=== PATIENT | male | born 1935 | race Caucasian/White ===

== ENCOUNTER 2016-04-30 11:40 | Inpatient (IN) | payer MEDICARE, OTHER ==
[~2016-04-30] VITALS: Ht 172.7 cm; Wt 57.8 kg
[2016-04-30] VITALS (10 sets, daily range): BP systolic 106–138; BP diastolic 64–92; BMI 17.6
[~2016-04-30 11:40] MED LIST: BAYER CHEWABLE81 MG PO; BETAPACE 120 M120 MG PO; PLAVIX75 MG PO; PRAVACHOL20 MG PO
[2016-04-30 12:20] LABS: BASOPHILS 0.1 % (0.0-2.0); EOSINOPHILS 0.6 % (0-7); HEMATOCRIT 38.1 % (42.0-54.0); HEMOGLOBIN 13.1 g/dL (13.5-17.5); IMMATURE GRANULOCYTES 0.2 % (0-5); LYMPHOCYTES 11.4 % (15-50); MCH 32.3 pg (26.0-34.0); MCHC 34.4 g/dL (31.0-37.0); MCV 94.1 fL (80.0-100.0); MEAN PLATELET VOLUME 9.2 fL (7.4-10.4); MONOCYTES 12.4 % (2-11); NEUTROPHILS 75.3 % (40-80); PLATELET COUNT 212 10x3/uL (130-400); RBC 4.05 10x6/uL (4.20-6.10); RDW 12.5 % (11.5-14.5); WBC 10.4 10x3/uL (4.8-10.8)
[2016-04-30 12:35] LABS: ALBUMIN 2.9 g/dL (3.4-5.0); ALKALINE PHOSPHATASE 93 U/L (46-116); ALT (SGPT) 14 U/L (10-68); BILIRUBIN - TOTAL 0.84 mg/dL (0.2-1.3); CALC OSMOLALITY 269 mosm/kg (275-300); CALCIUM 8.7 mg/dL (8.5-10.1); CARBON DIOXIDE 26.8 mmol/L (21.0-32.0); CHLORIDE - SERUM 99 mmol/L (98-107); CREATININE - SERUM 0.9 mg/dL (0.6-1.3); GLUCOSE 99 mg/dL (74-106); PROTEIN - SERUM 6.4 g/dL (6.4-8.2); SODIUM 133 mmol/L (136-145); UREA NITROGEN 23 mg/dL (7-18); eGFR NON AFRICAN AMERICAN 85 mL/min (90-120)
[2016-04-30 12:49] LABS: APPEARANCE CLEAR (CLEAR); BILIRUBIN NEGATIVE (NEGATIVE); COLOR DK YELLOW (YELLOW); GLUCOSE NEGATIVE (NEGATIVE); KETONE NEGATIVE (NEGATIVE); LEUKOCYTE ESTERASE TRACE (NEGATIVE); NITRITE NEGATIVE (NEGATIVE); PROTEIN TRACE mg/dL (NEGATIVE); SPECIFIC GRAVITY 1.025 (1.005-1.020)
[2016-04-30 12:50] LABS: BACTERIA MODERATE /hpf (NONE SEEN); EPITHELIAL CELLS 0-5 /hpf (0-5); MUCUS <1+ /lpf (NONE SEEN); RED CELLS - URINE 0-5 /hpf (0-5); WHITE CELLS - URINE 0-5 /hpf (0-5)
[2016-04-30 13:37] LABS: APTT 26.2 SECONDS (22.8-39.4); INR 1.2 (0.85-1.17); PROTIME 15.1 SECONDS (11.6-15.0)
--- NOTE | 2016-04-30 14:52 | NUR ---
REC'D VIA STRETCHER FROM ER PERSONNEL, AAO, VSS, DENIES PAIN, O2 VIA NC AT 2L, RIGHT AND LEFT HAND PIV' SL, LEFT GROIN WITH CDI DRESSING, RIGHT SIDE WEAKNESS NOTED TO UPPER AND LOWER EXTREMITY, ASSESSMENT COMPLETE PER FLOWSHEET, FAMILY TO BEDSIDE, STATUS UPDATED, VOICES NO NEEDS AT THIS TIME, CALL LIGHT IN REACH, ACCLAMATED TO ICU
--- NOTE | 2016-04-30 16:00 | NUR ---
NEURO CHECK PER FLOWSHEET
--- NOTE | 2016-04-30 17:00 | NUR ---
NEURO CHECK PER FLOWSHEET
--- NOTE | 2016-04-30 17:15 | NUR ---
UNIT # 1 PLTS INITIATED, VSS, AAO
--- NOTE | 2016-04-30 18:00 | NUR ---
NEURO CHECK PER FLOWSHEET
--- NOTE | 2016-04-30 18:10 | NUR ---
UNIT # 1 PLT'S COMPLETED, LINE FLUSHED WITH 100 CC NS
--- NOTE | 2016-04-30 18:20 | NUR ---
UNIT #2 PLT'S INITIATED
--- NOTE | 2016-04-30 18:40 | NUR ---
UNIT # 2 PLT'S COMPLETED, VSS, AAO, DENIES PAIN, LINE FLUSHED WITH 100 CC NS
--- NOTE | 2016-04-30 19:00 | NUR ---
1900: Pt rec'd resting HOB 30 degrees with eyes open. Pupils ARTHUR+ bilat. SMCx4 =b ilat fagot heater with commands. Pt is able to move all extrem vs gravity without difficulty or weakness. Pt is oriented x3 and conversive. Pt denies difficulty with vision at this time. No facial palsy is seen. Pt is breathing 022LNC with RR20X with SPO2 98%. Lungs clear bilat with decreased based bilat with auscultation. MMP and no cyanosis noted. Irregular heart tones. Pt is 101 UAfib on CM. Pulses are palpable x4. ABD soft NT BS active x4. Pt denies difficulty with urination. SR up x2, call light in reach, all monitors intact and alarms on.
--- NOTE | 2016-04-30 21:00 | NUR ---
2100: No change in RESP/CV/NS status. No change in IVF/UOP at this time. Pt denies pain, nausea, or vomitting at this time.
--- NOTE | 2016-04-30 23:00 | NUR ---
2300: No change in RESP/CV/NS status. No change in IVF/UOP. Pt remains UAfib 100's on CM. Pt without c/o at this time.
[2016-05-01] VITALS (27 sets, daily range): BP systolic 93–133; BP diastolic 55–101; Ht 172.7 cm; Wt 57.8 kg
--- NOTE | 2016-05-01 | NUR ---
0000: 1ST UNIT OF PLT STARTED VIA LEFT FA 18G IV. No change in pt RESP/CV/NV status. Pt remains Afib on CM. Pt denies pain, tingling, numbness, or nausea at this time. SMCx4=bilat with commands. No weakness or deficits noted.
--- NOTE | 2016-05-01 04:45 | NUR ---
0445: Pt resting with eyes closed. Open to verbal stimuli. Pt is oriented x3 and conversive. Denies pain, tingling, numbness at this time. No changes in neuro assessment. Pt remains Afib on CM 90-110bpm. SCDs intact. Bed alarm on.
--- NOTE | 2016-05-01 05:59 | NUR ---
0559: Pt resting with eyes closed. Open to verbal. No c/o at this time. Pt remains Afib 110's. Pt IVs saline locked at this time.
[2016-05-01 06:01] LABS: BASOPHILS 0 % (0.0-2.0); EOSINOPHILS 0.3 % (0-7); HEMATOCRIT 34.3 % (42.0-54.0); HEMOGLOBIN 11.7 g/dL (13.5-17.5); IMMATURE GRANULOCYTES 0.3 % (0-5); LYMPHOCYTES 3.7 % (15-50); MCH 31.6 pg (26.0-34.0); MCHC 34.1 g/dL (31.0-37.0); MCV 92.7 fL (80.0-100.0); MEAN PLATELET VOLUME 9.2 fL (7.4-10.4); MONOCYTES 9.5 % (2-11); NEUTROPHILS 86.2 % (40-80); RDW 12.3 % (11.5-14.5); WBC 12.1 10x3/uL (4.8-10.8)
[2016-05-01 06:04] LABS: PLATELET COUNT 290 10x3/uL (130-400)
[2016-05-01 06:27] LABS: CALC OSMOLALITY 267 mosm/kg (275-300); CALCIUM 8.8 mg/dL (8.5-10.1); CARBON DIOXIDE 25.7 mmol/L (21.0-32.0); CHLORIDE - SERUM 98 mmol/L (98-107); CREATININE - SERUM 0.7 mg/dL (0.6-1.3); GLUCOSE 95 mg/dL (74-106); POTASSIUM - SERUM 3.8 mmol/L (3.5-5.1); SODIUM 133 mmol/L (136-145); eGFR NON AFRICAN AMERICAN > 90 mL/min (90-120)
[2016-05-01 06:39] LABS: UREA NITROGEN 17 mg/dL (7-18)
--- NOTE | 2016-05-01 07:00 | NUR ---
RECIEVED AWAKE AND ALERT-NOTED R FACIAL DROOPING-R LEG WEAKNESS-SLIGHT GARBLED SPEECH-UCAF ON MONITOR
--- NOTE | 2016-05-01 08:30 | NUR ---
TO CT SCAN FOR CTA AND CT OF HEAD-R 20G [id number]
--- NOTE | 2016-05-01 09:30 | NUR ---
DR LINTON AT BEDSIDE-SPOKE WITH SON AND PT-REGARDING ICB AND PROGNOSIS-DR MACK CONSULTED AND PG'D REQUESTED BY DR LINTON
[2016-05-01 10:42] LABS: HEMATOCRIT 34.3 % (42.0-54.0); HEMOGLOBIN 11.9 g/dL (13.5-17.5); MCH 32.5 pg (26.0-34.0); MCHC 34.7 g/dL (31.0-37.0); MCV 93.7 fL (80.0-100.0); MEAN PLATELET VOLUME 9.3 fL (7.4-10.4); RBC 3.66 10x6/uL (4.20-6.10); RDW 12.4 % (11.5-14.5); WBC 9.7 10x3/uL (4.8-10.8)
[2016-05-01 11:02] LABS: INR 1.16 (0.85-1.17); PROTIME 14.7 SECONDS (11.6-15.0)
[2016-05-01 11:03] LABS: APTT 32.6 SECONDS (22.8-39.4)
--- NOTE | 2016-05-01 19:30 | NUR ---
1929: Left hand PIV leaking. PIV removed and 20G PIV restarted to left FA x1 attempt. Heparin restarted at 800 units/hr and NS TKVO.
--- NOTE | 2016-05-01 20:00 | NUR ---
2000: Pt resting HOB 30 degrees with eyes open. Pt alert and oriented. Visible right sided facial drooping is seen. Pt's speech is clear. Pt denies: pain, tingling, numbness, or visual disturbances at this time. Pt moves x4 extrem vs gravity to commands. Pt car greaser = bilat with commands. Pt breathing 022LNC [id number] with SPO2 98%. Lungs clear bilat with decreased bases with auscultation. MMP and no cyanosis noted. ABD soft NT BSx4 Active. Pt denies difficulty with elimination and is able to use urinal w/o difficulty. SR up x2, call light in reach, All monitors on and alarms intact.
--- NOTE | 2016-05-01 22:45 | NUR ---
2245: Pt bath done and linen changed. Pt repostioned for comfort. Pt placed HOB 30 degrees. No change in pt RESP/CV/NV status. No change in IVF/UOP.
[2016-05-02] VITALS (24 sets, daily range): BP systolic 81–128; BP diastolic 43–97
--- NOTE | 2016-05-02 | NUR ---
0000: No change in pt RESP/CV/NV status. No change in IVF/UOP. Pt remains Afib on CM. Easily arousable to verbal and oriented. Denies pain, tingling, or numbness.
[2016-05-02 05:51] LABS: BASOPHILS 0 % (0.0-2.0); EOSINOPHILS 1.4 % (0-7); HEMATOCRIT 36.7 % (42.0-54.0); IMMATURE GRANULOCYTES 0.2 % (0-5); LYMPHOCYTES 16.7 % (15-50); MCH 32.3 pg (26.0-34.0); MCHC 35.4 g/dL (31.0-37.0); MEAN PLATELET VOLUME 9.9 fL (7.4-10.4); MONOCYTES 12.7 % (2-11); PLATELET COUNT 265 10x3/uL (130-400); RBC 4.02 10x6/uL (4.20-6.10); RDW 12.3 % (11.5-14.5)
[2016-05-02 05:53] LABS: MCV 91.3 fL (80.0-100.0); WBC 6.5 10x3/uL (4.8-10.8)
[2016-05-02 05:57] LABS: CALC OSMOLALITY 265 mosm/kg (275-300); CARBON DIOXIDE 27.9 mmol/L (21.0-32.0); CHLORIDE - SERUM 98 mmol/L (98-107); CREATININE - SERUM 0.7 mg/dL (0.6-1.3); GLUCOSE 96 mg/dL (74-106); SODIUM 132 mmol/L (136-145); UREA NITROGEN 14 mg/dL (7-18); eGFR NON AFRICAN AMERICAN > 90 mL/min (90-120)
--- NOTE | 2016-05-02 06:30 | NUR ---
0630: Pt to CT at this time.
--- NOTE | 2016-05-02 06:45 | NUR ---
0645: Pt ret'd from CT. All monitors restablished at this time. Pt w/o c/o at this time. Pt 02 removed at this time. Breathing RA at this time. No change in neuro assessment. Pt remains with NS TKVO and Heparin 800 units/hr infusing via left arm PIV.
[2016-05-02 07:43] LABS: INR 1.2 (0.85-1.17); PROTIME 15.1 SECONDS (11.6-15.0)
[2016-05-02 07:51] LABS: APTT 78.2 SECONDS (22.8-39.4)
--- NOTE | 2016-05-02 20:00 | NUR ---
REPORT RECEIVED, AND ASSESSMENT COMPLETED. PTT RESULTS RECEIVED. NO ADJUSTMENTS IN HEPRIN DRIP NECCESARY. PT HAS SLIGHT WEAKNESS IN RIGHT SIDE. PUPILS LUGGISH WITH REPONSE TO LIGHT. SEE ASSESSMENT FOR FURTHER DETAILS.
--- NOTE | 2016-05-02 21:22 | NUR ---
2100 ROCEPHIN GIVEN. NO CHANGES IN NEURO STATUS AT THIS TIME. VSS WILL MONITOR.
--- NOTE | 2016-05-02 23:30 | NUR ---
REASSESSMENT COMPLETED. SEE ASSESSMENT FOR FULL DETAILS. PT RESTING IN ROOM QUIETLY. AROUSES TO VERBAL STIMULI. NO CHANGES IN NERUO STATUS AT THIS TIME. VSS WILL CONTINUE TO MONTIOR.
[2016-05-03] VITALS (25 sets, daily range): BP systolic 15–132; BP diastolic 50–100
--- NOTE | 2016-05-03 01:00 | NUR ---
PT SLEEPING IN ROOM. VSS. NO CHANGES IN STATUS AT THIS TIME. WILL MONITOR
--- NOTE | 2016-05-03 03:00 | NUR ---
REASSESSMENT COMPLETED. SEE ASSESMENT FOR FULL DETAILS. NO CHANGES IN NEURO STATUS AT THIS TIME. VSS WILL CONTINUE TO MONITOR.
[2016-05-03 03:52] LABS: BASOPHILS 0 % (0.0-2.0); EOSINOPHILS 1.1 % (0-7); HEMOGLOBIN 13.2 g/dL (13.5-17.5); IMMATURE GRANULOCYTES 0.2 % (0-5); MCHC 34.7 g/dL (31.0-37.0); MCV 92.2 fL (80.0-100.0); MEAN PLATELET VOLUME 9.4 fL (7.4-10.4); MONOCYTES 14.8 % (2-11); NEUTROPHILS 64.9 % (40-80); PLATELET COUNT 268 10x3/uL (130-400); RBC 4.12 10x6/uL (4.20-6.10); RDW 12.3 % (11.5-14.5); WBC 6.6 10x3/uL (4.8-10.8)
[2016-05-03 03:58] LABS: CALC OSMOLALITY 265 mosm/kg (275-300); CALCIUM 8.9 mg/dL (8.5-10.1); CARBON DIOXIDE 26.2 mmol/L (21.0-32.0); CHLORIDE - SERUM 98 mmol/L (98-107); CREATININE - SERUM 0.8 mg/dL (0.6-1.3); GLUCOSE 95 mg/dL (74-106); POTASSIUM - SERUM 3.9 mmol/L (3.5-5.1); SODIUM 132 mmol/L (136-145); UREA NITROGEN 15 mg/dL (7-18); eGFR NON AFRICAN AMERICAN > 90 mL/min (90-120)
--- NOTE | 2016-05-03 05:52 | NUR ---
PT SLEEPING IN BED. CALL LIGHT IN REACH. BEDSIDE RAILS UP X 2. NO CHANGES IN STATUS AT THIS TIME.
--- NOTE | 2016-05-03 09:08 | NUR ---
0700 RESTING WITH EYES CLOSED. VITALS ALL WNL. INITIAL ASSESSMENT DOCUMENTED PER FLOWSHEET. ROOM AIR WITH NO DISTRESS. ORAL CARE PERFORMED WITHOUT ASSIST.
--- NOTE | 2016-05-03 09:50 | NUR ---
ALL AM MEDS GIVEN PER MAR
--- NOTE | 2016-05-03 10:12 | NUR ---
PIV TO LEFT UPPER FOREARM INFILTRATED. D/C PIV AND WRAPPED.
--- NOTE | 2016-05-03 10:49 | NUR ---
20 GAUGE PIV STARTED TO RIGHT FOREARM, PROCALAMINE RESTARTED.
--- NOTE | 2016-05-03 11:50 | NUR ---
1100 REASSESSMENT DOCUMENTED PER FLOWSHEET.
--- NOTE | 2016-05-03 12:31 | NUR ---
Nutrition Follow Up: Chart reviewed. Noted pt with aspiration and awaiting speech eval today. Diet: Regular puree with honey thick liquids Wt gain of 5# since admit +BM 05/01/16 Labs noted - Na low Meds: Procalamine @ 30 ml/hr providing 176.4 kcal and 21 g protein Rec continue diet per NATIONAL SALES EXECUTIVE recs. RD following.
--- NOTE | 2016-05-03 18:49 | NUR ---
1300 LYING IN BED VISITING WITH FAMILY, ROOM AIR. VITALS ALL WNL.
--- NOTE | 2016-05-03 18:51 | NUR ---
1500 ASSESSMENT DOCUMENTED PER FLOWSHEET, DENIES NEEDS AT THIS TIME. FAMILY AT BEDSIDE. 1800 ALL PM MEDS GIVEN PER JUN.
--- NOTE | 2016-05-03 19:40 | NUR ---
REC'D TO CARE, DAIRY INSPECTOR PER FLOWSHEET. PT AWAKE, ORIENTED TO SITUATION, VSS. CM - UCAF. PT DENIES PAIN, REPORTS "JUST A SLIGHT TRIPATHI". DENIES NEED FOR PRN MED. PIV X 2 INFUSING - SEE FLOWSHEET, NO REDNESS OR SWELLING AT SITES. URINAL AT BS. C/L IN REACH. TV CHANGED TO CHANNEL PT REQUETED. ALARMS ON.
--- NOTE | 2016-05-03 21:38 | NUR ---
NO VISITORS. PT RESTING QUIETLY, VSS.
--- NOTE | 2016-05-03 23:00 | NUR ---
REASSESSMENT PER FLOWSHEET. AWAKENS EASILY, NEURO WNL. VSS. C/L IN REACH.
[2016-05-04] VITALS (14 sets, daily range): BP systolic 98–135; BP diastolic 61–96
--- NOTE | 2016-05-04 01:00 | NUR ---
PT RESTING QUIETLY, VSS. DENIES NEEDS. NEURO WNL, VOIDING PER URINAL
--- NOTE | 2016-05-04 03:40 | NUR ---
AM LAB DRAWN. REASSESSMENT PER FLOWSHEET, NO ACUTE CHANGES. PT ALERT AND ORIENTED, DENIES PAIN OR NEEDS.
[2016-05-04 04:16] LABS: BASOPHILS 0.1 % (0.0-2.0); EOSINOPHILS 0.9 % (0-7); HEMATOCRIT 38.5 % (42.0-54.0); HEMOGLOBIN 13.6 g/dL (13.5-17.5); IMMATURE GRANULOCYTES 0.1 % (0-5); LYMPHOCYTES 15.1 % (15-50); MCH 32.1 pg (26.0-34.0); MCHC 35.3 g/dL (31.0-37.0); MCV 90.8 fL (80.0-100.0); MEAN PLATELET VOLUME 9.5 fL (7.4-10.4); MONOCYTES 13.9 % (2-11); NEUTROPHILS 69.9 % (40-80); PLATELET COUNT 267 10x3/uL (130-400); RBC 4.24 10x6/uL (4.20-6.10); RDW 12.2 % (11.5-14.5); WBC 7.4 10x3/uL (4.8-10.8)
[2016-05-04 04:41] LABS: CALC OSMOLALITY 262 mosm/kg (275-300); CALCIUM 8.8 mg/dL (8.5-10.1); CARBON DIOXIDE 24.9 mmol/L (21.0-32.0); CHLORIDE - SERUM 97 mmol/L (98-107); CREATININE - SERUM 0.7 mg/dL (0.6-1.3); GLUCOSE 88 mg/dL (74-106); SODIUM 131 mmol/L (136-145); UREA NITROGEN 14 mg/dL (7-18); eGFR NON AFRICAN AMERICAN > 90 mL/min (90-120)
--- NOTE | 2016-05-04 06:09 | NUR ---
PT UP IN BED, SET UP TO BRUSH HIS TEETH. EXPLAINED NPO UNTIL SWALLOW EVAL. VSS.
--- NOTE | 2016-05-04 07:00 | NUR ---
REPORT RECIEVED, INTITIAL ASSESSMENT COMPLETE, PLEASE SEE FLOW SHEETS FOR DETAILS. PT DENIES NEEDS/PAIN AT THIS TIME. BED LOW AND LOCKED, CALL LIGHT IN REACH. SCD'S ON AND RUNNING. VSS AT THIS TIME, WILL CONTINUE TO MONITOR.
--- NOTE | 2016-05-04 09:00 | NUR ---
PT DOES INDEPENDED ORAL CARE AND TURNING/MOVING UP IN BED. WILL CONTINUE TO MONITOR.
--- NOTE | 2016-05-04 09:37 | NUR ---
Is the patient Alert and Oriented? Yes 0 * How many steps to enter\exit or inside your home? 1-2 0 * PCP DR. HUNTER 0 * Pharmacy [facility] IN [place] 0 * Preadmission Environment Home with Family 0 * ADLs Independent 0 * Equipment Cane Rolling Walker 0 * Other Equipment PATIENT HAS WALKER AND CANE BUT HAS NOT BEEN USING THEM PRIOR TO COMING TO THE HOSPITAL 0 * List name and contact numbers for known caregivers / representatives who currently or will assist patient after discharge: SPOUSE: GRADY (H) [phone] (C) [phone] 0 * Community resources currently utilized None 0 * Additional services required to return to the preadmission environment? No 0 * Can the patient safely return to the preadmission environment? Yes 0 * Has this patient been hospitalized within the prior 30 days at any hospital? No 0 Grand Total: 0 PATIENT LIVES AT HOME WITH HIS , GRADY. SHE STATES SHE WILL DRIVE HIM HOME AT DISCHARGE. PATIENT'S PCP IS DR. HUNTER. HE GETS HIS MEDS FROM [facility] IN [place]. PATIENT STATES HE HAD HOME HEALTH FROM [facility] IN THE PAST. HE HAS A WALKER AND CANE BUT DID NOT USE EITHER PRIOR TO COMING TO THE [facility]. PATIENT STATES THERE ARE 1-2 STEPS TO ENTER HIS HOME. HE PREFERS TO RETURN HOME AT DISCHARGE. NO DISCHARGE NEEDS AT THIS TIME.
--- NOTE | 2016-05-04 10:55 | NUR ---
ORDERS TO TRANSFER GIVEN BY DR GARCÍA. WILL CONTINUE ALL CURRENT ORDERS EXCEPT ASA SUPP. AND ADD TELEMETRY ON THE FLOOR. PT RESTING IN BED AND RECIEVING A SWALLOW EVAL. PT CAN MAVE MECHANICALLY SOFT FOOD WITH HONEY THICK LIQUIDS. DENIES PAIN/NEEDS AT THIS TIME, WILL CONTINUE TO MONITOR.
--- NOTE | 2016-05-04 13:00 | NUR ---
PT RECIEVED BATH, DENIES PAIN/OTHER NEEDS AT THIS TIME. WILL CONTINUE TO MONITOR.
--- NOTE | 2016-05-04 13:10 | NUR ---
RECEIVED REPORT FROM ICU NURSE, RAMYA DALTON. STATED THAT SHE WOULD BRING PT IN A LITTLE WHILE VIA WHEELCHAIR.
--- NOTE | 2016-05-04 13:22 | NUR ---
CALLED AND GAVE REPORT TO AIDA DALTON ON PCU FLOOR. WILL TRANSFER PT.
--- NOTE | 2016-05-04 13:42 | NUR ---
PT SAFELY TRANSFERED VIA WHEELCHAIR TO PCU BED 2125. LEFT IN CARE OF LM DALTON.
--- NOTE | 2016-05-04 13:43 | NUR ---
PT ARRIVED TO ROOM 2125 VIA WHEELCHAIR, ACCOMPANIED BY ICU NURSE, RAMYA DALTON. PT ORIENTED TO ROOM AND CALL LIGHT. PT DENIES ANY NEEDS AT THIS TIME. CALL LIGHT IN REACH, NAD NOTED, WILL CONTINUE TO MONITOR.
--- NOTE | 2016-05-04 17:11 | NUR ---
CALLED PHARMACY AND SPOKE WITH MARISEL, INFORMED HER THAT I NEED SODIUM CHLORIDE TAB FOR PT. SHE STATED THAT THEY WOULD SENT IT UP SOON.
--- NOTE | 2016-05-04 19:03 | NUR ---
SITTING UP IN BED, AAOX3, SKIN WARM AND DRY, RESP UNLABORED, IV PATENT TO LEFT FOREARM, RIGHT FOREARM IV INFILTRATED, DC'D AT THIS TIME, NO NEURO DEFICITS NOTED, CHARLES BEE
[2016-05-05 00:32] VITALS: BP 108/60
[2016-05-05 04:42] VITALS: BP 109/38
[2016-05-05 05:32] LABS: BASOPHILS 0 % (0.0-2.0); EOSINOPHILS 1.8 % (0-7); HEMATOCRIT 37.9 % (42.0-54.0); HEMOGLOBIN 13.7 g/dL (13.5-17.5); IMMATURE GRANULOCYTES 0.5 % (0-5); MCH 32.6 pg (26.0-34.0); MCHC 36.1 g/dL (31.0-37.0); MCV 90.2 fL (80.0-100.0); MEAN PLATELET VOLUME 10.1 fL (7.4-10.4); MONOCYTES 14.6 % (2-11); NEUTROPHILS 66.1 % (40-80); RDW 12.1 % (11.5-14.5); WBC 7.4 10x3/uL (4.8-10.8)
--- NOTE | 2016-05-05 05:40 | NUR ---
RESTING QUIETLY IN BED, NO DISTRESS NOTED
[2016-05-05 05:47] LABS: PLATELET COUNT 163 10x3/uL (130-400)
[2016-05-05 05:53] LABS: CALC OSMOLALITY 262 mosm/kg (275-300); CALCIUM 8.7 mg/dL (8.5-10.1); CARBON DIOXIDE 21.7 mmol/L (21.0-32.0); CHLORIDE - SERUM 99 mmol/L (98-107); CREATININE - SERUM 0.7 mg/dL (0.6-1.3); GLUCOSE 94 mg/dL (74-106); POTASSIUM - SERUM 4.5 mmol/L (3.5-5.1); SODIUM 130 mmol/L (136-145); eGFR NON AFRICAN AMERICAN > 90 mL/min (90-120)
[2016-05-05 06:00] LABS: UREA NITROGEN 18 mg/dL (7-18)
--- NOTE | 2016-05-05 06:22 | NUR ---
NO DISTRESS OBSERVED WITH PT AT THIS TIME CALL LIGHT IN REACH SRX2 BED LOW AND LOCKED WILL MONITOR
--- NOTE | 2016-05-05 06:54 | NUR ---
RECEIVED REPORT FROM COMMUNITY ASSOCIATE NURSE, PT IN BED, REQUESTED ANOTHER BLANKET, WILL PROVIDED PT WITH ANOTHER BLANKET. PT DENIES ANY OTHER NEEDS AT THIS TIME. CALL LIGHT IN REACH, ASSESSMENT DONE AT THIS TIME, NAD NOTED, WILL CONTINUE TO MONITOR.
[2016-05-05 08:00] VITALS: BP 126/62
--- NOTE | 2016-05-05 08:12 | NUR ---
ADMINISTERED MORNING MEDICATIONS, PT IN BED, DENIES ANY NEEDS AT THIS TIME. CALL LIGHT IN REACH, NAD NOTED, WILL CONTINUE TO MONITOR.
[2016-05-05 12:00] VITALS: BP 91/72
[2016-05-05 16:00] VITALS: BP 104/42
--- NOTE | 2016-05-05 17:02 | NUR ---
PT HAVING A HARD TIME COUGHING UP PHLEGN, PROVIDED PT WITH SUCTION, TO HELP HIM GET PHLEGN UP. PT WAS ABLE TO SUCTION SOME PHLEGN OUT. STATED THAT SUCTION HAS HELPED A LITTLE BIT. PT DENIES ANY NEEDS AT THIS TIME. CALL LIGHT IN REACH, NAD NOTED, WILL CONTINUE TO MONITOR.
--- NOTE | 2016-05-05 17:32 | NUR ---
REHAB PRESCREENING Rehab referral received and chart reviewed. This patient has a rehab diagnosis and has had a PT evaluation today. He was unable to perform mobility today. Rehab will continue to follow this patient for progress and tolerance for 3 hours of therapy per day. Thank you for this referral! Aleah Alex, PARAMEDIC SUPERVISOR PD/[facility]
--- NOTE | 2016-05-05 19:03 | NUR ---
SITTING UP IN BED, AAOX3, SKIN WARM AND DRY, RESP UNLABORED, IV PATENT TO LEFT FOREARM, NO DISTRESS NOTED
[2016-05-05 20:00] VITALS: BP 138/63
[2016-05-06] VITALS: BP 117/67
--- NOTE | 2016-05-06 03:57 | NUR ---
SENIOR CONSTRUCTION PROJECT MANAGER AT BEDSIDE TO OBTAIN VITALS, CALL LIGHT IN REACH. WILL CONTINUE WITH PLAN OF CARE.
[2016-05-06 04:00] VITALS: BP 121/48
[2016-05-06 06:13] LABS: BASOPHILS 0.1 % (0.0-2.0); EOSINOPHILS 0.5 % (0-7); HEMATOCRIT 36.4 % (42.0-54.0); HEMOGLOBIN 12.4 g/dL (13.5-17.5); IMMATURE GRANULOCYTES 0.4 % (0-5); LYMPHOCYTES 11.8 % (15-50); MCH 31.8 pg (26.0-34.0); MCHC 34.1 g/dL (31.0-37.0); MEAN PLATELET VOLUME 9.8 fL (7.4-10.4); MONOCYTES 11.8 % (2-11); NEUTROPHILS 75.4 % (40-80); RDW 12.6 % (11.5-14.5)
[2016-05-06 06:21] LABS: MCV 93.3 fL (80.0-100.0); PLATELET COUNT 237 10x3/uL (130-400); WBC 9.4 10x3/uL (4.8-10.8)
--- NOTE | 2016-05-06 06:24 | NUR ---
RESTING QUIETLY IN BED, NO DISTRESS NOTED
[2016-05-06 06:28] LABS: CALC OSMOLALITY 267 mosm/kg (275-300); CALCIUM 8.4 mg/dL (8.5-10.1); CARBON DIOXIDE 26.3 mmol/L (21.0-32.0); CHLORIDE - SERUM 100 mmol/L (98-107); CREATININE - SERUM 0.8 mg/dL (0.6-1.3); GLUCOSE 91 mg/dL (74-106); POTASSIUM - SERUM 3.9 mmol/L (3.5-5.1); SODIUM 133 mmol/L (136-145); UREA NITROGEN 17 mg/dL (7-18); eGFR NON AFRICAN AMERICAN > 90 mL/min (90-120)
--- NOTE | 2016-05-06 07:49 | NUR ---
PT SITTING UP IN BED DENIES NEEDS AT THIS TIME WILL CONTINUE TO MONITOR.
[2016-05-06 08:14] VITALS: BP 122/64
[2016-05-06 08:18] LABS: MAGNESIUM - SERUM 1.7 mg/dL (1.8-2.4); PHOSPHOROUS 3.5 mg/dL (2.5-4.9)
[2016-05-06 12:40] VITALS: BP 158/57
--- NOTE | 2016-05-06 13:32 | NUR ---
PT PIV INFILTRATED EARLIER DC PIV WITH CATHETER TIP INTACT. RESITED TO LEFT FA 22G X2 STICKS.
--- NOTE | 2016-05-06 14:06 | NUR ---
PT SITTING UP IN BED WITH AT BEDSIDE FARHAD CHADWICK WILL CONTINUE TO MONITOR
--- NOTE | 2016-05-06 14:44 | CN ---
PATIENT NAME:LAURIE KERNS MEDICAL RECORD: [id number] : 31 LOCATION:[facility].2126 ADMIT DATE: 04/30/16 ACCOUNT: [id number] CONSULTING PHYSICIAN: STAS MACK MD REFERRING PHYSICIAN: MITCH HUNTER DO DATE OF CONSULTATION: 05/01/2016 Cardiology Consultation HISTORY OF PRESENT ILLNESS: An 81-year-old gentleman with a known history of coronary artery disease, status post intervention via Dr. Marte, most recently on , he was admitted after a fall, was found to have intracranial hemorrhage. As stated above, he has had 2 recent interventions, was previously on Plavix and aspirin. Currently, he is alert and oriented, does have dysarthria, right-sided weakness. We were asked to see him to assist with anticoagulant management. PAST MEDICAL HISTORY: Includes: 1. History of coronary artery disease. 2. Hypertension. 3. Hyperlipidemia. 4. Paroxysmal atrial fibrillation. ALLERGIES: None known. MEDICATIONS: At home typically include aspirin 81 mg p.o. every day, sotalol 120 b.i.d., pravastatin 20 every day, and Plavix 75 every day. SOCIAL HISTORY: , lives in ____. He is a nonsmoker, was able to easily take care of his ADLs prior to admission. Good family support. REVIEW OF SYSTEMS: Unobtainable due to patient factors. PHYSICAL EXAMINATION: GENERAL: Pleasant gentleman who appears stated age. VITAL SIGNS: Blood pressure 118/66, pulse is currently ____ and irregular. HEENT: Normocephalic and atraumatic. NECK: No bruits are noted. HEART: Irregular, rate ____. LUNGS: Fairly good air excursion. ABDOMEN: Soft and nontender. EXTREMITIES: Pulses actually well preserved, 2+. 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 Discussed with Dr. Anderson. We will use heparin with no boluses, continuous infusion. PTT goal 40-70. This was discussed in detail with the patient's and son as well. Further recommendations based on clinical course. TRANSINT:[id number] Voice Confirmation ID: [id number] DOCUMENT ID: [id number] CONSULT REPORT [id number] LAURIE KERNS STAS MACK MD at 1444 CC: [id number] DICTATION DATE: 05/01/16 1136 RADIO FREQUENCY ENGINEER: 05/01/16 1445 ADM IN [facility] [address] [id number]
--- NOTE | 2016-05-06 15:06 | NUR ---
REHAB PRESCREENING Mr. Reddy ambulated 6 feet today with PT. Upon interview he stated to me that he is 'ready to go to rehab now!'. I will begin paper screen and he will ready to admit to rehab once approvals are in place and his physician feels he is appropriate for discharge. Thank you for this referral! Aleah Alex, ADMINISTRATIVE LIBRARY ASSISTANT PD/[facility]
[2016-05-06] MEDS ORDERED: ASPIRIN325 MG PO (15:22)
[2016-05-06] MEDS ORDERED: TESSALON PERLE100 MG PO (15:22)
[2016-05-06] MEDS ORDERED: KEPPRA500 MG PO (15:23)
[2016-05-06] MEDS ORDERED: PROTONIX40 MG PO (15:23)
[2016-05-06] MEDS ORDERED: THERMOTABS 1 GM1 GM PO (15:28)
--- NOTE | 2016-05-06 15:28 | NUR ---
Patient Name: LAURIE KERNS Encounter No: [id number] : 1935 Primary Insurance: MEDICARE A & B Anticipated DC Date: 05-06-2016 Planned Disposition: Inpatient Rehab External Planned Provider: [facility] INPATIENT REHAB DCP COMMENTS: CM RECEIVED INPATIENT REHAB PRESCREENING ORDER, MET WITH PT AND SPOUSE IN ROOM TO DISCUSS DISCHARGE PLANNING AND NEEDS. PT REPORTS SPEAKING TO THE DOCTOR ABOUT INPATIENT REHAB AND PT WOULD LIKE TO BE EVALUATED FOR INPATIENT REHAB AT [facility]. IMPORTANT MESSAGE FROM MEDICARE PROVIDED AND DISCUSSED. CM SPOKE TO DONNIE OF INPATIENT REHAB, THEY CAN ACCEPT PT TODAY FOR REHAB IF PT IS STABLE FOR DISCHARGE. CM SPOKE TO LADI ZAMARRIPA WHO REPORTS PT WILL DISCHARGE TODAY TO INPATIENT REHAB. PT AND SPOUSE NOTIFIED, PT REPORTS THAT WAS WHAT HE WAS HOPING FOR. [facility] INPATIENT REHAB TO CONTACT MED 2 NURSE WITH ROOM NUMBER WHEN READY TO ACCEPT PT AND NURSE REPORT. KOLTON GREENFIELD, CASE MANAGEMENT
[2016-05-06 16:57] VITALS: BP 125/78
--- NOTE | 2016-05-06 17:05 | NUR ---
PT SUPPOSED TO GO TO IP REHAB TONIGHT. DC PIV IN LEFT FA WITH CATHETER TIP INTACT. AWAITING ROOM # AND PAPERWORK
--- NOTE | 2016-05-06 17:29 | NUR ---
PT SITTING UP IN BED EATING DINNER. STILL WAITING ON BED # FROM REHAB.
--- NOTE | 2016-05-06 18:40 | NUR ---
WENT OVER DC PAPERWORK WITH PT. PT VERBALIZES UNDERSTANDING. DC TELE. SECURITY PROJECT MANAGER WHEELED PT OUT.
--- NOTE | 2016-07-05 12:39 | DS ---
PATIENT:LAURIE KERNS :31 MEDICAL RECORD: [id number] DISCHARGE SUMMARY ADMISSION DATE: 04/30/16 DISCHARGE DATE: 05/06/16 ADMISSION DATE: 04/30/2016 DISCHARGE DATE: 05/06/2016 DISCHARGE DIAGNOSES: 1. Coronary artery disease. 2. Left temporal lobe intracerebral hemorrhage. 3. Weakness. 4. Atrial fibrillation. CONSULTS: 1. Dr. Anderson. 2. Cardiology, Dr. Fuller. STUDIES: CT of the head, which showed intraparenchymal hematoma in the left temporal lobe with mild surrounding edema. HOSPITAL COURSE: The full H&P is listed elsewhere in the chart for this 81-year-old male patient with known coronary artery disease, who underwent PCI and stent on April 28. He has had a fall at home and suffered an intracranial hemorrhage. He was on dual antiplatelet therapy with Plavix and aspirin. CT did confirm hemorrhage with mild edema. He had some dysarthria and some right-sided weakness. He was placed in the intensive care unit under the care of ____ and Dr. Anderson did follow during his hospitalization. He was placed on a heparin drip. He underwent a swallow eval and it was recommended that he have a pureed diet with honey thickened fluids as just a general swallow precaution. The patient's clinical condition did improve. Per the recommendations of cardiology, his Plavix was discontinued and he is to continue at 325 aspirin daily. He was admitted into the inpatient rehab on mechanical soft diet with honey-thickened liquids. See med rec. TRANSINT:[id number] Voice Confirmation ID: [id number] DOCUMENT ID: [id number] Dictated By: ZEFERINO ESTRADA I have interviewed/examined the above patient and agree with these documented findings. ANTWAN GARCÍA MD at 0904 at 1238 CC: [id number] DICTATION DATE: 06/30/16 0840 ADVERTISING OPERATIONS COORDINATOR: 06/30/162 DIS IN 05/06/16 [facility] [address] [place] [address]
== END 2016-05-06 18:41 | DRG 64 ==
LOC: D.ER 11:40 → D.M2 14:07 → D.ICU 14:07 → D.M2 05-04 13:34
PROVIDERS: Emergency Medicine; Family Medicine; Family Medicine Adult Medicine; Internal Medicine Interventional Cardiology; Neurological Surgery; ADMIT Family Medicine
DX: I61.1 Nontraumatic intracerebral hemorrhage in hemisphere, cortical (principal); G93.6 Cerebral edema; G81.91 Hemiplegia, unspecified affecting right dominant side; E87.1 Hypo-osmolality and hyponatremia; I25.10 Atherosclerotic heart disease of native coronary artery without angina pectoris; W19.XXXA Unspecified fall, initial encounter; I10 Essential (primary) hypertension; E78.5 Hyperlipidemia, unspecified; I48.0 Paroxysmal atrial fibrillation; R40.2143 Coma scale, eyes open, spontaneous, at hospital admission; R40.2363 Coma scale, best motor response, obeys commands, at hospital admission; R40.2253 Coma scale, best verbal response, oriented, at hospital admission; Z86.711 Personal history of pulmonary embolism; Z95.5 Presence of coronary angioplasty implant and graft

== ENCOUNTER 2016-05-06 18:30 | Inpatient (IN) | payer MEDICARE, OTHER ==
[~2016-05-06] VITALS: Ht 172.7 cm; Wt 50.8 kg
[~2016-05-06 18:30] MED LIST changes: +ASPIRIN325 MG PO; +KEPPRA500 MG PO; +PROTONIX40 MG PO; +TESSALON PERLE100 MG PO; +THERMOTABS 1 GM1 GM PO
--- NOTE | 2016-05-06 19:35 | NUR ---
PT REPORTEDLY ARRIVED TO UNIT AT 1830. PT IS A&OX3. PT STATES NO NEEDS AND NO COMPLAINTS OF PAIN. PT RUE AND RLE ARE SLIGHTLY WEAKER THAN THE LEFT. WCTM. BED LOW. CL IN REACH.
[2016-05-06 20:54] VITALS: BP 97/44; BMI 17.0
[2016-05-06 21:10] VITALS: BP 97/44
--- NOTE | 2016-05-06 21:30 | NUR ---
PT TOOK HS MEDS WITHOUT DIFFICULTY WHOLE WITH THICKENED LIQUIDS. PT LOPRESSOR HELD DUE TO LOW BP OF 97/44. WCTM. BED LOW. CL IN REACH.
--- NOTE | 2016-05-06 23:35 | NUR ---
PT RESTING, EYES CLOSED. BED LOW. CLIN REACH. WCTM.
--- NOTE | 2016-05-07 02:45 | NUR ---
PT RESTING, EYES CLOSED. BED LOW. CL IN REACH. WCTM.
--- NOTE | 2016-05-07 06:39 | NUR ---
PT TOOK AM MEDS WITHOUT DIFFICULTY. PT DENIES NEEDS AT THIS TIME. BED LOW. CL IN REACH.
[2016-05-07 07:14] LABS: BASOPHILS 0.1 % (0.0-2.0); EOSINOPHILS 0.9 % (0-7); HEMATOCRIT 35.7 % (42.0-54.0); HEMOGLOBIN 12.3 g/dL (13.5-17.5); IMMATURE GRANULOCYTES 0.4 % (0-5); LYMPHOCYTES 12.6 % (15-50); MCHC 34.5 g/dL (31.0-37.0); MEAN PLATELET VOLUME 9.5 fL (7.4-10.4); MONOCYTES 12.4 % (2-11); NEUTROPHILS 73.6 % (40-80); PLATELET COUNT 210 10x3/uL (130-400); RBC 3.84 10x6/uL (4.20-6.10); RDW 12.7 % (11.5-14.5); WBC 8.5 10x3/uL (4.8-10.8)
[2016-05-07 07:25] LABS: CALC OSMOLALITY 269 mosm/kg (275-300); CALCIUM 8.4 mg/dL (8.5-10.1); CARBON DIOXIDE 25.9 mmol/L (21.0-32.0); CHLORIDE - SERUM 100 mmol/L (98-107); CREATININE - SERUM 0.8 mg/dL (0.6-1.3); GLUCOSE 86 mg/dL (74-106); SODIUM 135 mmol/L (136-145); UREA NITROGEN 15 mg/dL (7-18); eGFR NON AFRICAN AMERICAN > 90 mL/min (90-120)
--- NOTE | 2016-05-07 08:01 | NUR ---
PATIENT AWAKE, ALERT/ORIENT. CALL LIGHT WITHIN REACH. VOICES NO NEEDS
[2016-05-07 08:27] VITALS: Ht 172.7 cm; Wt 50.8 kg
[2016-05-07 09:53] VITALS: BP 123/44
--- NOTE | 2016-05-07 10:23 | NUR ---
PATIENT RESTING IN BED, WAITING TO WORK WITH THERAPY. ALERT/ORIENT X4
--- NOTE | 2016-05-07 13:00 | NUR ---
PATIENT IN REHAB ROOM. WORKING WITH PHYSICAL THERAPIST. DENIES ANY PAIN/DISC AT THIS TIME
--- NOTE | 2016-05-07 13:40 | NUR ---
PT IS RESTING IN BED WITH EYES OPEN. ALERT AND ORIENTED X 3. DENIES PAIN OR DISCOMFORT. STATES: "I HAD A VERY GOOD DAY." LEFT SIDE WEAKNESS NOTED. PT USING URINAL PRN. SR'S ARE UP X 3 IN BED. CALL LIGHT AND BEDSIDE TABLE ARE WITHIN EASY REACH.
--- NOTE | 2016-05-07 13:48 | NUR ---
PATIENT STATES HE HAS READING GLASSES, BUT LEFT THEM AT HOME. ABLE TO SIGN ADMISSION PAPER WORK WITHOUT READING GLASSES.
--- NOTE | 2016-05-07 16:27 | NUR ---
PATIENT HAS A NEW ROOMATE. PATIENT STATED THAT THE DIRECTOR OF REHAB, DONNIE, HAD TOLD HIM HE COULD HAVE A PRIVATE ROOM. A PRIVATE ROOM IS AVALIBLE AT THIS TIME. PATIENT MOVED TO ROOM 1110. THIS NURSE STATED THAT UNLESS WE GET ANOTHER PATIENT THAT IS IN ISOLATION HE WOULD BE ABLE TO STAY IN THIS ROOM. STATED THAT WE ONLY HAVE FOUR PRIVATE ROOMS IN THE REHAB UNIT, AND THEY ARE SAVED FOR PATIENTS THAT ARE IN ISOLATION.
--- NOTE | 2016-05-07 19:30 | NUR ---
PT IS RESTING IN BED WITH EYES OPEN. ALERT AND ORIENTED X 3. DENIES ACUTE DISCOMFORT AT THIS TIME. LEFT SIDE WEAKNESS NOTED. VSS. USING URINAL PRN. SR'S ARE UP X 2 IN BED. CALL LIGHT AND BEDSIDE TABLE ARE WITHIN EASY REACH.
--- NOTE | 2016-05-07 21:54 | NUR ---
RESTING QUIETLY IN BED WITH EYES CLOSED. RESPS ARE EVEN AND UNLABORED. NO ACUTE DISTRESS NOTED. PT ASSISTED TO THE BATHROOM WITH SBA PRN.
--- NOTE | 2016-05-07 21:58 | NUR ---
RESTING QUIETLY IN BED WITH EYES CLOSED. RESPS ARE EVEN AND UNLABORED. NO ACUTE DISTRESS NOTED.
--- NOTE | 2016-05-08 01:30 | NUR ---
RESTING IN BED WITH EYES CLOSED.
--- NOTE | 2016-05-08 03:37 | NUR ---
RESTING QUIETLY IN BED WITH EYES CLOSED. NO DISTRESS NOTED.
--- NOTE | 2016-05-08 04:02 | NUR ---
pt resting quietly, eyes closed in semi jaramillo position. no s/s of acute distress.
--- NOTE | 2016-05-08 06:27 | NUR ---
PT RESTING IN BED DRINKING A CUP OF COFFEE. OFFERED A SHOWER. PT STATED HIS WAS BRINGING HIM HIS CLOTHES THIS AM, AND SHE WOULD ASSIST HIM WHEN SHE GOT HERE.
[2016-05-08 09:00] VITALS: BP 110/50
--- NOTE | 2016-05-08 09:55 | NUR ---
SITTING IN WHEELCHAIR IN THE ROOM. NO NEEDS VOICED.
--- NOTE | 2016-05-08 11:55 | NUR ---
PT TOOK A SHOWER WITH WIFES HELP. NO FALLS NOTED.
--- NOTE | 2016-05-08 13:19 | NUR ---
SITTING IN WHEELCHAIR IN GYM WORKING WITH THERAPY.
--- NOTE | 2016-05-08 15:46 | NUR ---
RESTING ON RT SIDE IN BED WITH CALLIGHT IN REACH.
--- NOTE | 2016-05-08 17:31 | NUR ---
SLEPING IN BED AND EASILY AROUSED TO TAKE MEDICATION. NO NEEDS VOICED.
--- NOTE | 2016-05-08 19:30 | NUR ---
PT IS RESTING IN BED WITH EYES CLOSED. AWOKE EASILY TO VERBAL STIMULI. ALERT AND ORIENTED X 3. DENIES PAIN OR DISCOMFORT. VSS. NO NEEDS VOICED. SR'S ARE UP X 3 IN BED. CALL LIGHT AND BEDSIDE TABLE ARE WITHIN EASY REACH.
[2016-05-08 20:01] VITALS: BP 129/55
--- NOTE | 2016-05-08 21:55 | NUR ---
RESTING QUIETLY IN BED WITH EYES CLOSED. RESPS ARE EVEN AND UNLABORED. NO ACUTE DISTRESS NOTED.
--- NOTE | 2016-05-09 00:01 | NUR ---
RESTING IN BED WITH EYES CLOSED.
--- NOTE | 2016-05-09 01:55 | NUR ---
PT C/O JUST NOT FEELING GOOD, FURTHER REVIEW IS HIS LOWER STOMACH IS CAUSING DISCOMFORT, PT STATES HE HAD A BM YESTERDAY, DENIES FEELING NAUSEAS. STATES HE CAN'T ARTICULATE, WILL CONTINUE TO MONITOR.
--- NOTE | 2016-05-09 04:01 | NUR ---
PT RESTING QUIETLY IN BED WITH EYES CLOSED.
--- NOTE | 2016-05-09 05:55 | NUR ---
PT RESTING IN BED WITH EYES OPEN. NO NEEDS VOICED. USING URINAL PRN.
[2016-05-09 09:00] VITALS: BP 121/56
--- NOTE | 2016-05-09 09:35 | NUR ---
NO COUGHING NOTED. TOOK AM PILLS WITH EASE. CALLIGHT IN REACH.
--- NOTE | 2016-05-09 09:40 | NUR ---
RESTING ON RT SIDE OF THE BED AND BREATHING EASY WITH 02 2L/NC. TOOK AM PILLS WITH EASE. CALLIGHT IN REACH.
--- NOTE | 2016-05-09 13:00 | NUR ---
PT IN WHEELCHAIR ROLLING AROUND WITH IN HALLWAY.
--- NOTE | 2016-05-09 15:35 | NUR ---
RESTING IN BED WITHOUT ANY NEEDS VOICED.
--- NOTE | 2016-05-09 17:46 | NUR ---
ASSISTED UP IN BED FOR DINNER. CALLIGHT IN REACH.
--- NOTE | 2016-05-09 19:19 | NUR ---
PT IS RESTING IN BED WITH EYES OPEN. ALERT AND ORIENTED X 3. DENIES ANY PAIN OR DISCOMFORT. NO DISTRESS NOTED. VSS. NO NEEDS VOICED. PT IS VERY TALKATIVE AND FRIENDLY. SR'S ARE UP X 3 IN BED. CALL LIGHT AND BEDSIDE TABLE ARE WITHIN EASY REACH.
[2016-05-09 20:00] VITALS: BP 108/52
--- NOTE | 2016-05-09 22:03 | NUR ---
PT. IN BED WITH HOB UP FOR COMFORT AND LYING ON HIS RIGHT SIDE. EYES CLOSED AND RESP. EVEN. CALL LIGHT WITHIN REACH.
--- NOTE | 2016-05-09 22:11 | NUR ---
PT IS RESTING QUIETLY IN BED WITH EYES CLOSED. RESPS ARE EVEN AND UNLABORED. NO ACUTE DISTRESS NOTED.
--- NOTE | 2016-05-10 00:30 | NUR ---
PT RESTING IN BED WITH EYES CLOSED. USING URINAL PRN.
--- NOTE | 2016-05-10 03:12 | NUR ---
PT RESTING IN BED WITH EYES CLOSED.
--- NOTE | 2016-05-10 05:56 | NUR ---
PT RESTING IN BED WITH EYES OPEN. NO NEEDS VOICED. TOLERATED AM MED WITHOUT DIFFICULTY.
[2016-05-10 06:35] LABS: BASOPHILS 0.1 % (0.0-2.0); EOSINOPHILS 1.3 % (0-7); HEMATOCRIT 38.1 % (42.0-54.0); HEMOGLOBIN 12.7 g/dL (13.5-17.5); IMMATURE GRANULOCYTES 0.2 % (0-5); LYMPHOCYTES 13.6 % (15-50); MCH 31.7 pg (26.0-34.0); MCHC 33.3 g/dL (31.0-37.0); MEAN PLATELET VOLUME 9.4 fL (7.4-10.4); MONOCYTES 7.9 % (2-11); NEUTROPHILS 76.9 % (40-80); PLATELET COUNT 209 10x3/uL (130-400); RBC 4.01 10x6/uL (4.20-6.10); WBC 10.2 10x3/uL (4.8-10.8)
[2016-05-10 06:58] LABS: CALC OSMOLALITY 279 mosm/kg (275-300); CALCIUM 8.8 mg/dL (8.5-10.1); CARBON DIOXIDE 28.6 mmol/L (21.0-32.0); CHLORIDE - SERUM 103 mmol/L (98-107); CREATININE - SERUM 0.8 mg/dL (0.6-1.3); GLUCOSE 97 mg/dL (74-106); POTASSIUM - SERUM 4.8 mmol/L (3.5-5.1); SODIUM 139 mmol/L (136-145); UREA NITROGEN 18 mg/dL (7-18); eGFR NON AFRICAN AMERICAN > 90 mL/min (90-120)
--- NOTE | 2016-05-10 07:00 | NUR ---
Pt. was received in bed with eyes closed at the beginning of this shift. No signs of any discomfort or distress. Vital signs: Temp. 98.4, pulse 63, resp. 14, b/p 122/68, 02Sat. 98%. Will be monitoring him and assisting prn with adl's.
[2016-05-10 09:40] VITALS: BP 122/68
--- NOTE | 2016-05-10 12:29 | NUR ---
Pt. is eatting his lunch in his room with his visiting. He went to therapy this morning and participated well. Will be monitoring him throughout this shift.
--- NOTE | 2016-05-10 14:44 | RHP ---
PATIENT: LAURIE KERNS MEDICAL RECORD: [id number] ACCOUNT: [id number] LOCATION:[id number] : 31 ADMISSION DATE: 05/06/16 REHABILITATION HISTORY AND PHYSICAL EXAMINATION POST ADMISSION PHYSICIAN EXAMINATION DATE OF ADMISSION: 05/06/2016. ADMITTING DIAGNOSES: Left temporal lobe hemorrhage, coronary artery disease and dysphagia. HISTORY OF PRESENT ILLNESS: The patient is an 81-year-old gentleman with a known history of coronary artery disease, status post intervention via Dr. Marte on the . He was admitted after a fall and was found to have an intracranial hemorrhage. As stated above, he had 2 recent interventions, was previously on Plavix and aspirin. He is alert and oriented, does have dysarthria and right-sided weakness. Cardiology was asked to see him to assist with ____ management. He spent 4 days in the ICU. His prior level of function was completely independent as he was using a chainsaw to remove debris on the road prior to stenting. He is now ambulating 6 feet with a rolling walker and will require intensive rehabilitation therapy in order to return to his prior level of functioning, living at home independently with his . COMORBIDITIES: In this patient include coronary artery disease with stenting times 2, intracerebral hemorrhage, dysarthria, hyperlipidemia, right-sided weakness, history of PE and angina. PAST MEDICAL HISTORY: Significant for coronary artery disease, hypertension, hyperlipidemia, and paroxysmal atrial fibrillation. Also, history of pulmonary embolism. PAST SURGICAL HISTORY: Includes cataract surgery, right hip fracture in September. ALLERGIES: No known drug allergies. CURRENT MEDICATIONS: Include sodium chloride 2 grams t.i.d. with meals, Pravachol 20 mg daily. He is on Protonix 40 mg daily, aspirin 325 mg daily, Betapace 80 mg b.i.d., Keppra 500 mg b.i.d., Tessalon Perles 100 mg t.i.d., and polyethylene glycol 17 grams in 8 ounces of water daily. HABITS: No alcohol or tobacco use. FAMILY HISTORY: Noncontributory. SOCIAL HISTORY: The patient would like to return home with his and get back to his prior level of functioning. REVIEW OF SYSTEMS: GENERAL: Does complain of weakness and fatigue. HEENT: Denies cold, cough, or congestion. CARDIOVASCULAR: Denies chest pain. PHYSICAL EXAMINATION: VITAL SIGNS: Stable, afebrile. GENERAL: A thin gentleman in no acute distress, alert upon exam. HISTORY AND PHYSICAL [id number] [place] HEENT: Normocephalic and atraumatic. Mucosa moist. NECK: Supple. No lymphadenopathy. LUNGS: Clear at this time. HEART: Irregular rate and rhythm. ABDOMEN: Benign. EXTREMITIES: No clubbing, cyanosis, or edema. NEUROLOGIC: Intact. LABORATORY DATA: His white count is 8.5, H&H of 12.3 and 35.7 and platelet count is noted to be 210. Sodium is 135, potassium 4.0, BUN and creatinine of 15 and 0.8 and blood sugar sugars noted to be 86. ASSESSMENT: This is an 81-year-old gentleman admitted to the rehab with a working diagnosis of left temporal lobe hemorrhage complicated by recent stenting secondary to coronary artery disease. The patient has potential to make improvement. We instituted the following multidisciplinary therapies including to, but not limited to physical, occupational, respiratory, speech, nutritional services, prosthetics and orthotics. Given his complex condition and risk for more complications, rehabilitation services cannot be provided at a low level of care such as a half-way facility. PLAN: 1. Admit to [facility] rehab for intensive inpatient therapy to include the following disciplines: A. Physical therapy to improve gait, all transfer skills and bed mobility to a modified independent level. B. Occupational therapy to improve activities of daily living to a modified independent level. C. Case management to assist with discharge planning and placement options. D. Nutrition to assist with nutritional needs. E. Rehabilitation nursing to assist in monitoring the patient's underlying medical conditions and to assist with any type of bowel or bladder management. 2. The patient's current medication and medical care will be continued. 3. The patient will be placed on standard fall precautions. 4. The patient's estimated length of stay is approximately 7-10 days. 5. Discuss this patient during care team staff meeting this week. TRANSINT:[id number] Voice Confirmation ID: [id number] DOCUMENT ID: [id number] LORETTA ELIAS MD at 1444 CC: [id number] DICTATION DATE: 05/07/16 0942 SHIP SURVEYOR: 05/07/16 1048 [place] [address]
--- NOTE | 2016-05-10 19:20 | NUR ---
RESTING QUIETLY IN BED, EYES CLOSED.
[2016-05-10 22:15] VITALS: BP 148/65
--- NOTE | 2016-05-10 22:15 | NUR ---
ASSESSMENT AND HS MEDS COMPLETE. DENIES NEEDS.
--- NOTE | 2016-05-10 23:50 | NUR ---
RESTING QUIETLY IN BED, EYES CLOSED.
--- NOTE | 2016-05-11 01:00 | NUR ---
PATIENT AWAKE, HAVING JUST USED URINAL. DENIES NEEDS. EMPTIED 150ML CNCENTRATED URINE FROM BEDSIDE URINAL.
--- NOTE | 2016-05-11 02:00 | NUR ---
IN BED, EYES CLOSED. APPEARS COMFORTABLE.
--- NOTE | 2016-05-11 04:00 | NUR ---
IN BED, EYES CLOSED. LYING ON LEFT SIDE. RESPIRING QUIETLY.
--- NOTE | 2016-05-11 06:20 | NUR ---
PATIENT REMAINS IN BED. SAYS HE WILL WEAR CURRENT PANTS AND SHIRT FOR THERAPY.
--- NOTE | 2016-05-11 07:00 | NUR ---
Pt. was received this morning in bed with eyes closed. Stable condition observed. Vital signs: Temp. 97.9, pulse 61, resp. 15, b/p 118/62, 02Sat. 98%. He will be monitored throughout this shift and assisted prn with adl's.
[2016-05-11 09:20] VITALS: BP 118/62
--- NOTE | 2016-05-11 10:43 | NUR ---
Pt. was given Miralax with his am medications due to not having a bm since the 6th. He around 10:30am complained of having an upset stomach and therapy put him to bed. He has since said "I am feeling better." Will continue to monitor him for comfort level.
--- NOTE | 2016-05-11 19:00 | NUR ---
IN BED, AWAKE. DENIES NEEDS.
--- NOTE | 2016-05-11 20:10 | NUR ---
ASSISTED PATIENT TO SHOWER AND SUBSEQUENTLY DRESS IN UNDERWEAR AND PJ'S AND RETURNED HIM TO BED AFTER CHANGING ALL LINENS. DENIES NEEDS.
[2016-05-11 20:30] VITALS: BP 130/61
--- NOTE | 2016-05-11 20:30 | NUR ---
ASSESSMENT AND VS COMPLETE. TOLD HIM I WILL RETURN LATER WITH HIS BEDTIME MEDS.
--- NOTE | 2016-05-11 22:20 | NUR ---
GAVE PATIENT SCHEDULED HS MEDS. PATIENT DENIES NEEDS.
--- NOTE | 2016-05-12 00:15 | NUR ---
RESTING IN BED ON RIGHT SIDE. APPEARS COMFORTABLE.
--- NOTE | 2016-05-12 02:00 | NUR ---
IN BED, EYES CLOSED, APPEARS COMFORTABLE.
--- NOTE | 2016-05-12 04:30 | NUR ---
IN BED, LYING ON LEFT SIDE. APPEARS COMFORTABLE.
--- NOTE | 2016-05-12 05:45 | NUR ---
GAVE PATIENT SCHEDULED PO MEDS. PATIENT DENIES NEEDS.
[2016-05-12 07:51] VITALS: BP 123/67
--- NOTE | 2016-05-12 09:27 | NUR ---
SITTING IN WHEELCHAIR IN THERAPY ROOM. NONEEDS VOICED AND TOOK AM MEDS.
--- NOTE | 2016-05-12 11:55 | NUR ---
RESTING IN BED WITHOUT ANY NEEDS VOICED. CALLIGHT IN REACH.
--- NOTE | 2016-05-12 13:50 | NUR ---
SITTING IN WHEELCHAIR WORKING WITH THERAPY. NO NAUSEA NOTED.
--- NOTE | 2016-05-12 13:53 | NUR ---
Nutrition Follow Up: Pt reported that his appetite is getting better everyday. He said that he loves Ensure and prefers strawberry. Diet: Regular Mech Soft with thin liquids PO Intake: 42% (8 meal avg) I>O +BM 05/11/16 No new wt Meds: Zofran Labs noted Pt with fair po intake. Rec continue current diet per [employer] EQUIPMENT OPERATOR recs. Will send Ensure TID. RD following.
--- NOTE | 2016-05-12 15:54 | NUR ---
SITTING UP IN BED TOOK PILL WITH EASE. REINSTRUCT PT TO TAKE PILLS ONE AT A TIME AND SLOWLY TO HELP WITH NAUSEA.
--- NOTE | 2016-05-12 17:18 | NUR ---
CARE TEAM MEETING: TENATIVE DISCHARGE DATE IS 05/28/16. PATIENT ILL BE RA AT NEXT MEETING. WILL CONTINUE TO FOLLOW WITH PATIENT UNTIL DISCHARGED
--- NOTE | 2016-05-12 17:32 | NUR ---
REPOSITIOEND SELF IN BED TO TAKE PILLS WITHOUT ANY NEEDS VOICED.
--- NOTE | 2016-05-12 19:10 | NUR ---
IN BED, AWAKE. DENIES NEEDS.
[2016-05-12 20:14] VITALS: BP 121/60
--- NOTE | 2016-05-12 20:40 | NUR ---
IN BED, AWAKE. DENIES NEEDS.
--- NOTE | 2016-05-12 22:35 | NUR ---
ASSESSMENT AND HS MEDS COMPLETE. PATIENT DENIES DISCOMFORT OR OTHER NEEDS.
--- NOTE | 2016-05-13 00:15 | NUR ---
EMPTIED 100 ML CONCENTRATED URINE FROM BEDSIDE URINAL. PATIENT RESTING QUIETLY, EYES CLOSED.
--- NOTE | 2016-05-13 02:40 | NUR ---
RESTING IN BED, EYES CLOSED. EMPTIED 100ML FROM BEDSIDE URINAL.
--- NOTE | 2016-05-13 04:35 | NUR ---
IN BED, RESTING ON RIGHT SIDE. APPEARS COMFORTABLE. EMPTIED 175ML FROM BEDSIDE URINAL.
--- NOTE | 2016-05-13 06:10 | NUR ---
GAVE PATIENT SCHEDULED PROTONIX AND ASSISTED HIM TO CHANGED CLOTHES FOR THERAPY. DENIES CURRENT NEEDS.
[2016-05-13 08:16] VITALS: BP 100/49
--- NOTE | 2016-05-13 09:50 | NUR ---
SITTING IN WHEELCHAIR EXERCISING WITH THERAPY IN THE GYM. NO NAUSEA NOTED, TOOK 9AM PILLS WITH EASE.
--- NOTE | 2016-05-13 13:15 | NUR ---
SITTING IN BED WITH IN THE ROOM. CALLIGHT IN REACH.
--- NOTE | 2016-05-13 15:02 | NUR ---
RESTING IN BED WITH VISITOR IN ROOM.
--- NOTE | 2016-05-13 17:20 | NUR ---
DR. ELIAS CALLED AND MESSAGE LEFT X3. NO RETURN CALL.
--- NOTE | 2016-05-13 19:10 | NUR ---
IN BED, AWAKE. DENIES NEEDS.
--- NOTE | 2016-05-13 21:35 | NUR ---
PATIENT JUST HAD SHOWER WITH ASSIST FROM CANDY SPREADER. NOW BACK IN BED. DENIES NEEDS.
--- NOTE | 2016-05-13 22:35 | NUR ---
AWOKE PATIENT FOR HS MEDS AND ASSESSMENTS. TOO HS MEDS WHOLE, SINGLY, WITH THICKENED WATER. DID BETTER THAN LAST NIGHT WITH THIN FLUIDS.
--- NOTE | 2016-05-14 00:15 | NUR ---
RESTING IN BED, EYES CLOSED. APPEARS COMFORTABLE.
--- NOTE | 2016-05-14 02:15 | NUR ---
RESTING QUIETLY IN BED, EYES CLOSED. EMPTIED 150ML LIGHT PENNY URINE FROM BEDSIDE URINAL.
[2016-05-14 03:08] VITALS: BP 131/68
--- NOTE | 2016-05-14 04:15 | NUR ---
RESTING QUIETLY IN BED, USING SHALLOW QUIET REPSIRATIONS.
--- NOTE | 2016-05-14 06:30 | NUR ---
GAVE PATIENT SCHEDULED PROTONIX.
--- NOTE | 2016-05-14 09:40 | NUR ---
SITTING UP IN BED EATING BREAKFAST. TOOK PILLS ONE AT A TIME.
[2016-05-14 10:34] VITALS: BP 111/53
[2016-05-14 11:15] LABS: BASOPHILS 0.1 % (0.0-2.0); EOSINOPHILS 2.1 % (0-7); HEMATOCRIT 37.4 % (42.0-54.0); HEMOGLOBIN 12.2 g/dL (13.5-17.5); IMMATURE GRANULOCYTES 0.2 % (0-5); LYMPHOCYTES 14.1 % (15-50); MCH 31.6 pg (26.0-34.0); MCHC 32.6 g/dL (31.0-37.0); MCV 96.9 fL (80.0-100.0); MEAN PLATELET VOLUME 9.4 fL (7.4-10.4); MONOCYTES 8.9 % (2-11); NEUTROPHILS 74.6 % (40-80); PLATELET COUNT 214 10x3/uL (130-400); RBC 3.86 10x6/uL (4.20-6.10); RDW 13.4 % (11.5-14.5); WBC 8.4 10x3/uL (4.8-10.8)
[2016-05-14 11:30] LABS: CALC OSMOLALITY 290 mosm/kg (275-300); CALCIUM 8.9 mg/dL (8.5-10.1); CHLORIDE - SERUM 106 mmol/L (98-107); CREATININE - SERUM 0.9 mg/dL (0.6-1.3); POTASSIUM - SERUM 3.7 mmol/L (3.5-5.1); SODIUM 143 mmol/L (136-145); UREA NITROGEN 21 mg/dL (7-18); eGFR NON AFRICAN AMERICAN 85 mL/min (90-120)
[2016-05-14 11:35] LABS: GLUCOSE 157 mg/dL (74-106)
--- NOTE | 2016-05-14 13:26 | NUR ---
SITTING IN WHEELCHAIR IN ROOM WITH VISITOR IN THE ROOM.
--- NOTE | 2016-05-14 15:06 | NUR ---
RESTING IN BED SLEEPING WITH NO DISTRESS NOTED. EASILY AROUSED AND TOOK MED ORDERED.
--- NOTE | 2016-05-14 17:50 | NUR ---
ASSISTED TO BR AND HAD A SMALL BM WITH A SMALL AMT OF BRIGHT RED BLOOD ON UNDERWEAR. NO BLOOD VISIBLE IN TOILET BUT WIPE A SMALL AMT OF BRIGHT RED BLOOD WITH TISSUE. NO VISIBLE HEMMRHOIDS NOTED.
--- NOTE | 2016-05-14 19:41 | NUR ---
PT RESTING QUIELTY IN ROOM, APPEARS TO BE WATCHING TV, NO S/S OF ACUTE DISTRESS.
--- NOTE | 2016-05-14 21:15 | NUR ---
PT TOLERATED FSBS WITHOUT DIFFICULTY, CHANGED PT BED BED QUIT WORKING. PT ASSISTED, PT IS VERY APPRECIATIVE.
[2016-05-14 21:37] VITALS: BP 118/70
--- NOTE | 2016-05-15 01:00 | NUR ---
PT RESTING QUIETLY, NO S/S OF ACUTE DISTRESS.
--- NOTE | 2016-05-15 04:39 | NUR ---
PT RESTING QUIETLY, EYES CLOSED, NO S/S OF ACUTE DISTRESS.
--- NOTE | 2016-05-15 05:11 | NUR ---
PT RESTING QUIELTY, EYES CLOSED NO ACUTE S/S OF DISTRESS. EMPTIED PT URINAL.
--- NOTE | 2016-05-15 07:00 | NUR ---
Pt. was received at the beginning of this shift in bed. He was alert and oriented x 2. Denied any pain or discomfort. Vital signs: Temp. 98.3, pulse 60, resp. 16, b/p 113/47, 02sat 95%. No signs of any distress. Will be monitoring him throughout this shift. Will be assisting prn with adl's.
--- NOTE | 2016-05-15 12:00 | NUR ---
Pt. is having an uneventful day. He is friendly and cooperative with staff.
[2016-05-15 13:41] VITALS: BP 113/47
[2016-05-15 19:28] VITALS: BP 141/57
--- NOTE | 2016-05-15 19:49 | NUR ---
PT STATES WASN'T HUNGRY TODAY, ASSISTED WITH MENU. PT STATES WOULD LIKE TO GO EAT IN [place] WITH SPOUSE TOMORROW. ENCOURAGED PATIENT TO, HE THINKS HE MAY FIND SOME BETTER OPTIONS AND ENJOY AN OUTING BESIDES HIS ROOM.
--- NOTE | 2016-05-16 01:05 | NUR ---
pt awakes, pt states he has been mostly sleeping. emptied urinal.
--- NOTE | 2016-05-16 06:38 | NUR ---
pt awake, watching tv, flat affect. denies any needs.
[2016-05-16 07:00] VITALS: BP 102/60
--- NOTE | 2016-05-16 07:00 | NUR ---
RECEIVED PT AT THE BEGINNING OF THIS SHIFT IN BED. AWAKE AND BED IS SATURATED WITH URINE. PT WAS CLEANED UP AND BED LINENS WERE CHANGED BEFORE ANYTHING ELSE COULD BE DONE FOR PT. VITAL SIGNS: TEMP. 98.1, PULSE 64, RESP. 14, B/P 102/60, 02SAT. 97%. WILL BE MONITORING PT AND ASSISTING PRN WITH ADL'S.
--- NOTE | 2016-05-16 17:39 | NUR ---
Pt. has had an uneventful shift today. No changes to report with health condition. His has come and gone today. Assist has been provided with his adl's.
--- NOTE | 2016-05-16 21:05 | NUR ---
PT MORE ANIMATED AND CONVERSIVE, STATED HE ENJOYED CHICKEN WINGS TODAY AND ATE WELL, PLEASED ABOUT DISCHARGE DATE.
[2016-05-16 22:05] VITALS: BP 118/55
--- NOTE | 2016-05-17 01:15 | NUR ---
PT RESTING QUIELTY, EYES CLOSED, NO S/S OF ACUTE DISTRESS.
--- NOTE | 2016-05-17 06:08 | NUR ---
PT AWAKE, INCONTINENT OF URINE, PT REFUSES TO WEAR ATTENDS, MOST OF THE TIME IS ABLE TO MANIPULATE THE URINAL OCCASIONAL TREMORS.
--- NOTE | 2016-05-17 07:45 | NUR ---
AWAKE,RESTING QUIETLY IN BED.IS ORIENTED TO PERSON AND MONTH ONLY.REORIENTED TO TIME,PLACE WITH QUESTIONABLE RESULTS.ASSESSMENT COMPLETED.CL IN EASY REACH AND BED IN LOW POSITION.
[2016-05-17 09:03] VITALS: BP 112/49
--- NOTE | 2016-05-17 11:45 | NUR ---
SPEECH THERAPIST AND PT BOTH VOICE CONCERN OVER CHANGES THEY HAVE OBSERVED IN PATIENT.NUMBNESS TO RT CHEEK.FEELING MORE TIRED TODAY.WEAKER TODAY ON TRANSFERRING.TOOK ONLY 2 STEPS TODAY,USUALLY WALKS 120FEET.WILL NOTIFY .
--- NOTE | 2016-05-17 12:00 | NUR ---
CALLED AT [phone] AND MESSAGE LEFT.
--- NOTE | 2016-05-17 12:05 | NUR ---
MESSAGE LEFT AT 'S OFFICE AT [phone].
--- NOTE | 2016-05-17 13:10 | NUR ---
GISELLE OFFICE NURSE FROM OFFICE CALLS,REPORT ON PATIENT CONDITION GIVEN.SHE WILL SPEAK WITH AND CALL ME BACK.
--- NOTE | 2016-05-17 15:00 | NUR ---
ORDERS FOR CT HEAD WITHOUT CONTRAST RECEIVED AND NOTED.EXPLAINED TO PATIENT ABOUT TEST TO BE DONE.PATIENT STATED"GOOD."
--- NOTE | 2016-05-17 19:45 | NUR ---
PT. IN BED WITH HOB UP FOR COMFORT. LINENS WET SO THEY WERE CHANGED. PT. POSITIONED HIMSELF UP IN BED FOR COMFORT AND HOB UP. PT. COUGHED A COUPLE OF TIMES BUT DENIES ANY PRODUCTIVITY. ASSESSMENT COMPLETED. PT. DENIES ANY NEEDS EXCEPT HE WANTS HIS MEDS CRUSHED AND IN PUDDING. CALL LIGHT WITHIN REACH.
[2016-05-17 20:30] VITALS: BP 123/55
--- NOTE | 2016-05-18 01:50 | NUR ---
PT. SOILED SELF WHILE TRYING TO USE URINAL. PT. TRANSFERRED TO W/C TO CHANGE BED LINENS. ALSO CHANGED PT'S BRIEF IT WAS SOAKED WITH URINE AND OPTED TO LEAVE SCRUB PANTS OFF FOR THE REST OF THE SHIFT INCASE HE HAS ANY FURTHER ACCIDENTS WHILE TRYING TO USE THE URINAL. PT. TRANSFERRED BACK TO BED WITH ASSISTANCE AND POSITIONED TO COMFORT AND CALL LIGHT WITHIN REACH.
--- NOTE | 2016-05-18 02:32 | NUR ---
PT. IN BED WITH HOB UP FOR COMFORT WITH EYES CLOSED AND RESP. EVEN. CALL LIGHT REMAINS WITHIN HIS REACH.
--- NOTE | 2016-05-18 07:35 | NUR ---
CXR TO R/O ASPIRATION.
--- NOTE | 2016-05-18 07:40 | NUR ---
AWAKE,IS ORIENTED TO PERSON AND PLACE.REORIENTED TO TIME WITH QUESTIONABLE RESULTS.ASSESSMENT COMPLETED.CL IN EASY REACH,BED IN LOW POSITION.NO SIGNS OF ACUTE DISTRESS,FREQUENT WET SOUNDING COUGHING HEARD.CRACKLES HEARD LEFT UPPER LOBE.
[2016-05-18 08:33] VITALS: BP 117/63
--- NOTE | 2016-05-18 12:30 | NUR ---
Nutrition Follow Up: Chart reviewed. Diet: Regular Mech Soft with Honey Thick Liquids PO Intake: 24% (9 meal avg) No new wt to assess +BM 05/16/16 Labs noted - Glucose elevated Meds: Zofran Pt with poor po intake at this time. Rec continue current diet per HAM MARKER recs. Pt may benefit from an appetite stimulant. RD following.
--- NOTE | 2016-05-18 19:20 | NUR ---
IN BED, A&O X4. GAVE PATIENT HIS MENU TO COMPLETE. DENIES CURRENT NEEDS.
--- NOTE | 2016-05-18 20:15 | NUR ---
IN BED, EYES CLOSED.
[2016-05-18 22:10] VITALS: BP 131/52
--- NOTE | 2016-05-18 22:10 | NUR ---
ASSESSMENT AND HS MEDS COMPLETE. ASSISTED PATIENT UP TO BR TO URNATE AND HAVE A BM. URINATED BUT ONLY PASSED GAS. RETURNED HIM BED. BED ALARM IS ARMED.
--- NOTE | 2016-05-19 00:20 | NUR ---
RESTING QUIETLY IN BED, EYES CLOSED.
--- NOTE | 2016-05-19 02:05 | NUR ---
IN BED, EYES CLOSED. NO DISCOMFORT NOTED.
--- NOTE | 2016-05-19 04:30 | NUR ---
RESTING IN BED ON RIGHT SIDE. NO DISTRESS NOTED. RESPIRATIONS ARE UNLABORED.
--- NOTE | 2016-05-19 05:50 | NUR ---
GAVE PATIENT SCHEDULED PROTONIX PO AND THEN ASSISTED HIM UP TO BR TO URINATE. PATIENT CLEANSED AFTER URINATING AND HAVING A SMALL AMOUNT OF URINE INCONTINENCE IN HIS BRIEF AND PINK BED PAD. CHANGED BRIEF AND APPLIED FRESH SCRUB PANTS. CHANGED PINK PAD AND RETURNED PATIENT TO BED. DENIES NEEDS.
[2016-05-19 06:30] LABS: BASOPHILS 0 % (0.0-2.0); EOSINOPHILS 0.1 % (0-7); HEMATOCRIT 36.3 % (42.0-54.0); HEMOGLOBIN 12.1 g/dL (13.5-17.5); IMMATURE GRANULOCYTES 0.2 % (0-5); LYMPHOCYTES 10.2 % (15-50); MCH 31.8 pg (26.0-34.0); MCHC 33.3 g/dL (31.0-37.0); MCV 95.3 fL (80.0-100.0); MEAN PLATELET VOLUME 9.5 fL (7.4-10.4); MONOCYTES 10.4 % (2-11); NEUTROPHILS 79.1 % (40-80); PLATELET COUNT 228 10x3/uL (130-400); RBC 3.81 10x6/uL (4.20-6.10); RDW 13.7 % (11.5-14.5); WBC 10.2 10x3/uL (4.8-10.8)
--- NOTE | 2016-05-19 08:00 | NUR ---
ASSMT COMPLETED.CL IN REACH.UP OOB TO WC.
[2016-05-19 08:27] VITALS: BP 95/53
--- NOTE | 2016-05-19 12:00 | NUR ---
DIFF WITH SWALLOWING.LIQ AT TIMES COMES FROM NOSE AND DROOLING FROM MOUTH.CAUTIONED TO ALLOW PLENTY OF TIME FOR SWALLOWING. AT BEDSIDE.
--- NOTE | 2016-05-19 13:50 | NUR ---
Nutrition Follow Up: Spoke with pt and pt's . Pt reported that he cannot eat anything due to vomiting after medication is given due to the pills becoming stuck in his throat. He said that once he vomits he loses his appetite and does not want to try to eat. He said that he is having extreme difficulty swallowing anything. RD discussed PEG placement explaining benefits for nutrition and hydration. RD answered questions regarding TF. Pt and stated that they were in complete agreement with PEG placement if Dr. Major agreed. RD informed nursing, case management and FELLED SEAM OPERATOR CHAINSTITCH that pt had decided he agreed to PEG. FELLED SEAM OPERATOR CHAINSTITCH stated that she was in agreement that this was beneficial to pt. Pt is eating 30% meal avg on Regular [facility] Soft diet with Honey Thick liquids. Pt has lost 20# recently due to dysphagia and loss of appetite. Pt now weighs 111# and has a BMI of 16.7 which determines that pt is underweight. Rec PEG placement and enteral nutrition started. RD following.
--- NOTE | 2016-05-19 16:00 | NUR ---
RESTING QUIETLY.STATES HE WANTS A FEEDING TUBE TIRED OF HAVING TO DEAL WITH THIS.CONVEYED THAT WILL DISCUSS REGARDING A GT TOMARROW WITH HIM.
--- NOTE | 2016-05-19 16:25 | NUR ---
CARE TEAM MEETING: PATIENT AND SPOUSE ATTENDED THE MEETING. PATIENT TENATIVE DISCHARGE DATE IS 05/28/16. PATIENT MAY POSSIBLE DISCHARGE TO A SNF AT DISCHARGE. PATIENT HAS WALKER AND CANE AT HOME. DR. HUNTER IS HIS PCP. WILL CONTNUE TO FOLLOW WITH PATIENT.
--- NOTE | 2016-05-19 19:00 | NUR ---
PATIENT IN BED, RESTING QUIETLY, EYES CLOSED.
[2016-05-19 19:55] VITALS: BP 104/52
--- NOTE | 2016-05-19 19:55 | NUR ---
VS AND ASSESSMENT COMPLETE. PATIENT DENIES NEEDS.
--- NOTE | 2016-05-19 21:30 | NUR ---
GAVE PATIENT HS MEDS CRUSHED IN VANILLA PUDDING. DOUBLE SWALLOWED AND CLEARED THROAT AFTER EACH BITE AND DID NOT DEMONSTRATE EITHER COUGHING OR CHOKING I HAD HAD HIM TURN AND INCLINE HIS HEAD TO HIS LEFT (STRONG SIDE) TO FACILITATE HIS SWALLOWING. TOLD HIM I WILL RETURN AFTER PASSING MEDS TO MY NEXT TWO PATIENTS AND ASSIST HIM TO SHOWER.
--- NOTE | 2016-05-19 22:40 | NUR ---
ASSISTED PATIENT TO SHOWER AFTER LARGE LOOSE BM RACHEL ON COMMODE. ALSO [facility] DUE TO URGENT LOOSE BM WHICH STARTED WHILE HE WAS SEATED ON SHOWER BENCH. CLEANSED HIM AFTER THIS BM AND ASSISTED HIM TO DRESS IN SCRUB TOP AND FRESH PULL-UP BRIEF AND RETURNED HIM TO BED. ALL LINENS WERE CHANGED WHILE HE WAS IN THE SHOWER.
--- NOTE | 2016-05-20 00:15 | NUR ---
IN BED, EYES CLOSED. NO DISTRESS EVIDENT.
--- NOTE | 2016-05-20 02:35 | NUR ---
C/O PARESTHETIC PAIN IN HIS RIGHT ARM OF LEVEL 6/10. GAVE HIM TYLENOL 650MG CRUSHED IN VANILLA PUDDING USING SWALLOWING PRECAUTIONS.
--- NOTE | 2016-05-20 04:30 | NUR ---
RESTING QUIETLY IN BED, EYES CLOSED. HOB UP 45 DEGREES. RESPIRATIONS ARE UNLABORED.
--- NOTE | 2016-05-20 05:55 | NUR ---
PATIENT CONFIRMS GOOD PAIN RELIEF WITH EARLIER TYLENOL PO FOR RIGHT ARM PAIN. HAS BEEN RESTING QUIETLY SINCE HE RECEIVED IT. ASSISTED HIM UP TO BR COMMODE TO URINATE. ON RETURN TO BED, GAVE HIM HIS SCHEDULED PO PROTONIX WHOLE IN VANILLA PUDDING USING SWALLOWING PRECAUTIONS. HAD HIM INCLINE AND TURN HIS HEAD TO LEFT TO UTILIZE THE UNAFFECTED MUSCLES IN HIS THROAT ON THAT SIDE TO FACILITATE SWALLOWING SUCCESSFULLY. DID WELL WITH BOTH HIS PILL AND ALSO A FEW SWALLOWS OF HONEY THICKENED TEA.
--- NOTE | 2016-05-20 08:00 | NUR ---
AWAKE FOR BREAKFAST THIS AM.MEAL SET-UP PROVIDED.STATES NOT EATING.BUT AFTER APPROACHED BY ,PT IS NOW SITTING UP AND EATING WELL WITH REMINDING TO TUCK CHIN,EAT SLOWLY AND SWALLOW TWICE.
--- NOTE | 2016-05-20 09:00 | NUR ---
PT CONSUMED 100% OF MEAL WITH NO EPISODE OF COUGHING OR LIQ FOOD COMING OUT OF NOSE.STATES NEEDING THIS TYPE OF CONSISTENTCY;PT EATING CREAM OF WHEAT;STATES THIS GOES DOWN GOOD W/O GETTING STUCK IN THROAT.
[2016-05-20 09:32] VITALS: BP 97/47
--- NOTE | 2016-05-20 12:00 | NUR ---
HONEY THICKENED BROTH ADDED TO PUREED MEAL TO AID IN SWALLOWING MEAL AND ENCOURAGED TO EAT.STATES HE FEELS HE STILL NEEDS A TUBE TO BE ABLE TO GET STRONGER BECAUSE HE IS NOT ABLE TO EAT ENOUGH.
--- NOTE | 2016-05-20 12:00 | NUR ---
Nutrition Follow Up: Nursing reported that pt ate 100% of breakfast on Full Liquid diet and agreed to try Puree diet. RD spoke with pt and he stated that everything "went down good" with no problems. Pt stated that he was concerned that even if he continued eating "good" he would not consume enough to reach a healthy wt. RD agreed and stated that this was completely his decision but RD felt that it would be very beneficial to pt at this time. Pt stated that he agreed and wanted to speak with Dr. Abad to get his opinion. Pt weighed this morning. New wt is 109#. Pt has lost 2# since Rehab admit. Rec Puree diet with honey thick liquids per VIDEO PRODUCTION INTERN. Will continue to send Ensure. RD following.
--- NOTE | 2016-05-20 16:00 | NUR ---
RESTING QUIETLY.CL IN REACH.
[2016-05-20 19:00] VITALS: BP 114/83
--- NOTE | 2016-05-20 19:30 | NUR ---
PATIENT IN BED, RESTING QUIETLY.
--- NOTE | 2016-05-20 21:45 | NUR ---
PATIENT AWAKE. ASSESSMENT AND HS MEDS COMPLETE. GAVE HS MEDS CRUSHED IN VANILLA PUDDING USING SWALLOWING PRECAUTIONS. PATIENT SWALLOWED HIS MEDS WITHOUT COUGHING OR CHOKING. PATIENT STATES HE IS AWARE HE IS TO BE NPO AFTER MIDNIGHT TONIGHT.
--- NOTE | 2016-05-21 00:15 | NUR ---
ASSISTED PATIENT UP TO BR COMMODE TO URINATE AND HAVE A BM.
--- NOTE | 2016-05-21 00:50 | NUR ---
PROVIDED INFO TO PATIENT AND OBTANED CONSENT FOR TRANSFUSION, ANESTHESIA, AND OPERATION REGARDING HIS PEG TUBE PLACEMENT LATER TODAY. PATIENT WAS PLACED NPO AT MIDNIGHT.
--- NOTE | 2016-05-21 02:15 | NUR ---
RESTING IN BED, EYES CLOSED.
--- NOTE | 2016-05-21 04:35 | NUR ---
RESTING QUIETLY IN BED, EYES CLOSED.
--- NOTE | 2016-05-21 06:00 | NUR ---
RESTING QUIETLY IN BED, EYES CLOSED.
--- NOTE | 2016-05-21 07:00 | NUR ---
Pt. was received at the beginning of the shift. Pt. has been NPO since midnight for peg tube placement later this morning. Will be monitoring him and assisting prn with adl's. Call light is in reach.
[2016-05-21 08:03] LABS: BASOPHILS 0 % (0.0-2.0); HEMATOCRIT 34.2 % (42.0-54.0); HEMOGLOBIN 11.1 g/dL (13.5-17.5); IMMATURE GRANULOCYTES 0.4 % (0-5); LYMPHOCYTES 15.6 % (15-50); MCH 31.4 pg (26.0-34.0); MCHC 32.5 g/dL (31.0-37.0); MCV 96.6 fL (80.0-100.0); MEAN PLATELET VOLUME 9.6 fL (7.4-10.4); MONOCYTES 10.1 % (2-11); NEUTROPHILS 72.9 % (40-80); PLATELET COUNT 235 10x3/uL (130-400); RBC 3.54 10x6/uL (4.20-6.10); RDW 13.9 % (11.5-14.5); WBC 7.9 10x3/uL (4.8-10.8)
[2016-05-21 08:09] LABS: CALC OSMOLALITY 293 mosm/kg (275-300); CALCIUM 8.3 mg/dL (8.5-10.1); CHLORIDE - SERUM 109 mmol/L (98-107); CREATININE - SERUM 0.7 mg/dL (0.6-1.3); GLUCOSE 97 mg/dL (74-106); POTASSIUM - SERUM 3.6 mmol/L (3.5-5.1); SODIUM 145 mmol/L (136-145); UREA NITROGEN 27 mg/dL (7-18); eGFR NON AFRICAN AMERICAN > 90 mL/min (90-120)
[2016-05-21 08:16] LABS: INR 1.18 (0.85-1.17); PROTIME 14.9 SECONDS (11.6-15.0)
[2016-05-21 10:23] VITALS: BP 109/50
--- NOTE | 2016-05-21 10:30 | NUR ---
Nutrition Follow Up: Chart reviewed. Pt is NPO at this time - PEG procedure today. When okay with General Surgery, start TF of Jevity 1.2 @ 10 ml/hr. Advance 10 ml every 12 hours as tolerated to goal rate of 50 ml/hr. Water flushes 25 ml/hr. Goal rate will provide 1440 kcal (29 kcal/kg body wt), 66 g protein (1.3 g/kg body wt) and 955 ml free water. TF regimen @ goal rate is adequate to meet pt's est nutritional needs. Pt should be monitored closely for s/s of Refeeding Syndrome. RD will continue to closely monitor pt progress.
--- NOTE | 2016-05-21 11:00 | NUR ---
Pt. went to surgery to have peg tube placed. Pre-meds given. Stable condition observed.
--- NOTE | 2016-05-21 13:45 | CN ---
PATIENT NAME:LAURIE KERNS MEDICAL RECORD: [id number] : 31 LOCATION:[id number] ADMIT DATE: 05/06/16 ACCOUNT: [id number] CONSULTING PHYSICIAN: JOHN ALCAZAR MD REFERRING PHYSICIAN: ROBERT ELIAS MD DATE OF CONSULTATION: 05/20/2016 REFERRING PHYSICIAN: Dr. Robert Elias. HISTORY OF PRESENT ILLNESS: The patient is an 81-year-old white male with history of coronary artery disease, hyperlipidemia, hypertension, and AFib, who was basically admitted after a fall and was found to have intracranial hemorrhage/CVA. Since then, he has had some mild right-sided weakness and dysarthria and has been transferred to the rehab unit. I was asked to see the patient because of recurrent problems with chronic dysphagia. I have known this man for several years. He has known fairly significant esophageal dysmotility has had a couple of dilations in the past of the esophagus, the last being a couple years ago. He has been able to get by with periodic dilatations, however, since his CVA, symptoms have worsened and I was asked to see the patient for possible PEG tube placement. He has had a modified swallow evaluation, which was abnormal revealing a very weak swallow. He does not actually aspirate, but he simply was having a hard time getting the food down to maintain his weight. Because of this, I was asked to see the patient and for possible PEG placement. PAST MEDICAL HISTORY: As above. He also has history of PE. PAST SURGICAL HISTORY: Remarkable for a right hip fracture and cataract surgery. ALLERGIES: No known drug allergies. MEDICATIONS: Include Protonix, Pravachol, aspirin, Betapace, Keppra, Tessalon Perles and MiraLax. SOCIAL HISTORY: The patient is a nonsmoker and nondrinker. FAMILY HISTORY: Negative for GI disease. REVIEW OF SYSTEMS: Noncontributory other than in the HPI. PHYSICAL EXAMINATION: GENERAL: Reveals a frail elderly white male who weighs about 109 pounds. Reveals a well-developed white male, in no acute distress. VITAL SIGNS: Stable, afebrile. CHEST: Clear. HEART: Regular rate and rhythm. ABDOMEN: Soft and nontender. EXTREMITIES: No edema. LABORATORY DATA: Reveals a white count 10,000, hematocrit 36, MCV of 95 and platelet count 228,000. Electrolytes normal. BUN 21 and creatinine 0.9. A swallow eval is as above. CONSULT REPORT [id number] LAURIE KERNS IMPRESSION: 1. Chronic problems with esophageal dysmotility, status post several dilations in the past, the last being a couple of years ago. 2. Recent cerebrovascular accident, now with increased dysphagia and weight loss. 3. Abnormal swallow eval revealing very weak oropharyngeal swallow. RECOMMENDATION: In light of all the above, this patient would benefit from PEG tube placement, at least for a few months for tube feeding purposes and to help with weight gain. We will tentatively schedule this for tomorrow. TRANSINT:[id number] Voice Confirmation ID: [id number] DOCUMENT ID: [id number] JOHN ALCAZAR MD at 1345 CC: [id number] DICTATION DATE: 05/20/161943 SOFTWARE ENGINEER WEB APPLICATIONS: 05/20/16 2310 ADM IN [facility] [address] [place] [address]
--- NOTE | 2016-05-21 15:00 | NUR ---
Pt returned back to room from surgery. Abdominal binder placed on pt. at bedside. Vital signs: Temp. 98.1, pulse 74, resp. 14, b/p 122/68, 02Sat. 93%. Pt. is alert and oriented x 3. No complaints voiced.
[2016-05-21 19:35] VITALS: BP 135/55
--- NOTE | 2016-05-21 20:15 | NUR ---
PEG TUBE RESIDUAL - LESS THAN 5 CC, FLUSHED PER GRAVITY WITH WATER
--- NOTE | 2016-05-22 00:12 | NUR ---
PT RESTING QUIETLY IN BED, BED ELEVATED 20 DEGREES. NO S/S OF ACUTE DISTRESS.
--- NOTE | 2016-05-22 00:36 | NUR ---
HEARD BED ALARM, RESPONDED, PT SITTING ON FLOOR BESIDE BED. PT STATES HE JUST SLID OFF THE BED. GUIDRY'S, PT DENIES PAIN. PT DENIES HITTING HEAD, NO SKIN TEARS NOTED.
--- NOTE | 2016-05-22 02:51 | NUR ---
RESTING IN BED WITH EYES CLOSED.
--- NOTE | 2016-05-22 06:24 | NUR ---
pt states he slept well after that 'rodeo' I had. pt smiles.
[2016-05-22 09:00] VITALS: BP 136/71
--- NOTE | 2016-05-22 09:41 | NUR ---
PT C/O ABDOMINAL PAIN; CHECK PLACEMENT OF PEG TUBE. 9AM MEDS AND TYLENOL GIVEN. TOLERATED WELL.
--- NOTE | 2016-05-22 11:32 | NUR ---
SLEEPIONG IN BED WITHOUT ANY FALLS NOTED.
--- NOTE | 2016-05-22 12:09 | PRO ---
PATIENT:LAURIE KERNS MEDICAL RECORD: [id number] : 31 LOCATION:[facility]10 ADMISSION DATE: 05/06/16 PROCEDURE PERFORMED BY: AMANDEEP KONG MD DATE OF PROCEDURE: 05/21/2016 SHEEP SORTER: Amandeep Kong MD PROCEDURE: EGD with PEG tube placement. INDICATION: The patient is an 81-year-old white male with a history of chronic problems with esophageal dysmotility and dysphagia requiring several dilatation in the past, now admitted after a CVA. He is now having increasing problem with dysphagia and a video swallow eval revealed a very weak swallow. He is not eating much at all and he is now for PEG tube placement for long-term nutritional support and hydration. PREMEDICATIONS: Taper anesthesia and Ancef 1 gram IV. INSTRUMENT: Olympus video gastroscope. FINDINGS: The endoscope was passed through the oropharynx to the second portion of the duodenum without difficulty. The esophagus was normal other than esophageal dysmotility. The stomach was entered. It was remarkable for a small 5-mm gastric ulcer in the mid body of the stomach, but otherwise normal as was the duodenum. The stomach was then fully insufflated with air and appropriate site for PEG tube placement was visualized by means of transillumination and palpation. The skin was prepped and draped in sterile fashion. Local anesthesia with 1% lidocaine was used. An introducer catheter was then passed through the skin into the gastric lumen as noted with the scope. A guidewire was then passed through the scope and grabbed the wire that had been passed through the catheter. The PEG apparatus was then attached to the guidewire, through the oropharynx, through the esophagus and secured to the gastric lumen in appropriate fashion as noted by repeat endoscopy. The patient tolerated the procedure well without any immediate complication. IMPRESSION: 1. Status post successful PEG tube placement. 2. Small gastric ulcer, minimal clinical significance. 3. Esophageal dysmotility. 4. Otherwise, normal esophagogastroduodenoscopy. RECOMMENDATIONS: 1. Protonix 40 mg daily. 2. Avoid all NSAIDs and cut his aspirin from 325 to 81 mg daily. 3. Abdominal binder over PEG tube site. 4. Okay to use the PEG for medications now. 5. Check PEG residuals every 12 hours and call if greater than 100 cc. 6. Nutritional consultation for PEG tube feeding recommendations. TRANSINT:[id number] Voice Confirmation ID: [id number] DOCUMENT ID: [id number] PROCEDURE NOTE [id number] LAURIE KERNS JOHN MD at 1209 CC: [id number] DICTATION DATE: 05/21/161410 TAKER DOWN: 05/21/16 2206 ADM IN [place] [id number] [place] [id number]
--- NOTE | 2016-05-22 13:39 | NUR ---
SITTING UP IN BED WITHOUT ANY NEEDS VOICED.
--- NOTE | 2016-05-22 15:25 | NUR ---
STARTED TUBEFEEDING JEVITY1.2 AT 10CC/HR.
--- NOTE | 2016-05-22 17:29 | NUR ---
PEG TUBE INTACT WITH CLEAN DRSG APPLIED. NO NEEDS VOICED.
--- NOTE | 2016-05-22 19:25 | NUR ---
peg tube infusing at 10 cc with hourly flush. pt respirations regular and unlabored. pt with verbal cues and assistance with trapeze bar raised repositioned self in bed.
[2016-05-22 19:35] VITALS: BP 126/63
--- NOTE | 2016-05-22 20:50 | NUR ---
pt awake, states he is ready to go back to sleep. medications administered via pegtube. continuous feeding at 10 cc. pt using urinal, denies being incontinent.
--- NOTE | 2016-05-23 01:55 | NUR ---
woke for neuro check, pt wakes easily. feeding infusing.
--- NOTE | 2016-05-23 02:58 | NUR ---
increased feeding to 20 cc/hr.
--- NOTE | 2016-05-23 06:11 | NUR ---
PT VERY WEEK WITH TRANSFERS FROM BED TO W/C TO TOILET. SMALL BM.
--- NOTE | 2016-05-23 08:15 | NUR ---
PT RESTING IN BED WITH EYES OPEN CALL LIGHT IN REACH WILL MONITER
--- NOTE | 2016-05-23 12:00 | NUR ---
PT RESTING IN BED WITH EYES OPEN CALL LIGHT IN REACH NO PROBLEMS WILL MONITER
--- NOTE | 2016-05-23 18:26 | NUR ---
PT RESTING IN BED WITH EYES OPEN CALL LIGHT IN REACH NO PROBLEMS WILL MONITER
--- NOTE | 2016-05-23 19:25 | NUR ---
PT RESTING IN BED, VS TAKEN. PT PINK PAD AND BRIEF CHANGED DUE TO INCONTINENT URINE EPISODE. PT DENIES NEEDS AT THIS TIME. BED LOW. C LINR EACH.
[2016-05-23 19:30] VITALS: BP 122/63
--- NOTE | 2016-05-23 20:30 | NUR ---
PT HS MEDS GIVEN CRUSHED VIA PEG TUBE. PT DENIES NEEDS AT THIS TIME. BED LOW. CL INREACH.
--- NOTE | 2016-05-23 22:00 | NUR ---
PT GIVEN SHOWER. PT WAS A MOD ASSIST TRANSFER BUT WAS ABLE TO BATHE HIMSELF. PT BED LINENS CHANGED. PT BACK IN BED RESTING, TF RUNNING AT 30ML/HR. WCPOC. BED LOW. CL IN REACH.
--- NOTE | 2016-05-23 23:08 | NUR ---
PT HAD INCONTINENT BOWEL EPISODE. BM WAS BROWN AND WATERY. PT BRIEF AND PINK PAD CHANGED. PT DENIES FURTHUR NEEDS AT THIS TIME. BED LOW. CL IN REACH.
--- NOTE | 2016-05-24 01:45 | NUR ---
PT RESTING, EYES CLOSED. BED LOW. CL IN REACH. WCTM.
--- NOTE | 2016-05-24 06:45 | NUR ---
PT NOT DRESSED DUE TO INCONTINENCE. PT BRIEF CHANGED. PT DENIES NEEDS. BED LOW. CL IN REACH.
[2016-05-24 06:47] LABS: BASOPHILS 0.1 % (0.0-2.0); EOSINOPHILS 0.9 % (0-7); HEMATOCRIT 34.3 % (42.0-54.0); HEMOGLOBIN 11.4 g/dL (13.5-17.5); IMMATURE GRANULOCYTES 0.3 % (0-5); LYMPHOCYTES 17.2 % (15-50); MCH 31.2 pg (26.0-34.0); MCHC 33.2 g/dL (31.0-37.0); MEAN PLATELET VOLUME 9.4 fL (7.4-10.4); NEUTROPHILS 70.5 % (40-80); PLATELET COUNT 258 10x3/uL (130-400); RBC 3.65 10x6/uL (4.20-6.10); RDW 13.3 % (11.5-14.5); WBC 9.4 10x3/uL (4.8-10.8)
--- NOTE | 2016-05-24 07:00 | NUR ---
PT WAS RECEIVED AT THE BEGINNING OF THIS SHIFT IN BED AWAKE AND ORIENTED X 3. JEVITY 1.2 CRYSTAL INFUSING VIA PUMP AT 30ML'S/HR RATE OF FLOW. PT. WITH NO COMPLAINTS OF PAIN OR DISCOMFORT. ABDOMINAL BINDER IN PLACE. VITAL SIGNS; TEMP. 98.2, PULSE 65, RESP. 14, B/P 124/51, 02SAT. 96%. LF FOREARM SALINE LOCKED. HOB IS ELEVATED TO 30%. WILL BE MONITORING PT. AND ASSISTING PRN WITH ADL'S. PT. IS REFUSING TO EAT ANY BREAKFAST, STATES "I CAN'T SWALLOW."
[2016-05-24 07:05] LABS: CALC OSMOLALITY 271 mosm/kg (275-300); CALCIUM 7.7 mg/dL (8.5-10.1); CARBON DIOXIDE 25.7 mmol/L (21.0-32.0); CHLORIDE - SERUM 101 mmol/L (98-107); CREATININE - SERUM 0.7 mg/dL (0.6-1.3); GLUCOSE 115 mg/dL (74-106); POTASSIUM - SERUM 3.8 mmol/L (3.5-5.1); SODIUM 134 mmol/L (136-145); UREA NITROGEN 20 mg/dL (7-18); eGFR NON AFRICAN AMERICAN > 90 mL/min (90-120)
[2016-05-24 09:28] VITALS: BP 124/51
--- NOTE | 2016-05-24 10:36 | NUR ---
NUTRITION MONITORING & EVAL SPOKE WITH NURSING RE:TUBE FEED GOAL RATE. CURRENTLY AT 30 CC/HR. NURSING TO CONTINUE TO ADVANCE TO GOAL RATE 50 CC/HR. POOR PO INTAKE PER NURSING AND SPOUSE REPORT. RD FOLLOWING
--- NOTE | 2016-05-24 12:21 | NUR ---
RAISED PT'S G-TUBE FEEDING VIA PUMP TO 40CC'S/HR ORDERED. PT COMPLAINED OF BEING HUNGRY AND COLD DURING THERAPY SESSION. SPEECH THERAPIST NOTIFIED AND SHE IS SPEAKING WITH PT AND AT THIS TIME.
--- NOTE | 2016-05-24 15:31 | NUR ---
SPOKE WITH SPOUSE AND SHE WOULD LIKE REFERRAL TO BE MADE TO [facility] AND [facility] FOR POSSIBLE ADMISSION ON 05/28/16.
--- NOTE | 2016-05-24 19:27 | NUR ---
PT IS RESTING IN BED WITH EYES OPEN. ALERT AND ORIENTED X 3. DENIES ACUTE DISCOMFORT. VSS. LFA SL NOTED. GTUBE IS INFUSING JEVITY WITHOUT DIFFICULTY. SR'S ARE UP X 3 IN BED. CALL LIGHT AND BEDSIDE TABLE ARE WITHIN EASY REACH.
[2016-05-24 19:33] VITALS: BP 114/51
--- NOTE | 2016-05-24 21:26 | NUR ---
PT RESTING IN BED WITH EYES CLOSED. AWOKE EASILY TO VERBAL STIMULI. TOLERATED PM MEDS WITHOUT DIFFICULTY. FEEDING TUBE TUBING CHANGED. 4CC RESIDUAL NOTED. PT DENIES ANY NEEDS.
--- NOTE | 2016-05-24 23:33 | NUR ---
PT. SITTING UP IN BED AND REQUESTED MILK FOR HER CEREAL FOR HER BEDTIME SNACK. PT. REQUESTED THAT I WAIT AND WATCH HER GO TO THE BATHROOM TO URINATE. PT. ABLE TO SAFELY AMBULATE WITH O2 TUBING TO THE BATHROOM. PT. BACK TO BED AND POSITIONED HERSELF TO COMFORT. CALL LIGHT WITHIN REACH AND NO OTHER VOICED NEEDS AT THIS TIME.
--- NOTE | 2016-05-25 00:06 | NUR ---
RESTING QUIETLY IN BED WITH EYES CLOSED.
--- NOTE | 2016-05-25 03:23 | NUR ---
PT ASSISTED TO THE BATHROOM WITH MOD ASSIST FOR TRANSFERS. SBA FOR TOILETING. LARGE LOOSE BM NOTED.
--- NOTE | 2016-05-25 05:42 | NUR ---
PT RESTING IN BED. STATED HE WAS READY FOR BREAKFAST. WHEN INFORMED OF THE TIME, HE STATED HE WOULD THEN TAKE A NAP.
[2016-05-25 08:00] VITALS: BP 126/56
--- NOTE | 2016-05-25 08:00 | NUR ---
SHIFT ASSMT COMPLETED.DENIES NEEDS.PEG TUBE CHECKED.18CC OF RESIDUAL NOTED.BINDER IN PLACE.
--- NOTE | 2016-05-25 12:00 | NUR ---
SITTING UP EATING MEAL.AZIZA FEEDING.
--- NOTE | 2016-05-25 13:40 | NUR ---
Nutrition Follow Up: Pt reported that his appetite is okay and he feels hungry at times. He said that the TF is not causing N/V/D. TF of Jevity 1.2 currently @ 50 ml/hr which is goal rate. Spoke with nursing and CRYSTAL GRINDER regarding changing TF to bolus feedings. RD, Nurse and CRYSTAL GRINDER are in agreement that pt would benefit from prolonged continuous feedings. RD spoke with Leather Finisher who stated that insurance should cover continuous feeds from this facility to another facility. RD will write recs for bolus feedings to begin next week. Diet: Regular Puree with Honey Thick Liquids; Ensure TID PO Intake: 13% (6 meal avg) +BM 05/25/16 No new wt Meds: Reglan, Zofran, NaCl Labs noted - Na low Pt tolerating current TF regimen which is meeting est nutritional needs. Pt with little po intake. Noted per nursing pt loves honey thick tea and has requested more on tray - RD will honor request. Rec continue current TF regimen and diet per CRYSTAL GRINDER recs. RD following.
--- NOTE | 2016-05-25 16:00 | NUR ---
RESTING QUIETLY.DENIES NEEDS.
--- NOTE | 2016-05-25 19:00 | NUR ---
PATIENT IN BED, AWAKE. JEVITY 1.2 CRYSTAL CONTINUOUS TF INFUSING PER FEEDING PUMP VIA PEG TUBE @ 50ML/HR. PATIENT DENIES NEEDS.
[2016-05-25 19:50] VITALS: BP 127/55
--- NOTE | 2016-05-25 19:50 | NUR ---
VS AND ASSESSMENT COMPLETE. PEG RESIDUAL 5ML. STOPPED TF FOR IN FLIGHT REFUELING OPERATOR TO ASSIST PATIENT TO SHOWER. WILL RESUME TF AFTER SHOWER WITH NEW TF SET.
--- NOTE | 2016-05-25 22:45 | NUR ---
RESTING QUIETLY IN BED, EYES CLOSED.
--- NOTE | 2016-05-26 00:15 | NUR ---
PATIENT AWAKE. EMPTIED 200ML CONCENTRATED URINE FROM BEDSIDE URINAL.
--- NOTE | 2016-05-26 01:50 | NUR ---
IN BED, AWAKE, HAVING JUST USED URINAL. EMPTIED 175ML FROM BEDSIDE URINAL. PATIENT DENIES NEEDS.
--- NOTE | 2016-05-26 05:55 | NUR ---
GAVE PATIENT SCHEDULED PROTONIX. EMPTIED 150ML FROM BEDSIDE URINAL. DENIES NEEDS. WILL LEAVE LOWER BODY IN BRIEF ONLY TO FACILITATE USE OF URINAL. TF PUMP CLEARED. PATIENT DENIES NEEDS.
[2016-05-26 06:13] LABS: BASOPHILS 0.1 % (0.0-2.0); EOSINOPHILS 0.9 % (0-7); HEMATOCRIT 33.9 % (42.0-54.0); HEMOGLOBIN 11.2 g/dL (13.5-17.5); IMMATURE GRANULOCYTES 0.3 % (0-5); LYMPHOCYTES 13.6 % (15-50); MCH 31.2 pg (26.0-34.0); MCV 94.4 fL (80.0-100.0); MEAN PLATELET VOLUME 9.4 fL (7.4-10.4); MONOCYTES 10.4 % (2-11); NEUTROPHILS 74.7 % (40-80); PLATELET COUNT 283 10x3/uL (130-400); RBC 3.59 10x6/uL (4.20-6.10); RDW 13.5 % (11.5-14.5)
[2016-05-26 06:22] LABS: CALC OSMOLALITY 269 mosm/kg (275-300); CALCIUM 7.5 mg/dL (8.5-10.1); CARBON DIOXIDE 30.6 mmol/L (21.0-32.0); CHLORIDE - SERUM 101 mmol/L (98-107); CREATININE - SERUM 0.7 mg/dL (0.6-1.3); GLUCOSE 113 mg/dL (74-106); POTASSIUM - SERUM 4.1 mmol/L (3.5-5.1); SODIUM 134 mmol/L (136-145); eGFR NON AFRICAN AMERICAN > 90 mL/min (90-120)
[2016-05-26 06:23] LABS: UREA NITROGEN 14 mg/dL (7-18)
--- NOTE | 2016-05-26 07:00 | NUR ---
RECEIVED PT. IN BED AWAKE AND ORIENTED X 3 AT THE BEGINNING OF THIS DAY SHIFT. DENIES ANY PAIN OR DISCOMFORT. HOB IS ELEVATED TO 35% ANGLE. G-TUBE IS PATENT AND JEVITY 1.2 CRYSTAL INFUSING AT RATE OF 50ML'S/HR PER PUMP. STABLE CONDITION OBSERVED. VITAL SIGNS: TEMP. 98.2, PULSE 68, RESP. 14, B/P 120/50, 02SAT. 94%. ABDOMINAL BINDER ON AND SECURE.
[2016-05-26 09:16] VITALS: BP 120/50
--- NOTE | 2016-05-26 10:39 | NUR ---
PT HAS BEEN TAKEN TO THE THERAPY DEPT. FOR THERAPY NOW. AT BEDSIDE AWAITING ON HIM. BED LINENS CHANGED.
--- NOTE | 2016-05-26 16:08 | NUR ---
CARE TEAM MEETING: PATIENT TENATIVE DISCHARGE DATE IS 05/28/16 TO [facility]. WILL TRANSPORT PATIENT TO FACILITY. PATIENT HAS WALKER AND CANE, AND PCP IS DR. HUNTER. APPPOINTMENT WILL BE MADE WWITH PCP WHEN DISCHARGED FROM FACILITY. WILL CONTINUE TO FOLLOW WITH PATIENT UNTIL DISCHARGED
--- NOTE | 2016-05-26 18:55 | NUR ---
ASSISTED PT TO RESTROOM AND BACK TO BED, PT STATED TIRED AND NOT FEELING WELL, WILL CONTINUE TO MONITOR, CALL LIGHT WITHIN REACH.
--- NOTE | 2016-05-26 19:30 | NUR ---
INTRODUCED SELF TO PT, PT O2 SAT 85, PUT PT ON 2LNC, O2 INCREASED TO 95, WILL CONTINUE TO MONITOR, CALL LIGHT WITHIN REACH.
--- NOTE | 2016-05-26 20:00 | NUR ---
NIGHT MEDICATION GIVEN, PT TOLERATED WELL, FEEDING TUBE ASPIRATED 5CC. WILL CONTINUE TO MONITOR, CALL LIGHT WITHIN REACH.
[2016-05-26 20:16] VITALS: BP 122/66
--- NOTE | 2016-05-26 22:12 | NUR ---
PT ELEVATED TEMP OF 101.8, RESPIRATIONS 27, O2 SAT 85, STARTED PT ON 2LNC, O2 SAT INCREASED TO 94%. BP 122/66. CALLED DR ELIAS, LISA ZAMARRIPA RETURNED CALLED, ORDERS GIVEN: BLOOD CULTURES, CBC, BMP, UA, CHEST X-RAY, AND LEVAQUIN 500MG DAILY. WILL CONTINUE TO MONITOR PT. CALL LIGHT WITHIN REACH.
[2016-05-26 22:57] LABS: BASOPHILS 0.1 % (0.0-2.0); EOSINOPHILS 0.2 % (0-7); HEMATOCRIT 37.9 % (42.0-54.0); HEMOGLOBIN 12.7 g/dL (13.5-17.5); IMMATURE GRANULOCYTES 0.3 % (0-5); LYMPHOCYTES 3.7 % (15-50); MCHC 33.5 g/dL (31.0-37.0); MCV 95.5 fL (80.0-100.0); MEAN PLATELET VOLUME 9.3 fL (7.4-10.4); MONOCYTES 5.2 % (2-11); NEUTROPHILS 90.5 % (40-80); PLATELET COUNT 333 10x3/uL (130-400); RBC 3.97 10x6/uL (4.20-6.10); RDW 13.7 % (11.5-14.5)
--- NOTE | 2016-05-26 23:03 | NUR ---
PT RESTING QUIETLY, TEMP 99.1, RESPIRATIONS EVEN AT 18, PT STATES FEELS ALOT BETTER, WILL CONTINUE TO MONITOR, CALL LIGHT WITHIN REACH.
[2016-05-26 23:07] LABS: CALCIUM 8.1 mg/dL (8.5-10.1); CARBON DIOXIDE 28.3 mmol/L (21.0-32.0); CHLORIDE - SERUM 101 mmol/L (98-107); GLUCOSE 141 mg/dL (74-106); POTASSIUM - SERUM 4.3 mmol/L (3.5-5.1); SODIUM 134 mmol/L (136-145); eGFR NON AFRICAN AMERICAN 85 mL/min (90-120)
[2016-05-26 23:08] LABS: CALC OSMOLALITY 271 mosm/kg (275-300); CREATININE - SERUM 0.9 mg/dL (0.6-1.3); UREA NITROGEN 18 mg/dL (7-18)
[2016-05-26 23:22] LABS: WBC 17.2 10x3/uL (4.8-10.8)
--- NOTE | 2016-05-27 00:09 | NUR ---
PT RESTING QUIETLY, RESPIRATIONS EVEN, HEAD OF BED ELEVATED TO 30 DEGREES, BED IN LOW POSITION, SIDE RAILS UP X'S 2, BED ALARM ON, WILL CONTINUE TO MONITOR, CALL LIGHT WITHIN REACH.
[2016-05-27 00:24] VITALS: BP 110/58
--- NOTE | 2016-05-27 02:00 | NUR ---
FOUND PATIENT AWAKE AT 0115 AND PREPPED HIM FOR CLEAN CATCH URINE VIA NEW URINAL. HOWEVER, AFTER LEAVING URINAL BETWEEN LEGS SINCE THEN PATIENT HAS NOT URINATED AND NOW DENIES URGE TO DO SO. REMINDED HIM TO CALL ME THE NEXT TIME HE NEEDS TO URINATE SO WE CAN OBTAIN A SPECIMEN. PATIENT APPEARS LESS CONFUSED THAN EARLIER, BUT STILL NOT BACK TO HIS BASELINE ORIENTATION. BREATHING IS MILDLY LABORED. CONTINUES ON O2 OR N/C @ 2L FLOW. LAST PULSEOX WAS IN MID 90'S AROUND 0030.
--- NOTE | 2016-05-27 04:10 | NUR ---
RESTING IN BED, EYES CLOSED. APPEARS COMFORTABLE.
--- NOTE | 2016-05-27 06:30 | NUR ---
CLEANSED AND CHANGED PATIENT FROM URINARY INCONTINENCE AND THEN ASSISTED HIM TO URINATE IN URINAL. OBTAINED UA SAMPLE FROM THIS AND SENT IT TO LAB. REPOSITIONED PATIENT UP IN BED FOR TF REFLUX PRECAUTIONS.
[2016-05-27 06:54] LABS: APPEARANCE CLEAR (CLEAR); BILIRUBIN NEGATIVE (NEGATIVE); COLOR DK YELLOW (YELLOW); GLUCOSE NEGATIVE (NEGATIVE); KETONE NEGATIVE (NEGATIVE); LEUKOCYTE ESTERASE NEGATIVE (NEGATIVE); NITRITE NEGATIVE (NEGATIVE); PROTEIN NEGATIVE (NEGATIVE)
--- NOTE | 2016-05-27 07:27 | NUR ---
RESTING QUIETLY IN BED BED. CALL LIGHT IN REACH
--- NOTE | 2016-05-27 08:15 | NUR ---
PT RESTING IN BED WITH EYES OPEN CALL LIGHT IN REACH NO PROBLEMS WILL MONITER
[2016-05-27 11:16] VITALS: BP 100/49
--- NOTE | 2016-05-27 13:46 | NUR ---
PT RESTING IN BED WITH EYES OPEN CALL LIGHT IN REACH NO PROBLEMS WILL MONITER
--- NOTE | 2016-05-27 17:49 | NUR ---
PT RESTING IN BED WITH EYES OPEN CALL LIGHT IN REACH WILL MONITER
[2016-05-27 18:50] VITALS: BP 98/49
--- NOTE | 2016-05-27 19:10 | NUR ---
PATIENT IN BED, AWAKE. MULTIPLE FAMILY VISITORS AT BEDSIDE. JEVITY 1.2 TF CONTINUES INFUSING @ 50ML/HR RATE PER PUMP VIA PEG TUBE. HOB UP 30 DEGREES FOR REFLUX PRECAUTIONS. PATIENT DENIES NEEDS.
--- NOTE | 2016-05-27 21:45 | NUR ---
CLEANSED AND CHANGED PATIENT AND ALL LINENS DUE TO LARGE URINARY INCONTINENCE IN HIS BRIEF, SCRUB BOTTOM, PINK BED PAD AND TOP LINENS. PATIENT HAS DEVELOPED A BLANCHABLE REDDENED AREA OVER HIS COCCYX DUE TO INABILITY TO TURN FULLY WHILE RECEIVING CONTINUOUS TUBE FEEDING. CLEANED COCCYX AND SACRUM WITH SOUND HOG KILLER AND APPLIED SACRAL MEPILEX DRESSING FOR CUSHIONING. INSERTED A PILLOW UNDER LEFT BUTTOCK AND LOWER BACK TO TURN PATIENT SLIGHTLY TO REDUCE PRESSURE TO COCCYX AREA.
--- NOTE | 2016-05-28 | NUR ---
PATIENT AWAKE. GAVE HIM HIS URINAL TO USE. INFANT TEACHER TURNED PATIENT FROM PARTIAL RIGHT SIDELYING TO PARTIAL LEFT SIDELYING POSITION FOR PRESSURE RELIEF TO COCCYX.
--- NOTE | 2016-05-28 02:25 | NUR ---
PATIENT AWAKE. DENIES NEEDS. REPOSITIONED HIM IN PARTIAL LEFT SIDELYING POSITION WITH PILLOW FOR SUPPORT.
--- NOTE | 2016-05-28 04:30 | NUR ---
IN BED, EYES CLOSED. APPEARS COMFORTABLE.
--- NOTE | 2016-05-28 06:40 | NUR ---
GAVE PATIENT SCHEDULED PROTONIX. REPOSITIONED PATIENT UP IN BED AND REPOSITIONED HIS ABDOMINAL BINDER IT HAD RIDDEN UP TO HIS CHEST. CHANGED DRAIN DRESSING AFTER CLEANSING PEG SITE DRESSING HAD BEEN DISPLACED BY ABDOMINAL BINDER MOVEMENT.
[2016-05-28 07:08] LABS: BASOPHILS 0 % (0.0-2.0); EOSINOPHILS 0.1 % (0-7); HEMATOCRIT 31.9 % (42.0-54.0); HEMOGLOBIN 10.6 g/dL (13.5-17.5); IMMATURE GRANULOCYTES 0.3 % (0-5); LYMPHOCYTES 6.5 % (15-50); MCH 31.5 pg (26.0-34.0); MCHC 33.2 g/dL (31.0-37.0); MCV 94.7 fL (80.0-100.0); MEAN PLATELET VOLUME 9.4 fL (7.4-10.4); MONOCYTES 8.1 % (2-11); PLATELET COUNT 274 10x3/uL (130-400); RBC 3.37 10x6/uL (4.20-6.10); WBC 18.9 10x3/uL (4.8-10.8)
[2016-05-28 07:24] LABS: CALC OSMOLALITY 268 mosm/kg (275-300); CALCIUM 8.3 mg/dL (8.5-10.1); CARBON DIOXIDE 29.5 mmol/L (21.0-32.0); CHLORIDE - SERUM 99 mmol/L (98-107); CREATININE - SERUM 0.8 mg/dL (0.6-1.3); GLUCOSE 134 mg/dL (74-106); POTASSIUM - SERUM 4.3 mmol/L (3.5-5.1); SODIUM 133 mmol/L (136-145); UREA NITROGEN 16 mg/dL (7-18); eGFR NON AFRICAN AMERICAN > 90 mL/min (90-120)
[2016-05-28 07:51] VITALS: BP 118/52
--- NOTE | 2016-05-28 08:00 | NUR ---
SITTING UP IN BED. AT BEDSIDE.CL IN REACH.FEEDING PATENT TO PEG/PUMP.PLAN FOR TO [place] TO ACUTE CARE TODAY.
--- NOTE | 2016-05-28 08:45 | NUR ---
due to change in medical condtion patient discharge from rehab and admitt back to acute floor
--- NOTE | 2016-05-28 11:15 | NUR ---
PT TRANSFERED TO ACUTE CARE PER DR ORDERS VIA BED REPORT CALLED TO GRACIELA DALTON ON MED SURG HANDLED TRANSFER WELL
== END 2016-05-28 11:48 | disposition short-term general hospital (02) | DRG 950 ==
LOC: D.REHAB 18:30
PROVIDERS: Internal Medicine Gastroenterology; ADMIT Emergency Medicine
PROC: 0DH64UZ Insertion of Feeding Device into Stomach, Percutaneous Endoscopic Approach (ICD-10-PCS; principal; 2016-05-21 11:15)
DX: S06.300D Unspecified focal traumatic brain injury without loss of consciousness, subsequent encounter (principal); I25.10 Atherosclerotic heart disease of native coronary artery without angina pectoris; W19.XXXD Unspecified fall, subsequent encounter; R47.1 Dysarthria and anarthria; E78.5 Hyperlipidemia, unspecified; R53.1 Weakness; Z86.711 Personal history of pulmonary embolism; Z95.5 Presence of coronary angioplasty implant and graft; K22.4 Dyskinesia of esophagus; R13.10 Dysphagia, unspecified; K25.9 Gastric ulcer, unspecified as acute or chronic, without hemorrhage or perforation

== ENCOUNTER 2016-05-28 11:59 | Inpatient (IN) | payer MEDICARE, OTHER ==
[~2016-05-28] VITALS: Ht 172.7 cm; Wt 50.2 kg
--- NOTE | ~2016-05-28 | HEMODYNAMI ---
PATIENT:LAURIE KENRS MEDICAL RECORD: [id number] : 31 LOCATION:D.MS [id number] ADMISSION DATE: 05/28/16 Generatedon:06/03/201613:20 Patient name: LAURIE KERNS Patient #: [id number] : 1935 Date of study: 06/03/2016 Page: Of Hemodynamic Procedure Report Patient Data Patient Demographics Procedure consent was obtained First Name: LAURIE Gender: Male Last Name: SAUMYA : 1935 Patient #: [id number] Age: 81 year(s) Race: SSN: [id number] Additional ID: [id number] Contact details Address: [address] [address] State: [place] City: [place] Zip code: [address] Past Medical History Allergies: No known allergies Admission Admission Data Admission Date: 05/28/2016 Admission Time: 11:59 Room #: [id number] Weight (lbs.): 110 Weight (kg.): 49.9 Procedure Procedure Types Cath Procedure Peripheral Cath Diagnostic Procedure Cath Peripheral Venography IVC/SVC Inferior Venacava Filter Procedure Description Procedure Date Procedure Date: 06/03/2016 Procedure Start Time: 12:59 Procedure Staff Name Function Bradley Lo MD Performing Physician Damián Lopez RT Scrub Alejandra Bustos RN Nurse Janiya Sparks RT Top Cleaner Janiya Sparks RT Monitor Procedure Data Cath Procedure Fluoroscopy Diagnostic fluoroscopy Total fluoroscopy Time: 0.8 time: 0.8 min min Diagnostic fluoroscopy Total fluoroscopy dose: dose: 30.6 mGy 30.6 mGy Contrast Material Contrast Material Type Amount (ml) Isovue 300 30 Procedure Medications Medication Administration Route Dosage Versed I.V. 1 mg Fentanyl I.V. 25 mcg Oxygen NC 3 l/min Lidocaine 1% added to field 20 Heparin Flush Bag added to field 3 bags (1000units/500ml NS) Fentanyl I.V. 50 mcg Hemodynamics Rest Heart Rate: 69 (bpm) Snapshots Pre Cath Intra NCS Post Cath Vital Signs Time Heart Resp SPO2 NIBP Rhythm Pain Sedation Rate (ipm) (%) (mmHg) Status Level (bpm) 12:45:54 69 20 93 No Cuff NSR 0 (11) 10(A) , No pain 12:48:05 67 24 93 131/56(81) NSR 0 (11) 10(A) , No pain 12:52:21 67 26 92 124/54(83) NSR 0 (11) 10(A) , No pain 12:56:35 71 22 92 112/55(78) NSR 0 (11) 10(A) , No pain 13:00:47 67 18 93 109/47(65) NSR 0 (11) 9(A) , No pain 13:04:51 78 19 93 103/55(71) NSR 0 (11) 10(A) , No pain 13:08:58 73 25 92 120/53(74) NSR 0 (11) 9(A) , No pain 13:13:13 69 20 91 110/52(73) NSR 0 (11) 10(A) , No pain Medications Time Medication Route Dose Verified Delivered Reason Notes Effe ctiveness by by 12:45:50 Heparin Flush added 3 Alejandra Alejandra used for Bag to bags King KRYSTLE Bustos RN procedure (1000units/500ml field NS) 12:45:51 Lidocaine 1% added 20ml Alejandra Alejandra for local to vial King KRYSTLE Bustos RN anesthetic field 13:00:24 Versed I.V. 1 mg Alejandra Alejandra for King KRYSTLE Bustos RN sedation 13:00:32 Fentanyl I.V. 25 Alejandra Alejandra for mcg King KRYSTLE Bustos RN sedation 13:01:08 Oxygen NC 3 Alejandra Alejandra Per l/min King KRYSTLE Bustos RN protocol 13:07:41 Fentanyl I.V. 50 Alejandra Alejandra for mcg King KRYSTLE Bustos RN sedation Procedure Log Time Note 12:28:08 Patient Weight : 110 lbs 12:44:40 Time tracking: Regular hours 12:44:46 Plan of Care:Hemodynamics will remain stable., Cardiac rhythm will remain stable., Comfort level will be maintained., Respiratory function will remain adequate., Patient/ family verbilizes understanding of procedure., Procedure tolerated without complication., Recovers from procedure without complications.. 12:44:57 Patient received from Med/Surg to IR Alert and oriented. Tansferred to table in Supine position. 12:44:59 Warm blankets applied, and alina hugger turned on for patient comfort. 12:45:00 Correct patient and procedure confirmed by team. 12:45:03 ECG and BP/O2 sat monitors applied to patient. 12:45:04 Vital chart was started 12:45:08 Baseline sample Acquired. 12:45:43 Signed procedure consent form obtained from spouse. 12:45:46 Full Disclosure recording started 12:45:47 - 12:45:50 Heparin Flush Bag (1000units/500ml NS) 3 bags added to field was given by Alejandra Bustos RN; used for procedure; 12:45:51 Lidocaine 1% 20ml vial added to field was given by Alejandra Bustos RN; for local anesthetic; 12:45:53 H&P Date Dictated: 06/03/2016 Within 30 days and on chart.. 12:45:55 Pre-procedure instructions explained to patient. 12:45:56 Pre-op teaching completed and patient verbalized understanding. 12:45:57 Family in waiting room. 12:46:00 Patient NPO since Midnight. 12:46:14 Patient allergic to No known allergies 12:46:25 Is the patient allergic to Iodine/contrast media? No. 12:46:34 Is patient on blood thinner?Yes 12:46:46 Patient diabetic? No. 12:46:47 - 12:46:50 ----Pre-sedation anethsthesia assessment.---- 12:46:57 Previous problem with sedation/anesthesia? No ? 12:47:00 Snore? Yes 12:47:02 Sleep apnea? No 12:47:06 Deviated septum? No 12:47:08 Opens mouth fully? Yes 12:47:11 Sticks out tongue? Yes 12:47:15 Airway obstruction? No ? 12:47:20 Dentures? No ? 12:47:35 IV patent on arrival in right wrist with 0.9% NaCl at [facility]. 12:47:42 Right groin area was prepped with chlora-prep and draped in sterile fashion 12:47:44 Alarms reviewed by R. N. 12:47:45 Sharps counted by scrub and verified by R.N. 12:47:45 - 12:47:50 Use device set IR Diagnostic 12:47:51 Sterile Angiographic Pack opened to sterile field. 12:47:53 Bag Decanter opened to sterile field. 12:47:54 Acist Manifold opened to sterile field. 12:47:55 Acist Hand Control opened to sterile field. 12:47:55 Acist Syringe opened to sterile field. 12:48:11 TUBING, CONTRAST INJCTN HI PRES opened to sterile field. 12:48:33 Bard PETROS Vena Cava Filter opened to sterile field. 12:53:14 Micropuncture VSI 4FR kit opened to sterile field. 12:58:14 Physician arrived 12:58:22 --------ALL STOP TIME OUT------ 12:58:23 Final Timeout: patient, procedure, and site verified with staff and physician. All members of the team are in agreement. 12:58:26 Right groin site verified by team. 12:58:31 Physical assessment completed. ASA score P 2 - A patient with mild systemic disease as per Bradley Lo MD. 12:58:37 Sedation plan: IV Moderate Sedation Versed, Fentanyl 12:59:31 Procedure started. 12:59:53 Local anesthetic to right femoral vein with Lidocaine 1% by Bradley Lo MD.INITIAL ACCESS ONLY 13:00:24 Versed 1 mg I.V. was given by Alejandra Akash RN; for sedation; 13:00:32 Fentanyl 25 mcg I.V. was given by Alejandra Bustos RN; for sedation; 13:01:08 Oxygen 3 l/min NC was given by Alejandra Bustos RN; Per protocol; 13:01:24 Hermes BeThereRewardsSON 145cm guide wire opened to sterile field. 13:07:41 Fentanyl 50 mcg I.V. was given by Alejandra Bustos RN; for sedation; 13:09:47 Petros Femoral IVC filter was placed below renal veins. 13:10:14 Procedure ended.(Physican Out) 13:10:55 Fluoroscopy time 00.80 minutes. 13:11:04 Flurop Dose total: 30.6 13:11:04 Fluoroscopy dose: 30.6 mGy 13:11:08 Contrast amount:Isovue 300 30ml. 13:11:11 Sharps counted by scrub and verified by R.N. 13:11:14 Procedure and supply charges have been captured, reviewed, submitted an d are correct. 13:20:16 Vital chart was stopped Device Usage Item Name Manufacture Quantity Catalog Hospital Part Current [facility] l Lot# / Number Charge Number Stock Stock Serial# Code Sterile Cardinal 1 [id number] 5 Angiographic Health Pack Bag Decanter Microtek 1 [id number] 48714 [id number] 5 Medical Inc. Acist Acist 1 [id number] [id number] 679154 439853 5 Manifold Medical Systems Inc Acist Hand Acist 1 93082 962353 102109 159148 5 Control Medical [employer] Inc Acist Syringe Acist 1 17040 879715 698323 [id number] 20 Medical Systems Inc TUBING, Merit 1 [id number] 623799 581556 5 CONTRAST Medical INJCTN HI PRES Bard PETROS Bard 1 [id number] 678219 [id number] 5 [id number] Vena Cava Filter Micropuncture VSI VASCULAR 1 [id number] 487372 060072 5 VSI 4FR kit SOLUTIONS [facility] 1 [id number] 184029 5 [id number] 145cm guide wire Signature Audit [place] Stage Time Signature Unsigned Intra-Procedure 06/03/2016 Janiya Sparks 1:20:13 PM RT(R) Signatures Monitor : Janiya Sparks RT Signature : Date : Time : [address] [address] [place] [address]
[2016-05-28 12:43] VITALS: BP 99/41
--- NOTE | 2016-05-28 12:52 | NUR ---
PATIENT TO ROOM AT THIS TIME. NO COMPLAINTS. FAMILY AT BEDSIDE. TF INTACT AND INFUSING. CALL LIGHT WITHIN REACH.
[2016-05-28 14:00] LABS: BASOPHILS 0.1 % (0.0-2.0); EOSINOPHILS 0.1 % (0-7); HEMATOCRIT 31.9 % (42.0-54.0); HEMOGLOBIN 10.5 g/dL (13.5-17.5); IMMATURE GRANULOCYTES 0.5 % (0-5); LYMPHOCYTES 5.2 % (15-50); MCH 31.5 pg (26.0-34.0); MCHC 32.9 g/dL (31.0-37.0); MCV 95.8 fL (80.0-100.0); MEAN PLATELET VOLUME 9.1 fL (7.4-10.4); MONOCYTES 10.2 % (2-11); NEUTROPHILS 83.9 % (40-80); PLATELET COUNT 255 10x3/uL (130-400); RBC 3.33 10x6/uL (4.20-6.10); WBC 18.8 10x3/uL (4.8-10.8)
[2016-05-28 14:27] LABS: CALC OSMOLALITY 267 mosm/kg (275-300); CALCIUM 8.1 mg/dL (8.5-10.1); CARBON DIOXIDE 30.3 mmol/L (21.0-32.0); CHLORIDE - SERUM 97 mmol/L (98-107); CREATININE - SERUM 0.7 mg/dL (0.6-1.3); GLUCOSE 125 mg/dL (74-106); POTASSIUM - SERUM 4.6 mmol/L (3.5-5.1); SODIUM 132 mmol/L (136-145); UREA NITROGEN 19 mg/dL (7-18); eGFR NON AFRICAN AMERICAN > 90 mL/min (90-120)
--- NOTE | 2016-05-28 14:30 | NUR ---
IV STARTED IN LUE X 1 STICK. IVF AND ABX STARTED ORDERED. CALL LIGHT WITHIN REACH.
[2016-05-28 15:55] VITALS: BP 110/48
[2016-05-28 16:47] VITALS: BMI 16.8
--- NOTE | 2016-05-28 17:42 | NUR ---
Patient Name: LAURIE REDDY Admission Status: Urgent Accout number: [id number] Admission Date: 05-28-2016 : 1933 Admission Diagnosis: Attending: MAURO Current LOS: 1 Anticipated DC Date: Planned Disposition: Home or Self Care Primary Insurance: MEDICARE A & B Discharge Planning Comments: CM met with patient to discuss discharge planning/needs. The patient states he resides at home with his spouse. They live in a single story home with one step leading into the front door. The patient states he has a walker and a cane from a past fractured hip but does not use them now. He denies additional DME or HH services at the time of this admission. He states his home environment is safe to return to. His spouse "Jo" will be his caregiver after discharge. His transportation home will be his son "Lance Reddy" ([phone]) at time of discharge. CM will continue to follow and assist with discharge planning as needed. Retail Department Supervisor: Darlene Burk RN/CM * Is the patient Alert and Oriented? Yes 0 * How many steps to enter\\exit or inside your home? 1 0 * PCP [place] 0 * Pharmacy [facility] [phone] 0 * Preadmission Environment Home with Family 0 * ADLs Independent 0 * Equipment Cane Walker 0 * List name and contact numbers for known caregivers / representatives who currently or will assist patient after discharge: Lance Reddy - son [phone] Spouse 0 * Community resources currently utilized None 0 * Additional services required to return to the preadmission environment? No 0 * Can the patient safely return to the preadmission environment? Yes 0 * Has this patient been hospitalized within the prior 30 days at any hospital? No 0 Grand Total: 0
--- NOTE | 2016-05-28 18:55 | NUR ---
PATIENT IN BED WITH IV INTACT. NO COMPLAINTS. TF INTACT AND RUNNING. CALL LIGHT WITHIN REACH.
[2016-05-28 21:00] VITALS: BP 126/59
[2016-05-29 01:00] VITALS: BP 122/58
[2016-05-29 05:00] VITALS: BP 120/75
[2016-05-29 05:31] LABS: BASOPHILS 0.1 % (0.0-2.0); EOSINOPHILS 0 % (0-7); HEMATOCRIT 32.6 % (42.0-54.0); HEMOGLOBIN 10.8 g/dL (13.5-17.5); IMMATURE GRANULOCYTES 0.3 % (0-5); LYMPHOCYTES 7.6 % (15-50); MCH 31.2 pg (26.0-34.0); MCHC 33.1 g/dL (31.0-37.0); MCV 94.2 fL (80.0-100.0); MEAN PLATELET VOLUME 9.3 fL (7.4-10.4); MONOCYTES 11.4 % (2-11); NEUTROPHILS 80.6 % (40-80); PLATELET COUNT 295 10x3/uL (130-400); RBC 3.46 10x6/uL (4.20-6.10); RDW 13.8 % (11.5-14.5); WBC 15.3 10x3/uL (4.8-10.8)
[2016-05-29 05:40] LABS: CALC OSMOLALITY 265 mosm/kg (275-300); CALCIUM 8.1 mg/dL (8.5-10.1); CARBON DIOXIDE 27.5 mmol/L (21.0-32.0); CHLORIDE - SERUM 96 mmol/L (98-107); CREATININE - SERUM 0.7 mg/dL (0.6-1.3); GLUCOSE 139 mg/dL (74-106); MAGNESIUM - SERUM 1.7 mg/dL (1.8-2.4); POTASSIUM - SERUM 4.1 mmol/L (3.5-5.1); SODIUM 131 mmol/L (136-145); UREA NITROGEN 16 mg/dL (7-18); eGFR NON AFRICAN AMERICAN > 90 mL/min (90-120)
--- NOTE | 2016-05-29 07:00 | NUR ---
REPORT RECIEVED ASSUMED CARE. PATIENT IN BED WITH IV INTACT. PEG INFUSING WITH JEVITY 1.2 CRYSTAL. NO COMPLAINTS AT THIS TIME. FAMILY AT BEDSIDE. CALL LIGHT WITHIN REACH.
--- NOTE | 2016-05-29 08:00 | NUR ---
PATIENT ASSESSMENT COMPLETE, VS STABLE. NO COMPLAINTS AT THIS TIME. STAGE 2 TO BUTTOCKS NOTED. LAYING ON SIDE AT THIS TIME. IV AND PEG INTACT. CALL LIGHT WITHIN REACH.
[2016-05-29 08:19] VITALS: BP 131/63
[2016-05-29 10:31] VITALS: Ht 172.7 cm; Wt 50.2 kg
[2016-05-29 12:23] VITALS: BP 101/55
--- NOTE | 2016-05-29 12:30 | NUR ---
PATIENT SITTING UP IN BED WITH NO COMPLAINTS. IV INTACT. CALL LIGHT WITHIN REACH.
[2016-05-29 15:41] VITALS: BP 113/58
--- NOTE | 2016-05-29 16:40 | NUR ---
PATIENT IN BED WITH IV AND PEG TUBE INTACT. NO COMPLAINTS AT THIS TIME. FAMILY AT BEDSIDE. CALL LIGHT WITHIN REACH.
--- NOTE | 2016-05-29 19:00 | NUR ---
PATIENT SUPINE IN BED. HOB 30 DEGREES. AAOX4. RR EVEN AND UNLABORED. 0 S/S OF DISTRESS. DENIES ANY PAIN. O2 @ 1L VIA NC. IV TO LEFT UPPER ARM PATENT WITH NO REDNESS OR SWELLING. PEG TUBE TO ABD WITH JEVITY 1.2 @ 50ML/HR. ABD BINDER ON. MEPILEX TO COCCYX CDI. TELEMETRY ON. B/A ON. SRX2. BED LOW. CALL LIGHT WITHIN REACH.
[2016-05-29 21:00] VITALS: BP 124/44
--- NOTE | 2016-05-29 22:00 | NUR ---
ASSISTED PATIENT TO BATHROOM. CHANGED LINENS AND GOWN. ASSISTED PATIENT BACK TO BED. NIGHTTIME MEDS GIVEN VIA PEG TUBE. NO OTHER NEEDS AT THIS TIME.
[2016-05-30 00:45] VITALS: BP 113/53
--- NOTE | 2016-05-30 01:47 | NUR ---
PATIENT SLEEPING WITH NO DISTRESS NOTED. CALL LIGHT WITHIN REACH.
[2016-05-30 05:00] VITALS: BP 125/52
[2016-05-30 05:09] LABS: BASOPHILS 0 % (0.0-2.0); EOSINOPHILS 0.3 % (0-7); HEMATOCRIT 33.8 % (42.0-54.0); HEMOGLOBIN 11.3 g/dL (13.5-17.5); IMMATURE GRANULOCYTES 0.4 % (0-5); LYMPHOCYTES 8.3 % (15-50); MCH 31.3 pg (26.0-34.0); MCHC 33.4 g/dL (31.0-37.0); MCV 93.6 fL (80.0-100.0); MEAN PLATELET VOLUME 9.4 fL (7.4-10.4); MONOCYTES 15.9 % (2-11); NEUTROPHILS 75.1 % (40-80); PLATELET COUNT 313 10x3/uL (130-400); RBC 3.61 10x6/uL (4.20-6.10); RDW 13.5 % (11.5-14.5); WBC 11.5 10x3/uL (4.8-10.8)
[2016-05-30 05:46] LABS: CALC OSMOLALITY 265 mosm/kg (275-300); CALCIUM 8.3 mg/dL (8.5-10.1); CHLORIDE - SERUM 97 mmol/L (98-107); CREATININE - SERUM 0.7 mg/dL (0.6-1.3); GLUCOSE 131 mg/dL (74-106); MAGNESIUM - SERUM 1.6 mg/dL (1.8-2.4); POTASSIUM - SERUM 3.9 mmol/L (3.5-5.1); SODIUM 131 mmol/L (136-145); UREA NITROGEN 15 mg/dL (7-18); eGFR NON AFRICAN AMERICAN > 90 mL/min (90-120)
--- NOTE | 2016-05-30 07:00 | NUR ---
PT REC'D FROM KRYSTLE TRIMBLE. RESTING IN BED AWAKE. AAOX4. NO COMPLAINTS OF PAIN. TUBE FEEDING INFUSING TO L ABD PEG TUBE AT 50CC'S/HR. ABD BINDER ON. LUNG SOUNDS CLEAR AND EQUAL BILAT. BOWEL SOUNDS ACTIVE X4 QUADRANTS. PT REPOSITIONED UP IN BED, HOB AT 45 DEGREES. BED LOW, CALL LIGHT IN REACH, WILL CPOC.
--- NOTE | 2016-05-30 07:20 | NUR ---
PATIENT IN BED WITH NO COMPLAINTS AT THIS TIME. IV INTACT. PEG TUBE FEEDINGS INFUSING. SAMPLER OVENS AT BEDSIDE. CALL LIGHT WITHIN REACH.
[2016-05-30 09:42] VITALS: BP 125/54
--- NOTE | 2016-05-30 10:39 | NUR ---
MORNING MEDS PASSED THROUGH PEG TUB WITHOUT DIFFICULTY. PT RESTING IN BED WITH EYES CLOSED. FAMILY AT BEDSIDE. NO COMPLAINTS, BED LOW, CALL LIGHT IN REACH, DENIES NEEDS.
[2016-05-30 17:20] VITALS: BP 101/50
[2016-05-30 19:00] VITALS: BP 134/48
--- NOTE | 2016-05-30 19:30 | NUR ---
RECIEVED SHIFT REPORT. PT IS LYING IN BED. ALERT AND ORIENTED AND ABLE TO VERBALIZE NEEDS. IV IS PATENT AND FLUIDS ARE RUNNING PER ORDER. PEG TUBE PATENT AND FEED RUNNING. PT REQUIRES MINIMAL ASSISTANCE TURNING IN BED FOR COMFORT AND SKIN CARE. O2 @ 1 PER NASAL CANNULA. NO NEEDS ARE VERBALIZED AT THIS TIME. WILL CONTINUE TO MONITOR. SIDE RAILS ARE UP X 2. BED IS IN LOWEST POSITION. BED ALARM IS ON FOR SAFETY. CALL LIGHT IS WITHIN REACH.
--- NOTE | 2016-05-30 21:19 | NUR ---
SHIFT ASSESSMENT COMPLETED. NIGHT MEDS GIVEN CRUSHED IN PEG TUBE WITH NO PROBLEMS. NO RESIDUAL RECIEVED. NO NEEDS ARE VOICED. WILL MONITOR. SIDE RAILS X 2. BED LOW. BED ALARM ON. CALL LIGHT IN REACH.
[2016-05-31] VITALS: BP 116/65
[2016-05-31 04:00] VITALS: BP 132/60
[2016-05-31 05:18] LABS: BASOPHILS 0.1 % (0.0-2.0); EOSINOPHILS 0.5 % (0-7); HEMATOCRIT 32.3 % (42.0-54.0); HEMOGLOBIN 10.7 g/dL (13.5-17.5); IMMATURE GRANULOCYTES 0.3 % (0-5); LYMPHOCYTES 9.8 % (15-50); MCH 30.8 pg (26.0-34.0); MCHC 33.1 g/dL (31.0-37.0); MCV 93.1 fL (80.0-100.0); MEAN PLATELET VOLUME 9.2 fL (7.4-10.4); MONOCYTES 13.6 % (2-11); NEUTROPHILS 75.7 % (40-80); PLATELET COUNT 354 10x3/uL (130-400); RBC 3.47 10x6/uL (4.20-6.10); RDW 13.6 % (11.5-14.5); WBC 11.7 10x3/uL (4.8-10.8)
[2016-05-31 05:35] LABS: CALC OSMOLALITY 264 mosm/kg (275-300); CARBON DIOXIDE 28.3 mmol/L (21.0-32.0); CHLORIDE - SERUM 98 mmol/L (98-107); CREATININE - SERUM 0.8 mg/dL (0.6-1.3); GLUCOSE 119 mg/dL (74-106); MAGNESIUM - SERUM 1.7 mg/dL (1.8-2.4); POTASSIUM - SERUM 3.9 mmol/L (3.5-5.1); SODIUM 131 mmol/L (136-145); UREA NITROGEN 16 mg/dL (7-18); eGFR NON AFRICAN AMERICAN > 90 mL/min (90-120)
--- NOTE | 2016-05-31 08:00 | NUR ---
PT LYING IN BED AWAKE TO VERBAL STIMULI. PEG PATENT TO JEVITY 1.2 AT 50 CC HR TOLERATING WELL . PT ASSESSMENT COMPLETE PER FLOWSHEET. PIV PATENT TO IV FLUIDS PER ORDER WELL IVABT PER ORDER.
--- NOTE | 2016-05-31 08:11 | NUR ---
LYING ON LEFT SIDE WITH EYES CLOSED AND RESPIRATIONS EVEN AND NON LABORED. CALL LIGHT IN REACH, BED IN LOWEST POSITION WITH SRX2. WILL CONTINUE WITH PLAN OF CARE.
[2016-05-31 08:16] VITALS: BP 136/55
--- NOTE | 2016-05-31 09:39 | NUR ---
NUTRITION MONITORING & EVAL CHART REVIEWED. SPOKE WITH NURSING RE: TUBE FEED RATE. ENTERED NURSING MESSAGE TO INCREASE RATE TO 50 CC/HR WITH 25 CC H2O FLUSH Q HOUR. RD FOLLOWING
--- NOTE | 2016-05-31 11:18 | NUR ---
CM REASSESSMENT NOTE: CM SPOKE WITH AND PATIENT REGARDING D/C TO [facility] AT DISCHARGE. PATIENT HAS BEEN ACCEPTED THERE WHEN DISCHARGED. GEOVANNA FROM [facility] WILL BE COMING TO VISIT PATIENT AND TODAY OR TOMORROW. AND PATIENT KNOWS OF THIS PLAN.
[2016-05-31 12:08] VITALS: BP 94/39
--- NOTE | 2016-05-31 13:20 | NUR ---
PT AWAKE AND ALERT ORINETED X 2 VOICES ALL NEEDS OT STAFF NEEDED PT AT BEDSIDE. CALL LIGHT IN REACH SIDE RAILS UP X 2 VOICES ALL NEEDS
--- NOTE | 2016-05-31 14:05 | NUR ---
PT TO CT AT THIS TIME FOR BARIUM MODIFIED SWALLOW STUDY
[2016-05-31 16:04] VITALS: BP 107/37
[2016-05-31 19:00] VITALS: BP 117/58
--- NOTE | 2016-05-31 19:45 | NUR ---
RECIEVED SHIFT REPORT. PT IS LYING IN BED. ALERT AND ORIENTED AND ABLE TO VERBALIZE NEEDS. IV IS PATENT AND FLUIDS ARE RUNNING PER ORDER. PEG TUBE INTACT AND FEED RUNNING PER ORDER. O2 @ 1 PER NASAL CANNULA. PT IS AMBULATORY WITH ASSISTANCE. PT DENIES ANY PAIN AT THIS TIME. NO NEEDS ARE VERBALIZED AT THIS TIME. WILL CONTINUE TO MONITOR. SIDE RAILS ARE UP X 2. BED IS IN LOWEST POSITION. BED ALARM IS ON FOR SAFETY. CALL LIGHT IS WITHIN REACH.
--- NOTE | 2016-05-31 20:20 | NUR ---
SHIFT ASSESSMENT COMPLETED. NIGHT MEDS GIVEN PER STUDENT AND STUDENT INSTRUCTOR. NO NEEDS ARE VOICED. WILL MONITOR. SIDE RAILS X 2. BED LOW. BED ALARM ON. CALL LIGHT IN REACH.
[2016-06-01 04:00] VITALS: BP 133/54
[2016-06-01 06:58] LABS: BASOPHILS 0.1 % (0.0-2.0); EOSINOPHILS 0.7 % (0-7); HEMOGLOBIN 11.3 g/dL (13.5-17.5); IMMATURE GRANULOCYTES 0.4 % (0-5); LYMPHOCYTES 9.2 % (15-50); MCH 31.1 pg (26.0-34.0); MCHC 33.2 g/dL (31.0-37.0); MCV 93.7 fL (80.0-100.0); MEAN PLATELET VOLUME 9.2 fL (7.4-10.4); MONOCYTES 11.1 % (2-11); NEUTROPHILS 78.5 % (40-80); PLATELET COUNT 350 10x3/uL (130-400); RBC 3.63 10x6/uL (4.20-6.10); RDW 13.7 % (11.5-14.5); WBC 14.3 10x3/uL (4.8-10.8)
[2016-06-01 07:00] LABS: CALC OSMOLALITY 260 mosm/kg (275-300); CALCIUM 7.5 mg/dL (8.5-10.1); CARBON DIOXIDE 25.4 mmol/L (21.0-32.0); CHLORIDE - SERUM 97 mmol/L (98-107); CREATININE - SERUM 0.7 mg/dL (0.6-1.3); GLUCOSE 113 mg/dL (74-106); MAGNESIUM - SERUM 1.8 mg/dL (1.8-2.4); POTASSIUM - SERUM 4.3 mmol/L (3.5-5.1); SODIUM 129 mmol/L (136-145); UREA NITROGEN 14 mg/dL (7-18); eGFR NON AFRICAN AMERICAN > 90 mL/min (90-120)
--- NOTE | 2016-06-01 08:30 | NUR ---
WITHOUT NEEDS.CALL LIGHT IN REACH
[2016-06-01 08:39] VITALS: BP 133/62
[2016-06-01 12:26] VITALS: BP 87/52
--- NOTE | 2016-06-01 12:29 | NUR ---
AWAKE AND ALERT. ORIENTED X3. C/O FEELING BLASE THIS AM. NO MEDS GIVEN TO CAUSE DECREASED BP. WILL MONITOR. AT BEDSIDE. DENIES NEEDS.
[2016-06-01 16:58] VITALS: BP 96/54
--- NOTE | 2016-06-01 18:00 | NUR ---
PT AWAKE AND ALERT ORINETED X 3 LUNGS CLEAR BIALTERAL PEG PATENT TO JEVITY 1.2 RESIDUAL WAS 3CC BED BATH GIVEN PER THIS NURSE AND CRAB BACKER. AMBULATED SHORT DISTANCE WITH THERAPY TODAY NOTED TO HAVE PAIN IN LEGS AND SOME SWELLING BUT TRACE EDEMA ONLY. ORDER VENOUS DOPPLER RESULTS VERIFIED PT WITH BILATERAL DVTS TO LLE BED REST ORDER
[2016-06-01 19:00] VITALS: BP 123/64
--- NOTE | 2016-06-01 19:40 | NUR ---
RECIEVED SHIFT REPORT. PT IS LYING IN BED. ALERT AND ORIENTED AND ABLE TO VERBALIZE NEEDS. IV IS PATENT AND FLUIDS ARE RUNNING PER ORDER. O2 @ 1 PER NASAL CANNULA. PEG TUBE INTACT AND FEED RUNNING PER ORDER. PT IS ON BEDREST AT THIS TIME. PT DENIES ANY PAIN AT THIS TIME. NO NEEDS ARE VERBALIZED. VISITORS AT BEDSIDE. WILL CONTINUE TO MONITOR. SIDE RAILS ARE UP X 2. BED IS IN LOWEST POSITION. BED ALARM IS ON FOR SAFETY. CALL LIGHT IS WITHIN REACH.
--- NOTE | 2016-06-01 21:28 | NUR ---
SHIFT ASSESSMENT COMPLETED. NIGHT MEDS GIVEN THROUGH PEG TUBE WITH NO PROBLEMS. NO NEEDS ARE VOICED. WILL MONITOR. SIDE RAILS X 2. BED LOW. BED ALARM ON. CALL LIGHT IN REACH.
[2016-06-02 04:00] VITALS: BP 118/56
[2016-06-02 06:44] LABS: BASOPHILS 0.1 % (0.0-2.0); EOSINOPHILS 0.9 % (0-7); HEMATOCRIT 34.2 % (42.0-54.0); HEMOGLOBIN 11.2 g/dL (13.5-17.5); IMMATURE GRANULOCYTES 0.7 % (0-5); LYMPHOCYTES 10.9 % (15-50); MCH 30.6 pg (26.0-34.0); MCHC 32.7 g/dL (31.0-37.0); MCV 93.4 fL (80.0-100.0); MEAN PLATELET VOLUME 9.1 fL (7.4-10.4); MONOCYTES 10.8 % (2-11); NEUTROPHILS 76.6 % (40-80); PLATELET COUNT 384 10x3/uL (130-400); RBC 3.66 10x6/uL (4.20-6.10); RDW 13.8 % (11.5-14.5); WBC 11.2 10x3/uL (4.8-10.8)
[2016-06-02 07:02] LABS: CALC OSMOLALITY 265 mosm/kg (275-300); CALCIUM 7.9 mg/dL (8.5-10.1); CARBON DIOXIDE 28.7 mmol/L (21.0-32.0); CHLORIDE - SERUM 97 mmol/L (98-107); CREATININE - SERUM 0.7 mg/dL (0.6-1.3); GLUCOSE 120 mg/dL (74-106); MAGNESIUM - SERUM 1.7 mg/dL (1.8-2.4); POTASSIUM - SERUM 4.2 mmol/L (3.5-5.1); SODIUM 131 mmol/L (136-145); UREA NITROGEN 17 mg/dL (7-18); eGFR NON AFRICAN AMERICAN > 90 mL/min (90-120)
--- NOTE | 2016-06-02 07:15 | NUR ---
REPORT RECEIVED FROM SHEET METAL WORKER HELPER NURSE. CALL LIGHT IN REACH.
[2016-06-02 07:57] VITALS: BP 129/49
--- NOTE | 2016-06-02 09:49 | NUR ---
ASSESSMENT COMPLETED. PASSWORD OBTAINED FROM . SHE IS UPSET BECAUSE PATIENT WAS NOT CHECKED FOR BLOOD CLOTS WHEN HE WAS DOWNSTAIRS. I EXPLAINED TO HER THAT I AM NOT SURE WHEN HE HAD THE BLOOD CLOTS BUT IF THERE WASN'T ANY INDICATION OR S/S OF ONE, THEN THERE WOULDN'T HAVE BEEN A REASON TO CHECK FOR THEM. SHE VERBALIZED UNDERSTANDING. SHE IS VERY POLITE AT THIS TIME AND NOT HOSTILE, JUST CURIOUS. CALL LIGHT IN REACH. BED ALARM ON. WILL CONTINUE WITH PLAN OF CARE.
[2016-06-02 11:57] VITALS: BP 69/48
--- NOTE | 2016-06-02 11:59 | NUR ---
PLACED ON AND OFF OF BEDPAN. THOUGHT THAT HE NEEDED TO HAVE A BM BUT HE DIDN'T/
--- NOTE | 2016-06-02 13:59 | NUR ---
NO NEEDS VOICED AT THIS TIME. IN ROOM. HOB 45 DEGREES.
--- NOTE | 2016-06-02 15:43 | NUR ---
MAXIPIME IVPB. ALSO PLACED ON BEDPAN. PATIENT WILL CALL WHEN HE IS FINISHED.
[2016-06-02 16:23] VITALS: BP 112/39
--- NOTE | 2016-06-02 17:43 | NUR ---
ROBITUSSIN PER PEG. VANCOMYCIN IVPB. CALL LIGHT IN REACH.
--- NOTE | 2016-06-02 18:10 | NUR ---
NO CHANGES IN INITIAL ASSESSMENT. SCDs NOT ON. CALL LIGHT IN REACH. WILL CONTINUE WITH PLAN OF CARE.
--- NOTE | 2016-06-02 18:45 | NUR ---
PATIENT AWAKE AND ALERT. PATIENT IN BED, TALKING ON THE PHONE. PATIENT DENIES NEEDS. HOB 35 DEGREES. BED IN LOWEST POSITION, CALL LIGHT IN REACH. BED RAILS UP X'S 2. TUBE FEEDINGS INFUSING AT 50ML/HR. OXYGEN VIA NASAL CANNULA AT 2L/MIN.
--- NOTE | 2016-06-02 20:30 | NUR ---
AROUSES EASILY TO VERBAL STIMULI. NO COMPLAINTS VOICED. IV NFUSING TO LEFT HAND WITHOUT REDNESS OR EDEMA NOTED. JEVITY INFUSING TO PEG TUBE AT 50 CC/HR. .CL IN REACH.
[2016-06-02 21:00] VITALS: BP 108/51
[2016-06-03] VITALS: BP 128/54
--- NOTE | 2016-06-03 00:10 | NUR ---
NPO AFTER MIDNIGHT FOR PROCEDURE IN AM.
--- NOTE | 2016-06-03 02:11 | NUR ---
INCONTINENT OF LOOSE STOOL. LINEN CHANGE DONE WIHT DOMINIQUE CARE GIVEN. NO COMPLIANTES VOICED.
[2016-06-03 04:00] VITALS: BP 121/57
--- NOTE | 2016-06-03 04:00 | NUR ---
PATIENT SLEEPING WITH NO DISTRESS NOTED. O2 @ 2L VIA NC. 0 S/S OF DISTRESS. IV TO RIGHT FA PATENT WITH NO REDNESS OR SWELLING. PEG TUBE TO ABD CLAMPED. SCD'S ON. B/A ON. SRX2. BED LOW. CALL LIGHT WITHIN REACH.
[2016-06-03 04:56] LABS: BASOPHILS 0.1 % (0.0-2.0); EOSINOPHILS 1.3 % (0-7); HEMATOCRIT 33.8 % (42.0-54.0); HEMOGLOBIN 11.1 g/dL (13.5-17.5); IMMATURE GRANULOCYTES 0.9 % (0-5); LYMPHOCYTES 10.3 % (15-50); MCH 30.5 pg (26.0-34.0); MCHC 32.8 g/dL (31.0-37.0); MCV 92.9 fL (80.0-100.0); MEAN PLATELET VOLUME 8.8 fL (7.4-10.4); MONOCYTES 10.5 % (2-11); NEUTROPHILS 76.9 % (40-80); PLATELET COUNT 397 10x3/uL (130-400); RBC 3.64 10x6/uL (4.20-6.10); RDW 13.6 % (11.5-14.5)
[2016-06-03 05:36] LABS: ALBUMIN 1.8 g/dL (3.4-5.0); ALKALINE PHOSPHATASE 100 U/L (46-116); ALT (SGPT) 36 U/L (10-68); BILIRUBIN - TOTAL 0.61 mg/dL (0.2-1.3); CALC OSMOLALITY 252 mosm/kg (275-300); CALCIUM 7.9 mg/dL (8.5-10.1); CARBON DIOXIDE 28.1 mmol/L (21.0-32.0); CHLORIDE - SERUM 93 mmol/L (98-107); CREATININE - SERUM 0.7 mg/dL (0.6-1.3); GLUCOSE 89 mg/dL (74-106); POTASSIUM - SERUM 4.5 mmol/L (3.5-5.1); PROTEIN - SERUM 5.2 g/dL (6.4-8.2); SODIUM 126 mmol/L (136-145); UREA NITROGEN 15 mg/dL (7-18); eGFR NON AFRICAN AMERICAN > 90 mL/min (90-120)
--- NOTE | 2016-06-03 06:44 | NUR ---
NO CHANGE IN ASSESSMENT. CL IN REACH.
--- NOTE | 2016-06-03 07:00 | NUR ---
REPORT RECEIVED FROM PURCHASING EXPEDITOR NURSE. CALL LIGHT IN REACH.
[2016-06-03 08:08] VITALS: BP 114/47
[2016-06-03 09:23] LABS: INR 1.15 (0.85-1.17); PROTIME 14.5 SECONDS (11.6-15.0)
[2016-06-03 09:24] LABS: APTT 38.9 SECONDS (22.8-39.4)
--- NOTE | 2016-06-03 09:40 | NUR ---
ASSESSMENT COMPLETED. IV MEDS ADMINISTERED FOR NOW. WILL GIVE MEDS PER PEG AFTER PROCEDURE. KRYSTLE BOWERS, EXPLAINED IVC FILTER PROCEDURE TO PATIENT & . VERBALIZED UNDERSTANDING. CONSENT SIGNED AND WITNESSED.
[2016-06-03 11:18] VITALS: BP 117/54
--- NOTE | 2016-06-03 11:30 | NUR ---
PATIENT AND IN ROOM STILL WAITING ON PROCEDURE. EXPLAINED TO THEM THAT THERE WAS STILL ONE MORE CASE IN FRONT OF THEM THEN THEY WOULD BE HERE TO PICK THEM UP.
--- NOTE | 2016-06-03 12:28 | NUR ---
TO SPECIALS VIA BED.
--- NOTE | 2016-06-03 13:28 | NUR ---
BACK TO ROOM VIA BED.
--- NOTE | 2016-06-03 15:10 | NUR ---
AMBULATED 15 FEET WITH PHYSICAL THERAPY BUT UNABLE TO TOLERATE ANYMORE. PLACED IN CHAIR FOR 10 MINUTES THEN BACK TO BED PER PATIENT REQUEST.
[2016-06-03 15:15] VITALS: BP 99/43
--- NOTE | 2016-06-03 15:40 | NUR ---
PEG FEEDING RESTARTEED. MEDS GIVEN PER PEG EXCEPT FOR BETAPACE. WILL WAIT FOR NIGHT DOSE. REPOSITIONED FOR COMFORT. BOTTOM IS RED SO KEATON APPLIED. STATES THAT HE WILL TURN HIMSELF. INFORMED PATIENT THAT WE WILL HELP IF HE NEEDS IT. VERBALIZED UNDERSTANDING. MOUTH CARE PER SLUDGE FILTRATION OPERATOR. IN ROOM. WEIGHED WITHOUT BLANKETS AND PATIENT WAS 105.1 LBS WITH ONE PILLOW, ONE SHEET AND ONE PINK PAD. CALL LIGHT IN REACH.
--- NOTE | 2016-06-03 17:11 | NUR ---
IV TO RIGHT WRIST WITH SWELLING AND REDNESS. DC'D WITH TIP INTACT PER GEOFFREY MONTALVO. RESITED TO LEFT WITH WRIST 22 STICKS PER KATIA. VANCOMYCIN IVPB PER MYSELF.
--- NOTE | 2016-06-03 17:47 | NUR ---
PATIENT AWAKE, ALERT AND ORIENTED X'S 4. RESPIRATIONS ARE EVEN AND UNLABORED ON NASAL CANNULA. BED IN LOWEST POSITION, CALL LIGHT IN REACH. BED RAILS UP X'S 2. HOB 40 DEGREES.
--- NOTE | 2016-06-03 18:52 | NUR ---
NO CHANGES IN INITIAL ASSESSMENT. CALL LIGHT IN REACH. BED ALARM ON. WILL CONTINUE WITH PLAN OF CARE.
[2016-06-03 20:00] VITALS: BP 92/42
[2016-06-04] VITALS: BP 138/50
[2016-06-04 04:00] VITALS: BP 132/58
--- NOTE | 2016-06-04 04:30 | NUR ---
PATIENT SLEEPING WITH NO DISTRESS NOTED. AGREE WITH VENETIAN BLIND TAPE CUTTER ASSESSMENT.
[2016-06-04 05:49] LABS: BASOPHILS 0.1 % (0.0-2.0); EOSINOPHILS 0.8 % (0-7); HEMATOCRIT 33.8 % (42.0-54.0); HEMOGLOBIN 11.4 g/dL (13.5-17.5); IMMATURE GRANULOCYTES 0.5 % (0-5); LYMPHOCYTES 8.7 % (15-50); MCH 31.1 pg (26.0-34.0); MCHC 33.7 g/dL (31.0-37.0); MCV 92.3 fL (80.0-100.0); MEAN PLATELET VOLUME 8.6 fL (7.4-10.4); MONOCYTES 13.4 % (2-11); NEUTROPHILS 76.5 % (40-80); PLATELET COUNT 358 10x3/uL (130-400); RBC 3.66 10x6/uL (4.20-6.10); RDW 13.7 % (11.5-14.5); WBC 9.5 10x3/uL (4.8-10.8)
[2016-06-04 06:03] LABS: ALBUMIN 1.8 g/dL (3.4-5.0); ALKALINE PHOSPHATASE 109 U/L (46-116); ALT (SGPT) 33 U/L (10-68); BILIRUBIN - TOTAL 0.44 mg/dL (0.2-1.3); CALC OSMOLALITY 265 mosm/kg (275-300); CARBON DIOXIDE 28.7 mmol/L (21.0-32.0); CHLORIDE - SERUM 97 mmol/L (98-107); CREATININE - SERUM 0.8 mg/dL (0.6-1.3); POTASSIUM - SERUM 4.5 mmol/L (3.5-5.1); PROTEIN - SERUM 5.2 g/dL (6.4-8.2); SODIUM 131 mmol/L (136-145); UREA NITROGEN 15 mg/dL (7-18); eGFR NON AFRICAN AMERICAN > 90 mL/min (90-120)
[2016-06-04 06:04] LABS: GLUCOSE 134 mg/dL (74-106)
--- NOTE | 2016-06-04 07:00 | NUR ---
REPORT RECEIVED FROM AUTOMOTIVE UPHOLSTERER NURSE. CALL LIGHT IN REACH.
[2016-06-04 07:55] VITALS: BP 118/60
--- NOTE | 2016-06-04 09:10 | NUR ---
AMBULATED 130 FEET IN HALLWAY WITH PT. TOLERATED WELL.
--- NOTE | 2016-06-04 09:45 | NUR ---
ASKED DR. GARCIA ABOUT ANTICOAGULATION. STATES IT IS OK TO GIVE THE LOVINIX UNTIL THE COUMADIN IS THERAPEUTIC. WILL INFORM DR. ARRIETA.
--- NOTE | 2016-06-04 10:09 | NUR ---
SPOKE WITH DR. ARRIETA AND INFORMED HIM OF WHAT DR. GARCIA SAID. VERBALIZED UNDERSTANDING.
--- NOTE | 2016-06-04 10:23 | NUR ---
ASSESSMENT COMPLETED. AM MEDS ADMINISTERED INCLUDING LOVENOX. EXPLAINED TO PATIENT AND WHY WE WERE STARTING THE LOVENOX BACK BECAUSE SHE WAS CONCERNED. BOTH VERBALIZED UNDERSTANDING. SCDs OFF AT THIS TIME. CALL LIGHT IN REACH. WILL CONTINUE WITH PLAN OF CARE.
--- NOTE | 2016-06-04 10:46 | NUR ---
NUTRITION MONITORING & EVAL CHART REVIEWED. PT VISIT. TOLERATING JEVITY 1.2 @ GOAL RATE 50 CC/HR. 25 CC H2O FLUSH Q HOUR. RD FOLLOWING
[2016-06-04 11:29] VITALS: BP 88/50
--- NOTE | 2016-06-04 12:55 | NUR ---
TUBE FEEDING TUBING CHANGED OUT. DOMO PO. UP WITH PT AT THIS TIME.
--- NOTE | 2016-06-04 14:12 | NUR ---
RESTING WITH EYES CLOSED. RESP EVEN AND UNLABORED. CALL LIGHT IN REACH.
[2016-06-04 15:04] VITALS: BP 106/51
--- NOTE | 2016-06-04 16:50 | NUR ---
DAUGHTER IN ROOM CUTTING PATIENT'S NAILS AND TOENAILS.
--- NOTE | 2016-06-04 18:26 | NUR ---
EVENING MEDS ADMINISTERED PER PEG. I HAVE CALLED PHARMACY 3 TIMES TRYING TO GET IV ABX BUT THERE WAS NO ANSWER. I SPOKE WITH LANG[facility]AGE PATH ABOUT MED EARLIER. STILL WAITING. WILL TRY AGAIN. NO CHANGES IN INITIAL ASSESSMENT. CALL LIGHT IN REACH. WILL CONTINUE WITH PLAN OF CARE.
[2016-06-04 20:00] VITALS: BP 126/57
[2016-06-05] VITALS: BP 132/51
--- NOTE | 2016-06-05 00:42 | NUR ---
PT LAYING IN BED RECIVING TUBE FEEDING FROM [place] PUMP AT 50 NO DISTRESS OBSERVED AT THIS TIME RESPERATIONS EVEN AND UNLABORED. CALL LIGHT IN REACH SRX2 BED LOW AND LOCKED WILL MONITOR
[2016-06-05 04:00] VITALS: BP 123/64
[2016-06-05 05:05] LABS: BASOPHILS 0.1 % (0.0-2.0); EOSINOPHILS 1.5 % (0-7); HEMATOCRIT 34.9 % (42.0-54.0); HEMOGLOBIN 11.5 g/dL (13.5-17.5); IMMATURE GRANULOCYTES 0.9 % (0-5); LYMPHOCYTES 12.8 % (15-50); MCH 31.3 pg (26.0-34.0); MEAN PLATELET VOLUME 8.6 fL (7.4-10.4); MONOCYTES 11.6 % (2-11); NEUTROPHILS 73.1 % (40-80); PLATELET COUNT 385 10x3/uL (130-400); RBC 3.68 10x6/uL (4.20-6.10); RDW 14.1 % (11.5-14.5); WBC 10.4 10x3/uL (4.8-10.8)
[2016-06-05 05:14] LABS: MCV 94.8 fL (80.0-100.0)
[2016-06-05 05:25] LABS: ALBUMIN 1.8 g/dL (3.4-5.0); ALKALINE PHOSPHATASE 117 U/L (46-116); ALT (SGPT) 34 U/L (10-68); CALC OSMOLALITY 264 mosm/kg (275-300); CARBON DIOXIDE 31.1 mmol/L (21.0-32.0); CHLORIDE - SERUM 98 mmol/L (98-107); CREATININE - SERUM 0.7 mg/dL (0.6-1.3); GLUCOSE 124 mg/dL (74-106); POTASSIUM - SERUM 4.8 mmol/L (3.5-5.1); PROTEIN - SERUM 5.4 g/dL (6.4-8.2); SODIUM 131 mmol/L (136-145); UREA NITROGEN 14 mg/dL (7-18); eGFR NON AFRICAN AMERICAN > 90 mL/min (90-120)
--- NOTE | 2016-06-05 07:20 | NUR ---
PATIENT RECEIVED IN MID D[place] POSITION RESTING WITH EYES CLOSED. RESPIRATIONS EVEN AND UNLABORED. SIDE RAILS UP X2. BED IN LOW POSITION. CALL LIGHT IN REACH.
[2016-06-05 07:50] LABS: INR 1.16 (0.85-1.17); PROTIME 14.7 SECONDS (11.6-15.0)
[2016-06-05 08:28] VITALS: BP 112/45
--- NOTE | 2016-06-05 08:45 | NUR ---
PATIENT ALERT IN BED. NO SIGNS OF DISTRESS NOTED. SCHEDULED MEDICATION ADMINISTERED VIA PEG. TOLERATED WELL. DENIES NEEDS. SIDE RAILS UP X2. BED IN LOW POSITION. CALL LIGHT IN REACH.
--- NOTE | 2016-06-05 11:20 | NUR ---
ALERT IN BED. NO SIGNS OF DISTRESS NOTED. TUBE FEED BAGS CHANGED. RESIDUAL CHECKED AND RETURNED 25CC. SCHEDULED MEDICATION ADMINISTERED. DENIES NEEDS. SIDE RAILS UP X2. BED IN LOW POSITION. CALL LIGHT IN REACH.
[2016-06-05 12:00] VITALS: BP 98/43
--- NOTE | 2016-06-05 13:55 | NUR ---
PATIENT UP AMBULATING IN HALLWAY WITH PT. NO SIGNS OF DISTRESS NOTED. WILL CONTINUE TO MONITOR.
[2016-06-05 16:03] VITALS: BP 124/50
--- NOTE | 2016-06-05 17:05 | NUR ---
ALERT IN BED WITH FAMILY PRESENT. NO SIGNS OF DISTRESS NOTED. SCHEDULED MEDICATION ADMINISTERED VIA PEG. RESIDUAL CHECKED AND 10CC RETURNED. DENIES NEEDS. SIDE RAILS UP X2. BED IN LOW POSITION. CALL LIGHT IN REACH.
--- NOTE | 2016-06-05 19:26 | NUR ---
PATIENT SLEEPING IN SEMI-FOWLERS POSITION. NO VISUAL SIGNS OF DISTRESS. PATIENT'S BED IN THE LOWEST POSITION AND CALL LIGHT WITHIN REACH.
[2016-06-05 20:00] VITALS: BP 120/60
[2016-06-06] VITALS (7 sets, daily range): BP systolic 101–129; BP diastolic 36–56
--- NOTE | 2016-06-06 00:02 | NUR ---
PT LAYING IN BED TUBE FEEDING INFUSING ON [place] PUMP AT 50ML/HR AND FLUSHES INBETWEEN RESPERATIONS EVEN AND UNLABORED NO DISTRESS OBSERVED BED LOW AND LOCKED CALL LIGHT IN REACH SRX2 WILL MONITOR
--- NOTE | 2016-06-06 01:10 | NUR ---
CHANGED LINENS AND COMPLETED BED BATH. ADDED TWO CANS OF JEVITY TO FEEDING BAG.
[2016-06-06 05:14] LABS: BASOPHILS 0.1 % (0.0-2.0); HEMATOCRIT 33.7 % (42.0-54.0); HEMOGLOBIN 11.2 g/dL (13.5-17.5); IMMATURE GRANULOCYTES 0.8 % (0-5); LYMPHOCYTES 12.5 % (15-50); MCH 31.2 pg (26.0-34.0); MCHC 33.2 g/dL (31.0-37.0); MCV 93.9 fL (80.0-100.0); MEAN PLATELET VOLUME 8.6 fL (7.4-10.4); MONOCYTES 12.3 % (2-11); NEUTROPHILS 72.3 % (40-80); PLATELET COUNT 355 10x3/uL (130-400); RBC 3.59 10x6/uL (4.20-6.10); RDW 14.1 % (11.5-14.5); WBC 8.9 10x3/uL (4.8-10.8)
[2016-06-06 05:37] LABS: ALBUMIN 1.9 g/dL (3.4-5.0); ALKALINE PHOSPHATASE 119 U/L (46-116); ALT (SGPT) 35 U/L (10-68); CALC OSMOLALITY 261 mosm/kg (275-300); CALCIUM 8.1 mg/dL (8.5-10.1); CARBON DIOXIDE 28.7 mmol/L (21.0-32.0); CHLORIDE - SERUM 96 mmol/L (98-107); CREATININE - SERUM 0.6 mg/dL (0.6-1.3); GLUCOSE 124 mg/dL (74-106); POTASSIUM - SERUM 4.4 mmol/L (3.5-5.1); PROTEIN - SERUM 5.8 g/dL (6.4-8.2); SODIUM 130 mmol/L (136-145); UREA NITROGEN 13 mg/dL (7-18); eGFR NON AFRICAN AMERICAN > 90 mL/min (90-120)
[2016-06-06 06:13] LABS: INR 1.11 (0.85-1.17); PROTIME 14.2 SECONDS (11.6-15.0)
--- NOTE | 2016-06-06 07:20 | NUR ---
PATIENT RECEIVED ALERT IN HIGH DÍAZ POSITION. NO SIGNS OF DISTRESS NOTED. DENIES NEEDS. SIDE RAILS UP X2. BED IN LOW POSITION. CALL LIGHT IN REACH.
--- NOTE | 2016-06-06 08:40 | NUR ---
PATIENT ALERT IN HIGH DÍ[place] POSITION. RESPIRATIONS EVEN AND UNLABORED. SCHEDULED MEDICATION ADMINISTERED VIA PEG. WELL TOLERATED. DENIES NEEDS. SIDE RAILS UP X2. BED IN LOW POSITION. CALL LIGHT IN REACH.
--- NOTE | 2016-06-06 09:25 | NUR ---
IV TO LEFT HAND LEAKING. IV REMOVED WITH CATH TIP INTACT. SITE COVERED WITH GAUZE AND TAPE. NEW 22 GAUGE IV SITED TO RIGHT FOREARM X2 ATTEMPT. FLUSHES EASY WITH BRISK BLOOD RETURN PRESENT. SECURED WITH TAPE AND TEGADERM. WELL TOLERATED.
--- NOTE | 2016-06-06 11:11 | NUR ---
SITTING UP IN CHAIR ALERT. NO SIGNS OF DISTRESS NOTED. SCHEDULED MEDICATION ADMINISTERED. CALL LIGHT IN REACH.
--- NOTE | 2016-06-06 12:40 | NUR ---
PATIENT IN LOW DÍAZ POSITION RESTING WITH EYES CLOSED. RESPIRATIONS EVEN AND UNLABORED. SIDE RAILS UP X2. BED IN LOW POSITION. CALL LIGHT IN REACH.
--- NOTE | 2016-06-06 15:30 | NUR ---
PATIENT ALERT IN BED RESTING QUIETLY. SCHEDULED MEDICATION ADMINISTERED. SIDE RAILS UP X2. BED IN LOW POSITION. CALL LIGHT IN REACH.
--- NOTE | 2016-06-06 17:05 | NUR ---
ALERT IN BED TALKING ON PHONE. NO SIGNS OF DISTRESS NOTED. CALL LIGHT IN REACH. BED IN LOW POSITION.
--- NOTE | 2016-06-06 19:00 | NUR ---
PATIENT IN BED WATCHING TV. HOB 30 DEGREES. AAOX4. RR EVEN AND UNLABORED. O2 @ 2L VIA NC. 0 S/S OF DISTRESS. DENIES PAIN. IV TO RIGHT FA S/L WITH NO REDNESS OR SWELLING. JEVITY AT 50ML/HR VIA PEG TUBE. ABD BINDER ON. TELEMETRY ON. B/A ON. SRX2. BED LOW. CALL LIGHT WITHIN REACH.
--- NOTE | 2016-06-06 23:54 | NUR ---
PEG RESIDUAL AMOUNT 5CC. PATIENT RESTING IN LOW SEMI-FOWLERS POSITION. PATIENT DENIES NEEDS AT THIS TIME. PATIENT'S BED IN LOWEST POSITION AND CALL LIGHT WITHIN REACH.
--- NOTE | 2016-06-07 01:33 | NUR ---
ADDED TWO CANS OF angelcam 1.2.
--- NOTE | 2016-06-07 03:01 | NUR ---
CLEANED PATIENT UP AND CHANGED LINENS AND GOWN. BOUDREAUXS APPLIED TO RED BUTTOCK.
[2016-06-07 04:00] VITALS: BP 125/48
[2016-06-07 05:41] LABS: INR 1.28 (0.85-1.17); PROTIME 15.9 SECONDS (11.6-15.0)
[2016-06-07 05:43] LABS: BASOPHILS 0 % (0.0-2.0); EOSINOPHILS 2.6 % (0-7); HEMATOCRIT 34.8 % (42.0-54.0); HEMOGLOBIN 11.2 g/dL (13.5-17.5); IMMATURE GRANULOCYTES 0.8 % (0-5); LYMPHOCYTES 12.3 % (15-50); MCH 30.1 pg (26.0-34.0); MCHC 32.2 g/dL (31.0-37.0); MCV 93.5 fL (80.0-100.0); MEAN PLATELET VOLUME 8.7 fL (7.4-10.4); MONOCYTES 13.7 % (2-11); NEUTROPHILS 70.6 % (40-80); PLATELET COUNT 363 10x3/uL (130-400); RBC 3.72 10x6/uL (4.20-6.10); WBC 8.4 10x3/uL (4.8-10.8)
[2016-06-07 06:04] LABS: ALBUMIN 1.9 g/dL (3.4-5.0); ALKALINE PHOSPHATASE 121 U/L (46-116); ALT (SGPT) 36 U/L (10-68); CALC OSMOLALITY 263 mosm/kg (275-300); CALCIUM 8.3 mg/dL (8.5-10.1); CHLORIDE - SERUM 96 mmol/L (98-107); CREATININE - SERUM 0.7 mg/dL (0.6-1.3); GLUCOSE 126 mg/dL (74-106); POTASSIUM - SERUM 4.5 mmol/L (3.5-5.1); PROTEIN - SERUM 5.9 g/dL (6.4-8.2); SODIUM 130 mmol/L (136-145); UREA NITROGEN 14 mg/dL (7-18); eGFR NON AFRICAN AMERICAN > 90 mL/min (90-120)
[2016-06-07 08:10] VITALS: BP 149/56
[2016-06-07 11:31] VITALS: BP 112/53
--- NOTE | 2016-06-07 13:47 | NUR ---
CM REASSESSMENT NOTE: PATIENT IS DISCHARGING TO [facility] BY FACILITY VAN. PATIENTS IS AWARE AND WILL FOLLOW THE VAN TO THE FACILITY. IMM SERVED TODAY.
[2016-06-07] MEDS ORDERED: LOVENOX40 MG/0.4 SC (13:52)
[2016-06-07] MEDS ORDERED: COUMADIN7.5 MG PO (13:53)
[2016-06-07] MEDS ORDERED: CHRONULAC30 ML PEG (13:53)
[2016-06-07] MEDS ORDERED: BETAPACE 80 MG80 MG PO (13:53)
[2016-06-07] MEDS ORDERED: ROBITUSSIN DM 110 ML PEG (13:54)
[2016-06-07] MEDS ORDERED: PROTONIX FOR OR40 MG PEG (13:55)
[2016-06-07] MEDS ORDERED: MIRALAX17 GM PO (13:55)
--- NOTE | 2016-06-07 16:08 | NUR ---
PT DISCHARGED TO [facility] VIA WHEELCHAIR VIA TRANSPORT VAN PIV D/C FROM RIGHT FORARM. PEG CLAMPED FROM FEEDING FOR TRANSPORT.
--- NOTE | 2016-06-11 12:39 | CN ---
PATIENT NAME:LAURIE KERNS MEDICAL RECORD: [id number] : 31 LOCATION:D.MS [id number] ADMIT DATE: 05/28/16 ACCOUNT: [id number] CONSULTING PHYSICIAN: MITCH HARRIS MD REFERRING PHYSICIAN: ROBERT MAJOR MD DATE OF CONSULTATION: 05/28/2016 CONSULT REQUESTING PHYSICIAN: Dr. Robert Major. REASON FOR CONSULTATION: Pneumonia, right upper lobe. HISTORY OF PRESENT ILLNESS: Mr. Kerns is an 81-year-old gentleman who was admitted to rehab after PEG tube placement, dysphagia and weight loss. He also had coronary artery disease. He has 2 stents placed in. The patient was doing well and participating in exercise program, but yesterday, he has a fever of 103. Chest radiograph showed that he has infiltrate in the right upper lobe. He was transferred upstairs for aggressive antibiotic management. REVIEW OF SYSTEMS: Mainly in the history of present illness. PAST MEDICAL HISTORY: 1. Coronary artery disease. 2. History of atrial fibrillation. 3. History of intracerebral hemorrhage. 4. History of dysarthria. 5. Hyperlipidemia. 6. Right-sided weakness. 7. History of pulmonary embolism. PAST SURGICAL HISTORY: 1. Status post PEG tube placement. 2. Cataract surgery. 3. Hip fracture in September. ALLERGIES: There are no known drug allergies. CURRENT MEDICATIONS: He is on Flagyl IV and Levaquin IV. His other medication is reviewed. PERSONAL AND SOCIAL HISTORY: The patient has a remote history of smoking. There is no documented COPD. He is a nondrinker. FAMILY HISTORY: Noncontributory. PHYSICAL EXAMINATION: GENERAL: Now, the patient is lying comfortably in bed. He is not in acute distress. VITAL SIGNS: The blood pressure is 99/40, pulse is 72, respiration is 20, temperature is 97.9, SpO2 is 87% on room air. HEENT: Conjunctivae pink, sclerae nonicteric. NECK: Supple, no JVD. CHEST: The chest excursion is minimal and both have crackles at the right apex. No wheezing. HEART: Rate and rhythm regular, normal sound, no murmur. ABDOMEN: Soft. Bowel sounds present. The PEG tube is in place. CONSULT REPORT [id number] LAURIE KERNS RECTAL: Deferred. EXTREMITIES: No cyanosis, no clubbing, no pedal edema. SKIN: Warm, normal turgor. CENTRAL NERVOUS SYSTEM: The patient is awake and alert. There is no obvious cranial nerve abnormality. The gait was not tested. CHEST RADIOGRAPH: There is infiltrate in the right upper lobe. OTHER LABORATORY DATA: CBC: The WBC 18.9, hemoglobin 10.6, hematocrit is 31.9, the platelet count is 274. Chemistry: Sodium is 133, potassium 4.3, BUN is 16, creatinine 0.8, the bicarb is 29.5. IMPRESSION: 1. Pneumonia, right upper lobe, most likely hospital-acquired pneumonia, possible aspiration. 2. Dysphagia status post PEG tube placement. 3. Coronary artery disease status post stent placement. 4. History of pulmonary embolism. 5. Generalized debility. 6. Leukocytosis secondary to pneumonia. 7. Unexplained weight loss, most likely secondary to dysphagia. RECOMMENDATION: 1. I will discontinue Flagyl, adjust the dose of Levaquin, start him on vancomycin and cefepime. 2. Follow up labs and chest radiograph. Continue the PEG tube feeding. Discussed with family at length. Dr. Major, once again thanks for involving me in the care of Mr. Kerns. TRANSINT:[id number] Voice Confirmation ID: [id number] DOCUMENT ID: [id number] MITCH HARRIS MD at 1239 CC: [id number] DICTATION DATE: 05/28/16 1350 ACCOUNT ADMINISTRATOR: 05/28/16 2147 DIS IN 06/07/16 [place] [id number]
== END 2016-06-07 16:16 | DRG 166 ==
LOC: D.MS 11:59
PROVIDERS: Family Medicine; Internal Medicine Pulmonary Disease; Radiology Diagnostic Radiology; ADMIT Emergency Medicine
PROC: 06H03DZ Insertion of Intraluminal Device into Inferior Vena Cava, Percutaneous Approach (ICD-10-PCS; principal; 2016-06-03 12:30)
DX: J69.0 Pneumonitis due to inhalation of food and vomit (principal); E43 Unspecified severe protein-calorie malnutrition; I26.99 Other pulmonary embolism without acute cor pulmonale; E87.1 Hypo-osmolality and hyponatremia; Z68.1 Body mass index [BMI] 19.9 or less, adult; I82.412 Acute embolism and thrombosis of left femoral vein; I82.443 Acute embolism and thrombosis of tibial vein, bilateral; J90 Pleural effusion, not elsewhere classified; Y95 Nosocomial condition; I69.391 Dysphagia following cerebral infarction; R13.12 Dysphagia, oropharyngeal phase; I25.10 Atherosclerotic heart disease of native coronary artery without angina pectoris; E78.5 Hyperlipidemia, unspecified; Z86.711 Personal history of pulmonary embolism; R53.81 Other malaise; I48.91 Unspecified atrial fibrillation; K59.00 Constipation, unspecified

== ENCOUNTER 2016-07-02 01:44 | Inpatient (IN) | payer MEDICARE, OTHER ==
[~2016-07-02] VITALS: Ht 172.7 cm; Wt 55.0 kg
[~2016-07-02 01:44] MED LIST changes: +BETAPACE 80 MG80 MG PO; +CHRONULAC30 ML PEG; +COUMADIN7.5 MG PO; +LOVENOX40 MG/0.4 SC; +MIRALAX17 GM PO; +PROTONIX FOR OR40 MG PEG; +ROBITUSSIN DM 110 ML PEG
[2016-07-02 03:10] LABS: BASOPHILS 0.1 % (0.0-2.0); EOSINOPHILS 0.9 % (0-7); HEMATOCRIT 34.8 % (42.0-54.0); HEMOGLOBIN 11.6 g/dL (13.5-17.5); IMMATURE GRANULOCYTES 1.2 % (0-5); LYMPHOCYTES 10.1 % (15-50); MCH 30.9 pg (26.0-34.0); MCHC 33.3 g/dL (31.0-37.0); MCV 92.8 fL (80.0-100.0); MEAN PLATELET VOLUME 8.7 fL (7.4-10.4); MONOCYTES 11.3 % (2-11); NEUTROPHILS 76.4 % (40-80); PLATELET COUNT 525 10x3/uL (130-400); RBC 3.75 10x6/uL (4.20-6.10)
[2016-07-02 03:18] LABS: D-DIMER-QUANTITATIVE 1.68 ug/mLFEU (0.20-0.54)
[2016-07-02 03:19] LABS: ALBUMIN 2.5 g/dL (3.4-5.0); ALKALINE PHOSPHATASE 166 U/L (46-116); ALT (SGPT) 106 U/L (10-68); BILIRUBIN - TOTAL 0.47 mg/dL (0.2-1.3); CALC OSMOLALITY 265 mosm/kg (275-300); CALCIUM 8.5 mg/dL (8.5-10.1); CARBON DIOXIDE 28.6 mmol/L (21.0-32.0); CHLORIDE - SERUM 94 mmol/L (98-107); CREATININE - SERUM 0.8 mg/dL (0.6-1.3); GLUCOSE 80 mg/dL (74-106); INR 1.85 (0.85-1.17); POTASSIUM - SERUM 5.1 mmol/L (3.5-5.1); PROTEIN - SERUM 7.4 g/dL (6.4-8.2); PROTIME 21.4 SECONDS (11.6-15.0); SODIUM 130 mmol/L (136-145); UREA NITROGEN 30 mg/dL (7-18); eGFR NON AFRICAN AMERICAN > 90 mL/min (90-120)
[2016-07-02 03:27] LABS: AMYLASE - SERUM 44 U/L (25-115); CREATINE KINASE 27 UL (21-232); LIPASE 129 U/L (73-393); PRO BNP 603 pg/mL (0-450)
[2016-07-02 03:28] LABS: TROPONIN-I < 0.017 ng/mL (0.000-0.060)
[2016-07-02 03:42] LABS: APPEARANCE CLEAR (CLEAR); COLOR YELLOW (YELLOW); GLUCOSE NEGATIVE (NEGATIVE); KETONE NEGATIVE (NEGATIVE); LEUKOCYTE ESTERASE NEGATIVE (NEGATIVE); NITRITE NEGATIVE (NEGATIVE); PROTEIN NEGATIVE (NEGATIVE)
[2016-07-02 03:43] LABS: BILIRUBIN NEGATIVE (NEGATIVE)
[2016-07-02] MEDS ORDERED: BENADRYL25 MG GT (06:00)
[2016-07-02 06:02] VITALS: BP 98/54; BMI 16.6
--- NOTE | 2016-07-02 06:20 | NUR ---
PT ARRIVED TO ROOM. ADMISSION WORK-UP COMPLETED AND ADMISSION ASSESSMENT DONE. PT STATES HE IS SUPPOSE TO BE COMPLETELY NPO AND ONLY RECIEVES TUBE FEEDINGS. MEDS RECONCILED IN CHART. PT IS ALERT AND ORIENTED AND CAME TO ER R/T COUGH BUT NOW DENIES ANY COUGH. VSS. NIECE AT BEDSIDE. NO FURTHER NEEDS AT THIS TIME. CL IN REACH. WILL CPOC.
[2016-07-02 07:50] LABS: ALBUMIN 2.2 g/dL (3.4-5.0); BILIRUBIN - DIRECT 0.21 mg/dL (0.00-0.30); BILIRUBIN - INDIRECT 0.27 mg/dL (0.00-1.00); BILIRUBIN - TOTAL 0.48 mg/dL (0.2-1.3); PROTEIN - SERUM 6.3 g/dL (6.4-8.2)
[2016-07-02 07:56] VITALS: BP 91/48
--- NOTE | 2016-07-02 08:02 | NUR ---
RECEIVED REPORT FROM NIGHT NURSE. PATIENT ASLEEP. WILL CONTINUE TO MONITOR.
--- NOTE | 2016-07-02 10:42 | NUR ---
UP IN CHAIR AT THIS TIME. FAMILY AT BEDSIDE. REMAINS NPO FOR ULTRASOUND. DENIES NEEDS AT PRESENT TIME. CALL LIGHT IN REACH, WILL CONTINUE WITH PLAN OF CARE.
[2016-07-02 11:01] VITALS: Ht 172.7 cm; Wt 55.0 kg
--- NOTE | 2016-07-02 11:37 | NUR ---
Nutrition Note: Spoke with this am. When test are finished okay for TF to start. Spoke with nursing - pt has an ultrasound today. Will put order in to start TF of Jevity 1.5 @ 10 ml/hr. Increase 10 ml every 6-8 hours as tolerated to goal rate of 40 ml/hr. Water flushes 15 ml/hr. RD will continue to monitor pt progress.
[2016-07-02 12:22] VITALS: BP 116/40
--- NOTE | 2016-07-02 15:00 | NUR ---
TUBE FEEDING INITIATED AT 10ML/HR WITH 15ML/HR FLUSH PER ORDER. PT POSITIONED AT 30 DEGREES. AT BEDSIDE. INCONTINENCE CARE PROVIDED FOR INCONTINENT EPISODE OF STOOL. PT DENIES FURTHER NEEDS AT [facility]. CALL LIGHT IN REACH, WILL CONTINUE WITH PLAN OF CARE.
--- NOTE | 2016-07-02 15:43 | NUR ---
Rehab Prescreening Consult recieved and the chart has been reviewed. He is a new admission and has consults pending. At this time he does not have a qualifying IRF diagnosis as his current condition is chronic. Rehab will follow his progress to determine if he has an acute diagnosis to qualify for IRF. Zainab Diehl RN Clinical Liaison, Rehab
--- NOTE | 2016-07-02 15:48 | NUR ---
Rehab Prescreening Consult recieved and the chart has been reviewed. He is a new admit with consults pending. Rehab will follow his progress this weekend to determine whether he has a qualifying diagnosis to meet criteria for IRF. Zainab Diehl RN Clinical Liaison, Rehab
--- NOTE | 2016-07-02 16:05 | NUR ---
Patient Name: LAURIE KERNS Admission Status: ER Accout number: [id number] Admission Date: 07-02-2016 : 1935 Admission Diagnosis: Attending: MAURO Current LOS: 1 Anticipated DC Date: Planned Disposition: Home with Home Health Primary Insurance: MEDICARE A & B Is the patient Alert and Oriented? Yes 0 * How many steps to enter\exit or inside your home? ONE * PCP DR HUNTER * Pharmacy [facility] * Preadmission Environment Home with Family * ADLs Partial Dependent * Partial ADLs (Assistance needed) Ambulation Bathing Medication Management * Equipment Bedside Commode Enteral Feeding and Supplies Shower Chair Walker Wheelchair * Other Equipment [facility] BED FOR DC * List name and contact numbers for known caregivers / representatives who currently or will assist patient after discharge: ADELE KRISHNA, SISTER, * Community resources currently utilized Home Health * Please name any agencies selected above. [facility] * Additional services required to return to the preadmission environment? Yes * Can the patient safely return to the preadmission environment? Yes * Has this patient been hospitalized within the prior 30 days at any hospital? Yes Discharge Planning Comments: CM MET WITH PT AND HIS SISTER TO ASSESS DC PLAN/NEEDS. PT JUST DC'D FROM [facility] YESTERDAY. HE WAS WANTING TO GO HOME AND FAMILY THOUGHT THEY COULD TAKE CARE OF HIM AT HOME. HÉCTOR ARRANGED [facility] AT [place] AND MELANI WITH [facility] ARRANGED HOME TUBE FEEDS/EQUIPMENT FROM [facility]. SHE IS ALSO ARRANGING A HOSPITAL BED FROM [facility] THAT CANNOT BE DELIVERED UNTIL 07/05/16. MELANI WITH [facility] IS AWARE PT IS IN OBS STATUS AT [facility]. SHE ASKED THAT WHEN PT IS DC'D THAT CM DIRECT SUPPORT WORKER NOTIFY [facility] AND ALSO NOTIFY [facility] ([phone]). SO THEY CAN DELIVER TUBE FEEDS TO PT'S HOME. PT HAS IP REHAB REFERRAL. CM WILL CONTINUE TO ASSIST WITH DC NEEDS THEY ARISE. Retail Route Supervisor: Aleah Monteiro, RN, CM
[2016-07-02 16:06] VITALS: BP 90/53
--- NOTE | 2016-07-02 17:12 | NUR ---
DENIES NEEDS AT THIS TIME. AT BEDSIDE. CALL LIGHT IN REACH, WILL CONTINUE WITH PLAN OF CARE.
--- NOTE | 2016-07-02 20:00 | NUR ---
AT BEDSIDE VISITING WITH . INTRODUCED MYSELF TO PT PRIMARY RN FOR [facility] SHIFT. PT IS ALERT AND ORIENTED RESTING QUIETLY IN BED. SHIFT ASSESSMENT COMPLETED. PT DENIES ANY CURRENT NEEDS AT THIS TIME. CL IN REACH, BED IN LOWEST, SIDE RAILS X2. WILL CPOC AND PULL MEDS FOR NIGHTLY MED PASS SHORTLY.
[2016-07-02 20:31] VITALS: BP 142/48
--- NOTE | 2016-07-02 23:49 | NUR ---
ADMINISTERED ORDERED COUGH MEDICATION. PT WAS RESTING COMFORTABLY BUT HAD SLID DOWN IN BED. PULLED PT UP IN BED AND REPOSTIONED. HOB @30 DEGREES FOR TUBE FEEDING. PT HAS AT BEDSIDE AND DENIES ANY CURRENT PAIN OR FURTHER NEEDS, STATES "I WOULD LIKE TO SLEEP MORE" CL IN REACH, BED IN LOWEST, SIDE RAILS X2. WILL CPOC.
[2016-07-03 00:15] VITALS: BP 105/37
--- NOTE | 2016-07-03 01:29 | NUR ---
PT RESTING QUIETLY IN BED WITH EYES CLOSED. RR NONLABORED ON RA. NO S/S OF DISTRESS OR ANY CURRENT NEEDS NOTED AT THIS TIME. CL IN REACH, BED IN LOWEST, SIDE RAILS X2, BUILT IN BED ALARM ON AND AT BEDSIDE. WILL CPOC.
--- NOTE | 2016-07-03 03:20 | NUR ---
UPPED PTS TUBE FEEDING TO 20CC/HR TO TRY AND REACH GOAL RATE. PT IS TOLERATING WELL DENIES ANY DISCOMFORT AT SITE. DRSG CDI NO FURTHER NEEDS. WILL CTM.
[2016-07-03 04:30] VITALS: BP 107/44
--- NOTE | 2016-07-03 05:02 | NUR ---
ADMINISTERED MORNING MEDICATIONS VIA G-TUBE. INITIATED NEW BAG OF FLUID VIA L.FA PIV WITH DRSG CDI AND SWAB CAPS IN USE. NS @125ML/HR INFUSING. PT STATES HE HAS SLEPT WELL AND WOULD LIKE TO CONTINUE SLEEPING. CL IN REACH, BED IN LOWEST, SIDE RAILS X2, BUILT IN BED ALARM ON. WILL CTM.
[2016-07-03 05:44] LABS: BASOPHILS 0.1 % (0.0-2.0); EOSINOPHILS 4.3 % (0-7); HEMATOCRIT 29.7 % (42.0-54.0); HEMOGLOBIN 9.7 g/dL (13.5-17.5); IMMATURE GRANULOCYTES 0.6 % (0-5); LYMPHOCYTES 15.5 % (15-50); MCH 30.4 pg (26.0-34.0); MCHC 32.7 g/dL (31.0-37.0); MCV 93.1 fL (80.0-100.0); MEAN PLATELET VOLUME 8.6 fL (7.4-10.4); MONOCYTES 11.3 % (2-11); NEUTROPHILS 68.2 % (40-80); RBC 3.19 10x6/uL (4.20-6.10); RDW 14.3 % (11.5-14.5)
[2016-07-03 05:48] LABS: WBC 8.9 10x3/uL (4.8-10.8)
[2016-07-03 05:49] LABS: PLATELET COUNT 419 10x3/uL (130-400)
[2016-07-03 06:11] LABS: INR 1.6 (0.85-1.17)
[2016-07-03 06:38] LABS: CHLORIDE - SERUM 98 mmol/L (98-107); CREATININE - SERUM 0.8 mg/dL (0.6-1.3); SODIUM 129 mmol/L (136-145); eGFR NON AFRICAN AMERICAN > 90 mL/min (90-120)
[2016-07-03 06:54] LABS: CALC OSMOLALITY 263 mosm/kg (275-300); CARBON DIOXIDE 20.7 mmol/L (21.0-32.0); GLUCOSE 138 mg/dL (74-106); POTASSIUM - SERUM 4.3 mmol/L (3.5-5.1); UREA NITROGEN 22 mg/dL (7-18)
--- NOTE | 2016-07-03 07:30 | NUR ---
PATIENT WITH INCONTINENT EPISODE OF FECES. LIQUID FECES. INCONTINENT CARE PROVIDED AT THIS TIME AND COMPLETE LINEN CHANGE PROVIDED. NO DISTRESS. PATIENT ABLE TO TURN FROM SIDE TO SIDE VERY WELL. FAMILY AT BEDSIDE. CALL LIGHT WITHIN REACH.
[2016-07-03 07:55] VITALS: BP 105/40
--- NOTE | 2016-07-03 10:00 | NUR ---
PATIENT AMBULATED 150 FT WITH PHYSICAL THERAPY AT THIS TIME. TOLERATED THERAPY WELL. NO DISTRESS.
--- NOTE | 2016-07-03 11:30 | NUR ---
ASSISTED PATIENT BACK TO BED FROM CHAIR AT BEDSIDE. ASSISTED PATIENT ONTO BED DELEON. SMALL BM OBSERVED. CARES RENDERED. CALL LIGHT WITHIN REACH. NO DISTRESS. FAMILY REMAINS AT BEDSIDE.
[2016-07-03 11:47] VITALS: BP 102/77
[2016-07-03 15:30] VITALS: BP 110/55
--- NOTE | 2016-07-03 16:27 | NUR ---
RESTING IN BED ON LEFT LATERAL SIDE. CALL LIGHT WITHIN REACH. EYES CLOSED. EASILY AROUSED. FAMILY AT BEDSIDE. NO DISTRESS.
--- NOTE | 2016-07-03 16:46 | NUR ---
TUBE FEEDING INCREASED TO 40 CC/HR = TARGET GOAL FOR PATIENT. PRIOR TO INCREASING TUBE FEEDING, PATIENT HAD NO RESIDUAL. TOLERATING TUBE FEEDING WELL. TURNED AND REPOSITIONED. BUTT PASTE APPLIED. DENIES NEEDS. NO DISTRESS. CALL LIGHT WITHIN REACH. FAMILY REMAINS AT BEDSIDE.
--- NOTE | 2016-07-03 16:46 | NUR ---
SCDS APPLIED TO BILATERAL LOWER EXTREMITIES AT THIS TIME. NO DISTRESS.
--- NOTE | 2016-07-03 18:20 | NUR ---
Met w/ patient and niece this AM. He was alert and oriented. His plan is to discharge to home w/ home health. He ambulated w/ physical therapy 150 feet in the AM and 200 feet in the PM. Tolerated fairly well. Balance is fair. Endurance fair. Stopped to rest x1 both times. Tube feeding increased to 40 cc/hr this pm. Patient had no residual w/ 30 cc/hr. Will continue to follow.
--- NOTE | 2016-07-03 18:59 | NUR ---
REPORT GIVEN TO ONCOMING NURSE. NO DISTRESS.
--- NOTE | 2016-07-03 19:30 | NUR ---
RECEIVED REPORT, [id number], G-TUBE-1.5 JEVITY-40CCHR/ FLUSH 15CC HR, [id number], PT IS NPO, FAMILY AT BED SIDE, DENEIS ANY NEEDS, CALL LIGHT IN REACH, WILL CONTINUE TO MONITOR
[2016-07-03 20:26] VITALS: BP 122/51
[2016-07-04 00:35] VITALS: BP 121/51
--- NOTE | 2016-07-04 02:16 | NUR ---
ASSESSMENT COMPLETE, FAMILY AT BEDSIDE, CALL LIGHT IN REACH
[2016-07-04 04:17] VITALS: BP 119/54
[2016-07-04 05:04] LABS: BASOPHILS 0 % (0.0-2.0); EOSINOPHILS 3.1 % (0-7); HEMATOCRIT 28.1 % (42.0-54.0); HEMOGLOBIN 9.2 g/dL (13.5-17.5); IMMATURE GRANULOCYTES 0.4 % (0-5); LYMPHOCYTES 13.9 % (15-50); MCH 30.8 pg (26.0-34.0); MCHC 32.7 g/dL (31.0-37.0); MEAN PLATELET VOLUME 8.3 fL (7.4-10.4); MONOCYTES 10.4 % (2-11); NEUTROPHILS 72.2 % (40-80); PLATELET COUNT 375 10x3/uL (130-400); RBC 2.99 10x6/uL (4.20-6.10); RDW 14.4 % (11.5-14.5)
[2016-07-04 05:33] LABS: INR 1.57 (0.85-1.17); PROTIME 18.7 SECONDS (11.6-15.0)
[2016-07-04 05:37] LABS: CALC OSMOLALITY 270 mosm/kg (275-300); CARBON DIOXIDE 23.6 mmol/L (21.0-32.0); CHLORIDE - SERUM 103 mmol/L (98-107); CREATININE - SERUM 0.7 mg/dL (0.6-1.3); GLUCOSE 120 mg/dL (74-106); POTASSIUM - SERUM 4.4 mmol/L (3.5-5.1); SODIUM 134 mmol/L (136-145); UREA NITROGEN 17 mg/dL (7-18); eGFR NON AFRICAN AMERICAN > 90 mL/min (90-120)
--- NOTE | 2016-07-04 07:00 | NUR ---
RECEIVED REPORT. ASSUMED CARE OF PATIENT. CALL LIGHT WITHIN REACH. ALERT/ORIENTED. PATIENT WANTING TO KNOW IF HE GETS TO GO HOME TODAY OR NOT. FAMILY REMAINS AT BEDSIDE. IV FLUIDS INFUSING ORERED. TOLERATING TUBE FEEDING/FLUSHES WELL AT THIS TIME. DENIES NEEDS. NO DISTRESS.
[2016-07-04 07:41] VITALS: BP 137/52
--- NOTE | 2016-07-04 09:00 | NUR ---
TOLERATING TUBE FEEDING WELL. NO DISTRESS. FAMILY AT BEDSIDE. CALL LIGHT WITHIN REACH.
--- NOTE | 2016-07-04 09:00 | NUR ---
INCONTINENT CARE PROVIDED. CALL LIGHT WITHIN REACH. NO DISTRESS.
--- NOTE | 2016-07-04 09:22 | NUR ---
OOB AMBULATING WITH THERAPY ON UNIT. NO DISTRESS. TOLERATING THERAPY WELL.
--- NOTE | 2016-07-04 09:50 | NUR ---
INCONTINENT CARE PROVIDED. COMPLETE LINEN CHANGE PROVIDED. PATIENT HAS NO CONTROL OF BOWEL MOVEMENTS. PATIENT CONTINUES TO HAVE LOOSE STOOL. FAMILY REMAIN AT BEDSIDE. NO DISTRESS.
[2016-07-04 11:39] VITALS: BP 122/42
--- NOTE | 2016-07-04 12:00 | NUR ---
RESTING IN BED WITH EYES OPEN. CALL LIGHT WITHIN REACH. FAMILY AT BEDSIDE. DENIES NEEDS. NO DISTRESS.
--- NOTE | 2016-07-04 15:00 | NUR ---
INCONTINENT CARE PROVIDED AT THIS TIME. PATIENT DENIES ANY OTHER NEEDS AT THIS TIME. NEW SCDS PLACED DUE TO OTHERS WERE SOILED. MULTIPLE FAMILY MEMBERS AT BEDSIDE. CALL LIGHT WITHIN REACH. NO DISTRESS.
[2016-07-04 15:21] VITALS: BP 138/88
--- NOTE | 2016-07-04 18:04 | NUR ---
PATIENT RESTING IN BED WITH EYES OPEN ATTENTION TOWARD TELEVISION. PATIENTS SPOUSE AT BEDSIDE. DENIES NEEDS. CALL LIGHT WITHIN REACH. NO DISTRESS.
[2016-07-04 20:30] VITALS: BP 151/81
[2016-07-05] VITALS: BP 106/48
[2016-07-05 04:45] VITALS: BP 133/64
[2016-07-05 05:23] LABS: BASOPHILS 0.1 % (0.0-2.0); HEMATOCRIT 29.2 % (42.0-54.0); HEMOGLOBIN 9.6 g/dL (13.5-17.5); IMMATURE GRANULOCYTES 0.3 % (0-5); LYMPHOCYTES 14.4 % (15-50); MCH 30.5 pg (26.0-34.0); MCHC 32.9 g/dL (31.0-37.0); MCV 92.7 fL (80.0-100.0); MEAN PLATELET VOLUME 8.5 fL (7.4-10.4); MONOCYTES 9.5 % (2-11); NEUTROPHILS 73.7 % (40-80); PLATELET COUNT 381 10x3/uL (130-400); RBC 3.15 10x6/uL (4.20-6.10); RDW 14.4 % (11.5-14.5); WBC 8.6 10x3/uL (4.8-10.8)
[2016-07-05 05:54] LABS: INR 1.39 (0.85-1.17)
[2016-07-05 05:56] LABS: CALC OSMOLALITY 268 mosm/kg (275-300); CALCIUM 8.1 mg/dL (8.5-10.1); CARBON DIOXIDE 24.5 mmol/L (21.0-32.0); CHLORIDE - SERUM 103 mmol/L (98-107); CREATININE - SERUM 0.6 mg/dL (0.6-1.3); GLUCOSE 125 mg/dL (74-106); POTASSIUM - SERUM 3.9 mmol/L (3.5-5.1); SODIUM 134 mmol/L (136-145); UREA NITROGEN 12 mg/dL (7-18); eGFR NON AFRICAN AMERICAN > 90 mL/min (90-120)
--- NOTE | 2016-07-05 07:44 | NUR ---
AM ROUNDING- PT LAYING IN BED ON BACK WITH EYES OPEN RESTING. IS AT BEDSIDE. ON MONITOR SHOWING SR, HR 65. PT IS IN CONTROLLED A-FIB AT TIMES, PER BEAM RACKER NURSE DARNELL, DOCTORS ARE AWARE. ON EP, WILL CHECK AM LABS AND TX PER PROTOCOL. NPO. PT HAS PEG TUBE WITH TUBE FEEDING (JEVITA) RUNNING AT 40CC/HR WITH 15CC/HR FLUSHES. IV SEEN TO LEFT FOREAREM (20G) WITH NS RUNNING AT 125CC/HR. ON ROOM AIR. SCDS ARE ON. NO NEED AT CURRENT TIME. WILL CONTINUE TO MONITOR AND CONTINUE WITH PLAN OF CARE.
[2016-07-05 08:00] VITALS: BP 140/61
[2016-07-05 12:00] VITALS: BP 102/42
--- NOTE | 2016-07-05 13:10 | NUR ---
Nutrition follow-up: Jevity 1.5 infusing @ 40 ml/hr with 15 ml H2O flush every hour NS @ 125 ml/hr Pt tolerating per nursing Labs reviewed Wt: 110# RDN following.
[2016-07-05 13:39] LABS: BILIRUBIN - DIRECT 0.12 mg/dL (0.00-0.30); BILIRUBIN - INDIRECT 0.27 mg/dL (0.00-1.00); BILIRUBIN - TOTAL 0.39 mg/dL (0.2-1.3); PROTEIN - SERUM 5.6 g/dL (6.4-8.2)
--- NOTE | 2016-07-05 13:52 | NUR ---
Nutrition follow-up: Recommend Bolus tube feeding regimen for home use as follows: 1 can of Jevity 1.5 chuy @ 8:00 am, 1200 noon, 4:00 pm 1 1/2 cans of Jevity 1.5 chuy @ 8:00 pm Flush with 100 ml (3.3 ounces) H2O before and after every can. This regimen will provide: 1600 kcal (32 kcal/kg) 68 gms protein (1.3 gm/kg) 1610 ml H2O
[2016-07-05 16:00] VITALS: BP 93/46
--- NOTE | 2016-07-05 17:40 | NUR ---
1630- PTS IV IS LEAKING. ATTEMPTED TO FLUSH IV CATHETER. IV KEPT LEAKING. REINFORCING STEEL ERECTOR AND INSTRUCTOR ATTEMPTED TO RESITE PT AND WAS NOT SUCCESSFUL. WILL TRY AND RESITE PT. 1730- KRYSTLE RODRÍGUEZ ATTEMPTED TO RESITE PT X MULTIPLE STICKS (THREE) AND WAS NOT ABLE TO SUCCESSFULLY RESITE PT. NOTIFIED ADELE FAIR, UNIT MANGER. ADELE STATED SHE WOULD LOOK AT POSSIBLE SITE BEFORE SHE LEAVES. WILL CONTINUE TO MONITOR.
--- NOTE | 2016-07-05 19:15 | NUR ---
Ash[place]- ADELE FAIR RESITED PTS IV X 2 STICK TO LEFT FOREARM. SECURED WITH TAPE AND TEGADERM. IV FLUIDS RESTARTED ORDERED.
--- NOTE | 2016-07-05 19:16 | NUR ---
KRYSTLE RODRÍGUEZ INFORMED ME THAT PTS IV WAS SWOLLEN WHEN SHE WENT INTO ROOM. KRYSTLE RODRÍGUEZ REMOVED IV CATHETER WITH CATH TIP INTACT. WILL PASS THIS ALONG IN REPORT TO CRIMINAL PSYCHOLOGIST NURSE.
--- NOTE | 2016-07-05 19:17 | NUR ---
PM ROUNDING- PT LAYING IN BED ON BACK WITH EYES OPEN RESTING. IS AT BEDSIDE. ON MONITOR SHOWING SR, HR 64. ON ROOM AIR. NO IV ACCESS CURRENTLY. ON EP. NPO. PEG TUBE SEEN TO ABDOMEN WITH JEVITY RUNNING AT 40CC/HR WITH 15CC/HR FLUSHES. SCDS ARE ON. NO NEED AT CURRENT TIME. WILL PASS THIS ALONG IN REPORT WHEN KNITTER OPERATOR NURSE COMES IN AT 1000.
[2016-07-05 20:00] VITALS: BP 106/57
[2016-07-06] VITALS: BP 130/61
--- NOTE | 2016-07-06 00:30 | NUR ---
REPORT RECEIVED AND CARE ASSUMED. AT BEDSIDE. NO VOICED NEEDS. SEE SHIFT ASSESSMENT FOR FURTHER DETAIL. WILL MONITOR AND CONTINUE PLAN OF CARE.
[2016-07-06 04:00] VITALS: BP 107/63
[2016-07-06 06:04] LABS: BASOPHILS 0.1 % (0.0-2.0); EOSINOPHILS 2.5 % (0-7); HEMATOCRIT 29.6 % (42.0-54.0); HEMOGLOBIN 9.7 g/dL (13.5-17.5); IMMATURE GRANULOCYTES 0.5 % (0-5); LYMPHOCYTES 15.7 % (15-50); MCH 30.4 pg (26.0-34.0); MCHC 32.8 g/dL (31.0-37.0); MCV 92.8 fL (80.0-100.0); MEAN PLATELET VOLUME 8.4 fL (7.4-10.4); NEUTROPHILS 68.2 % (40-80); PLATELET COUNT 385 10x3/uL (130-400); RBC 3.19 10x6/uL (4.20-6.10); RDW 14.5 % (11.5-14.5); WBC 8.1 10x3/uL (4.8-10.8)
[2016-07-06 06:24] LABS: CALC OSMOLALITY 264 mosm/kg (275-300); CARBON DIOXIDE 25.6 mmol/L (21.0-32.0); CHLORIDE - SERUM 101 mmol/L (98-107); CREATININE - SERUM 0.6 mg/dL (0.6-1.3); GLUCOSE 101 mg/dL (74-106); POTASSIUM - SERUM 3.9 mmol/L (3.5-5.1); SODIUM 133 mmol/L (136-145); UREA NITROGEN 11 mg/dL (7-18); eGFR NON AFRICAN AMERICAN > 90 mL/min (90-120)
[2016-07-06 06:33] LABS: INR 1.26 (0.85-1.17); PROTIME 15.7 SECONDS (11.6-15.0)
[2016-07-06 08:11] VITALS: BP 144/58
--- NOTE | 2016-07-06 09:53 | NUR ---
IV access=22 gauge inserted in left hand. KRYSTLE Stewart
--- NOTE | 2016-07-06 11:02 | NUR ---
PT CURRENTLY LAYING IN BED ON BACK WITH EYES OPEN. HOB ELEVATED AT 30 DEGREES. IS AT BEDSIDE. PEG TUBE SEEN WITH FEEDINGS (JEVITY 1.5) RUNNING AT 40CC/HR WITH 15CC/HR FLUSHES. ON ROOM AIR. ON MONITOR SHOWING SR, HR 67. IV SEEN TO LEFT HAND THAT IS CURRENTLY SALINE LOCKED. ON EP, WILL CHECK AM LABS AND TX PER PROTOCOL. NPO. SCDS ARE ON. PT IS AWAITING POSSIBLE D/C TODAY PER REPORT. NO NEED AT CURRENT TIME. ADELE FAIR, COLD ROLLER IS DOING DAILY SHIFT ASSESSMENT. WILL DO CARE PLAN AND TEACHING FOR PT. WILL CONTINUE TO MONITOR AND CONTINUE WITH PLAN OF CARE.
[2016-07-06 11:58] VITALS: BP 117/54
[2016-07-06 15:55] VITALS: BP 112/51
--- NOTE | 2016-07-06 18:01 | NUR ---
PT LAYING IN BED ON BACK WITH EYES OPEN RESTING. HOB ELEVATED AT 30 DEGREES. PT DENIES ANY NEED AT CURRENT TIME. WILL CONTINUE TO MONITOR.
--- NOTE | 2016-07-06 19:30 | NUR ---
EASILY AROUSED, VOICES NO C/O PAIN OR DISCOMFORT AT THIS TIME. HOB UP SR UP X2, C/L IN REACH, ON ROOM AIR NO S/S OF DISTRESS NOTED, USES URINAL W/O DIFF. NS INFUSING W/O DIFF VIA PUMP AT 125CC/HR TO LEFT HANDNO R/S NOTED AT SITE. JEVIT 1.5 INFUSING W/O DIFF VIA FEEDING PUMP AT 40CC/HR TO ABD PEG. CONTINUE TO MONITOR.
[2016-07-06 20:29] VITALS: BP 150/64
[2016-07-07] VITALS: BP 112/48
[2016-07-07 04:00] VITALS: BP 129/51
[2016-07-07 04:20] LABS: BASOPHILS 0 % (0.0-2.0); EOSINOPHILS 1.9 % (0-7); HEMOGLOBIN 10.4 g/dL (13.5-17.5); IMMATURE GRANULOCYTES 0.5 % (0-5); LYMPHOCYTES 13.8 % (15-50); MCH 30.5 pg (26.0-34.0); MCHC 32.5 g/dL (31.0-37.0); MCV 93.8 fL (80.0-100.0); MEAN PLATELET VOLUME 8.1 fL (7.4-10.4); MONOCYTES 11.1 % (2-11); NEUTROPHILS 72.7 % (40-80); PLATELET COUNT 380 10x3/uL (130-400); RBC 3.41 10x6/uL (4.20-6.10); RDW 14.8 % (11.5-14.5); WBC 8.5 10x3/uL (4.8-10.8)
[2016-07-07 04:26] LABS: INR 1.2 (0.85-1.17); PROTIME 15.1 SECONDS (11.6-15.0)
[2016-07-07 04:27] LABS: CALC OSMOLALITY 264 mosm/kg (275-300); CALCIUM 7.8 mg/dL (8.5-10.1); CARBON DIOXIDE 27.8 mmol/L (21.0-32.0); CHLORIDE - SERUM 102 mmol/L (98-107); CREATININE - SERUM 0.6 mg/dL (0.6-1.3); GLUCOSE 98 mg/dL (74-106); POTASSIUM - SERUM 4.2 mmol/L (3.5-5.1); SODIUM 133 mmol/L (136-145); UREA NITROGEN 11 mg/dL (7-18); eGFR NON AFRICAN AMERICAN > 90 mL/min (90-120)
[2016-07-07 07:47] VITALS: BP 143/60
--- NOTE | 2016-07-07 10:02 | NUR ---
0715- AM ROUNDING, REPORT RECEIVED FROM JANITOR CUSTODIAN NURSE DIANE. PT CURRENTLY LAYING IN BED ON BACK WITH EYES OPEN RESTING. AND NIECE ARE AT BEDSIDE. ON MONITOR SHOWING SR, HR 73. SCDS ARE ON. ON ROOM AIR. PEG TUBE SEEN TUBE FEEDINGS RUNNING AT 40CC/HR WITH 15CC/HR FLUSHES ON KANGAROO PUMP. IV SEEN TO LEFT HAND WITH NS RUNNING AT 125CC/HR. NO NEED AT CURRENT TIME. WILL CONTINUE TO MONITOR AND CONTINUE WITH PLAN OF CARE.
--- NOTE | 2016-07-07 10:21 | NUR ---
Patient Name: LAURIE KERNS Encounter No: [id number] : 1935 Primary Insurance: MEDICARE A & B Anticipated DC Date: 07-08-2016 Planned Disposition: [facility] Facility External Planned Provider: [facility], MEDICARE REHAB BED DCP follow-up note: RN SHABBIR BURDEN MET WITH PT AND FAMILY IN ROOM, PT WANTS REHAB AT [facility]. CM MET WITH PT AND FAMILY IN ROOM, PT CONFIRMED SELECTION AND SIGNED CHOICE FORM. IMPORTANT MESSAGE FROM MEDICARE PROVIDED AND EXPLAINED. CM CALLED [facility], , PROVIDED REFERRAL INFORMATION TO [facility]; CM FAXED REFERRAL FOR REHAB ADMISSION SCREENING TO [facility] AT [phone]. CM WAITING ADMISSION DETERMINATION FROM [facility]. Williams Nicole, CASE MANAGEMENT
[2016-07-07 11:45] VITALS: BP 104/33
[2016-07-07 12:22] LABS: ALBUMIN 2.1 g/dL (3.4-5.0); BILIRUBIN - DIRECT 0.19 mg/dL (0.00-0.30); BILIRUBIN - INDIRECT 0.23 mg/dL (0.00-1.00); BILIRUBIN - TOTAL 0.42 mg/dL (0.2-1.3); PROTEIN - SERUM 5.8 g/dL (6.4-8.2)
--- NOTE | 2016-07-07 14:01 | NUR ---
Patient Name: LAURIE KERNS Encounter No: [id number] : 1935 Primary Insurance: MEDICARE A & B Anticipated DC Date: 07-08-2016 Planned Disposition: Senior Living Facility External Planned Provider: [facility], MEDICARE REHAB BED DCP follow-up note: CM RECEIVED CALL FROM MALENA OF [facility], , THEY WILL ACCEPT PT FOR REHAB TOMORROW MORNING, 07-07-16; MALENA REPORTS THEY ARE ORDERING THE JEVITY 1.5 AND MAY NOT GET IT UNTIL TUESDAY. CM SPOKE TO [facility] WHO WILL PROVIDE 20 CANS OF JEVITY 1.5 FOR PT'S DISCHARGE TOMORROW TO ENSURE PT HAS FEEDING SUPPLIES UNTIL SNF CAN GET SUPPLIES DELIVERED. CM SPOKE TO PT AND SPOUSE IN ROOM, BOTH IN AGREEMENT WITH DISCHARGE PLAN, SPOUSE TO TRANSPORT PT TO [facility] TOMORROW FOR REHAB AT DISCHARGE. FOR DISCHARGE 07-08-16, NURSE REPORT TO BE CALLED TO NURSE SOLIZ AT [facility], . FAX DISCHARGE INFORMATION TO [phone]. PT'S SPOUSE TO TRANSPORT. Williams Nicole, CASE MANAGEMENT
--- NOTE | 2016-07-07 15:16 | NUR ---
PTS FAMILY CALLED ME INTO ROOM BECAUSE PT IS INCONTINENT OF STOOL. STOOL APPEARS MORE FORMED THAN IT HAS PER REPORT FROM A FEW DAYS AGO. CLEANED PT UP AND GAVE PT A NEW GOWN. NO OTHER NEED AT CURRENT TIME.
[2016-07-07 15:47] VITALS: BP 137/53
[2016-07-07] MEDS ORDERED: BETAPACE 120 M120 MG PO (16:44)
[2016-07-07] MEDS ORDERED: QUESTRAN PACK4 G/PKT PEG (16:44)
--- NOTE | 2016-07-07 17:58 | NUR ---
PT LAYING IN BED ON BACK WITH EYES CLOSED RESTING. NO NEED AT CURRENT TIME. NS RUNNING AT 125CC/HR AND TUBE FEEDINGS RUNNING AT 40CC/HR WITH 15CC/HR FLUSHES VIA KANGAROO PUMP. WILL CONTINUE TO MONITOR.
--- NOTE | 2016-07-07 19:57 | NUR ---
INTRODUCED MYSELF TO PT PRIMARY RN FOR [facility] SHIFT. PT IS SITTING UP IN BED RESTING QUIETLY. ALERT & ORIENTED. SHIFT ASSESSMENT COMPLETED AND BOMB SQUAD COMMANDER MAKING ROUNDS FOR VITALS. PT DENIES ANY CURRENT NEEDS AT THIS TIME WILL PULL NIGHTLY SCHEDULED MEDICATIONS AND CONTINUE WITH PLAN OF CARE. CL IN REACH, BED IN LOWEST, SIDE RAILS X2.
[2016-07-07 20:00] VITALS: BP 164/72
[2016-07-08] VITALS: BP 98/48
--- NOTE | 2016-07-08 01:43 | NUR ---
PT L.HAND PIV BEGAN TO LEAK. CATHETER WAS SLIPPING OUT OF PLACE. D/C PIV WITH CATHETER TIP FULLY INTACT. NOT STARTING NEW IV ACCESS PER REQUEST OF PT R/T HIM SUPPOSED TO BE BEING DISCHARGE TOMORROW. PT RESTING QUIETLY IN BED, DENIES ANY FURTHER NEEDS AT THIS TIME. CL IN REACH. WILL CTM.
[2016-07-08 04:00] VITALS: BP 96/43
[2016-07-08 07:00] VITALS: BP 134/62
--- NOTE | 2016-07-08 08:00 | NUR ---
PATIENT IS ALERT/ORIENT X4. FAMILY IN ROOM WITH PATIENT. PATIENT DUE TO DISCHARGE TO [facility]. DRESSING CHANGED TO PEG TUB. FEEDING JEVITY RUNNING AT 40CC/HR.
--- NOTE | 2016-07-08 09:13 | NUR ---
UP IN CHAIR WITH CALL LIGHT IN REACH. AT BS. WILL MONITOR NEEDS.
[2016-07-08] MEDS ORDERED: ASPIRIN325 MG PEG (09:57)
[2016-07-08] MEDS ORDERED: PRAVACHOL20 MG PEG (09:58)
[2016-07-08] MEDS ORDERED: KEPPRA500 MG PEG (09:58)
[2016-07-08] MEDS ORDERED: BETAPACE 120 M120 MG PEG (09:59)
--- NOTE | 2016-07-08 10:22 | NUR ---
Patient Name: LAURIE KERNS Encounter No: [id number] : 1935 Primary Insurance: MEDICARE A & B Anticipated DC Date: 07-08-2016 Planned Disposition: Long Term Facility External Planned Provider: [facility], MEDICARE REHAB BED DCP follow-up note: CM RECEIVED DISCHARGE ORDER, FAMILY HERE TO TRANSPORT PT TO REHAB TODAY AND ALL IN AGREEMENT WITH DISCHARGE TO REHAB; PT'S SPOUSE HAS THE 20 CANS OF [facility] TO PROVIDE TO THE PRISON PROVIDED BY THE HOSPITAL. NURSE REPORT CALLED TO NURSE SOLIZ AT [facility], . CM FAXED DISCHARGE INFORMATION TO [phone]. NO FURTHER NEEDS IDENTIFIED. Williams Nicole, CASE MANAGEMENT
--- NOTE | 2016-07-08 10:42 | NUR ---
DISCHARE ORDERS GIVEN TO PATIENTS FAMILY. PATIENT SIGNED HIS OWN DISCHARGE PAPERS. PATIENT HELPED OUT TO CAR BY STAFF AND FAMILY
--- NOTE | 2016-07-08 10:44 | NUR ---
REPORT CALLED TO HEYDI HALE AT [facility].
--- NOTE | 2016-07-12 10:08 | CN ---
PATIENT NAME:LAURIE REDDY MEDICAL RECORD: [id number] : 31 LOCATION:. D.2112 ADMIT DATE: 07/04/16 ACCOUNT: [id number] CONSULTING PHYSICIAN: MAGDALENA MUIR MD REFERRING PHYSICIAN: LORETTA ELIAS MD DATE OF CONSULTATION: 07/02/2016 Cardiology Consultation DIAGNOSES: 1. Atrial fibrillation with rapid ventricular response. 2. History of paroxysmal atrial fibrillation. 3. Coronary artery disease. 4. Previous PTCA stent. 5. Recent intracranial bleed. 6. Hypertension. 7. Hyperlipidemia. HISTORY OF PRESENT ILLNESS: Mr. Reddy now presents with coughing episodes. He has had a long hospital course since the first of the year. He underwent PTCA stent late April. He had a fall at home after that earlier this year and had an intracranial hemorrhage with this. We had to discontinue the Plavix. He remained on aspirin. He has been stable from the standpoint of the intracranial hemorrhage. He has been in a rehab facility. He went home yesterday. He returned back in the middle of the night after episodes of coughing. He has had no chest pain, no chest discomfort. He was found to be in atrial fibrillation with rapid response. He has had a history of paroxysmal atrial fibrillation, for which he was previously on sotalol 120 mg b.i.d. There is no documentation as to why the dose was decreased, is now on sotalol 40 mg b.i.d. There is no documentation of bradycardia. He does feel the palpitations. He is not having any chest pain or chest discomfort. His heart rates in the 110-120 range. PHYSICAL EXAMINATION: GENERAL APPEARANCE: Well-nourished, well-developed, appears stated age. Level of distress, comfortable. PSYCHIATRIC: Mental status, alert, normal affect. Orientation, oriented to time, place and person. EYES: Lids and conjunctiva, noninjected. No discharge, no pallor. ENT: Lips, teeth, gums, normal dentition. Oropharynx, no cyanosis, no pallor. NECK: Carotid arteries, bilateral normal upstroke, no bruits, no thrills. JUGULAR VEINS: No jugular venous pressure or distention. CERVICAL LYMPH NODES: Nontender, nonenlarged. THYROID: Not enlarged. Nontender. No nodules. LUNGS: Respiratory effort, unlabored. CHEST: Normal curvature. No thoracic deformity. No chest wall tenderness. Percussion, resonant. Auscultation, clear. No wheezes, no rales, no rhonchi. CARDIOVASCULAR: Heart is irregularly, irregular with atrial fibrillation. EXTREMITIES: No cyanosis, no edema. Peripheral pulses, full and equal in all extremities, except as noted. No bruits appreciated. ABDOMEN: Soft, nondistended. Normal aorta. No bruit. Nontender. No masses. Liver, nontender, no hepatomegaly. Spleen, nontender, no splenomegaly. MUSCULOSKELETAL: No joint tenderness. No joint swelling. No erythema. NEUROLOGICAL: Normal gait, normal strength, normal tone. SKIN: Warm and dry. CONSULT REPORT [id number] LAURIE REDDY OVERALL IMPRESSION: Atrial fibrillation with rapid ventricular response. At this time, I will discontinue 40 mg b.i.d. sotalol, place him on 120 mg b.i.d. We will observe of course for any further bradycardia. TRANSINT:[id number] Voice Confirmation ID: [id number] DOCUMENT ID: [id number] MAGDALENA MUIR MD at 1008 CC: [id number] DICTATION DATE: 07/02/16 1324 COMMERCIAL LINES ASSISTANT: 07/02/16 1716 DIS IN 07/08/16 [address] [place] [address]
== END 2016-07-08 10:45 | DRG 310 ==
LOC: D.ER 01:44 → D.M2 04:49 → OBSVTIME 04:49 → D.M2 04:49
PROVIDERS: Family Medicine; Family Medicine Adult Medicine; ADMIT Emergency Medicine
DX: I48.0 Paroxysmal atrial fibrillation (principal); R53.1 Weakness; R74.8 Abnormal levels of other serum enzymes; I25.10 Atherosclerotic heart disease of native coronary artery without angina pectoris; I10 Essential (primary) hypertension; E78.5 Hyperlipidemia, unspecified; E86.0 Dehydration; Z86.718 Personal history of other venous thrombosis and embolism; Z86.73 Personal history of transient ischemic attack (TIA), and cerebral infarction without residual deficits; Z86.711 Personal history of pulmonary embolism; Z95.5 Presence of coronary angioplasty implant and graft

== ENCOUNTER → 2016-07-30 12:25 | Outpatient (CLI) | payer MEDICARE, OTHER ==
[2016-07-02 11:01] VITALS: BMI 16.5
[~2016-07-30 12:25] MED LIST changes: +ASPIRIN325 MG PEG; +BENADRYL25 MG GT; +BETAPACE 120 M120 MG PEG; +KEPPRA500 MG PEG; +PRAVACHOL20 MG PEG; +QUESTRAN PACK4 G/PKT PEG
== END | disposition home or self-care (01) ==
LOC: D.RAD 12:25
DX: R13.10 Dysphagia, unspecified (principal)

== ENCOUNTER → 2016-08-27 12:41 | Outpatient (CLI) | payer MEDICARE, OTHER ==
[2016-07-02 11:01] VITALS: BMI 16.5
== END | disposition home or self-care (01) ==
LOC: D.RAD 12:41
DX: R13.10 Dysphagia, unspecified (principal)

== ENCOUNTER 2016-09-09 12:09 | Emergency (ER) | payer MEDICARE, OTHER ==
[2016-07-02 11:01] VITALS: BMI 16.5
== END 2016-09-09 17:35 | disposition home or self-care (01) ==
LOC: D.ER 12:09
DX: K94.20 Gastrostomy complication, unspecified (principal); I25.10 Atherosclerotic heart disease of native coronary artery without angina pectoris

== ENCOUNTER → 2016-11-19 12:33 | Outpatient (CLI) | payer MEDICARE, OTHER ==
[2016-07-02 11:01] VITALS: BMI 16.5
== END | disposition home or self-care (01) ==
LOC: D.US 12:33
DX: I82.403 Acute embolism and thrombosis of unspecified deep veins of lower extremity, bilateral (principal)

== ENCOUNTER 2016-11-26 10:13 | Outpatient (CLI) | payer MEDICARE, OTHER ==
[~2016-11-26] VITALS: Ht 167.6 cm; Wt 52.8 kg
--- NOTE | ~2016-11-26 | HEMODYNAMI ---
PATIENT:LAURIE KERNS MEDICAL RECORD: [id number] : [birth year] LOCATION:DASH ADMISSION DATE: 11/26/16 Generatedon:11/26/201615:00 Patient name: LAURIE KERNS Patient #: [id number] : 1935 Date of study: 11/26/2016 Page: Of Hemodynamic Procedure Report Patient Data Patient Demographics Procedure consent was obtained First Name: LAURIE Gender: Male Last Name: SAUMYA : 1935 Middle Initial: L Age: 81 year(s) Patient #: [id number] Race: SSN: [id number] Additional ID: [id number] Contact details Address: [address] [address] State: [place] City: [place] Zip code: [address] Past Medical History Allergies: No known allergies Admission Admission Data Admission Date: 11/26/2016 Admission Time: 10:13 Procedure Procedure Types Cath Procedure Peripheral Cath Diagnostic Procedure Miscellaneous Procedure Description Procedure Date Procedure Date: 11/26/2016 Procedure Start Time: 13:35 Procedure Staff Name Function Bradley Lo MD Performing Physician Damián Lopez RT Scrub Damián Lopez RT Monitor Anastasiya Ramirez RN Nurse Procedure Data Cath Procedure Fluoroscopy Diagnostic fluoroscopy Total fluoroscopy Time: 30 time: 30 min min Diagnostic fluoroscopy Total fluoroscopy dose: 575 dose: 575 mGy mGy Contrast Material Contrast Material Type Amount (ml) Isovue 300 28 Diagnostic catheters Device Type Used For End Catheter Placement Diagnostic Infinity 5Fr MPA-2 catheter Merit Impress COBRA 2 5Fr 65CM catheter Procedure Medications Medication Administration Route Dosage Fentanyl I.V. 50 mcg Versed I.V. 1 mg Fentanyl I.V. 50 mcg Versed I.V. 1 mg Hemodynamics Rest Heart Rate: 62 (bpm) Snapshots Pre Cath Intra NCS Post Cath Vital Signs Time Heart Resp SPO2 NIBP (mmHg) Rhythm Pain Sedation Rate (ipm) (%) Status Level (bpm) 13:20:42 60 22 98 167/75(132) NSR 0 (11) 10(A) , No pain 13:25:00 61 20 98 168/74(121) NSR 0 (11) 10(A) , No pain 13:29:20 60 20 96 163/70(93) NSR 0 (11) 10(A) , No pain 13:33:39 60 24 96 172/73(118) NSR 0 (11) 10(A) , No pain 13:37:59 59 21 91 171/75(111) NSR 0 (11) 10(A) , No pain 13:42:19 59 13 100 173/71(114) NSR 0 (11) 10(A) , No pain 13:46:41 60 13 99 155/69(102) NSR 0 (11) 10(A) , No pain 13:51:01 60 17 98 135/59(104) NSR 0 (11) 9(A) , No pain 13:55:11 60 16 94 130/63(94) NSR 0 (11) 9(A) , No pain 13:59:19 59 17 96 143/62(97) NSR 0 (11) 9(A) , No pain 14:03:29 59 22 91 137/72(104) NSR 0 (11) 9(A) , No pain 14:07:41 60 17 98 145/60(115) NSR 0 (11) 9(A) , No pain 14:11:55 60 12 97 137/67(88) NSR 0 (11) 9(A) , No pain 14:16:05 57 20 96 133/65(89) NSR 0 (11) 9(A) , No pain 14:20:16 58 17 96 140/59(86) NSR 0 (11) 9(A) , No pain 14:24:29 57 17 96 141/64(89) NSR 0 (11) 9(A) , No pain 14:28:42 57 11 97 134/61(88) NSR 0 (11) 9(A) , No pain 14:32:52 57 18 96 132/66(93) NSR 0 (11) 9(A) , No pain 14:36:58 57 15 99 149/75(105) NSR 0 (11) 10(A) , No pain 14:41:12 56 13 98 148/68(91) NSR 0 (11) 10(A) , No pain 14:45:26 57 12 98 154/65(103) NSR 0 (11) 10(A) , No pain 14:49:42 57 21 97 154/65(90) NSR 0 (11) 10(A) , No pain 14:53:58 57 14 96 165/68(108) NSR 0 (11) 10(A) , No pain 14:58:16 55 13 98 157/72(107) NSR 0 (11) 10(A) , No pain Medications Time Medication Route Dose Verified Delivered Reason Notes Effectivene ss by by 13:40:28 Fentanyl I.V. 50 Anastasiya Anastasiya for mcg Ashley Ashley sedation RN RN 13:40:41 Versed I.V. 1 mg Anastasiya Anastasiya for Ashley Ashley sedation RN RN 13:45:08 Fentanyl I.V. 50 Anastasiya Anastasiya for mcg Ashley Ashley sedation RN RN 13:45:16 Versed I.V. 1 mg Anastasiya Anastasiya for Ashley Ashley sedation RN zipper setter chainstitch Log Time Note 13:03:49 Damián Lopez RT (R) (CV) sent for patient. Start room use. 13:03:56 Time tracking: Regular hours 13:04:19 Plan of Care:Hemodynamics will remain stable., Cardiac rhythm will remain stable., Comfort level will be maintained., Respiratory function will remain adequate., Patient/ family verbilizes understanding of procedure., Procedure tolerated without complication., Recovers from procedure without complications.. 13:04:49 Patient received from Outpatients to IR Alert and oriented. Tansferred to table in Supine position. 13:04:50 Correct patient and procedure confirmed by team. 13:04:51 Correct patient and procedure confirmed by team. 13:04:52 Signed procedure consent form obtained from patient. 13:04:53 ECG and BP/O2 sat monitors applied to patient. 13:04:54 Full Disclosure recording started 13:04:57 - 13::58 Pre-procedure instructions explained to patient. 13::58 Pre-op teaching completed and patient verbalized understanding. 13:05:01 Family in patients room. 13:05:03 Patient NPO since Midnight. 13:05:07 Is the patient allergic to Iodine/contrast media? No. 13:05:09 Is patient on blood thinner?Yes 13:05:12 ACC The patient was administered the following blood thiners within the last 24 hours: ACCAspirin 13:05:17 Patient diabetic? No. 13:05:18 - 13:05:18 ----Pre-sedation anethsthesia assessment.---- 13:05:21 Previous problem with sedation/anesthesia? No ? 13:05:23 Snore? Yes 13:05:25 Sleep apnea? No 13:05:31 Deviated septum? No 13:05:33 Opens mouth fully? Yes 13:05:34 Sticks out tongue? Yes 13:05:37 Airway obstruction? No ? 13:05:42 Dentures? No ? 13:05:43 - 13:06:37 Patient pain scale 0/10 no pain. 13:07:04 IV patent on arrival in right wrist with 0.9% NaCl at KVO. 13:07:08 Use device set IR Diagnostic 13:07:09 Sterile Angiographic Pack opened to sterile field. 13:07:10 Bag Decanter opened to sterile field. 13:14:32 Vital chart was started 13:14:34 Baseline sample Acquired. 13:14:37 Rhythm: sinus rhythm 13:32: Physician arrived 13:: --------ALL STOP TIME OUT------ ::29 Final Timeout: patient, procedure, and site verified with staff and physician. All members of the team are in agreement. 13:32:36 Right neck site verified by team. 13:32:43 Physical assessment completed. ASA score P 3 - A patient with severe systemic disease as per Bradley Lo MD. 13:32:48 Sedation plan: IV Moderate Sedation Versed, Fentanyl 13:35:29 Procedure started. 13:35:35 Local anesthetic to right IJ vein with Lidocaine 1% by Bradley Lo MD.INITIAL ACCESS ONLY 13:38:01 Cook BENTSON 145cm guide wire opened to sterile field. 13:38:02 Terumo 5Fr Graham Sheath opened to sterile field. 13:38:02 Micropuncture VSI 4FR kit opened to sterile field. 13:38:03 Bard SNARE RETRIEVAL KIT opened to sterile field. 13:40:28 Fentanyl 50 mcg I.V. was administered by Anastasiya Ramirez RN; for sedation; 13:40:41 Versed 1 mg I.V. was administered by Anastasiya Ramirez RN; for sedation; 13:45:08 Fentanyl 50 mcg I.V. was administered by Anastasiya Ramirez RN; for sedation; 13:45:16 Versed 1 mg I.V. was administered by Anastasiya Ramirez RN; for sedation; 13:50:55 SNARE, GOOSENECK SNARE 10MM opened to sterile field. 13:55:03 A Diagnostic Infinity 5Fr MPA-2 catheter was advanced over the wire and used for . 14:15:49 Terumo ANGLE 180L glide wire opened to sterile field. 14:15:52 A Merit Impress COBRA 2 5Fr 65CM catheter was advanced over the wire an d used for . 14:15:59 Terumo TORQUE DEVICE PLASTIC .038 opened to sterile field. 14:19:02 Terumo 5FR COBRA 100CM glide catheter opened to sterile field. 14:40:08 Procedure ended.(Physican Out) 14:40:23 Fluoroscopy time 30.00 minutes. 14:40:50 Fluoroscopy dose: 575 mGy 14:40:50 Flurop Dose total: 575 14:42:10 Contrast amount:Isovue 300 28ml. 14:42:11 Sharps counted by scrub and verified by R.N. 14:42:15 Insertion/operative site no bleeding no hematoma. 14:42:26 Post-op/insertion site Right Jugular vein dressed using a 4 x 4 and Tegaderm. 14:42:35 Post right IJ vein:stable 14:42:40 Post-procedure physical assessment completed. ASA score P 3 - A patient with severe systemic disease as per Bradley Lo MD. 14:42:47 Post procedure rhythm: unchanged. 14:42:51 Post procedure instruction explained to patient.Patient verbalizes understanding. 14:42:52 Procedure and supply charges have been captured, reviewed, submitted an d are correct. 14:56:09 Report given to Outpatients. 14:56:13 Patient transfered to Outpatients with Bed. 15:00:17 Vital chart was stopped Device Usage Item Name Manufacture Quantity Catalog Hospital Part Current Minima l Lot# / Number Charge Number Stock Stock Serial# Code Sterile Cardinal 1 [id number] 5 Angiographic Health Pack Bag Decanter Microtek 1 2001S [id number] 02813 420370 5 [employer]. Heetch Medical 1 [id number] 437141 840287 5 [id number] 145cm guide wire Terumo 5Fr Terumo 1 [id number] 285997 193725 166845 40 Graham Sheath Micropuncture VSI VASCULAR 1 [id number] 712748 153849 5 VSI 4FR kit SOLUTIONS Bard SNARE Bard 1 SRK20 725990 874501 5 RETRIEVAL KIT SNARE, Ev3 1 [id number] 396544 89605 263766 5 [id number] GOOSENECK SNARE 10MM Diagnostic Cardinal 1 [id number] 378223 374605 767658 5 Infinity 5Fr Health MPA-2 catheter Terumo ANGLE Terumo 1 [id number] 792763 448527 421318 5 180L glide wire Merit Impress Merit 1 [id number] 763081 310353 099846 5 COBRA 2 5Fr Medical 65CM catheter Terumo TORQUE [place] 1 TD01 707221 610494 240547 5 DEVICE Scientific PLASTIC .038 Terumo 5FR Terumo 1 [id number] 666795 744765 5 COBRA 100CM glide catheter Signature Audit [place] Stage Time Signature Unsigned Intra-Procedure 11/26/2016 Damián 3:00:14 PM John RT (R) (CV) Signatures Monitor : Damián Signature : John RT Date : Time : [address] [place] [address]
[2016-11-26 11:30] LABS: BASOPHILS 0 % (0-2); HEMATOCRIT 35.1 % (42.0-54.0); HEMOGLOBIN 11.7 g/dL (13.5-17.5); IMMATURE GRANULOCYTES 0.2 % (0-5); LYMPHOCYTES 10.4 % (15-50); MCH 30.2 pg (26.0-34.0); MCHC 33.3 g/dL (31.0-37.0); MCV 90.7 fL (80.0-100.0); MONOCYTES 11.5 % (2-11); NEUTROPHILS 76.9 % (40-80); RBC 3.87 10x6/uL (4.20-6.10); RDW 20.2 % (11.5-14.5); WBC 6.3 10x3/uL (4.8-10.8)
[2016-11-26 11:46] LABS: APTT 31.4 SECONDS (22.8-39.4); INR 1.09 (0.85-1.17)
[2016-11-26 11:50] LABS: CALC OSMOLALITY 280 mosm/kg (275-300); CALCIUM 8.4 mg/dL (8.5-10.1); CARBON DIOXIDE 27.2 mmol/L (21.0-32.0); CHLORIDE - SERUM 106 mmol/L (98-107); CREATININE - SERUM 0.9 mg/dL (0.6-1.3); GLUCOSE 94 mg/dL (74-106); POTASSIUM - SERUM 4.4 mmol/L (3.5-5.1); SODIUM 140 mmol/L (136-145); UREA NITROGEN 18 mg/dL (7-18); eGFR NON AFRICAN AMERICAN 85 mL/min (90-120)
[2016-11-26 12:00] LABS: PLATELET COUNT 158 10x3/uL (130-400)
[2016-11-26 12:13] VITALS: Ht 167.6 cm; Wt 52.8 kg
--- NOTE | 2016-11-26 17:57 | NUR ---
1720--IV DC'D, PT UP TO DRESS. JAME DALTON 1607--DISCHARGE INSTRUCTIONS GIVEN, PT VERBALIZES UNDERSTANDING. PT OFF UNIT VIA WC. JAME DALTON
== END 2016-11-26 17:40 | disposition home or self-care (01) ==
LOC: D.OPS 10:13 → D.SP 13:00 → D.OPS 17:40
PROVIDERS: Radiology Diagnostic Radiology
DX: Z86.718 Personal history of other venous thrombosis and embolism (principal); Z46.89 Encounter for fitting and adjustment of other specified devices; Z01.812 Encounter for preprocedural laboratory examination

== ENCOUNTER 2017-05-27 14:05 | Inpatient (IN) | payer MEDICARE, OTHER ==
[~2017-05-27] VITALS: Ht 172.7 cm; Wt 53.4 kg
--- NOTE | ~2017-05-27 | HP ---
PATIENT: LAURIE KERNS MEDICAL RECORD: [id number] ACCOUNT: [id number] LOCATION:D.MS Donis2206 : [birth year] ADMISSION DATE: 05/28/17 HISTORY AND PHYSICAL EXAMINATION HISTORY OF PRESENT ILLNESS: Mr. Kerns is an 82-year-old white male who presents to the ER with flu, increasing weakness, unable to walk, not much in the way of shortness of breath or cough. He is dehydrated, poor oral intake. He is admitted for further evaluation and therapy. PAST MEDICAL HISTORY: Significant for previous CVA, intermittent atrial fibrillation, coronary artery disease, pulmonary embolism in 2011 and an intracranial hemorrhage in April 2016. PAST SURGICAL HISTORY: Previous surgeries include a cataract removal, fracture repair of the right hip in 2014 and removal of IVC filter in October 2016. INTOLERANCES: ALLERGIES INCLUDE BENADRYL AND TRIMETHOPRIM. MEDICATIONS: Home medications include amiodarone 200 mg daily, hydroxyzine p.r.n. itching, a probiotic and an aspirin a day. FAMILY HISTORY: Significant for lung disease. SOCIAL HISTORY: The patient is retired. He is . He does not smoke or drink. REVIEW OF SYSTEMS: Significant for generalized weakness. He has had fever, a little shortness of breath and cough, no nausea or vomiting, body aches and upper respiratory congestion and drainage. PHYSICAL EXAMINATION: GENERAL: He is in no obvious distress, but obviously does not feel well. He is very thin. HEAD: Normocephalic. NECK: Soft and supple. HEART: Regular. LUNGS: With diminished breath sounds. ABDOMEN: Soft, scaphoid, nontender. EXTREMITIES: Lower extremities reveal no edema. IMPRESSION: 1. Influenza. 2. Dehydration. 3. History of intermittent atrial fibrillation, history of CVA, history of PE. PLAN: Admit, IV fluids, strengthening, physical therapy, hopefully will be home in a day or two. See orders for rest of plan. TRANSINT:[id number] Voice Confirmation ID: [id number] DOCUMENT ID: [id number] HISTORY AND PHYSICAL [id number] LAURIE KERNS MITCH HUNTER DO at 1124 CC: [id number] DICTATION DATE: 05/28/17 1249 ORDER BUILDER: 05/28/17 1342 ADM IN [address] [place] [address]
[~2017-05-27 14:05] MED LIST changes: -ASPIRIN325 MG PEG; -BETAPACE 120 M120 MG PEG; -KEPPRA500 MG PEG; -PRAVACHOL20 MG PEG
[2017-05-27 15:14] LABS: BASOPHILS 0 % (0-2); EOSINOPHILS 0 % (0-7); HEMOGLOBIN 13.2 g/dL (13.5-17.5); IMMATURE GRANULOCYTES 0.2 % (0-5); LYMPHOCYTES 3.5 % (15-50); MCH 32.1 pg (26.0-34.0); MCV 97.3 fL (80.0-100.0); MEAN PLATELET VOLUME 9.2 fL (7.4-10.4); NEUTROPHILS 86.3 % (40-80); PLATELET COUNT 157 10x3/uL (130-400); RBC 4.11 10x6/uL (4.20-6.10); RDW 14.2 % (11.5-14.5); WBC 8.8 10x3/uL (4.8-10.8)
[2017-05-27 15:35] LABS: ALBUMIN 3.3 g/dL (3.4-5.0); ANION GAP 18.5 mmol/L (8-16); BILIRUBIN - TOTAL 0.42 mg/dL (0.2-1.3); CALCIUM 8.9 mg/dL (8.5-10.1); CARBON DIOXIDE 24.6 mmol/L (21.0-32.0); CREATININE - SERUM 1.2 mg/dL (0.6-1.3); POTASSIUM - SERUM 4.1 mmol/L (3.5-5.1)
[2017-05-27 16:24] LABS: APPEARANCE HAZY (CLEAR); BILIRUBIN NEGATIVE (NEGATIVE); COLOR YELLOW (YELLOW); GLUCOSE NEGATIVE (NEGATIVE); KETONE NEGATIVE (NEGATIVE); NITRITE POSITIVE (NEGATIVE); PROTEIN NEGATIVE (NEGATIVE); SPECIFIC GRAVITY 1.015 (1.005-1.020); UROBILINOGEN NORMAL (NORMAL)
[2017-05-27 16:26] LABS: BACTERIA MANY /hpf (NONE SEEN); RED CELLS - URINE 0-5 /hpf (0-5)
[2017-05-27 21:41] VITALS: BP 114/61
[2017-05-27] MEDS ORDERED: PROTONIX40 MG PO (22:24)
[2017-05-27] MEDS ORDERED: CORDARONE200 MG PO (22:25)
[2017-05-27] MEDS ORDERED: ATARAX 25 MG TA25 MG PO (22:26)
[2017-05-27] MEDS ORDERED: PRAVASTATIN SOD10 MG PO (22:27)
[2017-05-27 22:52] VITALS: BP 107/37; Ht 172.7 cm; Wt 53.4 kg
[2017-05-28 00:40] VITALS: BP 112/64
[2017-05-28 04:05] VITALS: BP 104/42
[2017-05-28 05:45] LABS: BASOPHILS 0 % (0-2); EOSINOPHILS 0 % (0-7); HEMATOCRIT 33.8 % (42.0-54.0); IMMATURE GRANULOCYTES 0.1 % (0-5); LYMPHOCYTES 11.1 % (15-50); MCH 31.5 pg (26.0-34.0); MCHC 32.5 g/dL (31.0-37.0); MCV 96.8 fL (80.0-100.0); NEUTROPHILS 77.8 % (40-80); RBC 3.49 10x6/uL (4.20-6.10); RDW 14.7 % (11.5-14.5); WBC 7.8 10x3/uL (4.8-10.8)
[2017-05-28 05:53] LABS: PLATELET COUNT 107 10x3/uL (130-400)
[2017-05-28 05:58] LABS: CALC OSMOLALITY 287 mosm/kg (275-300); CALCIUM 7.7 mg/dL (8.5-10.1); CHLORIDE - SERUM 110 mmol/L (98-107); GLUCOSE 92 mg/dL (74-106); SODIUM 143 mmol/L (136-145); UREA NITROGEN 22 mg/dL (7-18); eGFR NON AFRICAN AMERICAN 76 mL/min (90-120)
[2017-05-28 09:46] VITALS: BP 124/47
[2017-05-28 12:34] VITALS: BP 98/32
[2017-05-28 17:05] VITALS: BP 114/35
[2017-05-28 22:02] VITALS: BP 136/61
[2017-05-29 01:28] VITALS: BP 142/51
[2017-05-29 05:06] VITALS: BP 130/76
[2017-05-29 06:33] LABS: BASOPHILS 0 % (0-2); EOSINOPHILS 0.5 % (0-7); HEMATOCRIT 34.8 % (42.0-54.0); HEMOGLOBIN 11.4 g/dL (13.5-17.5); IMMATURE GRANULOCYTES 0.1 % (0-5); MCH 31.8 pg (26.0-34.0); MCHC 32.8 g/dL (31.0-37.0); MCV 96.9 fL (80.0-100.0); MEAN PLATELET VOLUME 9.5 fL (7.4-10.4); MONOCYTES 11.8 % (2-11); NEUTROPHILS 73.6 % (40-80); PLATELET COUNT 122 10x3/uL (130-400); RBC 3.59 10x6/uL (4.20-6.10); RDW 14.7 % (11.5-14.5); WBC 7.9 10x3/uL (4.8-10.8)
[2017-05-29 06:50] LABS: ALBUMIN 2.5 g/dL (3.4-5.0); ALKALINE PHOSPHATASE 107 U/L (46-116); BILIRUBIN - TOTAL 0.44 mg/dL (0.2-1.3); CALC OSMOLALITY 283 mosm/kg (275-300); CALCIUM 7.7 mg/dL (8.5-10.1); CARBON DIOXIDE 21.7 mmol/L (21.0-32.0); CHLORIDE - SERUM 109 mmol/L (98-107); CREATININE - SERUM 0.9 mg/dL (0.6-1.3); GLUCOSE 81 mg/dL (74-106); POTASSIUM - SERUM 3.9 mmol/L (3.5-5.1); PROTEIN - SERUM 5.4 g/dL (6.4-8.2); SODIUM 141 mmol/L (136-145); UREA NITROGEN 23 mg/dL (7-18); eGFR NON AFRICAN AMERICAN 85 mL/min (90-120)
[2017-05-29 06:55] LABS: ALT (SGPT) 186 U/L (10-68)
[2017-05-29 09:07] VITALS: BP 127/47
[2017-05-29] MEDS ORDERED: TAMIFLU75 MG PO ×3 (11:16→12:05)
== END 2017-05-29 13:42 | disposition home or self-care (01) | DRG 153 ==
LOC: D.ER 14:05 → D.MS 18:10 → OBSVTIME 05-28 00:30 → D.MS 05-28 16:27
PROVIDERS: Family Medicine
DX: J11.1 Influenza due to unidentified influenza virus with other respiratory manifestations (principal); E86.0 Dehydration; I48.91 Unspecified atrial fibrillation; I25.10 Atherosclerotic heart disease of native coronary artery without angina pectoris; Z86.711 Personal history of pulmonary embolism; Z86.73 Personal history of transient ischemic attack (TIA), and cerebral infarction without residual deficits

== ENCOUNTER 2018-06-20 17:39 | Inpatient (IN) | payer MEDICARE, OTHER ==
[~2018-06-20] VITALS: Ht 172.7 cm; Wt 52.2 kg
[~2018-06-20 17:39] MED LIST changes: +ATARAX 25 MG TA25 MG PO; +CORDARONE200 MG PO; +PRAVASTATIN SOD10 MG PO; +TAMIFLU75 MG PO
[2018-06-20] MEDS ORDERED: FOLBIC RF TABL1 EACH PO (18:38)
[2018-06-20] MEDS ORDERED: MIDODRINE HCL2.5 MG PO ×2 (18:39→18:40)
[2018-06-20] MEDS ORDERED: LEVOXYL25 MCG PO (18:39)
[2018-06-20 18:52] LABS: BASOPHILS 0.1 % (0-2); EOSINOPHILS 0.1 % (0-7); HEMATOCRIT 36.7 % (42.0-54.0); HEMOGLOBIN 12.5 g/dL (13.5-17.5); IMMATURE GRANULOCYTES 0.2 % (0-5); LYMPHOCYTES 10.7 % (15-50); MCHC 34.1 g/dL (31.0-37.0); MCV 93.9 fL (80.0-100.0); MEAN PLATELET VOLUME 9.7 fL (7.4-10.4); MONOCYTES 11.5 % (2-11); NEUTROPHILS 77.4 % (40-80); RBC 3.91 10x6/uL (4.20-6.10); RDW 14.4 % (11.5-14.5); WBC 15.5 10x3/uL (4.8-10.8)
[2018-06-20 18:53] LABS: PLATELET COUNT 212 10x3/uL (130-400)
[2018-06-20 19:02] LABS: ALBUMIN 2.8 g/dL (3.4-5.0); ANION GAP 16.3 mmol/L (8-16); BILIRUBIN - TOTAL 0.71 mg/dL (0.2-1.3); CALCIUM 8.6 mg/dL (8.5-10.1); CARBON DIOXIDE 23.8 mmol/L (21.0-32.0); CREATININE - SERUM 1.2 mg/dL (0.6-1.3); POTASSIUM - SERUM 4.1 mmol/L (3.5-5.1); PROTEIN - SERUM 7.4 g/dL (6.4-8.2)
[2018-06-20 20:00] LABS: ERYTHROCYTE SEDIMENTATION RATE 51 mm/hr (0-30)
[2018-06-21] VITALS (7 sets, daily range): BP systolic 104–135; BP diastolic 33–81; Ht 172.7 cm; Wt 52.2 kg
--- NOTE | 2018-06-21 08:27 | HP ---
PATIENT: LAURIE KERNS MEDICAL RECORD: [id number] ACCOUNT: [id number] LOCATION:D.MS Donis2231 : 31 ADMISSION DATE: 06/20/18 PCP: MITCH HUNTER DO HISTORY AND PHYSICAL EXAMINATION HISTORY OF PRESENT ILLNESS: Mr. Kerns is an 83-year-old white male who presents to the office today with a red, hot, swollen knee. States started running fever a day or 2 ago. 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 Swelling, redness and fevers just started a few days ago. It involves the entire knee joint. His white count is elevated today. He has got a fever here in the office of 101.2. He is admitted at this time with a working diagnosis of a septic knee and orthopedics will be consulted. PAST MEDICAL HISTORY: Significant for history of CVA, hypothyroidism, paroxysmal atrial fibrillation, osteoarthritis, heart disease, stable angina, fatigue and low blood pressure. PAST SURGICAL HISTORY: Include ORIF of the right hip in 2014 and cataract surgery in 2001 on the left and 2007 on the right. ALLERGIES OR INTOLERANCES: INCLUDE BENADRYL, BACTRIM AND TRIMETHOPRIM. HOME MEDICATIONS: Include Levothyroxine 112 mcg 1 p.o. daily, midodrine 2.5 mg b.i.d., pravastatin 20 mg at bedtime, hydroxyzine 25 mg q.6 hours p.r.n., a baby aspirin once a day, albuterol neb treatments q.6 hours p.r.n. FAMILY HISTORY: Noncontributory. SOCIAL HISTORY: The patient is . He does not smoke or drink. REVIEW OF SYSTEMS: Significant for left knee redness and swelling. He has started running fever. No chest pain or shortness of breath. No abdominal pain, no nausea or vomiting. PHYSICAL EXAMINATION: GENERAL: Thin, male who obviously does not feel well, but is in no distress. HEART: Regular at this time. LUNGS: With good breath sounds bilaterally. ABDOMEN: Soft. Left knee is red, swollen and hot to touch. There is a little healing sore on the lateral aspect of his left knee. IMPRESSION: Septic knee. PLAN: Called and discussed with orthopedics. I spoke with Dr. Pacheco but Dr. Ontiveros is actually on-call and will see later this evening. We will get labs and cultures, defer antibiotics to ortho at this time, n.p.o. for now. See orders for rest of the plan. TRANSINT:[id number] Voice Confirmation ID: [id number] DOCUMENT ID: [id number] HISTORY AND PHYSICAL [id number] LAURIE KERNS MATTHEW DO at 0827 CC: [id number] DICTATION DATE: 06/20/18 172 TENNIS PLAYER: 06/20/182022 ADM IN [facility] [address] [id number]
--- NOTE | 2018-06-21 11:21 | NUR ---
IN ROOM. BED ALARM ON. SCD'S ON. NO FURTHER NEEDS AT THIS TIME
[2018-06-21 11:35] LABS: BASOPHILS 0.1 % (0-2); EOSINOPHILS 0.1 % (0-7); HEMATOCRIT 32.1 % (42.0-54.0); HEMOGLOBIN 10.8 g/dL (13.5-17.5); IMMATURE GRANULOCYTES 0.3 % (0-5); LYMPHOCYTES 9.7 % (15-50); MCH 31.6 pg (26.0-34.0); MCHC 33.6 g/dL (31.0-37.0); MCV 93.9 fL (80.0-100.0); MEAN PLATELET VOLUME 9.9 fL (7.4-10.4); MONOCYTES 14.3 % (2-11); NEUTROPHILS 75.5 % (40-80); PLATELET COUNT 191 10x3/uL (130-400); RBC 3.42 10x6/uL (4.20-6.10); RDW 14.5 % (11.5-14.5); WBC 13.1 10x3/uL (4.8-10.8)
[2018-06-21 11:58] LABS: ALBUMIN 2.3 g/dL (3.4-5.0); BILIRUBIN - TOTAL 0.86 mg/dL (0.2-1.3); CALCIUM 8.2 mg/dL (8.5-10.1); CARBON DIOXIDE 22.8 mmol/L (21.0-32.0); CREATININE - SERUM 1.1 mg/dL (0.6-1.3); POTASSIUM - SERUM 3.8 mmol/L (3.5-5.1); PROTEIN - SERUM 6.3 g/dL (6.4-8.2)
--- NOTE | 2018-06-21 16:49 | NUR ---
OT NOTE: PT COMPLETED GROOMING TASKS WITH SET UP/CGA. PT COMPLETED BED MOB WITH SBA. PT COMPLETED EOB SITTING WITH SBA. PT COMPLETED BUE AROM . 0MANDY KAHN, TALIB [place]
[2018-06-22] VITALS (12 sets, daily range): BP systolic 109–173; BP diastolic 38–109
--- NOTE | 2018-06-22 03:45 | NUR ---
RESTING QUITELY IN BED NOAPPARENT DISTRESS, CALL LIGHT IN REACH
[2018-06-22 05:13] LABS: BASOPHILS 0.1 % (0-2); EOSINOPHILS 0.2 % (0-7); HEMOGLOBIN 11.1 g/dL (13.5-17.5); IMMATURE GRANULOCYTES 0.4 % (0-5); LYMPHOCYTES 15.7 % (15-50); MCH 31.4 pg (26.0-34.0); MCHC 32.6 g/dL (31.0-37.0); MEAN PLATELET VOLUME 9.3 fL (7.4-10.4); NEUTROPHILS 71.6 % (40-80); PLATELET COUNT 184 10x3/uL (130-400); RBC 3.54 10x6/uL (4.20-6.10); RDW 14.5 % (11.5-14.5); WBC 12.7 10x3/uL (4.8-10.8)
[2018-06-22 05:45] LABS: ALBUMIN 2.3 g/dL (3.4-5.0); ALKALINE PHOSPHATASE 152 U/L (46-116); ALT (SGPT) 11 U/L (10-68); BILIRUBIN - TOTAL 0.87 mg/dL (0.2-1.3); CALC OSMOLALITY 286 mosm/kg (275-300); CALCIUM 8.1 mg/dL (8.5-10.1); CARBON DIOXIDE 22.1 mmol/L (21.0-32.0); CHLORIDE - SERUM 108 mmol/L (98-107); GLUCOSE 98 mg/dL (74-106); POTASSIUM - SERUM 3.6 mmol/L (3.5-5.1); PROTEIN - SERUM 6.4 g/dL (6.4-8.2); SODIUM 142 mmol/L (136-145); UREA NITROGEN 25 mg/dL (7-18); eGFR NON AFRICAN AMERICAN 75 mL/min (90-120)
--- NOTE | 2018-06-22 19:45 | NUR ---
PT RESTING IN BED. ALERT AND ORIENTED. NO SIGNS OF DISTRESS. BREATHING EVEN AND UNLABORED. AWATING TO GO TO SURGERY. AT BEDSIDE. IV SITE LT FA DRESSING CLEAN DRY AND INTACT. NO SIGNS OF INFECTION. BOWEL SOUNDS ACTIVE. TELE MONITOR ON, 68 NORMAL SINUS, BUNDLE BRANCH. SKIN CLEAN DRY AND INTACT. LT KNEE SWELLING. NO LOWER LEG SWELLING PRESENT. WILL CONTINUE PLAN OF CARE CALL LIGHT IN REACH. BED LOWERED AND LOCKED. BED ALARM ON. BED RAILS UP X2.
[2018-06-23] VITALS (9 sets, daily range): BP systolic 100–138; BP diastolic 37–67
--- NOTE | 2018-06-23 02:51 | NUR ---
PT LYING IN BED RESTING, WITHOUT DISTRESS OR NEEDS AT THIS TIME. AGREE W/ OFFICE TECHNOLOGY INSTRUCTOR ASSESSMENT. CL IN REACH
[2018-06-23 07:14] LABS: HEMATOCRIT 32.5 % (42.0-54.0); HEMOGLOBIN 11.2 g/dL (13.5-17.5); MCH 32.7 pg (26.0-34.0); MCHC 34.5 g/dL (31.0-37.0); MEAN PLATELET VOLUME 8.8 fL (7.4-10.4); NEUTROPHILS 88.7 % (40-80); PLATELET COUNT 198 10x3/uL (130-400); RBC 3.42 10x6/uL (4.20-6.10); RDW 13.6 % (11.5-14.5)
[2018-06-23 07:17] LABS: WBC 7.7 10x3/uL (4.8-10.8)
[2018-06-23 07:31] LABS: ALBUMIN 2.2 g/dL (3.4-5.0); ALKALINE PHOSPHATASE 146 U/L (46-116); ALT (SGPT) 17 U/L (10-68); BILIRUBIN - TOTAL 0.62 mg/dL (0.2-1.3); CALC OSMOLALITY 289 mosm/kg (275-300); CARBON DIOXIDE 20.7 mmol/L (21.0-32.0); CHLORIDE - SERUM 109 mmol/L (98-107); CREATININE - SERUM 0.8 mg/dL (0.6-1.3); GLUCOSE 148 mg/dL (74-106); POTASSIUM - SERUM 4.4 mmol/L (3.5-5.1); PROTEIN - SERUM 5.9 g/dL (6.4-8.2); SODIUM 142 mmol/L (136-145); UREA NITROGEN 24 mg/dL (7-18); eGFR NON AFRICAN AMERICAN > 90 mL/min (90-120)
--- NOTE | 2018-06-23 08:00 | NUR ---
PATIENT IN BED WITH IV INTACT. NO COMPLAINTS OR SIGNS OF DISTRESS. IV INTACT. CALL LIGHT WITHIN REACH.
--- NOTE | 2018-06-23 14:07 | NUR ---
NUTRITION F/U PT UP TO CHAIR, STATES HE HAS GOOD APPETITE AND PO INTAKE. WILL CONTINUE TO PROVIDE DIET, HONOR FOOD PREFERENCES. RD FOLLOWING
--- NOTE | 2018-06-23 14:46 | NUR ---
OT NOTE: GROOMING WITH SET UP; IN ROOM AMBULATION WITH USE OF RW AND CGA. SET UP FOR DONNING GOWN; MIN ASSIST TO AMERICA SOCKS; STANDING BALANCE WAS FAIR+. DEWAYNE DELEON, OTR/L
--- NOTE | 2018-06-23 16:36 | MORECARE ---
CASE MANAGEMENT DISCHARGE SUMMARY PATIENT: LAURIE KERNS UNIT: [id number] ADM DATE: 06/20/18 AGE: 83 : 33 SEX: M ROOM/BED: D.2231 AUTHOR: SELENA HERNANDEZ PHYSICIAN: REFERRING PHYSICIAN: DESHAUN VARGAS MD DATE OF SERVICE: 06/23/18 Discharge Plan Patient Name: LAURIE KERNS [facility] [facility] 1935 Planned Disposition: Home Anticipated Discharge Date: Discharge Date: Expected LOS: Initial Reviewer: [email or web address] Initial Review Date: 06/20/2018 Generated: 06/23/18 5:36 pm Patient Name: LAURIE KERNS Page 36891 at 1636 All edits/amendments must be made on the electronic document DICTATION DATE: 06/23/18 1636 HYDRO PLANT OPERATOR: CT 06/23/18 1636 RPT#: [id number] DC DATE: STATUS: ADM IN [facility] [address] [place] [address] END OF REPORT
--- NOTE | 2018-06-23 16:44 | MORECARE ---
CASE MANAGEMENT DISCHARGE SUMMARY PATIENT: LAURIE KERNS UNIT: [id number] ADM DATE: 06/20/18 AGE: 83 : 33 SEX: M ROOM/BED: D.2231 AUTHOR: SELENA HERNANDEZ PHYSICIAN: REFERRING PHYSICIAN: DESHAUN VARGAS MD DATE OF SERVICE: 06/23/18 Discharge Plan Patient Name: LAURIE KERNS Facility: [facility]:[place] : 1935 Planned Disposition: Home Anticipated Discharge Date: Discharge Date: Expected LOS: Initial Reviewer: [email or web address] Initial Review Date: 06/20/2018 Generated: 06/23/18 5:44 pm Comments DCP- Discharge Planning Updated by [email or web address]: Nina Cantu on 06/23/18 3:[address] Patient Name: LAURIE KERNS Admission Status: Elective Accout number: [id number] Admission Date: 06-20-2018 : 1935 Admission Diagnosis:PYOGENIC ARTHRITIS, UNSPECIFIED Attending: DESHAUN VARGAS Current LOS: 3 Anticipated DC Date: Planned Disposition: Home Primary Insurance: MEDICARE A & B Discharge Planning Comments: CM met with patient to discuss discharge planning, he is alone in the room. He states he lives with his in a safe environment. States that he has a cane, nebulizer and a rollator walker. States he has used home health in the past and is unsure which agency he was with. States he does not think he will need home health this time, but will do what the doctor wants him to do. No needs identified at this time. CM will continue to follow and assist with discharge planning/needs. Hardware Technician: Nina Cantu DCPIA - Discharge Planning Initial Assessment Updated by [email or web address]: Nina Cantu on 06/23/18 4:39 pm * Is the patient Alert and Oriented? Yes * How many steps to enter\exit or inside your home? 0/0 * PCP Dr. Lynne * Pharmacy [facility] in [place] * Preadmission Environment Home with Family * ADLs Independent * Equipment Other * Other Equipment Rollator Walker * List name and contact numbers for known caregivers / representatives who currently or will assist patient after discharge: [facility] - [phone] * Verbal permission to speak to the caregivers and representatives has been obtained from the patient. Yes * Community resources currently utilized None * Additional services required to return to the preadmission environment? No * Can the patient safely return to the preadmission environment? Yes * Has this patient been hospitalized within the prior 30 days at any hospital? No Last DP export: 06/23/18 3:36 p Patient Name: LAURIE KERNS Page 37994 at 1644 All edits/amendments must be made on the electronic document DICTATION DATE: 06/23/181642 HEALTH EDUCATION ASSISTANT: CT 06/23/181642 RPT#: [id number] DC DATE: STATUS: ADM IN [facility] [address] [place] [address] END OF REPORT
--- NOTE | 2018-06-23 18:57 | NUR ---
WET TO DRY DRESSING CHANGED TO PATIENT'S LEFT KNEE USING STERILE TECHNIQUE. 2 IN KERLIX SOAKED IN STERILE SALINE USED TO PACK WOUND THERE IS NO 1 INCH. PACKED WITH SWAB STICK ON BOTH SIDES OF SUTURE. COVERED WITH GAUZE AND NEW MOIZ WRAP. PATIENT TOLERATED WELL.
--- NOTE | 2018-06-23 19:00 | NUR ---
BEDSIDE REPORT RECEIVED AND CARE OF PT ASSUMED. PT LYING IN SUPINE POSITION WATCHING TV. IV IN LEFT FA PATENT WITH NS INFUSING AT 75 ML / HR. TELEMETRY IN PLACE AND READING SR AT THIS ASSESSMENT. DRESSING ON LEFT KNEE CLEAN AND DRY. MUSEUM HOST/HOSTESS / MORPHINE IN USE FOR PAIN CONTROL. WILL MONITOR FOR NEEDS. CALL LIGHT WITHIN REACH.
--- NOTE | 2018-06-23 21:07 | NUR ---
HS MEDICATIONS GIVEN. WILL CONTINUE TO MONITOR FOR NEEDS. CALL LIGHT WITHIN REACH.
--- NOTE | 2018-06-23 21:28 | NUR ---
OT NOTE: PT COMPLETED EOB SITTING WITH SBA. PT COMPLETED SIT TO STAND WITH SBA/CGA. PT COMPLETED GROOMING WITH SET UP. THANK YOU, TALIB RICHMOND
[2018-06-24] VITALS: BP 115/43
[2018-06-24 04:00] VITALS: BP 111/40
[2018-06-24 06:46] LABS: BASOPHILS 0 % (0-2); EOSINOPHILS 0.1 % (0-7); HEMATOCRIT 29.7 % (42.0-54.0); HEMOGLOBIN 9.9 g/dL (13.5-17.5); IMMATURE GRANULOCYTES 0.4 % (0-5); LYMPHOCYTES 9.2 % (15-50); MCH 31.2 pg (26.0-34.0); MCHC 33.3 g/dL (31.0-37.0); MCV 93.7 fL (80.0-100.0); MEAN PLATELET VOLUME 9.7 fL (7.4-10.4); NEUTROPHILS 82.3 % (40-80); PLATELET COUNT 219 10x3/uL (130-400); RBC 3.17 10x6/uL (4.20-6.10); RDW 14.3 % (11.5-14.5)
[2018-06-24 06:50] LABS: ALBUMIN 1.9 g/dL (3.4-5.0); ALKALINE PHOSPHATASE 129 U/L (46-116); BILIRUBIN - TOTAL 0.34 mg/dL (0.2-1.3); CALC OSMOLALITY 286 mosm/kg (275-300); CHLORIDE - SERUM 111 mmol/L (98-107); CREATININE - SERUM 0.9 mg/dL (0.6-1.3); GLUCOSE 143 mg/dL (74-106); POTASSIUM - SERUM 4.2 mmol/L (3.5-5.1); PROTEIN - SERUM 5.5 g/dL (6.4-8.2); SODIUM 140 mmol/L (136-145); UREA NITROGEN 29 mg/dL (7-18); eGFR NON AFRICAN AMERICAN 85 mL/min (90-120)
[2018-06-24 06:57] LABS: ALT (SGPT) 11 U/L (10-68)
[2018-06-24 07:01] LABS: WBC 10.5 10x3/uL (4.8-10.8)
--- NOTE | 2018-06-24 07:51 | NUR ---
PT ALERT X 4. BREATH SOUNDS CLEAR BILAT. TELEMETRY IN PLACE. IV TO LEFT FOREARM, PATENT, DRESSING CLEAN DRY AND INTACT. MOIZ WRAP TO LEFT KNEE, DRESSING CLEAN DRY AND INTACT. PT REPORTING NO PAIN AT THIS TIME. BED LOW, CALL LIGHT IN REACH. NO OTHER NEEDS AT THIS TIME.
[2018-06-24 09:00] VITALS: BP 121/62
--- NOTE | 2018-06-24 14:36 | MORECARE ---
CASE MANAGEMENT DISCHARGE SUMMARY PATIENT: LAURIE KERNS UNIT: [id number] ADM DATE: 06/20/18 AGE: 83 : 33 SEX: M ROOM/BED: D.2231 AUTHOR: SELENA HERNANDEZ PHYSICIAN: REFERRING PHYSICIAN: DESHAUN VARGAS MD DATE OF SERVICE: 06/24/18 Discharge Plan Patient Name: LAURIE KERNS Facility: [facility]:[place] : 1935 Planned Disposition: Home Health Service Anticipated Discharge Date: Discharge Date: Expected LOS: Initial Reviewer: [id number] Initial Review Date: 06/20/2018 Generated: 06/24/18 3:36 pm Comments DCP- Discharge Planning Updated by [id number]: Manisha Lock on 06/24/18 1:[address] Patient Name: LAURIE KERNS Admission Status: Elective Accout number: [id number] Admission Date: 06-20-2018 : 1935 Admission Diagnosis:PYOGENIC ARTHRITIS, UNSPECIFIED Attending: DESHAUN VARGAS Current LOS: 4 Anticipated DC Date: Planned Disposition: Home Health Service Primary Insurance: MEDICARE A & B Discharge Planning Comments: CM SENDING REFERRAL INFORMATION TO [facility]. CM WILL FOLLOW AND ASSIST NEEDED WITH DC PLANNING/NEEDS. STATES PATIENT WILL PROBABLY DC ON TUESDAY. Chronometer Assembler: Manisha Lock DCP- Discharge Planning Updated by [id number]: Nina Cantu on 06/23/18 3:[address] Patient Name: LAURIE KERNS Admission Status: Elective Accout number: [id number] Admission Date: 06-20-2018 : 1935 Admission Diagnosis:PYOGENIC ARTHRITIS, UNSPECIFIED Attending: DESHAUN VARGAS Current LOS: 3 Anticipated DC Date: Planned Disposition: Home Primary Insurance: MEDICARE A & B Discharge Planning Comments: CM met with patient to discuss discharge planning, he is alone in the room. He states he lives with his in a safe environment. States that he has a cane, nebulizer and a rollator walker. States he has used home health in the past and is unsure which agency he was with. States he does not think he will need home health this time, but will do what the doctor wants him to do. No needs identified at this time. CM will continue to follow and assist with discharge planning/needs. Chronometer Assembler: Nina Pepe DCPIA - Discharge Planning Initial Assessment Updated by [email or web address]: Nina Pepe on 06/23/18 4:39 pm * Is the patient Alert and Oriented? Yes * How many steps to enter\exit or inside your home? 0/0 * PCP Dr. Lynne * Pharmacy [facility] in [place] * Preadmission Environment Home with Family * ADLs Independent * Equipment Other * Other Equipment Rollator Walker * List name and contact numbers for known caregivers / representatives who currently or will assist patient after discharge: [facility] - [phone] * Verbal permission to speak to the caregivers and representatives has been obtained from the patient. Yes * Community resources currently utilized None * Additional services required to return to the preadmission environment? No * Can the patient safely return to the preadmission environment? Yes * Has this patient been hospitalized within the prior 30 days at any hospital? No Coverage Notice Reviewer: [id number] Christie Lock Notice Issued Date-Time: 06/24/2018 14:31 Notice Type: Patient Choice Letter Notice Delivered To: Patient Relationship to Patient: Self Reexaminer Name: Delivery Method: HAND - Hand Delivered Elli Days: Prior Verbal Notification: Recipient Understood Notice: Yes Recipient Signature: Yes Med Rec Note Co-signed by Attending: Coverage Notice Comment: KWABENA GREEN Last DP export: 06/23/18 3:44 p Patient Name: LAURIE KERNS Page [phone] at 1436 All edits/amendments must be made on the electronic document DICTATION DATE: 06/24/181434 MAINSTREAMING FACILITATOR: CT 06/24/18 143 RPT#: [id number] DC DATE: STATUS: ADM IN [facility] [address] [place] [address] END OF REPORT
[2018-06-24 14:44] VITALS: BP 126/39
--- NOTE | 2018-06-24 14:52 | MORECARE ---
CASE MANAGEMENT DISCHARGE SUMMARY PATIENT: LAURIE KERNS UNIT: [id number] ADM DATE: 06/20/18 AGE: 83 : 33 SEX: M ROOM/BED: D.2231 AUTHOR: SELENA HERNANDEZ PHYSICIAN: REFERRING PHYSICIAN: DESHAUN VARGAS MD DATE OF SERVICE: 06/24/18 Discharge Plan Patient Name: LAURIE KERNS Facility: [facility]:[place] : 1935 Planned Disposition: Home Health Service Anticipated Discharge Date: Discharge Date: Expected LOS: Initial Reviewer: [id number] Initial Review Date: 06/20/2018 Generated: 06/24/18 3:51 pm Comments DCP- Discharge Planning Updated by [email or web address]: Manisha Lock on 06/24/18 1:[address] Patient Name: LAURIE KERNS Admission Status: Elective Accout number: [id number] Admission Date: 06-20-2018 : 1935 Admission Diagnosis:PYOGENIC ARTHRITIS, UNSPECIFIED Attending: DESHAUN VARGAS Current LOS: 4 Anticipated DC Date: Planned Disposition: Home Health Service Primary Insurance: MEDICARE A & B Discharge Planning Comments: CM SENDING REFERRAL INFORMATION TO [facility]. CM WILL FOLLOW AND ASSIST NEEDED WITH DC PLANNING/NEEDS. STATES PATIENT WILL PROBABLY DC ON TUESDAY. Rn Resource Nurse: Manisha Lock DCP- Discharge Planning Updated by [id number]: Nina Cantu on 06/23/18 3:[address] Patient Name: LAURIE KERNS Admission Status: Elective Accout number: [id number] Admission Date: 06-20-2018 : 1935 Admission Diagnosis:PYOGENIC ARTHRITIS, UNSPECIFIED Attending: DESHAUN VARGAS Current LOS: 3 Anticipated DC Date: Planned Disposition: Home Primary Insurance: MEDICARE A & B Discharge Planning Comments: CM met with patient to discuss discharge planning, he is alone in the room. He states he lives with his in a safe environment. States that he has a cane, nebulizer and a rollator walker. States he has used home health in the past and is unsure which agency he was with. States he does not think he will need home health this time, but will do what the doctor wants him to do. No needs identified at this time. CM will continue to follow and assist with discharge planning/needs. Rn Resource Nurse: Nina Pepe DCPIA - Discharge Planning Initial Assessment Updated by [id number]: Nina Sandovalmiriam on 06/23/18 4:39 pm * Is the patient Alert and Oriented? Yes * How many steps to enter\exit or inside your home? 0/0 * PCP Dr. Lynne * Pharmacy [facility] in [place] * Preadmission Environment Home with Family * ADLs Independent * Equipment Other * Other Equipment Rollator Walker * List name and contact numbers for known caregivers / representatives who currently or will assist patient after discharge: [facility] [phone] * Verbal permission to speak to the caregivers and representatives has been obtained from the patient. Yes * Community resources currently utilized None * Additional services required to return to the preadmission environment? No * Can the patient safely return to the preadmission environment? Yes * Has this patient been hospitalized within the prior 30 days at any hospital? No External Providers [facility] Next Contact Date: Service Request Date: Service Type: Resolution: Reviewer: Comments: Coverage Notice Reviewer: [id number] Christie Lock Notice Issued Date-Time: 06/24/2018 14:31 Notice Type: Patient Choice Letter Notice Delivered To: Patient Relationship to Patient: Self Hockey Scout Name: Delivery Method: HAND - Hand Delivered Elli Days: Prior Verbal Notification: Recipient Understood Notice: Yes Recipient Signature: Yes Med Rec Note Co-signed by Attending: Coverage Notice Comment: KWABENA GREEN Last DP export: 06/24/18 1:36 p Patient Name: LAURIE KERNS Page [phone] at 1452 All edits/amendments must be made on the electronic document DICTATION DATE: 06/24/18 145 END PACKER: CT 06/24/18 145 RPT#: [id number] DC DATE: STATUS: ADM IN [facility] [address] [place] [address] END OF REPORT
[2018-06-24 18:20] VITALS: BP 128/47
--- NOTE | 2018-06-24 19:00 | NUR ---
REPORT RECEIVED AND CARE OF PT ASSUMED. PT LYING IN SUPINE POSITION WATCHING TV. IV IN LEFT FA PATENT WITH NS INFUSING AT 75 ML/HR. TUTORIAL LABORATORY SUPERVISOR W/ MORPHINE IN USE FOR PAIN. DRESSING ON LEFT KNEE CLEAN AND DRY. WILL MONITOR FOR NEEDS.
[2018-06-24 20:00] VITALS: BP 125/53
--- NOTE | 2018-06-24 20:51 | NUR ---
HS MEDICATIONS GIVEN. WILL CONTINUE TO MONITOR FOR NEEDS.
[2018-06-25 04:00] VITALS: BP 116/42
--- NOTE | 2018-06-25 04:40 | NUR ---
CHANGED DRESSING ON LEFT KNEE. SUTURES ON INNER KNEE WELL APPROXIMATED WITH NO SWELLING OR DRAINAGE. 3 INCH INCISION ON OUTER KNEE WITH ONE SUTURE IN THE MIDDLE WITH LITTLE DRAINAGE OR SWELLING. PACKED OUTER INCISION WITH 1" KERLEX MOISTENED WITH SALINE. COVERED INNER INCISION WITH ADAPTIC. COVERED ALL WITH 4X4'S AND WRAPPED WITH MOIZ BANDAGE.
[2018-06-25 06:52] LABS: ALBUMIN 1.9 g/dL (3.4-5.0); ALKALINE PHOSPHATASE 131 U/L (46-116); BILIRUBIN - TOTAL 0.28 mg/dL (0.2-1.3); CALCIUM 7.4 mg/dL (8.5-10.1); CARBON DIOXIDE 21.1 mmol/L (21.0-32.0); CHLORIDE - SERUM 112 mmol/L (98-107); CREATININE - SERUM 0.8 mg/dL (0.6-1.3); POTASSIUM - SERUM 3.7 mmol/L (3.5-5.1); PROTEIN - SERUM 5.3 g/dL (6.4-8.2); SODIUM 144 mmol/L (136-145); UREA NITROGEN 26 mg/dL (7-18); eGFR NON AFRICAN AMERICAN > 90 mL/min (90-120)
[2018-06-25 06:54] LABS: BASOPHILS 0.1 % (0-2); EOSINOPHILS 0.8 % (0-7); HEMATOCRIT 32.6 % (42.0-54.0); HEMOGLOBIN 10.5 g/dL (13.5-17.5); IMMATURE GRANULOCYTES 0.2 % (0-5); LYMPHOCYTES 16.2 % (15-50); MCH 30.8 pg (26.0-34.0); MCHC 32.2 g/dL (31.0-37.0); MCV 95.6 fL (80.0-100.0); MEAN PLATELET VOLUME 9.5 fL (7.4-10.4); MONOCYTES 8.2 % (2-11); NEUTROPHILS 74.5 % (40-80); PLATELET COUNT 246 10x3/uL (130-400); RBC 3.41 10x6/uL (4.20-6.10); RDW 14.7 % (11.5-14.5); WBC 8.6 10x3/uL (4.8-10.8)
[2018-06-25 06:58] LABS: ALT (SGPT) 15 U/L (10-68); CALC OSMOLALITY 291 mosm/kg (275-300); GLUCOSE 95 mg/dL (74-106)
--- NOTE | 2018-06-25 07:55 | NUR ---
PT ALERT X 4. BREATH SOUNDS CLEAR BILAT. TELEMETRY IN PLACE. IV TO LEFT FOREARM, PATENT, DRESSING CLEAN DRY AND INTACT. MOIZ WRAP TO LEFT KNEE, DRESSING CLEAN DRY AND INTACT. PT REPORTING NO PAIN THIS MORNING. BED LOW, CALL LIGHT IN REACH, NO OTHER NEEDS AT THIS TIME.
[2018-06-25 09:41] VITALS: BP 123/52
[2018-06-25 14:08] VITALS: BP 125/46
[2018-06-25 18:25] VITALS: BP 135/54
--- NOTE | 2018-06-25 19:00 | NUR ---
BEDSIDE REPORT RECEIVED AND CARE OF PT ASSUMED. PT LYING IN SUPINE POSITION WATCHING TV. IV IN LEFT HAND PATENT WITH NS INFUSING AT 75 ML / HR. TELEMETRY IN PLACE AND READING SR W/ PAC'S AT THIS ASSESSMENT. WILL MONITOR FOR NEEDS.
--- NOTE | 2018-06-25 20:29 | NUR ---
HS MEDICATIONS GIVEN. WILL CONTINUE TO MONITOR FOR NEEDS.
[2018-06-26] VITALS: BP 130/58
--- NOTE | 2018-06-26 01:51 | NUR ---
PT C/O IV HURTING...A LITTLE RED AND SWOLLEN AT INSERTION SITE. REMOVED WITH CATHETER TIP INTACT. PT REQUESTED NO TO HAVE RE-SITED HE IS BEING DISCHARGED THIS AM.
[2018-06-26 04:00] VITALS: BP 143/54
[2018-06-26 07:09] LABS: BASOPHILS 0.1 % (0-2); EOSINOPHILS 1.6 % (0-7); HEMATOCRIT 33.8 % (42.0-54.0); HEMOGLOBIN 11.3 g/dL (13.5-17.5); IMMATURE GRANULOCYTES 0.3 % (0-5); LYMPHOCYTES 14.3 % (15-50); MCH 31.5 pg (26.0-34.0); MCHC 33.4 g/dL (31.0-37.0); MCV 94.2 fL (80.0-100.0); MEAN PLATELET VOLUME 9.4 fL (7.4-10.4); MONOCYTES 8.9 % (2-11); NEUTROPHILS 74.8 % (40-80); PLATELET COUNT 263 10x3/uL (130-400); RBC 3.59 10x6/uL (4.20-6.10); RDW 14.2 % (11.5-14.5); WBC 10.1 10x3/uL (4.8-10.8)
[2018-06-26 07:35] LABS: ALKALINE PHOSPHATASE 145 U/L (46-116); ALT (SGPT) 18 U/L (10-68); BILIRUBIN - TOTAL 0.38 mg/dL (0.2-1.3); CALC OSMOLALITY 280 mosm/kg (275-300); CALCIUM 7.8 mg/dL (8.5-10.1); CARBON DIOXIDE 23.7 mmol/L (21.0-32.0); CHLORIDE - SERUM 107 mmol/L (98-107); CREATININE - SERUM 0.7 mg/dL (0.6-1.3); GLUCOSE 95 mg/dL (74-106); POTASSIUM - SERUM 3.6 mmol/L (3.5-5.1); PROTEIN - SERUM 5.7 g/dL (6.4-8.2); SODIUM 140 mmol/L (136-145); eGFR NON AFRICAN AMERICAN > 90 mL/min (90-120)
[2018-06-26 07:37] LABS: UREA NITROGEN 17 mg/dL (7-18)
[2018-06-26 08:54] VITALS: BP 127/47
--- NOTE | 2018-06-26 09:10 | NUR ---
PATIENT IN BED WITH NO IV. REFUSES TO GET IV RESTARTED. STATED DR. CHAVARRIA SAID HE WAS GOING HOME AND DOESNT WANT A NEW ONE. PATIENT WANTING TO DC. EXPLAINED I HAD TO WAIT UNTIL OK BY DR. SOLIS [employer]. VERBALIZED UNDERSTANDING. RECIEVED SCHEDULED MEDS. KNEE DRESSING TO BE CHANGED BEFORE DC. FAMILY AT BEDSIDE. CALL LIGHT WITHIN REACH.
[2018-06-26 12:47] VITALS: BP 134/57
[2018-06-26] MEDS ORDERED: KEFLEX500 MG PO (13:34)
[2018-06-26] MEDS ORDERED: HYDROCODON-ACE1 EAC7 PO (13:47)
--- NOTE | 2018-06-26 14:14 | MORECARE ---
CASE MANAGEMENT DISCHARGE SUMMARY PATIENT: LAURIE KERNS UNIT: [id number] ADM DATE: 06/20/18 AGE: 83 : 33 SEX: M ROOM/BED: D.2231 AUTHOR: SELENA HERNANDEZ PHYSICIAN: REFERRING PHYSICIAN: DESHAUN VARGAS MD DATE OF SERVICE: 06/26/18 Discharge Plan Patient Name: LAURIE KERNS Facility: [facility]:[place] : 1935 Planned Disposition: Home Health Service Anticipated Discharge Date: Discharge Date: Expected LOS: Initial Reviewer: [id number] Initial Review Date: 06/20/2018 Generated: 06/26/18 3:14 pm Comments DCP- Discharge Planning Updated by [id number]: Nina Cantu on 06/26/18 1:[address] Received discharge orders. He is going home with [facility]. Sylvia states they will see him tomorrow. Clinical faxed to [facility]. Family in room for discharge transportation. CM will continue to follow and assist with discharge planning/needs. DCP- Discharge Planning Updated by [id number]: Manisha Lock on 06/24/18 1:[address] Patient Name: LAURIE KERNS Admission Status: Elective Accout number: [id number] Admission Date: 06-20-2018 : 1935 Admission Diagnosis:PYOGENIC ARTHRITIS, UNSPECIFIED Attending: DESHAUN VARGAS Current LOS: 4 Anticipated DC Date: Planned Disposition: Home Health Service Primary Insurance: MEDICARE A & B Discharge Planning Comments: CM SENDING REFERRAL INFORMATION TO [facility]. CM WILL FOLLOW AND ASSIST NEEDED WITH DC PLANNING/NEEDS. STATES PATIENT WILL PROBABLY DC ON TUESDAY. Cone Runner: Manisha Lock DCP- Discharge Planning Updated by [email or web address]: Nina Cantu on 06/23/18 3:[address] Patient Name: LAURIE KERNS Admission Status: Elective Accout number: [id number] Admission Date: 06-20-2018 : 1935 Admission Diagnosis:PYOGENIC ARTHRITIS, UNSPECIFIED Attending: DESHAUN VARGAS Current LOS: 3 Anticipated DC Date: Planned Disposition: Home Primary Insurance: MEDICARE A & B Discharge Planning Comments: CM met with patient to discuss discharge planning, he is alone in the room. He states he lives with his in a safe environment. States that he has a cane, nebulizer and a rollator walker. States he has used home health in the past and is unsure which agency he was with. States he does not think he will need home health this time, but will do what the doctor wants him to do. No needs identified at this time. CM will continue to follow and assist with discharge planning/needs. Cone Runner: Nina Cantu DCPIA - Discharge Planning Initial Assessment Updated by [id number]: Nina Cantu on 06/23/18 4:39 pm * Is the patient Alert and Oriented? Yes * How many steps to enter\exit or inside your home? 0/0 * PCP Dr. Lynne * Pharmacy [facility] in [place] * Preadmission Environment Home with Family * ADLs Independent * Equipment Other * Other Equipment Rollator Walker * List name and contact numbers for known caregivers / representatives who currently or will assist patient after discharge: [facility] - [phone] * Verbal permission to speak to the caregivers and representatives has been obtained from the patient. Yes * Community resources currently utilized None * Additional services required to return to the preadmission environment? No * Can the patient safely return to the preadmission environment? Yes * Has this patient been hospitalized within the prior 30 days at any hospital? No Coverage Notice Reviewer: [id number] Christie Lock Notice Issued Date-Time: 06/24/2018 14:31 Notice Type: Patient Choice Letter Notice Delivered To: Patient Relationship to Patient: Self Riveting Machine Operator Tape Control Name: Delivery Method: HAND - Hand Delivered Elli Days: Prior Verbal Notification: Recipient Understood Notice: Yes Recipient Signature: Yes Med Rec Note Co-signed by Attending: Coverage Notice Comment: SUSAN HUGHES, KWABENA HUGHES Reviewer: [id number] - Nina Cantu Notice Issued Date-Time: 06/26/2018 9:39 Notice Type: IM Discharge Notice Notice Delivered To: Patient Relationship to Patient: Self Riveting Machine Operator Tape Control Name: Delivery Method: HAND - Hand Delivered Elli Days: Prior Verbal Notification: Recipient Understood Notice: Yes Recipient Signature: Yes Med Rec Note Co-signed by Attending: Coverage Notice Comment: IMM explained, signed, given, copy placed in MR Last DP export: 06/24/18 1:52 p Patient Name: LAURIE KERNS Page [phone] at 1414 All edits/amendments must be made on the electronic document DICTATION DATE: 06/26/181413 BOILER HOUSE SUPERVISOR: CT 06/26/181413 RPT#: [id number] DC DATE: STATUS: ADM IN [facility] [address] [place] [address] END OF REPORT
--- NOTE | 2018-06-26 15:08 | NUR ---
OT NOTE: BED MOB WITH SBA; AMB WITH CGA AND USE OF RW; TRANSFERS WITH CGA; UE DRESSING WITH SET UP; GROOMING AND FEEDING WITH SET UP; PT WANTING TO DC HOME TO CHECK ON SPOUSE. DEWAYNE DELEON, OTR/L
--- NOTE | 2018-06-28 17:02 | MORECARE ---
CASE MANAGEMENT DISCHARGE SUMMARY PATIENT: LAURIE KERNS UNIT: [id number] ADM DATE: 06/20/18 AGE: 83 : 33 SEX: M ROOM/BED: D.2231 AUTHOR: SELENA HERNANDEZ PHYSICIAN: REFERRING PHYSICIAN: DESHAUN VARGAS MD DATE OF SERVICE: 06/28/18 Discharge Plan Patient Name: LAURIE KERNS Facility: [facility]:[place] : 1935 Planned Disposition: Home Health Service Anticipated Discharge Date: Discharge Date: 06/26/2018 Expected LOS: 0 Initial Reviewer: [id number] Initial Review Date: 06/20/2018 Generated: 06/28/18 6:02 pm Comments DCP- Discharge Planning Updated by [id number]: Nina Cantu on 06/26/18 1:[address] Received discharge orders. He is going home with [facility]. Sylvia states they will see him tomorrow. Clinical faxed to [facility]. Family in room for discharge transportation. CM will continue to follow and assist with discharge planning/needs. DCP- Discharge Planning Updated by [id number]: Manisha Lock on 06/24/18 1:[address] Patient Name: LAURIE KERNS Admission Status: Elective Accout number: [id number] Admission Date: 06-20-2018 : 1935 Admission Diagnosis:PYOGENIC ARTHRITIS, UNSPECIFIED Attending: DESHAUN VARGAS Current LOS: 4 Anticipated DC Date: Planned Disposition: Home Health Service Primary Insurance: MEDICARE A & B Discharge Planning Comments: CM SENDING REFERRAL INFORMATION TO [facility]. CM WILL FOLLOW AND ASSIST NEEDED WITH DC PLANNING/NEEDS. STATES PATIENT WILL PROBABLY DC ON TUESDAY. Induction Furnace Operator: Manisha Lock DCP- Discharge Planning Updated by [email or web address]: Nina Cantu on 06/23/18 3:[address] Patient Name: LAURIE KERNS Admission Status: Elective Accout number: [id number] Admission Date: 06-20-2018 : 1935 Admission Diagnosis:PYOGENIC ARTHRITIS, UNSPECIFIED Attending: DESHAUN VARGAS Current LOS: 3 Anticipated DC Date: Planned Disposition: Home Primary Insurance: MEDICARE A & B Discharge Planning Comments: CM met with patient to discuss discharge planning, he is alone in the room. He states he lives with his in a safe environment. States that he has a cane, nebulizer and a rollator walker. States he has used home health in the past and is unsure which agency he was with. States he does not think he will need home health this time, but will do what the doctor wants him to do. No needs identified at this time. CM will continue to follow and assist with discharge planning/needs. Induction Furnace Operator: Nina Cantu DCPIA - Discharge Planning Initial Assessment Updated by [id number]: Nina Cantu on 06/23/18 4:39 pm * Is the patient Alert and Oriented? Yes * How many steps to enter\exit or inside your home? 0/0 * PCP Dr. Lynne * Pharmacy [facility] in [place] * Preadmission Environment Home with Family * ADLs Independent * Equipment Other * Other Equipment Rollator Walker * List name and contact numbers for known caregivers / representatives who currently or will assist patient after discharge: [facility] - [phone] * Verbal permission to speak to the caregivers and representatives has been obtained from the patient. Yes * Community resources currently utilized None * Additional services required to return to the preadmission environment? No * Can the patient safely return to the preadmission environment? Yes * Has this patient been hospitalized within the prior 30 days at any hospital? No Coverage Notice Reviewer: [id number] Christie Lock Notice Issued Date-Time: 06/24/2018 14:31 Notice Type: Patient Choice Letter Notice Delivered To: Patient Relationship to Patient: Self Customer Counter Associate Name: Delivery Method: HAND - Hand Delivered Elli Days: Prior Verbal Notification: Recipient Understood Notice: Yes Recipient Signature: Yes Med Rec Note Co-signed by Attending: Coverage Notice Comment: KWABENA GREEN Reviewer: [id number] - Nina Cantu Notice Issued Date-Time: 06/26/2018 9:39 Notice Type: IM Discharge Notice Notice Delivered To: Patient Relationship to Patient: Self Customer Counter Associate Name: Delivery Method: HAND - Hand Delivered Elli Days: Prior Verbal Notification: Recipient Understood Notice: Yes Recipient Signature: Yes Med Rec Note Co-signed by Attending: Coverage Notice Comment: IMM explained, signed, given, copy placed in MR Last DP export: 06/26/18 1:14 p Patient Name: LAURIE KERNS Page 99108 at 1702 All edits/amendments must be made on the electronic document DICTATION DATE: 06/28/181700 NAILER OPERATOR: CT 06/28/181700 RPT#: [id number] DC DATE:06/26/18 STATUS: DIS IN [facility] [address] [facility] [address] END OF REPORT
== END 2018-06-26 16:13 | disposition home health service (06) | DRG 500 ==
LOC: D.MS 17:39
PROVIDERS: Family Medicine; ADMIT Family Medicine; ATTEND Family Medicine
PROC: 0S9D3ZZ Drainage of Left Knee Joint, Percutaneous Approach (ICD-10-PCS; principal; 2018-06-20)
PROC: 0SJD3ZZ Inspection of Left Knee Joint, Percutaneous Approach (ICD-10-PCS; 2018-06-20)
PROC: 0J9P0ZZ Drainage of Left Lower Leg Subcutaneous Tissue and Fascia, Open Approach (ICD-10-PCS; 2018-06-22)
PROC: 0HBLXZZ Excision of Left Lower Leg Skin, External Approach (ICD-10-PCS; 2018-06-22)
DX: M00.9 Pyogenic arthritis, unspecified (principal); E43 Unspecified severe protein-calorie malnutrition; Z68.1 Body mass index [BMI] 19.9 or less, adult; L97.821 Non-pressure chronic ulcer of other part of left lower leg limited to breakdown of skin; I48.91 Unspecified atrial fibrillation; E86.0 Dehydration; I95.9 Hypotension, unspecified; E03.9 Hypothyroidism, unspecified; I25.10 Atherosclerotic heart disease of native coronary artery without angina pectoris; I48.0 Paroxysmal atrial fibrillation

== ENCOUNTER → 2018-08-02 12:31 | Outpatient (CLI) | payer MEDICARE, OTHER ==
[2018-06-21 11:21] VITALS: BMI 17.4
--- NOTE | ~2018-08-02 | EC ---
PATIENT:LAURIE KERNS DATE OF SERVICE: 08/02/18 SEX: M MEDICAL RECORD: [id number] DATE OF : [birth year] [facility] AGE [facility] PAT[facility]: 83 ADMISSION DATE: 08/02/18 REFERRING PHYSICIAN: INTERPRETING PHYSICIAN: MAGDALENA AMRTE MD ECHOCARDIOGRAM REPORT ECHO CHARGES 4 ECHO COMPLETE Date: 08/02/18 CLINICAL DIAGNOSIS: HX OF AFIB ECHOCARDIOGRAPHIC MEASUREMENTS (adult normal given) AC root (d.<3.7cm) 3.4 cm LV Septum d (<1.2 cm> 1.4 cm Valve Excursion 1.9 cm LV Septum (systole) 1.5 cm Left Atria (s.<4.0cm> 3.9 cm LVPW d(<1.2cm) 1.6 cm RV (d.<2.3cm) 4.5 cm LVPW (sytole) 1.7 cm LV diastole(<5.6CM) 5.0 cm MV E-F(>70mm/sec) cm LV systole 4.0 cm LVOT Diameter 1.8 cm MV exc.(>10mm) 1.5 cm Est.ejection fraction (50-75%) % DOPPLER: LVIT cm/sec A 66.0 cm/sec E 52.0 cm/sec LA cm/sec RVSP 40 mmHg LVOT 74 cm/sec AOP1/2T 466 m/s Asc. Ao 95 cm/sec RVOT 64 cm/sec RA cm/sec PA 95 cm/sec AV Gradient Peak 3.60 mmHg AV Mean 2.19 mmHg AV Area 1.5 cm MV Gradient Peak 2.48 mmHg MV Mean 1.19 mmHg MV Area cm COMMENTS: Outpatient Services Director: Juliana FLANAGAN Office Services Clerk: 1 Dr. Marte TAPE# PACS Pericardial Effusion N DATE OF SERVICE: 08/02/2018 PROCEDURE: Echocardiogram. FINDINGS: 1. Left ventricular chamber size is within normal limits. Left ventricular systolic function is mildly depressed. Overall ejection fraction 40%. 2. The left atrium is mildly dilated. Right atrium and right ventricular chamber sizes are within normal limits. 3. Valvular structures have normal structure and motion. ECHOCARDIOGRAM REPORT [id number] LAURIE KERNS 4. Doppler interrogation reveals mild aortic insufficiency, trace mitral regurgitation, trace tricuspid regurgitation, no other valvular insufficiency or stenosis. 5. No evidence of pericardial effusion or left ventricular thrombus. TRANSINT:[id number] Voice Confirmation ID: [id number] DOCUMENT ID: [id number] MAGDALENA MARTE MD CC: [id number] DICTATION DATE: 08/02/18 1553 ROTARY PEEL OVEN TENDER: 08/02/18 1612 [facility] [address] [place] [id number]
[~2018-08-02 12:31] MED LIST changes: +FOLBIC RF TABL1 EACH PO; +HYDROCODON-ACE1 EAC7 PO; +KEFLEX500 MG PO; +LEVOXYL25 MCG PO; +MIDODRINE HCL2.5 MG PO
== END | disposition home or self-care (01) ==
LOC: D.HCCARDIO 12:31
PROVIDERS: ATTEND Internal Medicine Interventional Cardiology
DX: I48.0 Paroxysmal atrial fibrillation (principal)

== ENCOUNTER → 2018-08-16 09:19 | Outpatient (CLI) | payer MEDICARE, OTHER ==
[2018-06-21 11:21] VITALS: BMI 17.4
== END | disposition home or self-care (01) ==
LOC: D.MRI 09:19
PROVIDERS: ATTEND Orthopaedic Surgery
DX: M25.562 Pain in left knee (principal)

== ENCOUNTER 2019-04-05 10:57 | Inpatient (IN) | payer MEDICARE, OTHER ==
[~2019-04-05] VITALS: Ht 172.7 cm; Wt 52.6 kg
[2019-04-05 11:46] LABS: CALC OSMOLALITY 277 mosm/kg (275-300); CALCIUM 9.3 mg/dL (8.5-10.1); CARBON DIOXIDE 26.9 mmol/L (21.0-32.0); CHLORIDE - SERUM 105 mmol/L (98-107); CREATININE - SERUM 1.1 mg/dL (0.6-1.3); GLUCOSE 96 mg/dL (74-106); POTASSIUM - SERUM 4.2 mmol/L (3.5-5.1); SODIUM 137 mmol/L (136-145); UREA NITROGEN 23 mg/dL (7-18); eGFR NON AFRICAN AMERICAN 67 mL/min (90-120)
[2019-04-05 11:57] LABS: APTT 26.8 SECONDS (22.8-39.4); INR 1.12 (0.85-1.17); PROTIME 13.9 SECONDS (11.6-15.0)
[2019-04-05 12:00] VITALS: BP 107/40
[2019-04-05 12:02] LABS: BASOPHILS 0 % (0-2); EOSINOPHILS 0 % (0-7); HEMATOCRIT 34.1 % (42.0-54.0); HEMOGLOBIN 10.6 g/dL (13.5-17.5); IMMATURE GRANULOCYTES 0.4 % (0-5); LYMPHOCYTES 2.6 % (15-50); MCHC 31.1 g/dL (31.0-37.0); MCV 83.8 fL (80.0-100.0); MEAN PLATELET VOLUME 8.8 fL (7.4-10.4); MONOCYTES 9.1 % (2-11); NEUTROPHILS 87.9 % (40-80); PLATELET COUNT 253 10x3/uL (130-400); RBC 4.07 10x6/uL (4.20-6.10); RDW 18.2 % (11.5-14.5); WBC 19.5 10x3/uL (4.8-10.8)
[2019-04-05 12:03] LABS: ALBUMIN 3.1 g/dL (3.4-5.0); ALKALINE PHOSPHATASE 109 U/L (46-116); ALT (SGPT) 34 U/L (10-68); BILIRUBIN - TOTAL 0.55 mg/dL (0.2-1.3); CKMB 0.4 U/L (0.0-3.6); CREATINE KINASE 27 UL (21-232); PROTEIN - SERUM 7.1 g/dL (6.4-8.2); TROPONIN-I < 0.017 ng/mL (0.000-0.060)
[2019-04-05 12:28] LABS: APPEARANCE CLEAR (CLEAR); BILIRUBIN NEGATIVE (NEGATIVE); COLOR YELLOW (YELLOW); GLUCOSE NEGATIVE (NEGATIVE); KETONE NEGATIVE (NEGATIVE); NITRITE NEGATIVE (NEGATIVE); PROTEIN NEGATIVE (NEGATIVE); SPECIFIC GRAVITY 1.015 (1.005-1.020)
[2019-04-05 13:00] VITALS: BP 103/50
[2019-04-05 14:00] VITALS: BP 111/43
[2019-04-05] MEDS ORDERED: LEVOTHYROXINE112 MCG (15:19)
[2019-04-05 16:10] VITALS: BP 120/77
[2019-04-05 16:30] VITALS: BP 111/43; BMI 17.6
--- NOTE | 2019-04-05 16:41 | NUR ---
RECIEVED FROM ER. AWAKE AND ALERT . IV TO LEFT WRIST WITH NS AT 125. O2 AT 2 LM PER NC. SORE TO LEFT KNEE WITH DRSG DRY AND INTACT. SR UP WITH CALL LIGHT IN REACH. WILL MONITOR
--- NOTE | 2019-04-05 18:06 | NUR ---
LYING QUIETLY WITH EYWS CLOSED, NO NEEDS VOICED. SR UP WITH CALL LIGHT IN REACH
[2019-04-05 20:00] VITALS: BP 116/54
--- NOTE | 2019-04-05 22:55 | NUR ---
PT C/O HEADACHE AND NOT BEEN ABLE TO GET SOME SLEEP. TYLENOL PROVIDED. WILL CTM.
[2019-04-06] VITALS: BP 116/54
[2019-04-06 04:00] VITALS: BP 116/70
[2019-04-06 06:31] LABS: BASOPHILS 0 % (0-2); EOSINOPHILS 0 % (0-7); HEMATOCRIT 32.8 % (42.0-54.0); HEMOGLOBIN 10.4 g/dL (13.5-17.5); IMMATURE GRANULOCYTES 0.4 % (0-5); LYMPHOCYTES 3.7 % (15-50); MCH 26.3 pg (26.0-34.0); MCHC 31.7 g/dL (31.0-37.0); MEAN PLATELET VOLUME 8.8 fL (7.4-10.4); MONOCYTES 1.1 % (2-11); NEUTROPHILS 94.8 % (40-80); PLATELET COUNT 229 10x3/uL (130-400); RBC 3.95 10x6/uL (4.20-6.10); RDW 18.4 % (11.5-14.5); WBC 19.7 10x3/uL (4.8-10.8)
[2019-04-06 06:32] LABS: ALBUMIN 2.6 g/dL (3.4-5.0); ALKALINE PHOSPHATASE 89 U/L (46-116); ALT (SGPT) 30 U/L (10-68); BILIRUBIN - TOTAL 0.49 mg/dL (0.2-1.3); CALC OSMOLALITY 286 mosm/kg (275-300); CALCIUM 8.6 mg/dL (8.5-10.1); CARBON DIOXIDE 23.6 mmol/L (21.0-32.0); CHLORIDE - SERUM 107 mmol/L (98-107); MAGNESIUM - SERUM 1.8 mg/dL (1.8-2.4); PHOSPHOROUS 3.6 mg/dL (2.5-4.9); POTASSIUM - SERUM 4.5 mmol/L (3.5-5.1); PROTEIN - SERUM 6.8 g/dL (6.4-8.2); SODIUM 140 mmol/L (136-145); THYROID STIMULATING HORMONE 1.45 uIU/mL (0.36-3.74); UREA NITROGEN 26 mg/dL (7-18); eGFR NON AFRICAN AMERICAN 75 mL/min (90-120)
[2019-04-06 06:33] LABS: GLUCOSE 152 mg/dL (74-106)
[2019-04-06 08:00] VITALS: BP 127/57
--- NOTE | 2019-04-06 08:27 | NUR ---
ALERT AND ORIENTED. O2 AT 2 L/M PER NC. IV TO LEFT WRIST. UP AB MILLIE. DENIES ANY NEEDS. SR UP WITH CALL LIGHT IN REACH
[2019-04-06 12:02] VITALS: BP 127/57
[2019-04-06 13:05] LABS: % SATURATION 9 % (15-55); IRON 33 ug/dl (35-150); TOTAL IRON BIND CAPACITY 344 ug/dl (260-445); UNSAT IRON BIND CAPACITY 311 ug/dl (150-375)
[2019-04-06 14:22] VITALS: BMI 17.6
[2019-04-06 16:00] VITALS: BP 142/61
--- NOTE | 2019-04-06 16:07 | NUR ---
I have reviewed this patient and I concur with the Shift Assessment completed by the Licensed Practical Nurse today this shift.
--- NOTE | 2019-04-06 20:14 | NUR ---
RECIEVED UP IN BED WITH EYES OPEN. ALERT AND ORIENTED X4. UP AD MILLIE TO B/R. O2@ 4 LITERS PER N/C IN PLACE. IV TO LEFT WRIST WITH NS AT 75CC/HR. CONT TO NEED RESP CULTURE. EXPLAINED TO PT WITH VERBAL UNDERSTANDING. DENIES ANY NEEDS AT THIS TIME AND EXCITED TO GO HOME IN AM.
[2019-04-06 20:30] VITALS: BP 137/62
[2019-04-07] VITALS: BP 144/63
[2019-04-07 04:30] VITALS: BP 131/60
[2019-04-07 05:52] LABS: BASOPHILS 0 % (0-2); EOSINOPHILS 0 % (0-7); HEMATOCRIT 27.8 % (42.0-54.0); IMMATURE GRANULOCYTES 0.3 % (0-5); LYMPHOCYTES 3.1 % (15-50); MCH 26.4 pg (26.0-34.0); MCHC 32.4 g/dL (31.0-37.0); MCV 81.5 fL (80.0-100.0); MONOCYTES 5.5 % (2-11); NEUTROPHILS 91.1 % (40-80); PLATELET COUNT 242 10x3/uL (130-400); RBC 3.41 10x6/uL (4.20-6.10); RDW 18.7 % (11.5-14.5); WBC 23.1 10x3/uL (4.8-10.8)
[2019-04-07 05:54] LABS: CALC OSMOLALITY 286 mosm/kg (275-300); CALCIUM 8.7 mg/dL (8.5-10.1); CARBON DIOXIDE 21.6 mmol/L (21.0-32.0); CHLORIDE - SERUM 107 mmol/L (98-107); CREATININE - SERUM 0.9 mg/dL (0.6-1.3); GLUCOSE 130 mg/dL (74-106); MAGNESIUM - SERUM 1.9 mg/dL (1.8-2.4); PHOSPHOROUS 3.3 mg/dL (2.5-4.9); POTASSIUM - SERUM 4.4 mmol/L (3.5-5.1); SODIUM 140 mmol/L (136-145); UREA NITROGEN 30 mg/dL (7-18); eGFR NON AFRICAN AMERICAN 85 mL/min (90-120)
--- NOTE | 2019-04-07 07:51 | NUR ---
REPORT RECIEVED. PT SITTING UP IN BED AND STATES HE IS READY TO GO HOME TODAY! RR EVEN AND UNLABORED ON 4L NC. HE HAS A L WRIST PIV INFUSING NS @ 75. BED LOCKED AND IN LOWEST POSITION, CALL LIGHT WITHIN REACH. WILL CTM
[2019-04-07 08:00] VITALS: BP 137/63
[2019-04-07 12:00] VITALS: BP 142/62
--- NOTE | 2019-04-07 15:07 | MORECARE ---
CASE MANAGEMENT DISCHARGE SUMMARY PATIENT: LAURIE KERNS UNIT: [id number] ADM DATE: 04/05/19 AGE: 84 : 33 SEX: M ROOM/BED: D.2129 AUTHOR: SELENA HERNANDEZ PHYSICIAN: REFERRING PHYSICIAN: REKHA DÍAZ MD DATE OF SERVICE: 04/07/19 Discharge Plan Patient Name: LAURIE KERNS Facility: [facility]:[place] : 1935 Planned Disposition: Home Hlth Svc w Plan Readm Anticipated Discharge Date: Discharge Date: Expected LOS: Initial Reviewer: [id number] Initial Review Date: 04/07/2019 Generated: 04/07/19 4:06 pm Comments DCP- Discharge Planning Updated by [email or web address]: Manisha Lock on 04/07/19 2:[address] Patient Name: LAURIE KERNS Admission Status: ER Accout number: [id number] Admission Date: 04-05-2019 : 1935 Admission Diagnosis: Attending: REKHA DÍAZ Current LOS: 2 Anticipated DC Date: Planned Disposition: Home Hlth Svc w Plan Readm Primary Insurance: MEDICARE A & B Discharge Planning Comments: CM met with patient at bedside after explaining CM role and obtaining verbal consent. CM discussed availability / needs of home health, REHAB and medical equipment. STATES PLANS TO RESUME HH WITH [facility]. JAYLON SIGNED. I SPOKE WITH HIM ABOUT POSSIBLE O2 NEEDS BUT HE STATES HE DOES NOT WANT OXYGEN AT HOME. A WALK TEST HAS BEEN ORDERED BUT HE MAY REFUSE. HE HAS NEBULIZER AT HOME. HE WANTS TO GO HOME TODAY. CM WILL FOLLOW AND ASSIST NEEDED. Farm Mechanic: Manisha Lock External Providers [facility] Next Contact Date: Service Request Date: Service Type: Resolution: Reviewer: Comments: Coverage Notice Reviewer: [id number] - Manisha Lock Notice Issued Date-Time: 04/07/2019 15:03 Notice Type: Patient Choice Letter Notice Delivered To: Patient Relationship to Patient: Primer Powder Blender Wet Name: Delivery Method: HAND - Hand Delivered Elli Days: Prior Verbal Notification: Recipient Understood Notice: Yes Recipient Signature: Yes Med Rec Note Co-signed by Attending: Coverage Notice Comment: [facility] Patient Name: LAURIE KERNS Page [phone] at 1507 All edits/amendments must be made on the electronic document DICTATION DATE: 04/07/191505 SMOCKING MACHINE OPERATOR: CT 04/07/191505 RPT#: [id number] DC DATE: STATUS: ADM IN [facility] [address] [place] [address] END OF REPORT
[2019-04-07 16:00] VITALS: BP 142/64
--- NOTE | 2019-04-07 17:51 | NUR ---
I have reviewed this patient and I concur with the Shift Assessment completed by the Licensed Practical Nurse today this shift.
--- NOTE | 2019-04-07 19:15 | NUR ---
REPORT RECEIVED. PT UP IN BED RR EVEN AND UNLABORED ON 4L NC. NO S/Sx OF DISTRESS NOTED. STATES " I WANT TO GO HOME, I SUPPOSED TO GO HOME TODAY". INFORMED PT THAT THERE ARE NO ORDERS TO D/C YET. NO FURTHER C/O OR CONCERNS. CALL LIGHT IN REACH. WILL CTM.
[2019-04-07 20:30] VITALS: BP 161/65
--- NOTE | 2019-04-07 20:30 | NUR ---
PT HAS NO IV ACCESS. REFUSES TO LET THIS NURSE ESTABLISH A NEW ONE. PT SAYS HE IS "GOING HOME EARLY IN THE AM". PT REFUSES AFTER MULTIPLE ATTEMPTS TO CONVINCE HIM. WILL CTM.
[2019-04-08] VITALS: BP 149/64
--- NOTE | 2019-04-08 02:10 | NUR ---
PT CALLED FOR ASSISTANCE. COUGHING UP PHLEM AND A SMALL AMOUNT OF A BRIGHT RED SUBSTANCE. PT REQUESTED A PRN UPDRAFT. NOTIFIED RT. RR EVEN AND UNLABORED. NO S/Sx OF DISTRESS NOTED AT THIS TIME. CALL LIGHT IN REACH. WILL CTM.
--- NOTE | 2019-04-08 04:35 | NUR ---
ATTEMPTED TO CONVINCE PT AGAIN THAT WE NEED AN IV FOR THE ANTIBIOTICS AND OTHER MEDICATION ORDERED TO TREAT HIS PNA. PT REFUSES AGAIN AND YELLED "NOT UNTIL I TALK TO THE DOCTOR AND IT BETTER BE EARLY THIS MORNING". NO FURTHER NEEDS EXPRESSED. WILL CTM.
[2019-04-08 05:45] LABS: HEMATOCRIT 30.2 % (42.0-54.0); HEMOGLOBIN 9.6 g/dL (13.5-17.5); MCH 26.2 pg (26.0-34.0); MCHC 31.8 g/dL (31.0-37.0); MCV 82.3 fL (80.0-100.0); MEAN PLATELET VOLUME 8.8 fL (7.4-10.4); PLATELET COUNT 251 10x3/uL (130-400); RBC 3.67 10x6/uL (4.20-6.10); WBC 22.2 10x3/uL (4.8-10.8)
[2019-04-08 05:55] LABS: CALC OSMOLALITY 288 mosm/kg (275-300); CALCIUM 8.5 mg/dL (8.5-10.1); CARBON DIOXIDE 21.9 mmol/L (21.0-32.0); CHLORIDE - SERUM 107 mmol/L (98-107); GLUCOSE 123 mg/dL (74-106); MAGNESIUM - SERUM 1.8 mg/dL (1.8-2.4); POTASSIUM - SERUM 3.9 mmol/L (3.5-5.1); SODIUM 141 mmol/L (136-145); UREA NITROGEN 31 mg/dL (7-18); eGFR NON AFRICAN AMERICAN 75 mL/min (90-120)
[2019-04-08 05:56] LABS: PHOSPHOROUS 2.4 mg/dL (2.5-4.9)
[2019-04-08 06:22] LABS: LYMPHOCYTES 1 % (15-50); MONOCYTES 6 % (2-11); NEUTROPHILS 93 % (40-80); PLATELET ESTIMATE NORMAL
--- NOTE | 2019-04-08 07:00 | NUR ---
RECEIVED REPORT. ASSSUMED CARE OF PATIENT. PATIENT UPSET BECAUSE HE THOUGHT HE WAS [facility] HOME. RESP EVEN AND UNLABORED. NO DISTRESS. WHITE BOARD UPDATED.
--- NOTE | 2019-04-08 07:15 | NUR ---
TOOK TIME AT BEDSIDE WITH PATIENT TO ADDRESS HIS CONCERNS AND EXPLAIN WHY HE DID NOT GO HOME YESTERDAY. TOOK TIME TO ALSO EXPLAIN AND ANSWER QUESTIONS ABOUT THE HOME OXYGEN USE. PATIENT DID NOT KNOW IT WAS FOR A SHORT TERM TO HELP GET HIM OVER THE DISEASE PROCESS. PATIENT THOUGHT HE WOULD HAVE TO WEAR IT FOREVER AND STATES HE WATCHED HIS SIBLINGS ON OXYGEN. AFTER SPENDING TIME WITH THE PATIENT AND ANSWERING ALL OF HIS QUESTIONS, PATIENT IS MORE PERCEPTIVE TO CARES, ALLOWED VITAL SIGNS TO BE COMPLETED. PATIENT THANKED THIS DINING CAR CONDUCTOR FOR ADDRESSING ALL HIS CONCERNS. GAP/LACK OF COMMUNICATION IDENTIFIED BUT RESOLVED UPON LEAVING THE BEDSIDE.
--- NOTE | 2019-04-08 08:03 | NUR ---
HUMIDIFICATION PLACED ON PATIENT OXYGEN AT THIS TIME.
[2019-04-08 08:50] VITALS: BP 144/50
--- NOTE | 2019-04-08 09:30 | NUR ---
22 GAUGE IV PLACED TO LEFT FOREARM X 1 STICK. GOOD BLOOD RETURN, EASY FLUSH. TAPED, DATED AND SECURED. TOLERATED IV PLACEMENT WELL.
--- NOTE | 2019-04-08 12:00 | NUR ---
RESTING IN BED, AT BEDSIDE. CALL LIGHT WITHIN REACH. NO DISTRESS.
[2019-04-08 12:56] VITALS: BP 142/59
--- NOTE | 2019-04-08 16:00 | NUR ---
UNABLE TO LOCATE SILVER TEGAGEN TO CHANGE DRESSING TO LEFT KNEE. WILL BRING DRESSING IN AM THAT WAS PROVIDED TO THEM FROM THE WOUND DR, . RESTING IN BED. NO DISTRESS.
[2019-04-08 17:30] VITALS: BP 140/74
--- NOTE | 2019-04-08 19:15 | NUR ---
PT BEDSIDE REPORT COMPLETED AT THIS TIME, NO CHANGES NOTED FROM NURSE REPORT, PT AAOX4 LAYING IN THE BED, PT DENIES COMPLAINTS AT THIS TIME, NO DISTRESS NOTED AT THIS TIME. WILL MONITOR FOR CHANGES
[2019-04-08 20:04] VITALS: BP 139/57
[2019-04-09 00:01] VITALS: BP 154/65
--- NOTE | 2019-04-09 04:30 | NUR ---
PT V/S WERE PRESENTS FROM THE TECH, PT WAS ASSESSED AND NOTED TO BE HAVING INCREASED RESP EFFORT, AND INCREASED WHEEZES WITH NOTED CRACKLES THROUGHOUT THE LUNG RAMÍREZ, RAPID RESPONSE WAS CALLED
[2019-04-09 05:28] VITALS: BP 141/61
[2019-04-09 05:44] LABS: BASOPHILS 0 % (0-2); EOSINOPHILS 0 % (0-7); HEMATOCRIT 32.9 % (42.0-54.0); HEMOGLOBIN 10.5 g/dL (13.5-17.5); IMMATURE GRANULOCYTES 0.6 % (0-5); LYMPHOCYTES 3.7 % (15-50); MCH 26.1 pg (26.0-34.0); MCHC 31.9 g/dL (31.0-37.0); MCV 81.8 fL (80.0-100.0); MONOCYTES 8.9 % (2-11); NEUTROPHILS 86.8 % (40-80); PLATELET COUNT 245 10x3/uL (130-400); RBC 4.02 10x6/uL (4.20-6.10); WBC 20.6 10x3/uL (4.8-10.8)
[2019-04-09 05:56] LABS: CALC OSMOLALITY 280 mosm/kg (275-300); CALCIUM 8.6 mg/dL (8.5-10.1); CARBON DIOXIDE 25.9 mmol/L (21.0-32.0); CHLORIDE - SERUM 104 mmol/L (98-107); CREATININE - SERUM 0.9 mg/dL (0.6-1.3); GLUCOSE 120 mg/dL (74-106); MAGNESIUM - SERUM 1.8 mg/dL (1.8-2.4); PHOSPHOROUS 2.3 mg/dL (2.5-4.9); POTASSIUM - SERUM 4.1 mmol/L (3.5-5.1); SODIUM 137 mmol/L (136-145); UREA NITROGEN 28 mg/dL (7-18); eGFR NON AFRICAN AMERICAN 85 mL/min (90-120)
--- NOTE | 2019-04-09 07:20 | NUR ---
ASSESSMENT DONE. DENIES NEEDS
[2019-04-09 08:00] VITALS: BP 135/52
--- NOTE | 2019-04-09 11:12 | NUR ---
Pt. has a nonhealing area on his left knee. He has been going to wound clinic at [facility] for several months for treatment. The wound measures 0.5cm x 0.5cm x 0.3cm x 0.5cm from 6 to 12 oclock. There is no tenderness, redness or edema. No odor. Currently the wound is being loosely packed with a small strip of calcium alginate and changed every 3 days. Recommend continuing this process.
[2019-04-09 12:00] VITALS: BP 85/40
--- NOTE | 2019-04-09 14:00 | NUR ---
I have reviewed this patient and I concur with the Shift Assessment completed by the Licensed Practical Nurse today this shift.
--- NOTE | 2019-04-09 15:12 | NUR ---
Nutrition Follow-up: Pt continues to report good PO intake. Drinking 1 Ensure/day. Diet: Cardiac, Ensure 1x/day PO intake: 82% avg x 8 meals No new wt Last BM: 04/09 Labs noted: Glu 120, PO4 2.3 Meds noted: Solumedrol -Continue current diet as tolerated. -Rec new wt; will monitor. -RD following.
[2019-04-09 16:00] VITALS: BP 114/62
--- NOTE | 2019-04-09 19:04 | NUR ---
CORTES CATH IRRAGATED WITH 40CC. CORTES ADVANCED AND PULLED BACK IN PLACE, CORTES CAME OUT WITH BALLON INFLATED. PT DOES NOT WANT CORTES REPLACED. PT VOIDS 150CC OF BLOODY URINE.
--- NOTE | 2019-04-09 19:29 | NUR ---
RECEIVED BEDSIDE REPORT. PATIENT IS ALERT AND ORIENTED, RESTING COMFORTABLY IN BED. RESPIRATIONS ARE EVEN AND UNLABORED. NO S/S OF DISTRESS. NO C/O PAIN. CALL LIGHT WITHIN REACH. WILL CPOC.
[2019-04-09 20:45] VITALS: BP 105/54
[2019-04-10 00:30] VITALS: BP 108/54
--- NOTE | 2019-04-10 02:39 | NUR ---
PATIENT APPEARS TO BE SLEEPING. RESPIRATIONS ARE EVEN AND UNLABORED. NO S/S OF DISTRESS. NO C/O PAIN. CALL LIGHT WITHIN REACH. WILL CPOC.
[2019-04-10 04:43] VITALS: BP 117/68
[2019-04-10 05:56] LABS: BASOPHILS 0 % (0-2); EOSINOPHILS 0 % (0-7); HEMATOCRIT 32.3 % (42.0-54.0); HEMOGLOBIN 10.2 g/dL (13.5-17.5); IMMATURE GRANULOCYTES 0.5 % (0-5); LYMPHOCYTES 4.4 % (15-50); MCHC 31.6 g/dL (31.0-37.0); MCV 82.4 fL (80.0-100.0); MEAN PLATELET VOLUME 9.1 fL (7.4-10.4); MONOCYTES 8.7 % (2-11); NEUTROPHILS 86.4 % (40-80); PLATELET COUNT 229 10x3/uL (130-400); RBC 3.92 10x6/uL (4.20-6.10); RDW 19.1 % (11.5-14.5); WBC 18.1 10x3/uL (4.8-10.8)
[2019-04-10 06:17] LABS: ANION GAP 8.6 mmol/L (8-16); CALCIUM 8.7 mg/dL (8.5-10.1); CARBON DIOXIDE 30.2 mmol/L (21.0-32.0); POTASSIUM - SERUM 3.8 mmol/L (3.5-5.1)
[2019-04-10 06:24] LABS: PHOSPHOROUS 3.5 mg/dL (2.5-4.9)
[2019-04-10 06:25] LABS: CREATININE - SERUM 1.2 mg/dL (0.6-1.3)
[2019-04-10 08:00] VITALS: BP 134/61
--- NOTE | 2019-04-10 10:42 | NUR ---
ASSESSMENT DONE. DENIES NEEDS
[2019-04-10 12:00] VITALS: BP 114/49
[2019-04-10 16:00] VITALS: BP 110/48
--- NOTE | 2019-04-10 16:00 | NUR ---
I have reviewed this patient and I concur with the Shift Assessment completed by the Licensed Practical Nurse today this shift.
--- NOTE | 2019-04-10 17:28 | NUR ---
WITHOUT CHANGES OR DISTRESS NOTED AT THIS TIME.
--- NOTE | 2019-04-10 20:33 | NUR ---
HS MEDS GIVEN WITH FRESH ICE WATER. PT DENIES PAIN OR NEEDS, BED LOW, CL IN REACH.
[2019-04-10 22:12] VITALS: BP 100/59
[2019-04-11 00:15] VITALS: BP 116/75
--- NOTE | 2019-04-11 02:37 | NUR ---
RESTING WITH EYES CLOSED, RESPERATIONS EVEN, NO S/S DISTRESS NOTED.
--- NOTE | 2019-04-11 04:20 | NUR ---
I have reviewed this patient and I concur with the Shift Assessment completed by the Licensed Practical Nurse today this shift.
[2019-04-11 04:30] VITALS: BP 119/79
[2019-04-11 05:27] LABS: BASOPHILS 0 % (0-2); EOSINOPHILS 0 % (0-7); HEMATOCRIT 32.2 % (42.0-54.0); IMMATURE GRANULOCYTES 0.4 % (0-5); LYMPHOCYTES 2.4 % (15-50); MCHC 31.1 g/dL (31.0-37.0); MCV 83.6 fL (80.0-100.0); MEAN PLATELET VOLUME 9.1 fL (7.4-10.4); MONOCYTES 3.1 % (2-11); NEUTROPHILS 94.1 % (40-80); PLATELET COUNT 261 10x3/uL (130-400); RBC 3.85 10x6/uL (4.20-6.10); RDW 19.4 % (11.5-14.5); WBC 15.2 10x3/uL (4.8-10.8)
[2019-04-11 05:45] LABS: ANION GAP 13.5 mmol/L (8-16); C-REACTIVE PROTEIN 15.4 mg/dL (0.0-0.9); CALCIUM 8.7 mg/dL (8.5-10.1); CARBON DIOXIDE 25.7 mmol/L (21.0-32.0); CREATININE - SERUM 1.1 mg/dL (0.6-1.3); PHOSPHOROUS 2.7 mg/dL (2.5-4.9); POTASSIUM - SERUM 4.2 mmol/L (3.5-5.1); VANCOMYCIN - RANDOM 7.2 ug/mL (10.0-20.0)
--- NOTE | 2019-04-11 07:27 | NUR ---
REPORT RECEIVED. WILL CONTINUE WITH POC. PT CURRENTLY LYING SUPINE. CALL LIGHT W/I REACH. PT IS AAO AND UP WITH ASSIST. RR EVEN AND UNLABORED ON 2L 02. NS INFUSING @KVO VIA R.FOR PIV. NO S/S OF DISTRESS NOTED. PT DENIES ANY NEEDS. WILL CTM.
[2019-04-11 09:36] VITALS: BP 118/63
--- NOTE | 2019-04-11 13:53 | NUR ---
I have reviewed this patient and I concur with the Shift Assessment completed by the Licensed Practical Nurse today this shift.
[2019-04-11 14:47] VITALS: BP 113/58
--- NOTE | 2019-04-11 19:21 | NUR ---
EVENING ROUNDS COMPLETED. AAOX4, NO S/S OF RT DISTRESS. PT CURRENTLY ON 2L 02. CONTINUOUS 02 @ BEDSIDE. PT RESTING COMFORTABLY IN BED, DENIES ANY FURTHER NEEDS AT THIS TIME. WILL CPOC.
[2019-04-12 05:50] LABS: BASOPHILS 0 % (0-2); EOSINOPHILS 0 % (0-7); HEMATOCRIT 32.1 % (42.0-54.0); HEMOGLOBIN 10.2 g/dL (13.5-17.5); IMMATURE GRANULOCYTES 0.5 % (0-5); LYMPHOCYTES 2.4 % (15-50); MCH 26.2 pg (26.0-34.0); MCHC 31.8 g/dL (31.0-37.0); MCV 82.5 fL (80.0-100.0); MEAN PLATELET VOLUME 9.1 fL (7.4-10.4); NEUTROPHILS 92.1 % (40-80); PLATELET COUNT 253 10x3/uL (130-400); RBC 3.89 10x6/uL (4.20-6.10); RDW 19.2 % (11.5-14.5); WBC 16.3 10x3/uL (4.8-10.8)
[2019-04-12 06:32] LABS: ALBUMIN 2.2 g/dL (3.4-5.0); ANION GAP 14.5 mmol/L (8-16); BILIRUBIN - TOTAL 0.47 mg/dL (0.2-1.3); CALCIUM 8.4 mg/dL (8.5-10.1); CARBON DIOXIDE 24.4 mmol/L (21.0-32.0); CREATININE - SERUM 1.2 mg/dL (0.6-1.3); POTASSIUM - SERUM 3.9 mmol/L (3.5-5.1); PROTEIN - SERUM 6.2 g/dL (6.4-8.2); VANCOMYCIN - RANDOM 6.9 ug/mL (10.0-20.0)
--- NOTE | 2019-04-12 07:24 | NUR ---
PT RESTING. RR EVEN AND UNLABORED. DENIES NEEDS OR PAIN AT THIS TIME. BED IN LOWEST POSITION. CALL LIGHT WITHIN REACH. WILL CONTINUE TO MONITOR.
[2019-04-12 08:00] VITALS: BP 126/75
[2019-04-12 12:00] VITALS: BP 129/43
[2019-04-12 12:09] LABS: ANA REFLEX - DIRECT Negative (Negative)
--- NOTE | 2019-04-12 17:22 | NUR ---
I have reviewed this patient and I concur with the Shift Assessment completed by the Licensed Practical Nurse today this shift.
[2019-04-12 17:49] VITALS: BP 135/55
[2019-04-12 20:30] VITALS: BP 117/58
[2019-04-13] VITALS (7 sets, daily range): BP systolic 115–140; BP diastolic 65–80
--- NOTE | 2019-04-13 01:22 | NUR ---
RESTING WITH EYES CLOSED, RESPERATIONS EVEN, NO S/S DISTRESS NOTED.
--- NOTE | 2019-04-13 02:37 | NUR ---
I have reviewed this patient and I concur with the Shift Assessment completed by the Licensed Practical Nurse today this shift.
[2019-04-13 06:42] LABS: ALBUMIN 2.2 g/dL (3.4-5.0); ANION GAP 14.7 mmol/L (8-16); BILIRUBIN - TOTAL 0.39 mg/dL (0.2-1.3); CALCIUM 8.3 mg/dL (8.5-10.1); CARBON DIOXIDE 24.4 mmol/L (21.0-32.0); CREATININE - SERUM 1.1 mg/dL (0.6-1.3); POTASSIUM - SERUM 4.1 mmol/L (3.5-5.1); PROTEIN - SERUM 5.6 g/dL (6.4-8.2); VANCOMYCIN - RANDOM 2.4 ug/mL (10.0-20.0)
[2019-04-13 06:53] LABS: BASOPHILS 0 % (0-2); EOSINOPHILS 0 % (0-7); HEMATOCRIT 31.3 % (42.0-54.0); HEMOGLOBIN 9.9 g/dL (13.5-17.5); IMMATURE GRANULOCYTES 0.6 % (0-5); LYMPHOCYTES 1.6 % (15-50); MCH 26.1 pg (26.0-34.0); MCHC 31.6 g/dL (31.0-37.0); MCV 82.4 fL (80.0-100.0); MEAN PLATELET VOLUME 8.9 fL (7.4-10.4); MONOCYTES 3.7 % (2-11); NEUTROPHILS 94.1 % (40-80); PLATELET COUNT 247 10x3/uL (130-400); RDW 19.5 % (11.5-14.5)
--- NOTE | 2019-04-13 10:50 | NUR ---
I have reviewed this patient and I concur with the Shift Assessment completed by the Licensed Practical Nurse today this shift.
--- NOTE | 2019-04-13 13:08 | MORECARE ---
CASE MANAGEMENT DISCHARGE SUMMARY PATIENT: LAURIE KERNS UNIT: [id number] ADM DATE: 04/05/19 AGE: 84 : [birth year] SEX: M ROOM/BED: D.7469 AUTHOR: SELENA HERNANDEZ PHYSICIAN: REFERRING PHYSICIAN: REKHA DÍAZ MD DATE OF SERVICE: 04/13/19 Discharge Plan Patient Name: LAURIE KERNS Facility: [facility]:[place] : 1935 Planned Disposition: Home with Home Health Anticipated Discharge Date: Discharge Date: Expected LOS: Initial Reviewer: [email or web address] Initial Review Date: 04/07/2019 Generated: 04/13/19 2:08 pm Comments DCP- Discharge Planning Updated by [email or web address]: Williams Nicole on 04/13/19 12:[address] Patient Name: LAURIE KERNS Encounter No: [id number] : 1935 Primary Insurance: MEDICARE A & B Anticipated DC Date: Planned Disposition: Home with Home Health External Planned Provider: [facility] DCP follow-up note: CM MET WITH PT IN ROOM TO DISCUSS DISCHARGE NEEDS AND PLANNING. CM DISCUSSED AVAILABILITY OF HOME HEALTH, REHAB SERVICES AND MEDICAL EQUIPMENT. PT DENIES DISCHARGE NEEDS OTHER THAN HOME HEALTH RESUMPTION WITH JEOY DAVIS PREVIOUSLY SIGNED. PT HAS NO PROVIDER PEFERENCE FOR OXYGEN AFTER PROVIDER LISTING PROVIDED AND DISCUSSED. CHOICE SIGNED FOR NO OXYGEN PROVIDER PREFERENCE. SPOUSE TO TRANSPORT HOME AT DISCHARGE. IMPORTANT MESSAGE FROM MEDICARE PROVIDED AND EXPLAINED. CM TO FOLLOW AND ASSIST NEEDED. PT HAS NO PREFERNECE ON OXYGEN PROVIDER; NEW OXYGEN TESTING WILL BE NEEDED AFTER 04-14-19 (TESTING HAS TO BE WITHIN 48 HOURS OF DISCHARGE) . CM TO ARRANGE HOME AND PORTABLE OXGYEN WITH PHYSICIAN ORDER FOR HOME AND PORTABLE OXYGEN; PT HAS NO CHOICE FOR PROVIDER. Williams Nicole CASE MANAGEMENT DCP- Discharge Planning Updated by [email or web address]: Manisha Lock on 04/07/19 2:[address] Patient Name: LAURIE KERNS Admission Status: ER Accout number: [id number] Admission Date: 04-05-2019 : 1935 Admission Diagnosis: Attending: REKHA DÍAZ Current LOS: 2 Anticipated DC Date: Planned Disposition: Home Hlth Svc w Plan Readm Primary Insurance: MEDICARE A & B Discharge Planning Comments: CM met with patient at bedside after explaining CM role and obtaining verbal consent. CM discussed availability / needs of home health, REHAB and medical equipment. STATES PLANS TO RESUME HH WITH [facility]. JAYLON SIGNED. I SPOKE WITH HIM ABOUT POSSIBLE O2 NEEDS BUT HE STATES HE DOES NOT WANT OXYGEN AT HOME. A WALK TEST HAS BEEN ORDERED BUT HE MAY REFUSE. HE HAS NEBULIZER AT HOME. HE WANTS TO GO HOME TODAY. CM WILL FOLLOW AND ASSIST NEEDED. Test Baker: Manisha Lock Coverage Notice Reviewer: [id number] - Manisha Lock Notice Issued Date-Time: 04/07/2019 15:03 Notice Type: Patient Choice Letter Notice Delivered To: Patient Relationship to Patient: Mobile Marketing Manager Name: Delivery Method: HAND - Hand Delivered Elli Days: Prior Verbal Notification: Recipient Understood Notice: Yes Recipient Signature: Yes Med Rec Note Co-signed by Attending: Coverage Notice Comment: [facility] Reviewer: [id number] Christie Nicole Notice Issued Date-Time: 04/12/2019 13:50 Notice Type: IM Discharge Notice Notice Delivered To: Patient Relationship to Patient: Mobile Marketing Manager Name: Delivery Method: HAND - Hand Delivered Elli Days: Prior Verbal Notification: Recipient Understood Notice: Yes Recipient Signature: Yes Med Rec Note Co-signed by Attending: Coverage Notice Comment: Reviewer: [id number] Nicole Notice Issued Date-Time: 04/12/2019 13:50 Notice Type: Patient Choice Letter Notice Delivered To: Patient Relationship to Patient: Mobile Marketing Manager Name: Delivery Method: HAND - Hand Delivered Elli Days: Prior Verbal Notification: Recipient Understood Notice: Yes Recipient Signature: Yes Med Rec Note Co-signed by Attending: Coverage Notice Comment: NO OXYGEN PROVIDER PREFERENCE Last DP export: 04/07/19 2:07 p Patient Name: LAURIE KERNS Page [phone] at 1308 All edits/amendments must be made on the electronic document DICTATION DATE: 04/13/19 1308 OWNER: CT 04/13/19 1308 RPT#: [id number] DC DATE: STATUS: ADM IN [facility] [address] [place] [address] END OF REPORT
--- NOTE | 2019-04-13 13:19 | MORECARE ---
CASE MANAGEMENT DISCHARGE SUMMARY PATIENT: LAURIE KERNS UNIT: [id number] ADM DATE: 04/05/19 AGE: 84 : 33 SEX: M ROOM/BED: D.4899 AUTHOR: DAVIDDOC PHYSICIAN: REFERRING PHYSICIAN: REKHA DÍAZ MD DATE OF SERVICE: 04/13/19 Discharge Plan Patient Name: LAURIE KERNS Facility: [facility]:[place] : 1935 Planned Disposition: Home with Home Health Anticipated Discharge Date: Discharge Date: Expected LOS: Initial Reviewer: [email or web address] Initial Review Date: 04/07/2019 Generated: 04/13/19 2:19 pm Comments DCP- Discharge Planning Updated by [email or web address]: Williams Nicole on 04/13/19 12:[address] Patient Name: LAURIE KERNS Encounter No: [id number] : 1935 Primary Insurance: MEDICARE A & B Anticipated DC Date: Planned Disposition: Home with Home Health External Planned Provider: [facility] LATE ENTRY , 1350 HOURS; DCP follow-up note: CM MET WITH PT IN ROOM TO DISCUSS DISCHARGE NEEDS AND PLANNING. CM DISCUSSED AVAILABILITY OF HOME HEALTH, REHAB SERVICES AND MEDICAL EQUIPMENT. PT DENIES DISCHARGE NEEDS OTHER THAN HOME HEALTH RESUMPTION WITH JOEY DAVIS PREVIOUSLY SIGNED. PT HAS NO PROVIDER PEFERENCE FOR OXYGEN AFTER PROVIDER LISTING PROVIDED AND DISCUSSED. CHOICE SIGNED FOR NO OXYGEN PROVIDER PREFERENCE. SPOUSE TO TRANSPORT HOME AT DISCHARGE. IMPORTANT MESSAGE FROM MEDICARE PROVIDED AND EXPLAINED. CM TO FOLLOW AND ASSIST NEEDED. PT HAS NO PREFERNECE ON OXYGEN PROVIDER; NEW OXYGEN TESTING WILL BE NEEDED AFTER 04-14-19 (TESTING HAS TO BE WITHIN 48 HOURS OF DISCHARGE) . CM TO ARRANGE HOME AND PORTABLE OXGYEN WITH PHYSICIAN ORDER FOR HOME AND PORTABLE OXYGEN; PT HAS NO CHOICE FOR PROVIDER. DIANNE Richardson DCP- Discharge Planning Updated by [id number]: Manisha Lock on 04/07/19 2:[address] Patient Name: LAURIE KERNS Admission Status: ER Accout number: [id number] Admission Date: 04-05-2019 : 1935 Admission Diagnosis: Attending: REKHA DÍAZ Current LOS: 2 Anticipated DC Date: Planned Disposition: Home Hlth Svc w Plan Readm Primary Insurance: MEDICARE A & B Discharge Planning Comments: CM met with patient at bedside after explaining CM role and obtaining verbal consent. CM discussed availability / needs of home health, REHAB and medical equipment. STATES PLANS TO RESUME HH WITH [facility]. JAYLON SIGNED. I SPOKE WITH HIM ABOUT POSSIBLE O2 NEEDS BUT HE STATES HE DOES NOT WANT OXYGEN AT HOME. A WALK TEST HAS BEEN ORDERED BUT HE MAY REFUSE. HE HAS NEBULIZER AT HOME. HE WANTS TO GO HOME TODAY. CM WILL FOLLOW AND ASSIST NEEDED. Python Java Developer: Manisha Lock Coverage Notice Reviewer: [id number] - Manisha Lock Notice Issued Date-Time: 04/07/2019 15:03 Notice Type: Patient Choice Letter Notice Delivered To: Patient Relationship to Patient: Mixer Runner Name: Delivery Method: HAND - Hand Delivered Elli Days: Prior Verbal Notification: Recipient Understood Notice: Yes Recipient Signature: Yes Med Rec Note Co-signed by Attending: Coverage Notice Comment: [facility] Reviewer: [id number] Christie Nicole Notice Issued Date-Time: 04/12/2019 13:50 Notice Type: IM Discharge Notice Notice Delivered To: Patient Relationship to Patient: Mixer Runner Name: Delivery Method: HAND - Hand Delivered Elli Days: Prior Verbal Notification: Recipient Understood Notice: Yes Recipient Signature: Yes Med Rec Note Co-signed by Attending: Coverage Notice Comment: Reviewer: [id number] Nicole Notice Issued Date-Time: 04/12/2019 13:50 Notice Type: Patient Choice Letter Notice Delivered To: Patient Relationship to Patient: Mixer Runner Name: Delivery Method: HAND - Hand Delivered Elli Days: Prior Verbal Notification: Recipient Understood Notice: Yes Recipient Signature: Yes Med Rec Note Co-signed by Attending: Coverage Notice Comment: NO OXYGEN PROVIDER PREFERENCE Last DP export: 04/13/19 12:08 Patient Name: LAURIE KERNS Page [phone] at 1319 All edits/amendments must be made on the electronic document DICTATION DATE: 04/13/19 131 PROFESSIONAL TUTOR: CT 04/13/19 1319 RPT#: [id number] DC DATE: STATUS: ADM IN [facility] [address] [place] [address] END OF REPORT
--- NOTE | 2019-04-13 14:09 | NUR ---
Nutrition Follow-up: Eating well. Diet: Cardiac, Ensure 1/day PO intake: 86% avg x 7 meals No new wt - daily wts ordered Last BM: 04/12 Labs noted: Glu 164, Ca 8.3, Alb 2.2 Meds noted: Solumedrol -Continue current diet as tolerated. -Need new wt. -RD following.
--- NOTE | 2019-04-13 15:02 | NUR ---
LEFT KNEE DRESSING CHANGED PER WOUND CARE ORDERS. PT TOLERATED WELL.
--- NOTE | 2019-04-13 16:35 | NUR ---
LEFT FA 22G IV INFILTRATED. DC'D WITH CATH INTACT. INSERTED 22G IN RIGHT FA ON SECOND ATTEMPT. NS INFUSING AT KVO.
--- NOTE | 2019-04-13 19:33 | NUR ---
REPORT RECEIVED, WILL CONTINUE POC. PATIENT IS AAOX4, UP WITH ASSIST. LYING IN LOW FOWLERS POSITION. NO S/S OF DISTRESS OBSERVED, RR EVEN AND UNLABORED ON 7L O2 VIA NC. PIV TO RT FA 22G, NS@KVO. PATIENT DENIES NEEDS AT THIS TIME. CL IN REACH, BED LOCKED AND LOWERED. WILL CTM.
[2019-04-14] VITALS: BP 127/70
--- NOTE | 2019-04-14 02:19 | NUR ---
I have reviewed this patient and I concur with the Shift Assessment completed by the Licensed Practical Nurse today this shift.
[2019-04-14 04:00] VITALS: BP 124/70
[2019-04-14 05:19] LABS: BASOPHILS 0 % (0-2); EOSINOPHILS 0 % (0-7); HEMATOCRIT 31.6 % (42.0-54.0); HEMOGLOBIN 9.7 g/dL (13.5-17.5); IMMATURE GRANULOCYTES 0.3 % (0-5); LYMPHOCYTES 2.5 % (15-50); MCH 25.5 pg (26.0-34.0); MCHC 30.7 g/dL (31.0-37.0); MCV 83.2 fL (80.0-100.0); MEAN PLATELET VOLUME 9.1 fL (7.4-10.4); MONOCYTES 3.1 % (2-11); NEUTROPHILS 94.1 % (40-80); PLATELET COUNT 227 10x3/uL (130-400); RDW 19.6 % (11.5-14.5); WBC 19.2 10x3/uL (4.8-10.8)
[2019-04-14 05:29] LABS: ALBUMIN 2.1 g/dL (3.4-5.0); ANION GAP 10.5 mmol/L (8-16); BILIRUBIN - TOTAL 0.51 mg/dL (0.2-1.3); CALCIUM 8.4 mg/dL (8.5-10.1); CARBON DIOXIDE 25.4 mmol/L (21.0-32.0); CREATININE - SERUM 1.1 mg/dL (0.6-1.3); POTASSIUM - SERUM 3.9 mmol/L (3.5-5.1); PROTEIN - SERUM 5.7 g/dL (6.4-8.2); VANCOMYCIN - RANDOM 1.2 ug/mL (10.0-20.0)
--- NOTE | 2019-04-14 07:16 | NUR ---
PT ALERT AND ORIENTED, NO COMPLAINTS OR CONCERNS STATED THIS AM. STATES HE WANTS TO BE OUT OF HERE SOON BUT WE BETTER MAKE SURE HE'S HEALTHY BEFORE HE GOES. NO FAMILY AT BEDSIDE, ALL QUESTIONS ANSWERED TO THE BEST OF MY ABILITY. CL IN REACH, SRX2.
[2019-04-14 09:05] VITALS: BP 145/94
[2019-04-14 12:41] VITALS: BP 121/58
[2019-04-14 16:11] VITALS: BP 132/65
--- NOTE | 2019-04-14 18:08 | NUR ---
PT AWAKE AN DORIENTED, NO COMPLAINTS OR CONCERNS ATT HTIS TIME. CL IN REACH, SRX2.
[2019-04-14 20:36] VITALS: BP 115/74
--- NOTE | 2019-04-14 23:24 | NUR ---
INITIAL ROUNDS COMPLETED AT 1909 HRS. PT DENIES ANY DISCOMFORT. ASSESSMENT COMPLETED AT 2054 HRS. VSS. PT ALERT AND ORIENTED TO PERSON, PLACE AND TIME. GUIDRY. IV TORFA WIT D5W AT 50CC/HR. IV PATENT.O2 9L HIGHFLOW CANNULA. LUNGS DIMINISHED IN BASES BILAT. GUIDRY. DRESSING TO L KNEE CLEAN, DRY AND INTACT. PM MEDS GIVEN PER ORDERS. PT CURRENTLY RESTING WITH EYES CLOSED. RESP EVEN AND REGULAR. SR UP X2, CALL LIGHT WITHIN REACH.
[2019-04-15 00:27] VITALS: BP 122/79
--- NOTE | 2019-04-15 02:29 | NUR ---
PT AWAKE; DENIES ANY DISCOMFORT. SR UP X2, CALL LIGHT WITHIN REACH.
--- NOTE | 2019-04-15 04:33 | NUR ---
PT AWAKE; DENIES ANY DISCOMFORT. CALL LIGHT WITHIN REACH.
[2019-04-15 04:45] VITALS: BP 122/51
[2019-04-15 05:39] LABS: HEMATOCRIT 30.5 % (42.0-54.0); HEMOGLOBIN 9.7 g/dL (13.5-17.5); MCH 26.1 pg (26.0-34.0); MCHC 31.8 g/dL (31.0-37.0); MEAN PLATELET VOLUME 9.1 fL (7.4-10.4); PLATELET COUNT 231 10x3/uL (130-400); RBC 3.72 10x6/uL (4.20-6.10); RDW 19.5 % (11.5-14.5); WBC 26.6 10x3/uL (4.8-10.8)
[2019-04-15 05:40] LABS: LYMPHOCYTES 3 % (15-50); MONOCYTES 2 % (2-11); NEUTROPHILS 88 % (40-80); PLATELET ESTIMATE NORMAL
[2019-04-15 05:49] LABS: ALBUMIN 2.2 g/dL (3.4-5.0); ALKALINE PHOSPHATASE 91 U/L (46-116); ALT (SGPT) 52 U/L (10-68); BILIRUBIN - TOTAL 0.52 mg/dL (0.2-1.3); CALC OSMOLALITY 293 mosm/kg (275-300); CALCIUM 8.2 mg/dL (8.5-10.1); CARBON DIOXIDE 23.1 mmol/L (21.0-32.0); CHLORIDE - SERUM 108 mmol/L (98-107); GLUCOSE 190 mg/dL (74-106); POTASSIUM - SERUM 4.2 mmol/L (3.5-5.1); PROTEIN - SERUM 5.5 g/dL (6.4-8.2); SODIUM 140 mmol/L (136-145); UREA NITROGEN 40 mg/dL (7-18); eGFR NON AFRICAN AMERICAN 75 mL/min (90-120)
--- NOTE | 2019-04-15 05:55 | NUR ---
VSS THROUGHOUT NIGHT. PT DENIED ANY DISCOMFORT. AM MEDS GIVEN 1 AT A TIME WITHAPPLE SAUCE AND PT IN HIGH FOWLERS. PT SWALLOWED MEDS/APPLE SAUCE WITHOUT DIFFICULTY. NEEDS MET; WILL CONTINUE TO MONITOR.
--- NOTE | 2019-04-15 07:07 | NUR ---
PT AWAKE AND ORIENTED, LYING IN BED. NO COMPLAINTS OR ONCERNS AT THIS TIME. NO FAMILY AT BEDSIDE. CL IN REACH, SRX2.
[2019-04-15 08:28] VITALS: BP 115/66
--- NOTE | 2019-04-15 09:23 | NUR ---
PT HAS BEEN AWAKE AND ORIENTED, REFUSING TO ATTEMPT TO TAKE HIS PILLS, CRUSHED OR OTHERWISE, AT THIS TIME. PT STATES THAT WHILE HE WAS EATING BREAKFAST HE BEGAN TO GAG AND THREW UP HIS CONTENTS. HE IS VERY ANGRY THAT THE DR. HAS NOT TOLD HIM WHY HE'S THROWING UP THAT "YELLOW JUNK". ATTEMPTED TO ANSWER PTS QUESTIONS BUT WAS REPEATEDLY CUT OFF AND COULD NOT GET ANY REAL QUESTIONS OR ANSWERS IN. PT REQUESTS TO SEE THE DR GUEVARA THIS MORNING. NO FAMILY AT BEDSIDE, CL IN REACH, SRX2. PILLS PLACED IN CASSET AND WILL ATTEMPT FOR PT TO TAKE THEM LATER WHEN HE FEELS ABLE.
[2019-04-15 12:00] VITALS: BP 113/66
--- NOTE | 2019-04-15 12:56 | NUR ---
PT I/V INFILTRATED. TAKEN OUT, TIP INTACT.
--- NOTE | 2019-04-15 15:49 | NUR ---
NURSE RODRIGUEZ DID NOT HEAR FROM SPEECH THERAPIST( TO BE CALLED IN) ON BEHALF OF SWALLOW STUDY ORDERED TO BE DONE ON 04-15-19, EXAM # [id number]. WILL RESCHEDULE FOR TUESDAY
--- NOTE | 2019-04-15 15:54 | NUR ---
NURSE JENNIFER CANCELLED SWALLOW STUDY W SPEECH , EXAM NUMBER [id number]
[2019-04-15 16:32] VITALS: BP 104/61
--- NOTE | 2019-04-15 23:16 | NUR ---
INITIAL ROUNDS COMPLETED AT 1909 HRS. PT DENIED ANY DISCOMFORT. ASSESSMENT COMPLETED AT 1954 HRS. VSS. O2 9LHF. ALERT AND ORIENTED TO PERSON, PLACE AND TIME. GUIDRY/ IV TO L WRIST WITH D5W AT 50CC/HR. IV PATENT. LUNGS DIMINISHED IN BASES BILAT. GUIDRY. DRESSING TO L KNEE CLEAN, DRY AND INTACT. NO SWELLING OR REDNESS NOTED. YEAST LIKE BUILD UP NOTED IN PT'S MOUTH AND ON TONGUE. [facility] NOTIFIED AT 2051 HRS. Sidra ZAMARRIPA APN RETUNED CALL. INFORMED OF YEAST LIKE SUBSTANCE IN PT;S MOUTH. NEW ORDERS RECIEVED AND NOTED. SPOKE WITH PT AT 2109 HRS AND INFORMED OF ORDER OF NYSTATIN SWISH AND SWALLOW. PT REFUSED MED. PM MEDS GIVEN CRUSHED IN APPLESAUCE AND PT IN HIGH FOWLERS POSITION. PT CURRENTLY RESTING WITH EYES CLOSED. RESP EVEN AND REGULAR. SR UP X2,CALL LIGHT WITHIN REACH.
[2019-04-16 00:30] VITALS: BP 122/48
--- NOTE | 2019-04-16 01:13 | NUR ---
PT RESTING WITH EYES CLOSED. RESP EVEN AND REGULAR. DISTILLATION OPERATOR NOTIFIED OF NEED FOR IV VANC. SR UP X2, CALL LIGHT WITHIN REACH.
--- NOTE | 2019-04-16 03:01 | NUR ---
PT RESTING WITH EYES CLOSED. RESP EVEN AND REGULAR. SR UP X2, CALL LIGHT WITHIN REACH.
[2019-04-16 04:30] VITALS: BP 110/67
--- NOTE | 2019-04-16 04:56 | NUR ---
O2 SAT 83%. PT STATES HIS NOSE IS CLOGGED UP. O2 PLACED IN MOUTH WITH O2 SAT QUICKLY TO 92%. ENCOURAGED PT TO BLOW HIS NOSE TO ATTEMPT TO CLEAR AND TO KEEP O2 IN MOUTH AT THIS TIME.
[2019-04-16 06:07] LABS: BASOPHILS 0 % (0-2); EOSINOPHILS 0 % (0-7); HEMATOCRIT 31.7 % (42.0-54.0); HEMOGLOBIN 9.9 g/dL (13.5-17.5); IMMATURE GRANULOCYTES 0.5 % (0-5); LYMPHOCYTES 1.8 % (15-50); MCH 25.9 pg (26.0-34.0); MCHC 31.2 g/dL (31.0-37.0); MEAN PLATELET VOLUME 9.2 fL (7.4-10.4); MONOCYTES 2.2 % (2-11); NEUTROPHILS 95.5 % (40-80); PLATELET COUNT 222 10x3/uL (130-400); RBC 3.82 10x6/uL (4.20-6.10); RDW 19.7 % (11.5-14.5); WBC 27.3 10x3/uL (4.8-10.8)
[2019-04-16 06:32] LABS: ALBUMIN 2.1 g/dL (3.4-5.0); ALKALINE PHOSPHATASE 82 U/L (46-116); ALT (SGPT) 56 U/L (10-68); BILIRUBIN - TOTAL 0.69 mg/dL (0.2-1.3); CALC OSMOLALITY 291 mosm/kg (275-300); CARBON DIOXIDE 22.8 mmol/L (21.0-32.0); CHLORIDE - SERUM 109 mmol/L (98-107); CREATININE - SERUM 0.8 mg/dL (0.6-1.3); GLUCOSE 159 mg/dL (74-106); POTASSIUM - SERUM 4.1 mmol/L (3.5-5.1); PROTEIN - SERUM 5.6 g/dL (6.4-8.2); SODIUM 140 mmol/L (136-145); UREA NITROGEN 40 mg/dL (7-18); eGFR NON AFRICAN AMERICAN > 90 mL/min (90-120)
--- NOTE | 2019-04-16 06:51 | NUR ---
O2 SAT THIS AM 94%. PT STATES FEELS MUCH IMPROVED. NEEDS MET; WILL CONTINUE TO MONITOR.
--- NOTE | 2019-04-16 07:00 | NUR ---
PT AWAKE AD ORIENTED, HAS MANY QUESTIONS, ALL ANSWERED TO THE BEST OF MY ABILITY. AT BEDSIDE, THEY SPOKE WITH DR MARTIN AND UNDERSTAND THEY WILL BE HAVING A EGD WITH DIALATION LATER THIS AFTERNOON INBETWEEN 14-1600. CL IN REACH, SRX2.
[2019-04-16 09:20] VITALS: BP 80/36
--- NOTE | 2019-04-16 12:37 | NUR ---
I have reviewed this patient and I concur with the Shift Assessment completed by the Licensed Practical Nurse today this shift.
[2019-04-16 13:41] VITALS: BP 108/62
[2019-04-16 16:32] VITALS: BP 114/68
--- NOTE | 2019-04-16 19:07 | NUR ---
AROUSES AT THIS TIME BED LOW AND LOCKED ASSISTED WITH COMFORT AND CONTINUED IV FLUIDS
[2019-04-16 20:00] VITALS: BP 115/68
[2019-04-17] VITALS: BP 114/58
--- NOTE | 2019-04-17 02:44 | NUR ---
I have reviewed this patient and I concur with the Shift Assessment completed by the Licensed Practical Nurse today this shift.
[2019-04-17 04:00] VITALS: BP 107/61
[2019-04-17 06:27] LABS: ALBUMIN 2.1 g/dL (3.4-5.0); ALKALINE PHOSPHATASE 87 U/L (46-116); ALT (SGPT) 53 U/L (10-68); BILIRUBIN - TOTAL 0.74 mg/dL (0.2-1.3); CALC OSMOLALITY 292 mosm/kg (275-300); CALCIUM 8.1 mg/dL (8.5-10.1); CARBON DIOXIDE 26.2 mmol/L (21.0-32.0); CHLORIDE - SERUM 108 mmol/L (98-107); CREATININE - SERUM 0.8 mg/dL (0.6-1.3); GLUCOSE 173 mg/dL (74-106); POTASSIUM - SERUM 4.2 mmol/L (3.5-5.1); PROTEIN - SERUM 5.5 g/dL (6.4-8.2); SODIUM 140 mmol/L (136-145); UREA NITROGEN 41 mg/dL (7-18); eGFR NON AFRICAN AMERICAN > 90 mL/min (90-120)
[2019-04-17 06:35] LABS: HEMATOCRIT 32.4 % (42.0-54.0); MCH 25.7 pg (26.0-34.0); MCHC 30.9 g/dL (31.0-37.0); MCV 83.3 fL (80.0-100.0); MEAN PLATELET VOLUME 9.6 fL (7.4-10.4); PLATELET COUNT 203 10x3/uL (130-400); RBC 3.89 10x6/uL (4.20-6.10); RDW 19.7 % (11.5-14.5); WBC 24.4 10x3/uL (4.8-10.8)
--- NOTE | 2019-04-17 08:18 | NUR ---
ASSESSMENT DONE. DENIES NEEDS
[2019-04-17 08:30] LABS: ANISOCYTOSIS OCC; LYMPHOCYTES 6 % (15-50); MONOCYTES 6 % (2-11); NEUTROPHILS 87 % (40-80); PLATELET ESTIMATE NORMAL; ROULEAUX OCC
[2019-04-17 09:38] VITALS: BP 107/51
--- NOTE | 2019-04-17 10:27 | NUR ---
I have reviewed this patient and I concur with the Shift Assessment completed by the Licensed Practical Nurse today this shift.
[2019-04-17 13:24] VITALS: BP 103/57
--- NOTE | 2019-04-17 14:04 | NUR ---
Nutrition Follow-up: EGD yesterday= "probably candidal esophagitis. Atrophic appearing gastritis." Awaiting swallow re-eval. Diet: NPO (previously cardiac + Ensure with lunch tray) PO intake: previously 78% x last 10 meals recorded (none recorded since 04/13/19) WT: 118# (04/15/19), 116# (04/06/19) Last BM: 04/13/19 Labs noted: Ca 8.1, Glu 173, Alb 2.1 Meds noted: solumedrol, reglan -Safe PO diet per TOWER EQUIPMENT REPAIRER. Recommend continue Cardiac diet restrictions when diet resumed. -Continue daily wts. -RD following.
[2019-04-17 16:08] LABS: ANCA - ANTIMYELOPEROXIDASE <9.0 U/mL (0.0-9.0); ANCA - ANTIPROTEINASE 3 <3.5 U/mL (0.0-3.5); ANCA - ATYPICAL <1:20 titer (Neg:<1:20); ANCA - CYTOPLASMIC <1:20 titer (Neg:<1:20); ANCA - PERINUCLEAR <1:20 titer (Neg:<1:20)
[2019-04-17 18:44] VITALS: BP 103/53
--- NOTE | 2019-04-17 19:10 | NUR ---
AT REST WITH EYES CLOSED BED LOW AND LOCKED IV INFUSING SKIN WARM AND DRY CALL LIGHT IN REACH
[2019-04-17 20:40] VITALS: BP 111/64
[2019-04-18] VITALS (13 sets, daily range): BP systolic 99–142; BP diastolic 62–85
[2019-04-18 07:05] LABS: BASOPHILS 0 % (0-2); EOSINOPHILS 0 % (0-7); HEMATOCRIT 31.3 % (42.0-54.0); HEMOGLOBIN 9.8 g/dL (13.5-17.5); IMMATURE GRANULOCYTES 0.4 % (0-5); LYMPHOCYTES 1.9 % (15-50); MCH 26.1 pg (26.0-34.0); MCHC 31.3 g/dL (31.0-37.0); MCV 83.2 fL (80.0-100.0); MEAN PLATELET VOLUME 9.6 fL (7.4-10.4); MONOCYTES 4.6 % (2-11); NEUTROPHILS 93.1 % (40-80); PLATELET COUNT 160 10x3/uL (130-400); RBC 3.76 10x6/uL (4.20-6.10); RDW 19.8 % (11.5-14.5); WBC 24.6 10x3/uL (4.8-10.8)
[2019-04-18 07:20] LABS: ALBUMIN 2.1 g/dL (3.4-5.0); ALKALINE PHOSPHATASE 83 U/L (46-116); ALT (SGPT) 54 U/L (10-68); BILIRUBIN - TOTAL 0.81 mg/dL (0.2-1.3); CALC OSMOLALITY 291 mosm/kg (275-300); CALCIUM 7.5 mg/dL (8.5-10.1); CARBON DIOXIDE 23.8 mmol/L (21.0-32.0); CHLORIDE - SERUM 109 mmol/L (98-107); CREATININE - SERUM 0.8 mg/dL (0.6-1.3); GLUCOSE 147 mg/dL (74-106); POTASSIUM - SERUM 4.3 mmol/L (3.5-5.1); PROTEIN - SERUM 5.2 g/dL (6.4-8.2); SODIUM 140 mmol/L (136-145); UREA NITROGEN 40 mg/dL (7-18); eGFR NON AFRICAN AMERICAN > 90 mL/min (90-120)
--- NOTE | 2019-04-18 07:30 | NUR ---
PT SITTING UP IN BED. NO DISTRESS NOTED. RR EVEN AND UNLABORED ON 7L HF NC. DENIES NEEDS OR PAINAT THIS TIME. BED IN LOWEST POSITION. CALL LIGHT WITHIN REACH. WILL CONTINUE TO MONITOR.
--- NOTE | 2019-04-18 13:00 | NUR ---
PT O2 80%. PT OXYGEN INCREASED TO 11L HF. RESPIRATORY CALLED. ABGS PERFORMED PER HUSSAIN EDGAR. ORDERS FOR TRANSFER TO ICU RECIEVED. REPORT CALLED. PT TRANSPORTED BY BED TO RM [id number]. PT IS IN NO VISIBLE DISTRESS AT THIS TIME. SENT TO ICU WAITING ROOM AND WAS UPDATED ON PT STATUS, VERBALIZED UNDERSTANDING AND NO FURTHER QUESTIONS AT THIS TIME. DRESSING TO LEFT KNEE REMOVED, REPACKED, AND CHANGED. DRESSING, CDI.
--- NOTE | 2019-04-18 14:15 | NUR ---
ADMITTED FROM FLOOR PER BED. TRANSFERED TO BED PER STAFF PATIENT AWAKE AND ALERT SKIN WARM AND DRY. ON 15 LITERS HIGH GLOW OXYGEN. IV LEFT THUMB INFUSING WITH PROCALAMINE AT 75 ML HOUR. NEW IV STARTED IN LEFT FOREARM. MONITOR ATRIAL FIB. PLACED VAPO THERM
--- NOTE | 2019-04-18 15:00 | NUR ---
DR. ARRIETA HERE NEW ORDERS RECEIVED
--- NOTE | 2019-04-18 15:42 | NUR ---
DR. DÍAZ HERE. FAMILY IN ROOM.
--- NOTE | 2019-04-18 16:47 | NUR ---
RESTING COMFORTABLY. IV PATENT LEFT FOREARM NO REDNESS OR SWELLING. MONITOR ATRAIL FIB. VAPO THERM 80% OXYGEN.
--- NOTE | 2019-04-18 18:00 | NUR ---
repositioned in bed. fresh pad applied to bed. states he feels fine.
--- NOTE | 2019-04-18 19:00 | NUR ---
SHIFT ASSESSMENT COMPLETE. VS STABLE. NO VISUAL CUES OF DISTRESS NOTED. WILL CONTINUE TO MONITOR.
--- NOTE | 2019-04-18 21:00 | NUR ---
VS STABLE. NO VISUAL CUES OF DISTRESS NOTED. WILL CONTINUE TO MONITOR.
--- NOTE | 2019-04-18 23:00 | NUR ---
VS STABLE. NO VISUAL CUES OF DISTRESS NOTED. WILL CONTINUE TO MONITOR.
[2019-04-19] VITALS (24 sets, daily range): BP systolic 112–133; BP diastolic 61–98
--- NOTE | 2019-04-19 01:00 | NUR ---
VS STABLE. NO VISUAL CUES OF DISTRESS NOTED. WILL CONTINUE TO MONITOR.
--- NOTE | 2019-04-19 03:00 | NUR ---
VS STABLE. NO VISUAL CUES OF DISTRESS NOTED. WILL CONTINUE TO MONITOR.
--- NOTE | 2019-04-19 05:00 | NUR ---
VS STABLE. NO VISUAL CUES OF DISTRESS NOTED. WILL CONTINUE TO MONITOR.
[2019-04-19 05:22] LABS: BASOPHILS 0 % (0-2); EOSINOPHILS 0 % (0-7); HEMOGLOBIN 10.5 g/dL (13.5-17.5); IMMATURE GRANULOCYTES 0.4 % (0-5); LYMPHOCYTES 1.7 % (15-50); MCH 25.9 pg (26.0-34.0); MCHC 30.9 g/dL (31.0-37.0); MCV 83.7 fL (80.0-100.0); MEAN PLATELET VOLUME 10.1 fL (7.4-10.4); NEUTROPHILS 95.9 % (40-80); PLATELET COUNT 145 10x3/uL (130-400); RBC 4.06 10x6/uL (4.20-6.10); RDW 19.7 % (11.5-14.5)
[2019-04-19 05:27] LABS: WBC 17.7 10x3/uL (4.8-10.8)
[2019-04-19 05:35] LABS: ALBUMIN 2.2 g/dL (3.4-5.0); ALKALINE PHOSPHATASE 92 U/L (46-116); ALT (SGPT) 52 U/L (10-68); BILIRUBIN - TOTAL 0.77 mg/dL (0.2-1.3); CALC OSMOLALITY 287 mosm/kg (275-300); CALCIUM 7.8 mg/dL (8.5-10.1); CARBON DIOXIDE 26.4 mmol/L (21.0-32.0); CHLORIDE - SERUM 107 mmol/L (98-107); CREATININE - SERUM 0.7 mg/dL (0.6-1.3); GLUCOSE 177 mg/dL (74-106); POTASSIUM - SERUM 4.6 mmol/L (3.5-5.1); PROTEIN - SERUM 5.7 g/dL (6.4-8.2); SODIUM 137 mmol/L (136-145); UREA NITROGEN 40 mg/dL (7-18); eGFR NON AFRICAN AMERICAN > 90 mL/min (90-120)
--- NOTE | 2019-04-19 19:00 | NUR ---
ASSESSMENT COMPLETED. DENIES ANY NEEDS. O2 SAT IN 80'S% ON VAPOTHERM 40L 80%.
--- NOTE | 2019-04-19 21:00 | NUR ---
SITTING UP IN BED. FAMILY AT BEDSIDE. DENIES ANY NEEDS
--- NOTE | 2019-04-19 23:00 | NUR ---
REASSESSMENT COMPLETED. NO CHANGES SINCE LAST ASSESSMENT. DENIES ANY NEEDS
[2019-04-20] VITALS (12 sets, daily range): BP systolic 106–132; BP diastolic 51–84
--- NOTE | 2019-04-20 01:25 | NUR ---
EYES CLOSED, EASILY WAKES. DENIES ANY NEEDS
--- NOTE | 2019-04-20 03:00 | NUR ---
RE-ASSESSMENT COMPLETED. NO CHANGES SINCE LAST ASSESSMENT. DENIES ANY NEEDS.
--- NOTE | 2019-04-20 03:48 | NUR ---
VAPOTHERM TURNED UP TO 100% AND O2 SAT INCREASED TO 92%
--- NOTE | 2019-04-20 04:57 | NUR ---
DENIES ANY NEEDS OR DISCOMFORT. STILL ON 100% VAPOTHERM WITH O2 SAT 91%
[2019-04-20 07:06] LABS: HEMATOCRIT 32.4 % (42.0-54.0); HEMOGLOBIN 10.2 g/dL (13.5-17.5); MCH 26.1 pg (26.0-34.0); MCHC 31.5 g/dL (31.0-37.0); MCV 82.9 fL (80.0-100.0); MEAN PLATELET VOLUME 10.1 fL (7.4-10.4); PLATELET COUNT 128 10x3/uL (130-400); RBC 3.91 10x6/uL (4.20-6.10); RDW 19.4 % (11.5-14.5); WBC 29.2 10x3/uL (4.8-10.8)
--- NOTE | 2019-04-20 07:16 | NUR ---
Nutrition follow-up: Pt remains NPO 2/2 aspiration and food stuck in esophagus ProcalAmine PPN @ 75 ml/hr Labs reviewed Wt: 123# If pt fails swallow eval will need PEG tube placement. RDN following.
[2019-04-20 07:21] LABS: ALBUMIN 2.1 g/dL (3.4-5.0); ALKALINE PHOSPHATASE 101 U/L (46-116); ALT (SGPT) 42 U/L (10-68); BILIRUBIN - TOTAL 0.68 mg/dL (0.2-1.3); CALC OSMOLALITY 281 mosm/kg (275-300); CALCIUM 7.7 mg/dL (8.5-10.1); CARBON DIOXIDE 20.9 mmol/L (21.0-32.0); CHLORIDE - SERUM 104 mmol/L (98-107); CREATININE - SERUM 0.7 mg/dL (0.6-1.3); GLUCOSE 216 mg/dL (74-106); MAGNESIUM - SERUM 2.1 mg/dL (1.8-2.4); PHOSPHOROUS 2.3 mg/dL (2.5-4.9); POTASSIUM - SERUM 4.5 mmol/L (3.5-5.1); PROTEIN - SERUM 5.5 g/dL (6.4-8.2); SODIUM 133 mmol/L (136-145); UREA NITROGEN 38 mg/dL (7-18); eGFR NON AFRICAN AMERICAN > 90 mL/min (90-120)
[2019-04-20 10:21] LABS: LYMPHOCYTES 8 % (15-50); MONOCYTES 8 % (2-11); NEUTROPHILS 84 % (40-80); PLATELET ESTIMATE NORMAL
--- NOTE | 2019-04-20 11:42 | NUR ---
AT BEDSIDE NEW ORDERS FOR BIPAP RECIEVED NOTIFIED RESPIRATORY. WILL CONTINUE TO MONITOR.
--- NOTE | 2019-04-20 14:02 | NUR ---
PT DISCHARGED TO HOME. DISCHARGE TEACHING DONE. TAKEN DOWN VIA WHEEL CHAIR TO FRONT DOOR TO FAMILY. HELPED INTO CAR.
--- NOTE | 2019-04-20 19:00 | NUR ---
BEDSIDE REPORT AND SHIFT ASSESSMENT COMPLETE, SEE FLOWSHEET. VSS, NO SIGNS OF ACUTE DISTRESS NOTED. RR 24 AND SHALLOW, 02 SAT 97 ON 100% BIPAP. L AC PIV AND L FOREARM PIV PATENT, DRESSING CDI, SEE IV FLOWSHEET. PT ALERT AND ORIENTED, SPEECH CLEAR. DENIES ANY NEEDS AT THIS TIME, WILL CONTINUE TO MONITOR.
--- NOTE | 2019-04-20 21:00 | NUR ---
L AC PIV NOT PATENT, PIV D/C'D. ATTEMPTED TO RESITE PIV TO R ARM, UNABLE TO. WILL TRY AGAIN.
--- NOTE | 2019-04-20 23:00 | NUR ---
REASSESSMENT COMPLETE, SEE FLOWSHEET. PT DENIES NEED FOR REPOSITIONING. CALL LIGHT IN REACH, WILL MONITOR.
[2019-04-21] VITALS (24 sets, daily range): BP systolic 97–137; BP diastolic 45–81; Ht 172.7 cm; Wt 52.6 kg
--- NOTE | 2019-04-21 01:00 | NUR ---
PATIENT RESTING, SHOWS NO SIGNS OF DISTRESS. O2 97 ON 100% BIPAP. CALL LIGHT IN REACH, WILL CONTINUE TO MONITOR.
--- NOTE | 2019-04-21 03:00 | NUR ---
REASSESSMENT COMPLETE, SEE FLOWSHEET.
--- NOTE | 2019-04-21 05:15 | NUR ---
ATTEMPTED TO REPOSITION PT AND HE GOT SOB, RR 50S, O2 SAT 92 ON 100% BIPAP.
[2019-04-21 06:42] LABS: HEMATOCRIT 32.7 % (42.0-54.0); HEMOGLOBIN 10.2 g/dL (13.5-17.5); MCH 25.8 pg (26.0-34.0); MCHC 31.2 g/dL (31.0-37.0); MCV 82.6 fL (80.0-100.0); MEAN PLATELET VOLUME 10.1 fL (7.4-10.4); PLATELET COUNT 114 10x3/uL (130-400); RBC 3.96 10x6/uL (4.20-6.10); RDW 19.1 % (11.5-14.5)
[2019-04-21 06:58] LABS: ALKALINE PHOSPHATASE 127 U/L (46-116); ALT (SGPT) 44 U/L (10-68); BILIRUBIN - TOTAL 0.92 mg/dL (0.2-1.3); CALC OSMOLALITY 276 mosm/kg (275-300); CALCIUM 7.6 mg/dL (8.5-10.1); CARBON DIOXIDE 20.8 mmol/L (21.0-32.0); CHLORIDE - SERUM 100 mmol/L (98-107); CREATININE - SERUM 0.8 mg/dL (0.6-1.3); GLUCOSE 209 mg/dL (74-106); MAGNESIUM - SERUM 2.1 mg/dL (1.8-2.4); PHOSPHOROUS 2.7 mg/dL (2.5-4.9); POTASSIUM - SERUM 4.8 mmol/L (3.5-5.1); PROTEIN - SERUM 5.3 g/dL (6.4-8.2); SODIUM 131 mmol/L (136-145); UREA NITROGEN 36 mg/dL (7-18); eGFR NON AFRICAN AMERICAN > 90 mL/min (90-120)
--- NOTE | 2019-04-21 07:00 | NUR ---
BEDSIDE REPORT RECEIVED. SHIFT ASSESSMENT COMPLETED PER FLOWSHEET, SEE FLOWSHEET FOR INFORMATION. PT BREATHING 56 BREATHS/MIN. ASSISSTED PT TO TRY AND TAKE A DEEP SLOW BREATH, RATE DECREASED TO 38. WILL CONT TO MONITOR.
[2019-04-21 07:03] LABS: MONOCYTES 1 % (2-11); NEUTROPHILS 98 % (40-80)
[2019-04-21 07:04] LABS: PLATELET ESTIMATE DECREASED; STOMATOCYTES OCC; TARGET CELLS OCC
[2019-04-21 07:05] LABS: TEAR DROP CELLS OCC
--- NOTE | 2019-04-21 08:25 | NUR ---
SPOKE WITH ABOUT DNR STATUS. PT DECIDED SHE WANTED PT TO BE A DNR STATUS, SHE DOES NOT WANT THE PT INTUBATED, CPR DONE OR MEDICATIONS GIVEN. WILL CONT TO MONITOR.
--- NOTE | 2019-04-21 09:00 | NUR ---
AT BEDSIDE. PT C/O OF CHEST PAINS, ECG OBTAINED, CALLED . NEW ORDERS RECEIEVED. WILL CONT TO MONITOR.
--- NOTE | 2019-04-21 11:00 | NUR ---
REASSESSMENT COMPLETED PER FLOWSHEET, SEE FLOWSHEET FOR INFORMATION. WILL CONT TO MONITOR.
--- NOTE | 2019-04-21 13:00 | NUR ---
AT BEDSIDE. WILL CONT TO MONITOR.
--- NOTE | 2019-04-21 15:00 | NUR ---
REASSESSMENT COMPLETED PER FLOWSHEET, SEE FLOWSHEET FOR INFORMATION. VSS. WILL CONT TO MONITOR.
--- NOTE | 2019-04-21 17:00 | NUR ---
CORTES CATHETER INSERTED. WILL CONT TO MONITOR.
--- NOTE | 2019-04-21 19:10 | NUR ---
BEDSIDE SHIFT REPORT COMPLETED FULL SHIFT ASSESSMENT COMPLETED SEE FLOWSHEET,PT DENIES PAIN OR NEEDS AT THIS TIME, VSS CPOC
--- NOTE | 2019-04-21 20:20 | NUR ---
HELD PO MEDS FOR NPO STATUS
--- NOTE | 2019-04-21 22:40 | NUR ---
PATIENT RESTING COMOFORTABLY, WANTS LIGHT TO REMAIN ON, DENIES PAIN AND NEEDS
[2019-04-22] VITALS (24 sets, daily range): BP systolic 105–127; BP diastolic 60–83
--- NOTE | 2019-04-22 05:45 | NUR ---
FAMILY CALLED AND PASSWORD GIVEN, UPDATED RECEIVED VSS CPOC
[2019-04-22 06:32] LABS: CALC OSMOLALITY 270 mosm/kg (275-300); CALCIUM 7.7 mg/dL (8.5-10.1); CARBON DIOXIDE 19.8 mmol/L (21.0-32.0); CHLORIDE - SERUM 100 mmol/L (98-107); CREATININE - SERUM 0.6 mg/dL (0.6-1.3); GLUCOSE 197 mg/dL (74-106); SODIUM 128 mmol/L (136-145); UREA NITROGEN 37 mg/dL (7-18); eGFR NON AFRICAN AMERICAN > 90 mL/min (90-120)
--- NOTE | 2019-04-22 07:00 | NUR ---
BEDSIDE REPORT RECEIVED. SHIFT ASSESSMENT COMPLETED PER FLOWSHEET, SEE FLOWSHEET FOR INFORMATION. PT RESTING IN BED WITH EYES CLOSED, NO ACUTE S/S OF DISTRESS OR NEEDS. VSS. WILL CONT TO MONITOR.
[2019-04-22 08:10] LABS: HEMATOCRIT 32.1 % (42.0-54.0); HEMOGLOBIN 10.1 g/dL (13.5-17.5); MCH 26.3 pg (26.0-34.0); MCHC 31.5 g/dL (31.0-37.0); MCV 83.6 fL (80.0-100.0); MEAN PLATELET VOLUME 11.3 fL (7.4-10.4); PLATELET COUNT 77 10x3/uL (130-400); RBC 3.84 10x6/uL (4.20-6.10); RDW 19.6 % (11.5-14.5); WBC 29.2 10x3/uL (4.8-10.8)
[2019-04-22 08:11] LABS: LYMPHOCYTES 7 % (15-50); MONOCYTES 5 % (2-11); NEUTROPHILS 88 % (40-80); PLATELET ESTIMATE DECREASED
[2019-04-22 08:12] LABS: ROULEAUX OCC
--- NOTE | 2019-04-22 09:00 | NUR ---
0900 MEDICATIONS GIVEN, FAMILY AT BEDSIDE, UPDATE GIVEN. WILL CONT TO MONITOR.
--- NOTE | 2019-04-22 11:00 | NUR ---
REASSESSMENT COMPLETED PER FLOWSHEET, SEE FLOWSHEET FOR INFORMATION. PT REFUSED CHG BEDBATH. PT AGREED TO TURNING PER COMFORT. NO ACUTE NEEDS OR DISTRESS NOTED AT THIS TIME. WILL CONT TO MONITOR.
--- NOTE | 2019-04-22 13:00 | NUR ---
PT RESTING IN BED WITH EYES CLOSED. NO ACUTE SIGNS OF DISTRESS OR NEEDS NOTED AT THIS TIME. WILL CONT TO MONITOR.
--- NOTE | 2019-04-22 15:00 | NUR ---
REASSESSMENT COMPLETED PER FLOWSHEET, SEE FLOWSHEET FOR INFORMATION. NO ACUTE NEEDS OR DISTRESS NOTED AT THIS TIME. REPOSITIONED PT PER COMFORT. WILL CONT TO CRISTAL.
--- NOTE | 2019-04-22 17:00 | NUR ---
REPOSITIONED PT PER COMFORT, PARTIAL LINEN CHANGE. WILL CONT TO MONITOR.
--- NOTE | 2019-04-22 19:00 | NUR ---
SHIFT ASSESSMENT COMPLETED, PT CARE ASSUMED. MONITORS ON AND WORKING, VITALS STABLE, BIPAP ON, CORTES STAT LOCKED IN PLACE, CALL LIGHT WITHIN REACH, WILL CONTINUE TO OBSERVE.
--- NOTE | 2019-04-22 21:00 | NUR ---
PT LYING IN BED RESTING, MONITORS ON AND WORKING, VITALS STABLE. BIPAP ON, PT TOLERATING WELL. CALL LIGHT WITHIN REACH, WILL CONTINUE TO OBSERVE.
--- NOTE | 2019-04-22 23:00 | NUR ---
PT TURNED AND REPOSITIONED FOR COMFORT, MONITORS ON AND WORKING, VITALS STABLE, CALL LIGHT WITHIN REACH, SEE FLOW SHEET FOR FURTHER DETAILS. WILL CONTINUE TO OBSERVE.
[2019-04-23] VITALS (24 sets, daily range): BP systolic 16–166; BP diastolic 52–96
--- NOTE | 2019-04-23 01:00 | NUR ---
PT TURNED AND REPOSITIONED FOR COMFORT, MONITORS ON AND WORKING, DRESSING CHANGE TO LEFT KNEE COMPLETED. CALL LIGHT WITHIN REACH, WILL CONTINUE TO OBSERVE.
--- NOTE | 2019-04-23 03:29 | NUR ---
REASSESSMENT COMPLETE, NO CHANGES NOTED, PT RESTING AT THIS TIME, WILL CON'T TO MONITOR
--- NOTE | 2019-04-23 05:00 | NUR ---
MONITORS ON AND WORKING, VITALS STABLE, CALL LIGHT WITHIN REACH, WILL CONTINUE TO OBSERVE.
[2019-04-23 05:48] LABS: BASOPHILS 0 % (0-2); EOSINOPHILS 0 % (0-7); HEMATOCRIT 30.9 % (42.0-54.0); HEMOGLOBIN 10.1 g/dL (13.5-17.5); IMMATURE GRANULOCYTES 0.6 % (0-5); LYMPHOCYTES 1.1 % (15-50); MCH 26.4 pg (26.0-34.0); MCHC 32.7 g/dL (31.0-37.0); MCV 80.7 fL (80.0-100.0); MEAN PLATELET VOLUME 10.9 fL (7.4-10.4); MONOCYTES 1.4 % (2-11); NEUTROPHILS 96.9 % (40-80); PLATELET COUNT 81 10x3/uL (130-400); RBC 3.83 10x6/uL (4.20-6.10); RDW 19.1 % (11.5-14.5); WBC 33.2 10x3/uL (4.8-10.8)
[2019-04-23 05:59] LABS: CALC OSMOLALITY 269 mosm/kg (275-300); CALCIUM 7.8 mg/dL (8.5-10.1); CARBON DIOXIDE 19.8 mmol/L (21.0-32.0); CHLORIDE - SERUM 97 mmol/L (98-107); CREATININE - SERUM 0.7 mg/dL (0.6-1.3); GLUCOSE 183 mg/dL (74-106); POTASSIUM - SERUM 5.2 mmol/L (3.5-5.1); SODIUM 128 mmol/L (136-145); UREA NITROGEN 36 mg/dL (7-18); eGFR NON AFRICAN AMERICAN > 90 mL/min (90-120)
--- NOTE | 2019-04-23 07:15 | NUR ---
REPORT RECEIVED. PT ON BIPAP AT 100%. PT NPO. HAS CORTES. IV TO LEFT ARM WITH PROCAL INFUSING. VSS. PT IN CONTROLLED AFIB. WILL CONTINUE TO MONITOR.
--- NOTE | 2019-04-23 08:51 | NUR ---
Nutrition follow-up: PT with BIPAP in place Continues NPO ProcalAmine PPN @ 75 ml/hr Labs reviewed Wt: 130# Recommend starting TF due to pt still NPO and not meeting estimated energy needs at this time. RDN following.
--- NOTE | 2019-04-23 09:15 | NUR ---
PT INCONTINENT OF BOWEL. PT CLEANED. BARRIER CREAM APPLIED TO BOTTOM. PT REPOSITIONED. VSS. WILL CONTINUE TO MONITOR.
--- NOTE | 2019-04-23 11:09 | NUR ---
PT RESTING QUIETLY WITH BIPAP ON. BUMEX GIVEN PER ORDER. NO COMPLAINTS OR NEEDS AT THIS TIME.
--- NOTE | 2019-04-23 13:15 | NUR ---
PT RESTING QUIETLY. VSS. WILL CONTINUE TO MONITOR.
--- NOTE | 2019-04-23 15:57 | NUR ---
PT REPOSITIONED. ON BIPAP. VSS. WILL CONTINUE TO MONITOR. CALL LIGHT IN REACH.
--- NOTE | 2019-04-23 16:18 | NUR ---
DISCUSSED WITH DR MCNAIR. OKAY TO START TPN TOMORROW. GET PICC LINE PLACED TOMORROW. WILL CONTINUE TO MONITOR.
--- NOTE | 2019-04-23 16:51 | MORECARE ---
CASE MANAGEMENT DISCHARGE SUMMARY PATIENT: LAUREI KERNS UNIT: [id number] ADM DATE: 04/05/19 AGE: 84 : [birth year] SEX: M ROOM/BED: D.2302 AUTHOR: DAVID,DOC PHYSICIAN: REFERRING PHYSICIAN: REKHA RUBIO MD DATE OF SERVICE: 04/23/19 Discharge Plan Patient Name: LAURIE KERNS Facility: [facility]:[place] : 1935 Planned Disposition: Home with Home Health Anticipated Discharge Date: Discharge Date: Expected LOS: Initial Reviewer: [email or web address] Initial Review Date: 04/07/2019 Generated: 04/23/19 5:50 pm DCP- Discharge Planning Updated by [email or web address]: Corinne Aguirre on 04/23/19 3:[address] CM spoke with son and patient's spouse and they would like a meeting to speak with physician's upon patients plan of care. CM spoke with Dr. Rubio and he will meet with family 04/24/19 @ 2pm. CM will continue to follow and assist as needed with discharge planning / needs. DCP- Discharge Planning Updated by [email or web address]: Williams Nicole on 04/13/19 12:[address] Patient Name: LAURIE KERNS Encounter No: [id number] : 1935 Primary Insurance: MEDICARE A & B Anticipated DC Date: Planned Disposition: Home with Home Health External Planned Provider: [facility] RESUMPTION LATE ENTRY -04-19, 1350 HOURS; DCP follow-up note: CM MET WITH PT IN ROOM TO DISCUSS DISCHARGE NEEDS AND PLANNING. CM DISCUSSED AVAILABILITY OF HOME HEALTH, REHAB SERVICES AND MEDICAL EQUIPMENT. PT DENIES DISCHARGE NEEDS OTHER THAN HOME HEALTH RESUMPTION WITH [facility] PREVIOUSLY SIGNED. PT HAS NO PROVIDER PEFERENCE FOR OXYGEN AFTER PROVIDER LISTING PROVIDED AND DISCUSSED. CHOICE SIGNED FOR NO OXYGEN PROVIDER PREFERENCE. SPOUSE TO TRANSPORT HOME AT DISCHARGE. IMPORTANT MESSAGE FROM MEDICARE PROVIDED AND EXPLAINED. CM TO FOLLOW AND ASSIST NEEDED. PT HAS NO PREFERNECE ON OXYGEN PROVIDER; NEW OXYGEN TESTING WILL BE NEEDED AFTER 04-14-19 (TESTING HAS TO BE WITHIN 48 HOURS OF DISCHARGE) . CM TO ARRANGE HOME AND PORTABLE OXGYEN WITH PHYSICIAN ORDER FOR HOME AND PORTABLE OXYGEN; PT HAS NO CHOICE FOR PROVIDER. Williams Nicole, CASE MANAGEMENT DCP- Discharge Planning Updated by [email or web address]: Manisha Lock on 04/07/19 2:[address] Patient Name: LAURIE KERNS Admission Status: ER Accout number: [id number] Admission Date: 04-05-2019 : 1935 Admission Diagnosis: Attending: REKHA RUBIO Current LOS: 2 Anticipated DC Date: Planned Disposition: Home Hlth Svc w Plan Readm Primary Insurance: MEDICARE A & B Discharge Planning Comments: CM met with patient at bedside after explaining CM role and obtaining verbal consent. CM discussed availability / needs of home health, REHAB and medical equipment. STATES PLANS TO RESUME HH WITH [facility]. JAYLON SIGNED. I SPOKE WITH HIM ABOUT POSSIBLE O2 NEEDS BUT HE STATES HE DOES NOT WANT OXYGEN AT HOME. A WALK TEST HAS BEEN ORDERED BUT HE MAY REFUSE. HE HAS NEBULIZER AT HOME. HE WANTS TO GO HOME TODAY. CM WILL FOLLOW AND ASSIST NEEDED. Starchmaker: Manisha Lock Coverage Notice Reviewer: [id number] - Manisha Lock Notice Issued Date-Time: 04/07/2019 15:03 Notice Type: Patient Choice Letter Notice Delivered To: Patient Relationship to Patient: Economic Historian Name: Delivery Method: HAND - Hand Delivered Elli Days: Prior Verbal Notification: Recipient Understood Notice: Yes Recipient Signature: Yes Med Rec Note Co-signed by Attending: Coverage Notice Comment: [facility] Reviewer: [id number] Christie Nicole Notice Issued Date-Time: 04/12/2019 13:50 Notice Type: IM Discharge Notice Notice Delivered To: Patient Relationship to Patient: Economic Historian Name: Delivery Method: HAND - Hand Delivered Elli Days: Prior Verbal Notification: Recipient Understood Notice: Yes Recipient Signature: Yes Med Rec Note Co-signed by Attending: Coverage Notice Comment: Reviewer: [email or web address] Christie Nicole Notice Issued Date-Time: 04/12/2019 13:50 Notice Type: Patient Choice Letter Notice Delivered To: Patient Relationship to Patient: Economic Historian Name: Delivery Method: HAND - Hand Delivered Elli Days: Prior Verbal Notification: Recipient Understood Notice: Yes Recipient Signature: Yes Med Rec Note Co-signed by Attending: Coverage Notice Comment: NO OXYGEN PROVIDER PREFERENCE Last DP export: 04/13/19 12:19 Patient Name: LAURIE KERNS Page [phone] at 1651 All edits/amendments must be made on the electronic document DICTATION DATE: 04/23/191649 COAGULATING BATH MIXER: CT 04/23/191649 RPT#: [id number] DC DATE: STATUS: ADM IN [facility] [address] [place] [address] END OF REPORT
--- NOTE | 2019-04-23 18:04 | NUR ---
PT RESTING QUIETLY ON BIPAP AT 100%. VSS. WILL CONTINUE TO MONITOR. CALL LIGHT IN REACH.
--- NOTE | 2019-04-23 19:20 | NUR ---
REPORT RECIEVED, SHIFT ASSESSMENT COMPLETE, PT ALERT AND ORIENTED, ALL PPP, VSS, CALL LIGHT IN REACH
--- NOTE | 2019-04-23 21:00 | NUR ---
VISITORS AT BEDSIDE, UPDATE GIVEN
--- NOTE | 2019-04-23 23:00 | NUR ---
REASSESSMENT COMPLETE, NO CHANGES NOTED, WILL CON'T TO MONITOR
[2019-04-24] VITALS (24 sets, daily range): BP systolic 73–116; BP diastolic 50–76
--- NOTE | 2019-04-24 01:15 | NUR ---
REPOSITIONED FOR COMFORT, ORAL CARE PROVIDED
--- NOTE | 2019-04-24 03:07 | NUR ---
REASSESSMENT COMPLETE, NO CHANGES NOTED, PT RESTING AT THIS TIME, WILL CON'T TO MONITOR
[2019-04-24 04:10] LABS: CALC OSMOLALITY 279 mosm/kg (275-300); CALCIUM 7.7 mg/dL (8.5-10.1); CHLORIDE - SERUM 95 mmol/L (98-107); GLUCOSE 182 mg/dL (74-106); MAGNESIUM - SERUM 1.9 mg/dL (1.8-2.4); PHOSPHOROUS 2.5 mg/dL (2.5-4.9); SODIUM 132 mmol/L (136-145); TRIGLYCERIDE 151 mg/dL (30-200); UREA NITROGEN 41 mg/dL (7-18)
[2019-04-24 04:11] LABS: CARBON DIOXIDE 27.7 mmol/L (21.0-32.0); POTASSIUM - SERUM 3.8 mmol/L (3.5-5.1); eGFR NON AFRICAN AMERICAN 75 mL/min (90-120)
[2019-04-24 04:51] LABS: HEMATOCRIT 35.3 % (42.0-54.0); HEMOGLOBIN 11.7 g/dL (13.5-17.5); MCH 26.7 pg (26.0-34.0); MCHC 33.1 g/dL (31.0-37.0); MCV 80.4 fL (80.0-100.0); PLATELET COUNT 75 10x3/uL (130-400); RBC 4.39 10x6/uL (4.20-6.10); RDW 18.8 % (11.5-14.5); WBC 34.7 10x3/uL (4.8-10.8)
[2019-04-24 05:10] LABS: LYMPHOCYTES 2 % (15-50); NEUTROPHILS 97 % (40-80); PLATELET ESTIMATE DECREASED
--- NOTE | 2019-04-24 05:21 | NUR ---
REPOSITIONED FOR COMFORT, NO OTHER NEEDS NOTED, WILL CON'T TO MONITOR
--- NOTE | 2019-04-24 07:35 | NUR ---
PT AWAKE AT SHIFT CHANGE/ASSESSMENT. SITTING UP IN BED ON BIPAP. NO DISTRESS. DENIES PAIN OR NEEDS. CALL LIGHT IN REACH.
--- NOTE | 2019-04-24 07:57 | NUR ---
Nutrition follow-up: Chart reviewed and spoke with RN re: TPN TPN did not start 04/23 due to no CVL placed. CVL will be placed today and TPN will start. Spoke with pharmacy; they will not make another TPN bag today. RDN following.
--- NOTE | 2019-04-24 09:18 | NUR ---
FAMILY AT BEDSIDE AT THIS TIME.
--- NOTE | 2019-04-24 09:37 | NUR ---
FAMILY PHONE NUMBERS: HOME [phone] GRADY CELL [phone] SON MANISH CELL [phone]
--- NOTE | 2019-04-24 11:22 | NUR ---
REASSESSMENT COMPLETE. PT REMAINS ON BIPAP. AFEBRILE. DENIES NEEDS. WASHED HIS FACE FOR HIM.
--- NOTE | 2019-04-24 13:36 | NUR ---
ATTEMPTED ORAL CARE AND WASH FULL FACE. PT DID NOT TOLERATE BEING OFF BIPAP FOR MORE THAN A FEW SECONDS AT A TIME. DESAT VERY QUICKLY AND SLOW TO RECOVER. DOES NOT TOLERATE MUCH MOVEMENT BEFORE DESATS
--- NOTE | 2019-04-24 14:35 | NUR ---
PT LFA IV HAS INFILTRATED. ATTEMPTED IV ACCESS. UNSUCCESSFUL. HAVING ANOTHER NURSE LOOK. WAS UNABLE TO REACH VASCULAR ACCESS NURSE TODAY TO TRY TO GET PICC LINE TO GET PT'S TPN STARTED WELL.
--- NOTE | 2019-04-24 19:14 | NUR ---
ASSESSMENT COMPLETED, PT ALERT, DENIES NEEDS, LUNGS CLEAR, BIPAP IN USE ON 80% fio2, RIGHT PIV INTACT WITH IVF INFUSING, DEPENDENT EDEMA TO BILAT ARMS, CORTES PATENT TO BSD, DRESSING INTACT TO LEFT KNEE, VITALS STABLE, WILL CONT TO MONITOR
--- NOTE | 2019-04-24 21:00 | NUR ---
PT RESTING QUIETLY, AROUSES EASILY WITH NO C/O, DECLINES REPOSTIONING, WILL CONT TO MONITOR
--- NOTE | 2019-04-24 23:00 | NUR ---
PT SLEEPING WITH NO DISTRESS, VITALS STABLE
[2019-04-25] VITALS (25 sets, daily range): BP systolic 88–114; BP diastolic 50–86
--- NOTE | 2019-04-25 01:00 | NUR ---
PT RESTING, TACHYPNEIC WHEN AWAKE, SPO2 @ 93%, WILL CONT TO MONITOR
--- NOTE | 2019-04-25 03:15 | NUR ---
PT REFUSES BATH THIS AM, AWAKE WITH HOB ELEVATED, NO CHANGE NOTED IN STATUS, WILL CONT TO MONITOR
[2019-04-25 03:51] LABS: BASOPHILS 0 % (0-2); EOSINOPHILS 0 % (0-7); HEMOGLOBIN 10.3 g/dL (13.5-17.5); IMMATURE GRANULOCYTES 0.4 % (0-5); LYMPHOCYTES 0.6 % (15-50); MCH 26.5 pg (26.0-34.0); MCHC 33.2 g/dL (31.0-37.0); MCV 79.9 fL (80.0-100.0); MEAN PLATELET VOLUME 10.8 fL (7.4-10.4); MONOCYTES 1.8 % (2-11); NEUTROPHILS 97.2 % (40-80); PLATELET COUNT 59 10x3/uL (130-400); RBC 3.88 10x6/uL (4.20-6.10); RDW 18.6 % (11.5-14.5)
[2019-04-25 04:13] LABS: CALC OSMOLALITY 286 mosm/kg (275-300); CALCIUM 7.1 mg/dL (8.5-10.1); CARBON DIOXIDE 33.3 mmol/L (21.0-32.0); CHLORIDE - SERUM 95 mmol/L (98-107); CREATININE - SERUM 0.8 mg/dL (0.6-1.3); GLUCOSE 214 mg/dL (74-106); MAGNESIUM - SERUM 1.8 mg/dL (1.8-2.4); PHOSPHOROUS 2.4 mg/dL (2.5-4.9); POTASSIUM - SERUM 3.5 mmol/L (3.5-5.1); SODIUM 135 mmol/L (136-145); UREA NITROGEN 43 mg/dL (7-18); eGFR NON AFRICAN AMERICAN > 90 mL/min (90-120)
--- NOTE | 2019-04-25 05:31 | NUR ---
PT SLEEPING WITH NO DISTRESS, VITALS STABLE AT THIS TIME, REMAINS ON BIPAP
--- NOTE | 2019-04-25 07:00 | NUR ---
PT REPORT RECEIVED FROM INSTRUCTIONAL SUPPORT SPECIALIST NURSE. NO VISIBLE SIGNS OF DISTRESS NOTED. SHIFT ASSESSMENT COMPLETED. PT ON BIPAP. WILL CONTINUE TO MONITOR
--- NOTE | 2019-04-25 08:18 | NUR ---
Nutrition follow-up: Chart reviewed Labs reviewed Electrolytes adjusted Order sent RDN following.
--- NOTE | 2019-04-25 09:00 | NUR ---
PT RESTING IN BED. NO VISIBLE SIGNS OF DISTRESS NOTED. PT UNABLE TO TOLERATE COMING OFF BIPAP TO TAKE ORAL MEDS. WILL HOLD. WILL CONTINUE TO MONITOR
--- NOTE | 2019-04-25 11:00 | NUR ---
PT RESTING IN BED. REFUSED TO TURN. PT REQUESTED SIGN CONSENT FOR CENTRAL LINE PROCEDURE SHEET. AT BEDSIDE. CONSENTS SIGNED. REASSESSMENT COMPLETED. WILL CONTINUE TO MONITOR
--- NOTE | 2019-04-25 12:30 | NUR ---
DR TIERNEY AT BEDSIDE. PLACING CENTRAL LINE. WILL CONTINUE TO MONITOR
--- NOTE | 2019-04-25 13:00 | NUR ---
PT RESTING IN BED. NO VISIBLE SIGNS OF DISTRESS NOTED. AWAITING CONFIRMATION FROM DR TO START USING CENTRAL LINE.
--- NOTE | 2019-04-25 15:00 | NUR ---
PT RESTING IN BED. NO VISIBLE SIGNS OF DISTRESS NOTED. REASSESSMENT COMPLETED. WILL CONTINUE TO MONITOR
--- NOTE | 2019-04-25 17:00 | NUR ---
PT RESTING IN BED. NO VISIBLE SIGNS OF DISTRESS NOTED. WILL CONTINUE TO MONITOR
--- NOTE | 2019-04-25 23:44 | NUR ---
PATIENT IS VERY ANXIOUS AND STATES HE CAN'T BREATH. SPO2 100%. DR. DÍAZ NOTIFIED AND NEW ORDER RECEIVED FOR ATIVAN.
[2019-04-26] VITALS (25 sets, daily range): BP systolic 91–108; BP diastolic 37–82
--- NOTE | 2019-04-26 00:10 | NUR ---
ATIVAN GIVEN PER ORDER. MBR1942%.
--- NOTE | 2019-04-26 00:43 | NUR ---
PATIENT IS VERY ANXIOUS AND STATES HE CAN'T BREATH. SPO2 100%. DR. DÍAZ NOTIFIED ORDER FOR ATIVAN RECIEVED.
[2019-04-26 04:00] LABS: HEMATOCRIT 30.1 % (42.0-54.0); HEMOGLOBIN 9.7 g/dL (13.5-17.5); MCH 26.5 pg (26.0-34.0); MCHC 32.2 g/dL (31.0-37.0); MCV 82.2 fL (80.0-100.0); MEAN PLATELET VOLUME 10.6 fL (7.4-10.4); PLATELET COUNT 51 10x3/uL (130-400); RBC 3.66 10x6/uL (4.20-6.10); RDW 18.4 % (11.5-14.5); WBC 21.4 10x3/uL (4.8-10.8)
[2019-04-26 04:02] LABS: CARBON DIOXIDE 38.3 mmol/L (21.0-32.0); CHLORIDE - SERUM 96 mmol/L (98-107); CREATININE - SERUM 0.8 mg/dL (0.6-1.3); PHOSPHOROUS 2.1 mg/dL (2.5-4.9); SODIUM 137 mmol/L (136-145); UREA NITROGEN 45 mg/dL (7-18); eGFR NON AFRICAN AMERICAN > 90 mL/min (90-120)
[2019-04-26 04:03] LABS: CALC OSMOLALITY 296 mosm/kg (275-300); GLUCOSE 291 mg/dL (74-106); MAGNESIUM - SERUM 2.3 mg/dL (1.8-2.4); POTASSIUM - SERUM 3.3 mmol/L (3.5-5.1)
--- NOTE | 2019-04-26 07:00 | NUR ---
PT REPORT RECEIVED FROM FOUNTAIN BRUSH ASSEMBLER NURSE. NO VISIBLE SIGNS OF DISTRESS NOTED. SHIFT ASSESSMENT COMPLETED. WILL CONTINUE TO MONITOR
--- NOTE | 2019-04-26 07:50 | NUR ---
Nutrition follow-up: CVL just placed 04/25 TPN @ 40 ml/hr Labs reviewed Will continue current TPN regimen at this time. RDN following.
[2019-04-26 08:38] LABS: LYMPHOCYTES 1 % (15-50); MONOCYTES 2 % (2-11); NEUTROPHILS 96 % (40-80); PLATELET ESTIMATE DECREASED
[2019-04-26 08:39] LABS: SMUDGE CELLS OCC
--- NOTE | 2019-04-26 09:30 | NUR ---
DR MCNAIR ON UNIT DOING ROUNDS. NO VISIBLE SIGNS OF DISTRESS NOTED. PT RESTING IN BED. BIPAP STILL IN PLACE. PT UNABLE TO TOLERATE REMOVING BIPAP TO TAKE PO MEDS.
--- NOTE | 2019-04-26 11:00 | NUR ---
PT RESTING IN BED. NO VISIBLE SIGNS OF DISTRESS NOTED. REASSESSMENT COMPLETED. WILL CONTINUE TO MONITOR
--- NOTE | 2019-04-26 13:00 | NUR ---
PT RESTING IN BED. STILL ON BIPAP. TOLERATING WELL. WILL CONTINUE TO MONITOR
--- NOTE | 2019-04-26 15:00 | NUR ---
PT RESTING IN BED. STILL ON BIPAP. TOLERATING WELL. NO VISIBLE SIGNS OF DISTRESS. WILL CONTINUE TO MONITOR
--- NOTE | 2019-04-26 17:00 | NUR ---
PT RESTING IN BED. NO VISIBLE SIGNS OF DISTRESS NOTED. PT HAS NO COMPLAINTS AT THIS TIME.
--- NOTE | 2019-04-26 18:35 | NUR ---
CHANGED DRESSING ON PT KNEE. NO EXUDATE NOTED. DRESSING CDI.
[2019-04-27] VITALS (24 sets, daily range): BP systolic 88–124; BP diastolic 56–75
[2019-04-27 05:38] LABS: BASOPHILS 0 % (0-2); EOSINOPHILS 0 % (0-7); HEMOGLOBIN 9.6 g/dL (13.5-17.5); IMMATURE GRANULOCYTES 0.4 % (0-5); LYMPHOCYTES 0.6 % (15-50); MCH 25.9 pg (26.0-34.0); MCV 83.8 fL (80.0-100.0); PLATELET COUNT 55 10x3/uL (130-400); RDW 18.3 % (11.5-14.5); WBC 19.4 10x3/uL (4.8-10.8)
[2019-04-27 06:03] LABS: CALC OSMOLALITY 299 mosm/kg (275-300); CALCIUM 7.3 mg/dL (8.5-10.1); CARBON DIOXIDE 39.7 mmol/L (21.0-32.0); CHLORIDE - SERUM 98 mmol/L (98-107); CREATININE - SERUM 0.8 mg/dL (0.6-1.3); GLUCOSE 262 mg/dL (74-106); MAGNESIUM - SERUM 2.3 mg/dL (1.8-2.4); PHOSPHOROUS 2.6 mg/dL (2.5-4.9); SODIUM 140 mmol/L (136-145); UREA NITROGEN 47 mg/dL (7-18); VANCOMYCIN - RANDOM 15.9 ug/mL (10.0-20.0); eGFR NON AFRICAN AMERICAN > 90 mL/min (90-120)
[2019-04-27 06:06] LABS: POTASSIUM - SERUM 3.5 mmol/L (3.5-5.1)
--- NOTE | 2019-04-27 07:00 | NUR ---
PT REPORT RECEIVED FROM SUBSYSTEMS ENGINEER NURSE. NO VISIBLE SIGNS OF DISTRESS NOTED. PT STILL ON BIPAP. SHIFT ASSESSMENT COMPLETED. WILL CONTINUE TO MONITOR
--- NOTE | 2019-04-27 07:02 | NUR ---
Nutrition follow-up: Pt remains on BIPAP; unable to eat Labs reviewed Will continue current TPN regimen. RDN following
--- NOTE | 2019-04-27 07:45 | NUR ---
PT PUT ON VAPOTHERM 70% 60 LITERS. TOLERATING WELL. WILL CONTINUE TO MONITOR
--- NOTE | 2019-04-27 08:15 | NUR ---
PT DESATTING INTO THE UPPER 80'S. OXYGEN TURNED UP TO 100%. O2 SAT INCREASED TO 94-95%. WILL CONTINUE TO MONITOR
--- NOTE | 2019-04-27 08:49 | OP ---
PATIENT NAME: LAURIE KERNS MEDICAL RECORD: [id number] :[birth year] LOCATION:.[facility] D.2308 ADMISSION DATE:04/05/19 SURGEON: MARLON TIERNEY MD DATE OF OPERATION: 04/25/2019 PREOPERATIVE DIAGNOSES: 1. Bilateral lower lobe pneumonia. 2. Weakness. 3. Ventilatory failure. 4. Lack of significant peripheral IV access. POSTOPERATIVE DIAGNOSES: 1. Bilateral lower lobe pneumonia. 2. Weakness. 3. Ventilatory failure. 4. Lack of significant peripheral IV access. PROCEDURE: Insertion of right internal jugular triple lumen central venous catheter. SURGEON: Marlon Tierney MD CASE MANAGEMENT ASSISTANT: None. BLOOD LOSS: Minimal. ANESTHESIA: Local. The risks, possible complications and alternatives to the procedure were explained to the patient. OPERATIVE COURSE: The patient was seen in his ICU bed. He was positioned in the Trendelenburg position. The right neck was sterilely prepped and draped. A local anesthetic was used to infiltrate the skin and subcutaneous tissues at the base of the right neck. The right internal jugular vein was percutaneously accessed in an antegrade fashion. Guidewire was passed easily. A small skin hiren was accomplished. A vessel dilator was used to dilate a subcutaneous tract. A 16-cm triple lumen central venous catheter was inserted to the hub. It was sutured in place times 3. All lumens flushed easily and aspirated dark, nonpulsatile blood. A stat portable chest x-ray is pending. TRANSINT:[id number] Voice Confirmation ID: [id number] DOCUMENT ID: [id number] MARLON TIERNEY MD at 0849 CC: REKHA DÍAZ MD [id number] DICTATION DATE: 04/25/19 1232 COLOR PASTE MIXER: 04/25/19 1343 ADM IN [facility] [address] [place] [address]
--- NOTE | 2019-04-27 09:00 | NUR ---
PT RESTING IN BED. STILL ON VAPOTHERM. OXYGEN TURNED BACK DOWN TO 80% PT TOLERATING WELL KEEPING O2 SATS IN THE UPPER 90'S. WILL CONTINUE TO MONITOR
--- NOTE | 2019-04-27 11:25 | NUR ---
DR MCNAIR ON PHONE GAVE ORDER TO START LINEZOLID [address] DÍAZ TO ENSURE HE IS OKAY WITH ORDER. REASSESSMENT COMPLETED. WILL CONTINUE TO MONITOR
--- NOTE | 2019-04-27 12:00 | NUR ---
ORDER TO DC VANCOMYCIN RECEIVED FROM DR DÍAZ. DR DÍAZ WAS OKAY WITH ORDER FOR LINEZOLID 600 BID.
--- NOTE | 2019-04-27 13:00 | NUR ---
PT RESTING IN BED. NO VISIBLE SIGNS OF DISTRESS NOTED. STILL ON VAPOTHERM TOLERATING WELL. WILL CONTINUE TO MONITOR
--- NOTE | 2019-04-27 15:00 | NUR ---
PT RESTING IN BED. REFUSED TO TURN. TOLERATING VAPOTHERM WELL. REASSESSMENT COMPLETED WILL CONTINUE TO MONITOR
--- NOTE | 2019-04-27 17:00 | NUR ---
PT RESTING IN BED. PT AROUSES EASILY. NO VISIBLE SIGNS OF DISTRESS NOTED. WILL CONTINUE TO MONITOR
--- NOTE | 2019-04-27 19:40 | NUR ---
RECEIVED CARE OF PT, ASSESSMENT PER FLOWSHEET. BIPAP IN PLACE, 70% FIO2, HR ATRIAL FIB ON CM, POSITIONED FOR COMFORT, DENIES ANY NEEDS, WILL MONITOR.
--- NOTE | 2019-04-27 21:40 | NUR ---
NO VISITORS PRESENT AT THIS TIME. VSS
[2019-04-28] VITALS (14 sets, daily range): BP systolic 90–129; BP diastolic 58–79
--- NOTE | 2019-04-28 | NUR ---
PT FAMILY AT BEDSIDE, PT AGITATED AND PULLING AT BIPAP. PRN ATIVAN 1MG ADMINISTERED VIA SIVP PER MD ORDER.
--- NOTE | 2019-04-28 01:17 | NUR ---
PT RESTING IN NO APPARENT DISTRESS, AND SON GOING TO WAITING ROOM, WILL NOTIFY IF CHANGES OCCUR.
--- NOTE | 2019-04-28 03:50 | NUR ---
PT REQUESTING HIS . NOTIFIED HER OF THIS IN THE WAITING ROOM-STATES SHE IS WAITING ON HER SON AT THIS TIME. PT NOTIFIED OF THIS PER REQUEST, NODS HEAD IN UNDERSTANDING.
[2019-04-28 05:09] LABS: HEMATOCRIT 32.1 % (42.0-54.0); HEMOGLOBIN 10.1 g/dL (13.5-17.5); MCH 26.4 pg (26.0-34.0); MCHC 31.5 g/dL (31.0-37.0); PLATELET COUNT 52 10x3/uL (130-400); RBC 3.82 10x6/uL (4.20-6.10); RDW 18.7 % (11.5-14.5); WBC 21.4 10x3/uL (4.8-10.8)
[2019-04-28 05:10] LABS: BASOPHILS 0 % (0-2); EOSINOPHILS 0 % (0-7); IMMATURE GRANULOCYTES 0.4 % (0-5); LYMPHOCYTES 0.7 % (15-50); MONOCYTES 1.8 % (2-11); NEUTROPHILS 97.1 % (40-80)
--- NOTE | 2019-04-28 05:19 | NUR ---
PT RESTING IN BED WITH EYES CLOSED, VSS, CONT TO MONITOR.
[2019-04-28 05:48] LABS: CALC OSMOLALITY 297 mosm/kg (275-300); CALCIUM 7.5 mg/dL (8.5-10.1); CARBON DIOXIDE 37.1 mmol/L (21.0-32.0); CHLORIDE - SERUM 98 mmol/L (98-107); GLUCOSE 230 mg/dL (74-106); MAGNESIUM - SERUM 2.1 mg/dL (1.8-2.4); PHOSPHOROUS 2.6 mg/dL (2.5-4.9); POTASSIUM - SERUM 4.1 mmol/L (3.5-5.1); SODIUM 139 mmol/L (136-145); UREA NITROGEN 50 mg/dL (7-18); eGFR NON AFRICAN AMERICAN 75 mL/min (90-120)
--- NOTE | 2019-04-28 06:24 | NUR ---
DR DÍAZ CALLED REGARDING PT AND PT FAMILY WISHES FOR PT TO BE COMFORT CARE ONLY, ORDERS RECEIVED.
--- NOTE | 2019-04-28 06:47 | NUR ---
Nutrition follow-up: Chart reviewed TPN @ 40 ml/hr Pt on BIPAP continuous Labs reviewed Will continue current TPN order for now RDN following
--- NOTE | 2019-04-28 07:00 | NUR ---
BEDSIDE REPORT RECEIVED. SHIFT ASSESSMENT COMPLETED PER FLOWSHEET, SEE FLOWSHEET FOR INFORMATION. FAMILY AT BEDSIDE, COMFORT CARE GIVEN. WILL CONT TO MONITOR.
--- NOTE | 2019-04-28 09:00 | NUR ---
COMFORT CARE GIVEN, DID NOT TURN PT PER FAMILY REQUEST. WILL CONT TO MONITOR.
--- NOTE | 2019-04-28 11:00 | NUR ---
REASSESSMENT COMPLETED PER FLOWSHEET, SEE FLOWSHEET FOR INFORMATION. WILL CONT TO MONITOR.
--- NOTE | 2019-04-28 12:19 | NUR ---
PER DR DÍAZ, TRANSFER TO FLOOR AND DC TPN.
--- NOTE | 2019-04-28 12:36 | NUR ---
REPORT CALLED TO [facility] FOR PT TO TRANSFER TO ROOM 2111. WILL CONT TO MONITOR.
--- NOTE | 2019-04-28 12:59 | NUR ---
PER DR DÍAZ, DC ALL MEDS EXCEPT MORPHINE AND ATIVAN. OKAY TO KEEP UPDRAFTS.
--- NOTE | 2019-04-28 13:17 | NUR ---
RECEIVED PATIENT FROM ICU AT THIS TIME. PATIENT NOT RESPONDING TO VERBAL COMMANDS. PATIENT IS ON VAPOTHERM AT 40% AT THIS TIME. PATIENTS FAMILY AT BEDSIDE. CALL LIGHT WITHIN REACH.
--- NOTE | 2019-04-28 13:25 | NUR ---
PT TRANSFERED TO ROOM 2111. CALL LIGHT IN REACH, FAMILY AT BEDSIDE, NURSE AT BEDSIDE.
--- NOTE | 2019-04-28 13:27 | NUR ---
CALL PLACED TO [facility] AT THIS TIME.
--- NOTE | 2019-04-28 13:59 | NUR ---
FAMILY AT BEDSIDE. PATIENT DENIES ANY NEEDS AT THIS TIME.
--- NOTE | 2019-04-28 13:59 | NUR ---
PAPERWORK FAXED OVER TO HOSPICE REQUESTED BY MYRNA HUTTON [facility] AND SHE IS TRYING TO GET A NURSE HERE [facility] AND THANKED THE [facility] FOR THE REFERRAL.
--- NOTE | 2019-04-28 14:33 | NUR ---
KRYSTLE ROMAN, HAS CONTACTED [facility], THE CONTRACTED [facility] PROVIDER FOR [facility]. SHE FAXED FACE SHEET AND MD ORDER. SHABBIR SPOKE WITH AMBROCIO. 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 SHE HAS RECEIVED THE FAXED REFERRAL. TELEPHONE CALL FROM ANOTHER [place] NURSE HAS BEEN TRANSFERED TO THE SON AND WHO ARE AT THE BEDSIDE. REFERRAL PACKET W/ FACE SHEET, MD ORDER, H/P, PULMONARY CONSULT, PROGRESS NOTE FOR 04/28 AND MED LIST HAS BEEN PREPARED FOR ONSITE VISIT. AWAITING CONSULT.
--- NOTE | 2019-04-28 14:56 | NUR ---
PATIENT CHOICE FORM SIGNED BY PATIENT'S AT THE BEDSIDE. ORIGINAL COPY SIGNED TO THE AND SIGNED COPY TO THE PATIENT'S HARD COVER CHART. FAMILY WAS INFORMED THAT [facility] WOULD VISIT WITHIN A HOUR.
--- NOTE | 2019-04-28 16:10 | NUR ---
HOSPICE AT BEDSIDE TO ADMIT PATIENT.
--- NOTE | 2019-04-28 16:20 | NUR ---
MEDICATED WITH ATIVAN FOR RESTLESSNESS AT THIS TIME. NO DISTRESS. FAMILY AT BEDSIDE.
--- NOTE | 2019-04-28 16:20 | NUR ---
FAMILY DECIDED THEY DO NOT WANT HOSPICE AND HOSPICE NURSE LEFT. THEY DID NOT WANT HOSPICE BECAUSE THE PATIENT WOULD BE TAKEN OFF THE OXYGEN MASK AND THE AMOUNT OF OXYGEN WOULD BE DECREASED.
--- NOTE | 2019-04-28 16:31 | NUR ---
FAMILY HAS NOW DECIDED THAT THEY WANT THE PATIENT TO BE KEPT COMFORTABLE AND WANT THE PATIENT TO BE ON HOSPICE AND HAVE CALLED THE HOSPICE NURSE BACK THEMSELVES. WAITING FOR HOSPICE TO ARRICE AGAIN.
--- NOTE | 2019-04-28 17:26 | NUR ---
PATIENT WITH EYES CLOSED, RESP ABOUT ABOUT 10 PER MINUTE. NO FAMILY AT BEDSIDE AT THIS TIME. NO DISTRESS. CALL LIGHT WITHIN REACH.
--- NOTE | 2019-04-30 09:38 | MORECARE ---
CASE MANAGEMENT DISCHARGE SUMMARY PATIENT: LAURIE KERNS UNIT: [id number] ADM DATE: 04/05/19 AGE: 84 : 33 SEX: M ROOM/BED: D.2111 AUTHOR: DAVID,DOC PHYSICIAN: REFERRING PHYSICIAN: REKHA RUBIO MD DATE OF SERVICE: 04/30/19 Discharge Plan Patient Name: LAURIE KERNS Facility: [facility]:[place] : 1935 Planned Disposition: Home with Home Health Anticipated Discharge Date: 04/28/19 Discharge Date: 04/28/2019 Expected LOS: 23 Initial Reviewer: [id number] Initial Review Date: 04/07/2019 Generated: 04/30/19 10:38 am DCP- Discharge Planning Updated by [email or web address]: Corinne Aguirre on 04/23/19 3:[address] CM spoke with son and patient's spouse and they would like a meeting to speak with physician's upon patients plan of care. CM spoke with Dr. Rubio and he will meet with family 04/24/19 @ 2pm. CM will continue to follow and assist as needed with discharge planning / needs. DCP- Discharge Planning Updated by [id number]: Williams Nicole on 04/13/19 12:[address] Patient Name: LAURIE KERNS Encounter No: [id number] : 1935 Primary Insurance: MEDICARE A & B Anticipated DC Date: Planned Disposition: Home with Home Health External Planned Provider: [facility] LATE ENTRY , 1350 HOURS; DCP follow-up note: CM MET WITH PT IN ROOM TO DISCUSS DISCHARGE NEEDS AND PLANNING. CM DISCUSSED AVAILABILITY OF HOME HEALTH, REHAB SERVICES AND MEDICAL EQUIPMENT. PT DENIES DISCHARGE NEEDS OTHER THAN HOME HEALTH RESUMPTION WITH [facility] DAVIS PREVIOUSLY SIGNED. PT HAS NO PROVIDER PEFERENCE FOR OXYGEN AFTER PROVIDER LISTING PROVIDED AND DISCUSSED. JOEY SIGNED FOR NO OXYGEN PROVIDER PREFERENCE. SPOUSE TO TRANSPORT HOME AT DISCHARGE. IMPORTANT MESSAGE FROM MEDICARE PROVIDED AND EXPLAINED. CM TO FOLLOW AND ASSIST NEEDED. PT HAS NO PREFERNECE ON OXYGEN PROVIDER; NEW OXYGEN TESTING WILL BE NEEDED AFTER 04-14-19 (TESTING HAS TO BE WITHIN 48 HOURS OF DISCHARGE) . CM TO ARRANGE HOME AND PORTABLE OXGYEN WITH PHYSICIAN ORDER FOR HOME AND PORTABLE OXYGEN; PT HAS NO CHOICE FOR PROVIDER. Williams Nicole, CASE MANAGEMENT DCP- Discharge Planning Updated by [id number]: Manisha Lock on 04/07/19 2:[address] Patient Name: LAURIE KERNS Admission Status: ER Accout number: [id number] Admission Date: 04-05-2019 : 1935 Admission Diagnosis: Attending: REKHA RUBIO Current LOS: 2 Anticipated DC Date: Planned Disposition: Home Hlth Svc w Plan Readm Primary Insurance: MEDICARE A & B Discharge Planning Comments: CM met with patient at bedside after explaining CM role and obtaining verbal consent. CM discussed availability / needs of home health, REHAB and medical equipment. STATES PLANS TO RESUME HH WITH [facility]. JAYLON SIGNED. I SPOKE WITH HIM ABOUT POSSIBLE O2 NEEDS BUT HE STATES HE DOES NOT WANT OXYGEN AT HOME. A WALK TEST HAS BEEN ORDERED BUT HE MAY REFUSE. HE HAS NEBULIZER AT HOME. HE WANTS TO GO HOME TODAY. CM WILL FOLLOW AND ASSIST NEEDED. Traffic Police Officer: Manisha Lock Coverage Notice Reviewer: [id number] - Manisha Lock Notice Issued Date-Time: 04/07/2019 15:03 Notice Type: Patient Choice Letter Notice Delivered To: Patient Relationship to Patient: Pbx Supervisor Name: Delivery Method: HAND - Hand Delivered Elli Days: Prior Verbal Notification: Recipient Understood Notice: Yes Recipient Signature: Yes Med Rec Note Co-signed by Attending: Coverage Notice Comment: [facility] Reviewer: [id number] Christie Nicole Notice Issued Date-Time: 04/12/2019 13:50 Notice Type: IM Discharge Notice Notice Delivered To: Patient Relationship to Patient: Pbx Supervisor Name: Delivery Method: HAND - Hand Delivered Elli Days: Prior Verbal Notification: Recipient Understood Notice: Yes Recipient Signature: Yes Med Rec Note Co-signed by Attending: Coverage Notice Comment: Reviewer: [email or web address] Christie Nicole Notice Issued Date-Time: 04/12/2019 13:50 Notice Type: Patient Choice Letter Notice Delivered To: Patient Relationship to Patient: Pbx Supervisor Name: Delivery Method: HAND - Hand Delivered Elli Days: Prior Verbal Notification: Recipient Understood Notice: Yes Recipient Signature: Yes Med Rec Note Co-signed by Attending: Coverage Notice Comment: NO OXYGEN PROVIDER PREFERENCE Last DP export: 04/23/19 3:51 Patient Name: LAURIE KERNS Page [phone] at 0938 All edits/amendments must be made on the electronic document DICTATION DATE: 04/30/19936 ATTORNEY AT LAW: CT 04/30/19936 RPT#: [id number] DC DATE:04/28/19 STATUS: DIS IN [facility] [address] [place] [address] END OF REPORT
== END 2019-04-28 20:20 | disposition hospice, inpatient (51) | DRG 190 ==
LOC: D.ER 10:57 → D.ICU 12:53 → D.M2 12:53 → D.ICU 04-18 14:33 → D.M2 04-28 13:24
PROVIDERS: Family Medicine; Internal Medicine Gastroenterology; Internal Medicine Pulmonary Disease; ADMIT Internal Medicine Nephrology; ATTEND Internal Medicine Nephrology
PROC: 0D758ZZ Dilation of Esophagus, Via Natural or Artificial Opening Endoscopic (ICD-10-PCS; principal; 2019-04-16 17:09)
PROC: 05HM33Z Insertion of Infusion Device into Right Internal Jugular Vein, Percutaneous Approach (ICD-10-PCS; 2019-04-25)
DX: J47.0 Bronchiectasis with acute lower respiratory infection (principal); J96.01 Acute respiratory failure with hypoxia; I50.23 Acute on chronic systolic (congestive) heart failure; N17.9 Acute kidney failure, unspecified; B37.81 Candidal esophagitis; R78.81 Bacteremia; J69.0 Pneumonitis due to inhalation of food and vomit; J15.6 Pneumonia due to other Gram-negative bacteria; J15.1 Pneumonia due to Pseudomonas; D64.9 Anemia, unspecified; E03.9 Hypothyroidism, unspecified; Z66 Do not resuscitate; Z79.01 Long term (current) use of anticoagulants; I48.91 Unspecified atrial fibrillation; I95.89 Other hypotension; T46.2X5A Adverse effect of other antidysrhythmic drugs, initial encounter; J98.4 Other disorders of lung; R13.10 Dysphagia, unspecified; K29.70 Gastritis, unspecified, without bleeding; T17.918A Gastric contents in respiratory tract, part unspecified causing other injury, initial encounter; X58.XXXA Exposure to other specified factors, initial encounter; Z86.718 Personal history of other venous thrombosis and embolism; Z86.73 Personal history of transient ischemic attack (TIA), and cerebral infarction without residual deficits; Z86.711 Personal history of pulmonary embolism; Z87.891 Personal history of nicotine dependence; R53.1 Weakness; M19.90 Unspecified osteoarthritis, unspecified site

== ENCOUNTER 2019-04-28 21:44 | Inpatient (IN) | payer OTHER ==
--- NOTE | 2019-04-28 20:00 | NUR ---
PT READMITTED TO [facility]. RR REMAIN BETWEEN 10-12 ON 15L NONREBREATHER. NO S/SX OF DISCOMFORT NOTED. NO AIR HUNGER NOTED. IS AT BEDSIDE. WILL CTM.
[~2019-04-28 21:44] MED LIST changes: +LEVOTHYROXINE112 MCG
[2019-04-29 02:30] VITALS: BP 94/44
--- NOTE | 2019-04-29 07:00 | NUR ---
RECEIVED REPORT. ASSUMED CARE OF PATIENT. CALL LIGHT WITHIN REACH. PATIENT AT BEDSIDE. PATIENT IS NOT RESPONSIVE. NON REBREATHER MASK PATENT. CONTINUOUS MORPHINE DRIP INFUSING. RESP SWALLOW AND ABOUT 8 PER MINUTE. DENIES NEEDS AT THIS TIME.
[2019-04-29 08:19] VITALS: BP 105/54
--- NOTE | 2019-04-29 09:18 | NUR ---
IN PATIENT ROOM TO REPOSITION FOR COMFORT. PATIENT AT BEDSIDE.
--- NOTE | 2019-04-29 09:28 | NUR ---
WENT TO REPOSITION PATIENT AND PATIENT STARTED HAVING INCREASED EPISODES OF APNEA. PATIENT RESP 2 PER MINUTE, HR APPROX 38. PATIENT AT BEDSIDE. AT THIS TIME, HUSSAIN BILL AT BEDSIDE. THIS SHANK SCOURER CALLED HOSPICE NURSE AT 923 TO REQUEST SHE BE ON HER WAY. AT 924 HUSSAIN BILL APPROACHED THE NURSES STATION AND REPORTED THAT THE PATIENT HAD AND INFORMED HIM THAT HOSPICE NURSE IS ON HER WAY.
--- NOTE | 2019-04-29 11:06 | NUR ---
CALLED [facility] AND SPOKE TO FREDDIE AT 1101 AND GAVE HER ALL INFORMATION AND SHE STATED SHE WILL PASS THE INFORMATION TO A COORDINATOR AND A COORDINATOR WILL BE CALLING THIS NURSE BACK.
--- NOTE | 2019-04-29 11:19 | NUR ---
RECEIVED CALL BACK FROM MALENA AT [facility], PATIENT IS NOT A CANDIDATE FOR ORGAN OR TISSUE DONATION DUE TO AGE. REFERENCE NUMBER [id number] WAS PROVIDED BY MALENA.
--- NOTE | 2019-04-29 12:09 | NUR ---
RIGHT IJ, RIGHT FOREARM PERIPHERAL IV, AND CORTES CATHETER REMOVED AT 1145 HOME WILL BE HERE SOON TO RETRIEVE BODY.
--- NOTE | 2019-04-29 12:10 | NUR ---
HOME HERE AT THIS TIME TO RETRIEVE BODY. COPIES OF FACE SHEET, RECORD OF , AND HOSPICE PAPERWORK FOR RECORD OF PROVIDED. NO FAMILY AT BEDSIDE.
--- NOTE | 2019-04-30 09:39 | MORECARE ---
CASE MANAGEMENT DISCHARGE SUMMARY PATIENT: LAURIE KERNS UNIT: [id number] ADM DATE: 04/28/19 AGE: 84 : 33 SEX: M ROOM/BED: D.2111 AUTHOR: SELENA HERNANDEZ PHYSICIAN: REFERRING PHYSICIAN: IZA HOFFMAN MD DATE OF SERVICE: 04/30/19 Discharge Plan Patient Name: LAURIE KERNS [facility] [facility] 1935 Planned Disposition: Anticipated Discharge Date: 04/29/19 Discharge Date: 04/29/2019 Expected LOS: 1 Initial Reviewer: [email or web address] Initial Review Date: 04/30/2019 Generated: 04/30/19 10:39 am Patient Name: LAURIE KERNS Page [phone] at 0939 All edits/amendments must be made on the electronic document DICTATION DATE: 04/30/19938 ASSISTANT DEAN: CT 04/30/19938 RPT#: [id number] DC DATE:04/29/19 STATUS: DIS IN [facility] [address] [place] [address] END OF REPORT
== END 2019-04-29 12:20 | DRG 951 ==
LOC: D.M2 21:44
PROVIDERS: ADMIT Legal Medicine; ATTEND Legal Medicine
DX: Z51.5 Encounter for palliative care (principal)